=== PATIENT | male | born 1950 | race Hispanic/Latino ===

== ENCOUNTER 2018-08-23 13:10 | Emergency (ER) | payer OTHER ==
[2018-08-23 16:07] LABS: Urine Blood NEGATIVE (NEG); Urine Glucose NEGATIVE (NEG); Urine Protein NEGATIVE (NEG); Urine pH 5.5 (5.0-7.0)
--- NOTE | 2018-08-23 17:06 | RAD REPORT ---
EXAM DESCRIPTION: US - Scrotum Testicles - 08/23/2018 4:44 pm CLINICAL HISTORY: Scrotal pain COMPARISON: None. FINDINGS: Punctate calcifications are seen within the testicular tissue. No suspicious testicular ma ss. Small epididymal cysts are present. Largest cyst on the right is 6 mm. A small right-side varicoc brit is present. Large left epididymal cyst 2.4 cm in size. No hernia seen. No hydrocele. Doppler eval uation shows a normal testicular blood flow pattern. IMPRESSION: No testicular abnormality identified. Large left epididymal cyst 2.4 cm in size. Small right epididymal cysts are present largest at 6 mm. Right varicocele.
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
[2018-08-23 18:40] VITALS: BP 114/71; TEMP 98.5; O2SAT 98
== END 2018-08-23 17:50 | disposition home or self-care (01) ==
LOC: ER 13:10
DX: I86.1 Scrotal varices (principal); N50.3 Cyst of epididymis; E11.9 Type 2 diabetes mellitus without complications; I50.9 Heart failure, unspecified; F17.210 Nicotine dependence, cigarettes, uncomplicated
CPT/HCPCS: 76870; 81003; 99283

== ENCOUNTER 2019-01-21 06:50 | Day surgery (SDC) | payer OTHER ==
[2019-01-20 11:54] LABS: Absolute Lymphocytes (CBC) 2.4 K/uL (0.7-4.9); Absolute Monocytes 0.6 K/uL (0.1-1.3); Absolute Neutrophil 4.5 K/uL (1.8-8.0); Eosinophils % 2.3 % (0-4.4); Hematocrit 39.3 % (39.6-49.0); Lymphocytes % 30.7 % (15.3-44.8); MPV 9.7 fL (7.6-11.3); Monocytes % 7.7 % (3.3-12.3)
[2019-01-20 12:01] LABS: Protime INR 1.38
--- NOTE | 2019-01-20 12:05 | RAD REPORT ---
EXAM DESCRIPTION: RAD - Chest Pa And Lat (2 Views) - 01/20/2019 11:50 am CLINICAL HISTORY: Preop chest, pending cardiac catheterization COMPARISON: June 2015, May 2014 TECHNIQUE: PA and lateral views the chest obtained. FINDINGS: The lungs are normal volume. No failure, infiltrate or mass. Interstitial markings are mil dly prominent. Patient does not have a baseline examination. All prior study show some degree of cydney lure or volume overload. Prominence of interstitial pattern on today's study is believed to be baseli ne fibrotic change. Heart size is normal and central vasculature is within normal limits. No pleural effusion or pneumothorax seen. No acute bony finding noted. No aortic abnormality. IMPRESSION: No acute cardiopulmonary process. No suspicious change from comparison.
[2019-01-20 12:15] LABS: Potassium 4.5 mmol/L (3.5-5.1)
[2019-01-21] MEDS ORDERED: HEPA 1000U/500MLS 2,000 UNIT/1,000 ML BAG IV ONE (07:18)
[2019-01-21] MEDS ORDERED: LIDOCAINE 1% MPF 30 ML VIAL ONE (07:18)
[2019-01-21] MEDS ORDERED: NA CHLORIDE 0.9% 500 ML ONE (07:19)
[2019-01-21] MEDS ORDERED: FENTANYL CITR 100 MCG/2 ML ONE (08:17)
[2019-01-21] MEDS ORDERED: MIDAZOLAM HCL 2 MG/2 ML INJ ONE (08:17)
[2019-01-21] MEDS ORDERED: HEPARIN 5000 UNIT/ML 1 ML VIAL ONE (08:17)
[2019-01-21] MEDS ORDERED: NA CHLORIDE 0.9% 0 ML ONE (08:18)
[2019-01-21] MEDS ORDERED: NITROGLYCERIN/D5W 25 MG/250 ML BTL IV ONE (08:18)
[2019-01-21] MEDS ORDERED: NITROGLYCERIN 100 MCG/ML SYR (for cath lab use only) IV ONE (08:18)
[2019-01-21] MEDS ORDERED: ATROPINE SULF 1 MG/10 ML SYR IV ONE (08:18)
[2019-01-21] MEDS ORDERED: NICARDIPINE HCL 25 MG/10 ML IV ONE (08:18)
[2019-01-21] MEDS ORDERED: D50W 25 GM/50 ML SYRINGE IV PRN (09:45)
[2019-01-21] MEDS ORDERED: GLUCAGON 1 MG/VIAL IM PRN (09:45)
[2019-01-21] MEDS ORDERED: INSULIN -REGULAR HUMAN 50 UNIT/0.5 ML ML IV ONE (09:47)
[2019-01-21] MEDS ORDERED: INSULIN -REGULAR HUMAN 50 UNIT/0.5 ML ML ONE (10:06)
[2019-01-21 11:21] VITALS: BP 110/68; TEMP 97.2
[2019-01-21 11:23] VITALS: O2SAT 0
--- NOTE | 2019-01-22 11:41 | OP ---
Surgeon: Mariano Sanchez MD Procedures: Left heart catheterization, coronary, left ventricular angiography. Indication: Abnormal Cardiolite stress test. Depressed ejection fraction. Findings: The patient has normal coronary arteries. No plaque or calcification or mild stenosis. T hey are all completely normal. He has a normal right-dominant pattern. The left ventricular ejectio n fraction is mildly depressed, estimated 45%. Left ventricular end-diastolic pressure was low at 3 or normal. He was hypotensive during the procedure because we gave him nicardipine, but his blood pr essure before the procedure was 110/60, and he is in chronic atrial fibrillation. Procedure In Detail: The patient was brought to the cardiac laboratory supervisor in a fasting state, sedated wit h Versed and fentanyl. Prepared and draped in usual sterile fashion. Right radial approach used. W e anesthetized the skin over the right radial artery, entered it with a 21-gauge needle. Cannulated the artery with a 0.021 inch diameter guidewire and placed a 6-Sud[place] Terumo radial sheath. This was used to do the rest of the procedure. It was flushed. We gave the radial cocktail consisting of ni cardipine, heparin, nitroglycerin. A TIG catheter was guided to the ascending aorta using fluoroscop y and a [employer] Glidewire with a short radius J-tip. We used the TIG to angiogram right coronary, lef t coronary, and left ventricle. At the end of the procedure, the catheter was straightened out with a guidewire, withdrawn. The sheath was flushed, removed, and the arteriotomy was closed using a TR b and. Estimated Blood Loss: 5 cc. Complications: None. JOCELYN/RAI Voice ID: [id number] Report ID: [id number]
== END 2019-01-21 11:10 | disposition home health service (06) ==
LOC: CCL 06:50
PROVIDERS: ATTEND Internal Medicine
DX: R94.39 Abnormal result of other cardiovascular function study (principal); I42.8 Other cardiomyopathies; I48.2 Chronic atrial fibrillation; I20.8 Other forms of angina pectoris; I10 Essential (primary) hypertension; E11.9 Type 2 diabetes mellitus without complications; E78.2 Mixed hyperlipidemia; F17.210 Nicotine dependence, cigarettes, uncomplicated
CPT/HCPCS: 85025; 80048; 36415; 85610; 82962 ×2; 85730; 71046; 93458; C1893; J1644; J2250; J3010; J0583

== ENCOUNTER 2019-03-24 19:02 | Emergency (ER) | payer OTHER ==
[2019-03-24] MEDS ORDERED: ONDANSETRON 4 MG/2 ML VIAL ONE (19:41)
[2019-03-24 19:56] LABS: Absolute Lymphocytes (CBC) 1.5 K/uL (0.7-4.9); Basophils % 3.8 % (0-1.3); Hematocrit 41.2 % (39.6-49.0); Lymphocytes % 18.9 % (15.3-44.8); MPV 9.3 fL (7.6-11.3)
[2019-03-24] MEDS ORDERED: NA CHLORIDE 0.9% 1,000 ML ONE (20:00)
[2019-03-24] MEDS ORDERED: MORPHINE 4 MG/ML SYR ONE (20:06)
[2019-03-24 20:11] LABS: Albumin 3.8 g/dL (3.4-5.0); Bilirubin Direct 0.5 mg/dL (0-0.2); Bilirubin Total 1.2 mg/dL (0.2-1.0); Potassium 4.6 mmol/L (3.5-5.1); Protein, Total 7.8 g/dL (6.4-8.2)
[2019-03-24 20:35] LABS: Blood Morphology Comment NOT SEEN (NOT SEEN); Platelet Estimate ADEQ
[2019-03-24 21:24] LABS: Urine Blood NEGATIVE (NEG); Urine Glucose NEGATIVE (NEG); Urine Protein NEGATIVE (NEG); Urine Specific Gravity 1.015 (1.005-1.030)
[2019-03-24 21:30] LABS: Urine Bacteria <20 /HPF (NONE SEEN); Urine Culture Reflex Order NOT NEEDED; Urine RBC <5 /HPF (NONE SEEN)
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
[2019-03-25 01:29] VITALS: BP 133/70; TEMP 98.5; O2SAT 99
--- NOTE | 2019-03-25 10:22 | RAD REPORT ---
EXAM DESCRIPTION: CT - Abdomen Pelvis W Contrast - 03/25/2019 4:09 am CLINICAL HISTORY: 68 years Male ABD PAIN COMPARISON: None TECHNIQUE: Images were obtained in axial, sagittal, and coronal planes. Intravenous contrast was adm inistered. Arterial and venous phase imaging was performed in the axial projection. This exam was performed according to our departmental dose-optimization program which includes use of Automated Exposure Control, adjustment of the mA and/or kV according to patient size and/or use of i terative reconstruction technique. FINDINGS: Decreased attenuation involving the liver possibly fatty change. Unremarkable spleen, panc reas, and adrenal glands bilaterally. Gallstones versus sludge in region of the neck of gallbladder. Additional suspected gallstones in region of gallbladder fundus. No obstructing renal calcifications bilaterally. No hydronephrosis bilaterally. Unremarkable bladder. Left renal cyst. Postsurgical changes right inguinal region. Calcification abdominal aorta with no dilatation seen. Unremarkable portal vein. Appendix not well identified however no secondary signs for appendicitis. Moderate constipation. No b owel obstruction, perforation, or inflammation. Prior bowel anastomoses mid and left abdomen as well as rectosigmoid region. Midline ventral hernia which contains only mesenteric fat. Dependent atelectatic change lower lungs bilaterally. No acute osseous abnormality. Moderate degenerative change lumbar spine. IMPRESSION: Suspected gallstones and sludge within gallbladder. Multiple prior bowel anastomoses with no evidence for bowel obstruction or perforation. Fatty change involving the liver. Electronically signed by: Yahaira Cole MD 03/24/2019 11:10 PM CDT Due to temporary technical issues with the PACS/Fluency reporting system, reports are being signed by the in house radiologist as a courtesy to ensure prompt reporting. The interpreting radiologist is f ully responsible for the content of the report.
== END 2019-03-25 01:19 | disposition home or self-care (01) ==
LOC: ER 19:02
DX: K80.50 Calculus of bile duct without cholangitis or cholecystitis without obstruction (principal); I50.9 Heart failure, unspecified; I48.91 Unspecified atrial fibrillation; E11.9 Type 2 diabetes mellitus without complications; Z79.4 Long term (current) use of insulin; F17.210 Nicotine dependence, cigarettes, uncomplicated
CPT/HCPCS: 85025; 80048; 36415; 80076; 83690; 74177; Q9967; J7030; J2405; 81003; 81015

== ENCOUNTER 2021-03-14 12:00 | Emergency (ER) | payer OTHER ==
--- OUTSIDE RECORDS SUMMARY | 2021-03-14 12:04 | XMS REPORT | Continuity of Care Document ---
:1950 Author Organization [facility] t Address [address] [place] [address] Care Team Providers Name Role Phone Pcp MD, Arlen Primary Care Physician Unavailable CHRISTIANO COMBS Attending Clinician Unavail able JORGE DE LA CRUZ Admitting Clinician Unavailab le Problems Condition Condition Condition Status Onset Resolution Last Treating Co mments Source Name Details Category Date Date Treatment Clinician Date Abscess of Abscess of Disease Active [facility] Allergies, Adverse Reactions, Alerts This patient has no known allergies or adverse reactions. Family History Family Member Diagnosis Comments Start Date Stop Date Source Natural brother Unremarkable [facility] Natural daughter No Known Problem [facility] Natural father Unremarkable [facility] Natural mother Unremarkable [facility] Natural sister [facility] Natural sister Unremarkable [facility] Social History Social Habit Start Date Stop Date Quantity Comments Source History SDOH [facility] - Alcohol Std Drinks [facility] History SDOH [facility] - Alcohol Binge Medical [facility] Sex Assigned At [facility] History of tobacco Cigarette Smoker [facility] - use [facility] Cigarettes smoked 2019-11-09 2019-11-09 [facility] - current (pack per 00:00:00 00:00:00 Medical Center day) - Reported Cigarette 2019-11-09 2019-11-09 [facility] - pack-years 00:00:00 00:00:00 [facility] Tobacco use and 2019-11-09 2019-11-09 Never used [facility] - exposure 00:00:00 00:00:00 Medical Center Alcohol intake 2019-11-09 2019-11-09 [facility]00 of alcohol [facility] (finding) History SDOH 2019-11-09 2019-11-[address] [facility] - Alcohol Frequency 00:00:00 00:00:00 [facility] Alcohol Comment 2019-11-09 2019-11-09 5-10 beers and [address] [facility] - 00:00:00 00:00:00 shots of liquor a [facility] day Smoking Status Start Date Stop Date Source Current every day smoker 2019-11-09 00:00:00 [facility] Medications Ordered Filled Start Stop Current Ordering Indication Dosage Frequency Signature Comments Components Source Medication Medication Date Date Medication? Clinician (SIG) Name Name furosemide 2019-0 Yes 40mg QD Take 1 [facility] (LASIX) 40 3-20 tablet (40 Nick es - MG tablet 00:00: mg total) Med ical 00 by mouth Center daily. spironolact 2019-0 Yes 25mg QD Take [address] one 3-17 by mouth [facility] - (ALDACTONE) 14:42: daily. Medi eder 25 MG 10 Center tablet lisinopriL 2020-0 Yes 10mg QD Take [address] (PRINIVIL,Z 3-17 by mouth Luke s - ESTRIL) 10 14:42: daily. Medic al MG tablet 10 Center metoprolol 2019-0 Yes 25mg QD Take [address] succinate 3-17 by [facility] - (TOPROL-XL) 14:42: daily. Medi eder 25 MG 24 hr 10 Center tablet rivaroxaban 2020-0 Yes QD Take by [facility] (XARELTO) 3-17 [facility] - 20 mg Tab 14:42: daily . Medic al tablet 10 Center insulin 2020-0 Yes 55U Q.5D Inject 55 [facility] detemir 3-17 Units [facility] - U-100 14:42: subcutaneo Medica l (LEVEMIR 10 usly 2 Center FLEXTOUCH (two) U-100 times INSULN) 100 daily. unit/mL (3 mL) InPn injection HYDROcodone 2019-0 Yes 1{tbl} Q.2D Take [address] -acetaminop 3-17 tablet by Nick es - hen (NORCO 14:42: mouth 5 Medi eder 10-325) 10 (five) Center 10-325 mg times per tablet daily. Procedures This patient has no known procedures. Plan of Care Planned Activity Planned Date Details Comments Source Future Scheduled 2021-04-[address] [facility] - Test 00:00:00 (Season Ended) [code = Medic al Center INFLUENZA VACCINE (Season Ended)] Future Scheduled 2020-08-[address] [facility] - Test 00:00:00 (12+) [code = Medical Center DEPRESSION SCREENING (12+)] Future Scheduled 2020-05-[address] [facility] - Test 00:00:00 measurement [facility] (procedure) [code = 54300072] Future Scheduled 2016-05-[address] [facility] - Test 00:00:00 WELLNESS (YEAR 2 or Medical Center FIRST YEAR if no IPPE) [code = MEDICARE ANNUAL WELLNESS (YEAR 2 or FIRST YEAR if no IPPE)] Future Scheduled 2015 PNEUMOCOCCAL 65+ YRS [facility] - Test 00:00:00 (1 of 1 - Medical Center [id number] PCV13) [code = PNEUMOCOCCAL 65+ YRS (1 of 1 - [id number] PCV13)] Future Scheduled 2000 SHINGLES VACCINES ([address] [facility] - Test 00:00:00 of 2) [code = SHINGLES Medic al Center VACCINES (1 of 2)] Future Scheduled 1969 DTAP/TDAP/TD VACCINES [facility] - Test 00:00:00 (1 - Tdap) [code = Medical C enter DTAP/TDAP/TD VACCINES (1 - Tdap)] Future Scheduled 1968 HEPATITIS C SCREENING [facility] - Test 00:00:00 [code = HEPATITIS C Medical Center SCREENING] Future Scheduled 1962 COVID-19 VACCINE (1) [facility] - Test 00:00:00 [code = COVID-[address] VACCINE (1)] Future Scheduled 1960 DIABETIC EYE EXAM [facility] - Test 00:00:00 [code = DIABETIC EYE Medical Center EXAM] Future Scheduled 1960 Urine screening for [facility] - Test 00:00:00 protein (procedure) Medical Center [code = 272758863] Future Scheduled [address] [facility] - Test 00:00:00 malignant neoplasm of Medica l Center colon (procedure) [code = 293462514] Results Test Description Test Time Test Comments Results Result Comments Source BLOOD CULTURE 2019-11-14 11:00:00 Test Item Value Reference Range Interpretation Comme nts CULTURE (BEAKER) (test code = 1095) No growth in 5 days BLOOD [id number] 11:00:00 Test Item Value Reference Range Interpretation Comments CULTURE (BEAKER) (test No growth in 5 days code = 1095) POCT-GLUCOSE [id number] 12:19:00 Test Item Value Reference Range Interpretation Comments POC-GLUCOSE METER 250 mg/dL 70-110 H : TESTED A T [facility] [id number] (BEAKER) (test code [address] THE, = 1538) [place] [id number] 384: Dental Laboratory Manager/Techni anson ID = [id number] for Garth T y POCT-GLUCOSE [id number] 08:18:00 Test Item Value Reference Range Interpretation Comments POC-GLUCOSE METER 195 mg/dL 70-110 H : TESTED A T [facility] [id number] (BEAKER) (test code [address] THE, = 1538) [place] [id number] 384: Dental Laboratory Manager/Techni anson ID = [id number] for Garth, T y COMPREHENSIVE METABOLIC [id number] 05:40:00 Test Item Value Reference Range Interpretation Comments TOTAL PROTEIN 6.6 gm/dL 6.0-8.5 Specimen sligh tly (BEAKER) (test code = hemoly zed 770) ALBUMIN (BEAKER) 3.2 g/dL 3.5-5.0 L Specimen sl ightly (test code = 1145) hemolyzed ALKALINE PHOSPHATASE 132 U/L 30-115 H (BEAKER) (test code = 346) BILIRUBIN TOTAL 1.4 mg/dL 0.1-1.3 H Specimen sli ghtly (BEAKER) (test code = hemoly zed 377) SODIUM (BEAKER) (test 129 meq/L 135-148 L code = 381) POTASSIUM (BEAKER) 5.3 meq/L 3.5-5.5 Specimen slightly (test code = 379) hemolyzed CHLORIDE (BEAKER) 101 meq/L 98-106 (test code = 382) CO2 (BEAKER) (test 20 meq/L 20-31 code = 355) BLOOD UREA NITROGEN 18 mg/dL 10-26 (BEAKER) (test code = 354) CREATININE (BEAKER) 0.95 mg/dL 0.50-1.20 Specimen slightly (test code = 358) hemolyzed GLUCOSE RANDOM 240 mg/dL 70-110 H (BEAKER) (test code = 652) CALCIUM (BEAKER) 8.3 mg/dL 8.5-10.5 L (test code = 697) AST (SGOT) (BEAKER) 56 U/L 5-40 H Specimen slightly (test code = 353) hemolyzed ALT (SGPT) (BEAKER) 53 U/L 6-50 H Specimen slightly (test code = 347) hemolyzed EGFR (BEAKER) (test INSUFFIC IENT CLINICAL code = 1092) DATA TO CALCULA TE ESTIMATED GFR. Dental Laboratory Manager ID - [id number] 05:24:00 Test Item Value Reference Range Interpretation Comments HEMOGLOBIN A1C (BEAKER) (test code = 8.1 % 4.3-6.1 H 368) Dental Laboratory Manager ID - [id number] 21:31:00 Test Item Value Reference Range Interpretation Comments POC-GLUCOSE METER 300 mg/dL 70-110 H : TESTED A T [facility] [address]74 (BEAKER) (test code [address], = 1538) [place] [id number]: Dental Laboratory Manager/Techni anson ID = [id number] for D javyy, Yadi POCT-GLUCOSE [id number] 16:18:00 Test Item Value Reference Range Interpretation Comments POC-GLUCOSE METER 295 mg/dL 70-110 H : TESTED A T [facility] [id number] (BEAKER) (test code [address], = 1538) [place] [id number] 384: Dental Laboratory Manager/Techni anson ID = [id number] for D milton Marcela POCT-GLUCOSE [id number] 10:52:00 Test Item Value Reference Range Interpretation Comments POC-GLUCOSE METER 233 mg/dL 70-110 H : TESTED A T [facility] [id number] (BEAKER) (test code [facility] [address], = [address] [address]: Dental Laboratory Manager/Techni anson ID = [id number] for Marcela Gtz BASIC METABOLIC [id number] 10:34:00 Test Item Value Reference Range Interpretation Comments SODIUM (BEAKER) (test 127 meq/L 135-148 L code = 381) POTASSIUM (BEAKER) 4.5 meq/L 3.5-5.5 (test code = 379) CHLORIDE (BEAKER) 97 meq/L 98-106 L (test code = 382) CO2 (BEAKER) (test 20 meq/L 20-31 code = 355) BLOOD UREA NITROGEN 13 mg/dL 10-26 (BEAKER) (test code = 354) CREATININE (BEAKER) 0.79 mg/dL 0.50-1.20 (test code = 358) GLUCOSE RANDOM 238 mg/dL 70-110 H (BEAKER) (test code = 652) CALCIUM (BEAKER) 8.6 mg/dL 8.5-10.5 (test code = 697) EGFR (BEAKER) (test INSUFFIC IENT CLINICAL code = 1092) DATA TO CALCULA TE ESTIMATED GFR. Dental Laboratory Manager ID - [id number] METABOLIC [id number] 09:55:00 Test Item Value Reference Range Interpretation Comments TOTAL PROTEIN 8.6 gm/dL 6.0-8.5 H Specimen marke dly (BEAKER) (test code = hemoly zed 770) ALBUMIN (BEAKER) 3.7 g/dL 3.5-5.0 Specimen ma rkedly (test code = 1145) hemolyzed ALKALINE PHOSPHATASE 101 U/L 30-115 (BEAKER) (test code = 346) BILIRUBIN TOTAL 1.6 mg/dL 0.1-1.3 H Specimen mar kedly (BEAKER) (test code = hemoly zed 377) SODIUM (BEAKER) (test 125 meq/L 135-148 LL code = 381) POTASSIUM (BEAKER) 7.0 meq/L 3.5-5.5 HH Specimen markedly (test code = 379) hemolyzed CHLORIDE (BEAKER) 96 meq/L 98-106 L (test code = 382) CO2 (BEAKER) (test 15 meq/L 20-31 L code = 355) BLOOD UREA NITROGEN 14 mg/dL 10-26 (BEAKER) (test code = 354) CREATININE (BEAKER) 0.94 mg/dL 0.50-1.20 Specimen markedly (test code = 358) hemolyzed GLUCOSE RANDOM 233 mg/dL 70-110 H (BEAKER) (test code = 652) CALCIUM (BEAKER) 8.3 mg/dL 8.5-10.5 L (test code = 697) AST (SGOT) (BEAKER) 115 U/L 5-40 H Specimen markedly (test code = 353) hemolyzed ALT (SGPT) (BEAKER) 67 U/L 6-50 H Specimen markedly (test code = 347) hemolyzed EGFR (BEAKER) (test INSUFFIC IENT CLINICAL code = 1092) DATA TO CALCULA TE ESTIMATED GFR. Dental Laboratory Manager ID - [id number] slightly lipemicCBC W/PLT COUNT & AUTO [id number] 09:44:00 Test Item Value Reference Range Interpretation Comments WHITE BLOOD CELL COUNT (BEAKER) 11.9 K/ L 4.0-10.0 H (test code = 775) RED BLOOD CELL COUNT (BEAKER) 3.30 M/ L 4.20-5.80 L (test code = 761) HEMOGLOBIN (BEAKER) (test code = 11.6 GM/DL 13.0-16.8 L 410) HEMATOCRIT (BEAKER) (test code = 33.7 % 36.0-50.0 L 411) MEAN CORPUSCULAR VOLUME (BEAKER) 102.1 fL 82.0-99.0 H (test code = 753) MEAN CORPUSCULAR HEMOGLOBIN 35.2 pg 27.0-33.0 H (BEAKER) (test code = 751) MEAN CORPUSCULAR HEMOGLOBIN CONC 34.4 GM/DL 32.0-36.0 (BEAKER) (test code = 752) RED CELL DISTRIBUTION WIDTH 12.8 % 12.0-15.0 (BEAKER) (test code = 412) PLATELET COUNT (BEAKER) (test 160 K/CU MM 150-430 code = 756) MEAN PLATELET VOLUME (BEAKER) 12.1 fL 6.0-11.5 H (test code = 754) NUCLEATED RED BLOOD CELLS 0 /100 WBC 0-0 (BEAKER) (test code = 413) NEUTROPHILS RELATIVE PERCENT 66 % (BEAKER) (test code = 429) LYMPHOCYTES RELATIVE PERCENT 22 % (BEAKER) (test code = 430) MONOCYTES RELATIVE PERCENT 10 % (BEAKER) (test code = 431) EOSINOPHILS RELATIVE PERCENT 2 % (BEAKER) (test code = 432) BASOPHILS RELATIVE PERCENT 0 % (BEAKER) (test code = 437) NEUTROPHILS ABSOLUTE COUNT 7.87 K/ L 1.80-8.00 (BEAKER) (test code = 670) LYMPHOCYTES ABSOLUTE COUNT 2.57 K/ L 1.48-4.50 (BEAKER) (test code = 414) MONOCYTES ABSOLUTE COUNT (BEAKER) 1.14 K/ L 0.00-1.30 (test code = 415) EOSINOPHILS ABSOLUTE COUNT 0.20 K/ L 0.00-0.50 (BEAKER) (test code = 416) BASOPHILS ABSOLUTE COUNT (BEAKER) 0.05 K/ L 0.00-0.20 (test code = 417) IMMATURE GRANULOCYTES-RELATIVE 0 % 0-0 PERCENT (BEAKER) (test code = 5194)
[2021-03-14 13:08] LABS: Urine Blood Negative (Negative); Urine Glucose 3+ (Negative); Urine Protein 2+ (Negative); Urine Specific Gravity 1.025 (1.005-1.030); Urine pH 5.5 (5.0-7.0)
[2021-03-14 13:12] LABS: Absolute Lymphocytes (CBC) 1.8 K/uL (0.7-4.9); Basophils % 0.6 % (0-1.3); Hematocrit 36.8 % (39.6-49.0); Lymphocytes % 28.9 % (15.3-44.8); MPV 8.6 fL (7.6-11.3); RBC Red Blood Cell Count 3.65 M/uL (4.33-5.43)
[2021-03-14] MEDS ORDERED: MORPHINE 4 MG/ML SYR ONE (13:21)
[2021-03-14] MEDS ORDERED: ONDANSETRON 4 MG/2 ML VIAL ONE (13:21)
[2021-03-14 13:37] LABS: Albumin 3.2 g/dL (3.4-5.0); Bilirubin Direct 0.3 mg/dL (0-0.2); Potassium 4.7 mmol/L (3.5-5.1); Protein, Total 7.6 g/dL (6.4-8.2)
--- NOTE | 2021-03-14 14:13 | RAD REPORT ---
EXAM DESCRIPTION: CT - Abdomen Pelvis W Contrast - 03/14/2021 1:50 pm CLINICAL HISTORY: Abdominal pain/flank pain COMPARISON: 2019 TECHNIQUE: Computed axial tomography of the abdomen pelvis was obtained. 100 cc Isovue-300 was admin istered intravenously. Oral contrast was not requested which limits evaluation of bowel. All CT scans are performed using dose optimization technique as appropriate and may include automated exposure control or mA/KV adjustment according to patient size. FINDINGS: Mild fatty liver. Spleen, pancreas and adrenals are unremarkable. Small renal cysts. No hydronephrosis. Gallbladder distention. Gallstones. Focal thickening of wall of the gallbladder fundus without signif icant change. There is no evidence of diverticulitis. Postsurgical changes involve the bowel. Postsurgical changes right inguinal hernia repair. Prostate gland mildly enlarged. Atherosclerotic disease. Ventral hernia within the abdomen to the left of midline. The neck measures 17 millimeters. Herniated sac 58 millimeters. IMPRESSION: Gallbladder distention with cholelithiasis
[2021-03-14 14:44] LABS: Urine Bacteria <20 /HPF (NONE SEEN); Urine RBC <5 /HPF (NONE SEEN)
--- NOTE | 2021-03-14 16:09 | ER ---
Nurse's Notes [facility] Name: Deonte Armstrong Age: 70 yrs Sex: Male : 1950 Arrival Date: 03/14/2021 Time: 12:06 Bed 13 Private MD: Diagnosis: Low back pain;Muscle spasm of back;Dehydration Presentation: 03/14 12:15 Chief complaint: Patient states: R sided inguinal pain and nausea x approx 3 days, also ph reports vomiting, denies fever, diarrhea, or difficulty urinating. Coronavirus screen: Client denies travel out of the [place] in the last 14 days. At this time, the client does not indicate any symptoms associated with coronavirus-19. Ebola Screen: No symptoms or risks identified at this time. Initial Sepsis Screen: Does the patient meet any 2 criteria? No. Patient's initial sepsis screen is negative. Does the patient have a suspected source of infection? No. Patient's initial sepsis screen is negative. Risk Assessment: Do you want to hurt yourself or someone else? Patient reports no desire to harm self or others. Onset of symptoms was March 14, 2021. 12:15 Method Of Arrival: Ambulatory ph 12:15 Acuity: KAR[place] 3 ph Historical: - Allergies: 12:18 No Known Allergies; ph - Home Meds: 12:18 insulin [Active]; Lasix Oral [Active]; Xarelto Oral [Active]; ph - PMHx: 12:18 Atrial Fib; CHF; Diabetes - IDDM; ph - Immunization history:: Client reports having NOT received the Covid vaccine. - Social history:: Smoking status: Patient reports the use of cigarette tobacco products, smokes one-half pack cigarettes per day. Screenin:27 Abuse screen: Denies threats or abuse. Nutritional screening: No deficits noted. tw2 Tuberculosis screening: No symptoms or risk factors identified. Fall Risk Secondary diagnosis (15 points) impaired mobility. Assessment: 12:20 General: Appears in no apparent distress. well groomed, Behavior is calm, cooperative, tw2 appropriate for age. Pain: Complains of pain in right upper quadrant and right lower quadrant. Neuro: Level of Consciousness is awake, alert, obeys commands, Oriented to person, place, time, situation. Cardiovascular: Patient's skin is warm and dry. Respiratory: Airway is patent Respiratory effort is even, unlabored, Respiratory pattern is regular, symmetrical. GI: Reports lower abdominal pain, upper abdominal pain, nausea. : No signs and/or symptoms were reported regarding the genitourinary system. EENT: No signs and/or symptoms were reported regarding the EENT system. Derm: No signs and/or symptoms reported regarding the dermatologic system. Musculoskeletal: Range of motion: intact in all extremities. 13:30 Reassessment: Pt to CT . aa5 14:12 Reassessment: Patient appears in no apparent distress at this time. No changes from tw2 previously documented assessment. Patient and/or family updated on plan of care and expected duration. Pain level reassessed. Patient is alert, oriented x 3, equal unlabored respirations, skin warm/dry/pink. 15:25 Reassessment: Patient appears in no apparent distress at this time. No changes from tw2 previously documented assessment. Patient and/or family updated on plan of care and expected duration. Pain level reassessed. Patient is alert, oriented x 3, equal unlabored respirations, skin warm/dry/pink. 16:09 Reassessment: Patient appears in no apparent distress at this time. No changes from tw2 previously documented assessment. Patient and/or family updated on plan of care and expected duration. Pain level reassessed. Patient is alert, oriented x 3, equal unlabored respirations, skin warm/dry/pink. 16:27 Reassessment: provider at bedside at this time. tw2 16:42 Reassessment: No changes from previously documented assessment. Patient and/or family tw2 updated on plan of care and expected duration. Pain level reassessed. Patient is alert/active/playful, equal unlabored respirations, skin warm/dry/pink. Vital Signs: 12:15 BP 116 / 79; Pulse 98; Resp 18; Temp 97.0; Pulse Ox 99% on R/A; Weight 81.65 kg; Height ph 5 ft. 10 in. (177.80 cm); 14:12 BP 124 / 91; Pulse 99; Resp 17; Pulse Ox 100% ; tw2 15:25 BP 137 / 95; Pulse 97; Resp 17; Pulse Ox 99% on R/A; tw2 16:09 BP 125 / 87; Pulse 94; Resp 17; Pulse Ox 98% on R/A; tw2 12:15 Body Mass Index 25.83 (81.65 kg, 177.80 cm) ph ED Course: 12:06 Patient arrived in ED. am2 12:18 Triage completed. ph 12:19 Mychal Bazan NP is PHCP. pm1 12:19 Jermaine Ray MD is Attending Physician. pm1 12:19 Arm band placed on Patient placed in an exam room. ph 12:20 Bed in low position. Call light in reach. quality assurance monitor on. Pulse ox on. NIBP on. tw2 Warm blanket given. 12:49 Anna Aldridge RN is Primary Nurse. tw2 13:09 Urine Microscopic Only Sent. tw2 13:19 Missed attempt(s): 22 gauge in left forearm. Bleeding controlled, band aid applied, tw2 catheter tip intact. Missed attempt(s): 20 gauge in right antecubital area. blood collected per [employer] Medical TechnologiesJared, notified charge nurse LISA Harper of need for IV at this time.. Bleeding controlled, band aid applied, catheter tip intact. 13:25 Inserted saline lock: 24 gauge in right wrist, using aseptic technique. ,using aseptic aa5 technique. Diffusics IV used. 13:50 CT Abd/Pelvis - IV Contrast Only In Process Unspecified. EDMS 16:13 Awaiting: for provider to go over results with pt at this time PRIOR to discharge. tw2 16:42 No provider procedures requiring assistance completed. IV discontinued, intact, tw2 bleeding controlled, No redness/swelling at site. Pressure dressing applied. Administered Medications: 13:56 Drug: Zofran (Ondansetron) 4 mg Route: IVP; Site: left hand; tw2 14:26 Follow up: Response: No adverse reaction tw2 13:58 Drug: morphine 4 mg {Note: rass 0.} Route: IVP; Site: right hand; tw2 14:26 Follow up: Response: No adverse reaction; Pain is decreased; RASS: Alert and Calm (0) tw2 Outcome: 16:08 Discharge ordered by . pm1 16:42 Discharged to home ambulatory. tw2 16:42 Condition: stable 16:42 Discharge instructions given to patient, Instructed on discharge instructions, follow up and referral plans. medication usage, Demonstrated understanding of instructions, follow-up care, medications, Prescriptions given X 1. 16:43 Patient left the ED. tw2 Signatures: Dispatcher [employer] Meredith Bradshaw RN RN aa5 Mila Avila, RN RN ph Mychal Bazan, ROD MILL TENDER ROD MILL TENDER pm1 Anna Aldridge RN RN tw2 Krista Pratt am2
--- NOTE | 2021-03-14 16:09 | EDPHYS ---
Physician Documentation [facility] Name: Deonte Armstrong Age: 70 yrs Sex: Male : 1950 Arrival Date: 03/14/2021 Time: 12:06 Bed 13 Private MD: ED Physician Jermaine Ray HPI: 03/14 12:47 This 70 yrs old Male presents to ER via Ambulatory with complaints of Back pm1 Pain, Nausea. 12:47 The patient presents with pain that is acute. The symptoms are located in the left low pm1 back and left groin. Onset: The symptoms/episode began/occurred 3 day(s) ago. The pain does not radiate. Associated signs and symptoms: Pertinent positives: nausea and vomiting when pain is present. The problem was sustained possibly overexerted himself with exercise and reports recent injection to lower back for chronic pain and neuropathy by pain management. Modifying factors: The patient symptoms are alleviated by nothing, the patient symptoms are aggravated by movement. Severity of symptoms: in the emergency department the symptoms are unchanged. The patient has not experienced similar symptoms in the past. Historical: - Allergies: 12:18 No Known Allergies; ph - Home Meds: 12:18 insulin [Active]; Lasix Oral [Active]; Xarelto Oral [Active]; ph - PMHx: 12:18 Atrial Fib; CHF; Diabetes - IDDM; ph - Immunization history:: Client reports having NOT received the Covid vaccine. - Social history:: Smoking status: Patient reports the use of cigarette tobacco products, smokes one-half pack cigarettes per day. ROS: 12:47 Constitutional: Negative for fever, chills, and weight loss, Cardiovascular: Negative pm1 for chest pain, palpitations, and edema, Respiratory: Negative for shortness of breath, cough, wheezing, and pleuritic chest pain. 12:47 : Negative for injury, bleeding, discharge, and swelling, MS/Extremity: Negative for injury and deformity, Skin: Negative for injury, rash, and discoloration. 12:47 Neuro: Negative for headache, weakness, numbness, tingling, and seizure. 12:47 Abdomen/GI: Positive for nausea, vomiting, Negative for abdominal pain, diarrhea, constipation. 12:47 Back: Positive for pain with movement, of the left low back, pain. 12:47 All other systems are negative. Exam: 12:47 Constitutional: This is a well developed, well nourished patient who is awake, alert, pm1 and in no acute distress. Head/Face: Normocephalic, atraumatic. 12:47 Neck: Trachea midline, no thyromegaly or masses palpated, and no cervical lymphadenopathy. Supple, full range of motion without nuchal rigidity, or vertebral point tenderness. No Meningismus. Chest/axilla: Normal chest wall appearance and motion. Nontender with no deformity. No lesions are appreciated. 12:47 Skin: Warm, dry with normal turgor. Normal color with no rashes, no lesions, and no evidence of cellulitis. MS/ Extremity: Pulses equal, no cyanosis. Neurovascular intact. Full, normal range of motion. 12:47 Eyes: Exam is negative for acute changes, Extraocular movements: intact throughout, Conjunctiva: no acute changes, no injection. 12:47 ENT: Exam is negative for acute changes, Mouth: Lips: normal, moist, Oral mucosa: normal, pink and intact, moist. 12:47 Cardiovascular: Rate: normal, Rhythm: regular, Pulses: no pulse deficits are appreciated. 12:47 Respiratory: Exam negative for acute changes, respiratory distress, shortness of breath. 12:47 Abdomen/GI: Inspection: abdomen appears normal, Palpation: abdomen is soft and non-tender, in all quadrants. 12:47 Back: normal spinal alignment noted, vertebral tenderness, is not appreciated, muscle spasm, is appreciated in the left low back. 12:47 Neuro: Exam negative for acute changes, Orientation: is normal, Motor: is normal, moves all fours, Sensation: is normal, no obvious gross deficits. Vital Signs: 12:15 BP 116 / 79; Pulse 98; Resp 18; Temp 97.0; Pulse Ox 99% on R/A; Weight 81.65 kg; Height ph 5 ft. 10 in. (177.80 cm); 14:12 BP 124 / 91; Pulse 99; Resp 17; Pulse Ox 100% ; tw2 15:25 BP 137 / 95; Pulse 97; Resp 17; Pulse Ox 99% on R/A; tw2 16:09 BP 125 / 87; Pulse 94; Resp 17; Pulse Ox 98% on R/A; tw2 12:15 Body Mass Index 25.83 (81.65 kg, 177.80 cm) ph MDM: 12:45 Patient medically screened. pm1 16:04 Data reviewed: vital signs. Data interpreted: Pulse oximetry: on room air is 99 %. pm1 Interpretation: normal. 16:05 Counseling: I had a detailed discussion with the patient and/or guardian regarding: the pm1 historical points, exam findings, and any diagnostic results supporting the discharge/admit diagnosis, lab results, radiology results, the need for outpatient follow up, to return to the emergency department if symptoms worsen or persist or if there are any questions or concerns that arise at home. 16:36 ED course: Patient refused muscle relaxants. he actually is prescribed that from pain pm1 management but does not fill them. He does take hydrocodone for chronic pain, low back and neuropathy. 16:36 Special discussion: I discussed with the patient the need to follow-up with the pm1 PCP/specialist for the noted incidental finding on X-ray/CT scanning. cholelithiasis. 03/14 12:41 Order name: Basic Metabolic Panel; Complete Time: 15:15 pm1 03/14 12:41 Order name: CBC with Diff; Complete Time: 15:15 pm1 03/14 12:41 Order name: Hepatic Function; Complete Time: 15:15 pm1 03/14 12:41 Order name: Lipase; Complete Time: 15:15 pm1 03/14 12:41 Order name: Urine Microscopic Only; Complete Time: 15:15 pm1 03/14 12:48 Order name: Flu; Complete Time: 15:15 pm1 03/14 12:41 Order name: IV Saline Lock; Complete Time: 14:26 pm1 03/14 12:47 Order name: CT Abd/Pelvis - IV Contrast Only; Complete Time: 15:15 pm1 03/14 13:08 Order name: Urine Dipstick-Ancillary; Complete Time: 15:15 EDMS 03/14 14:16 Order name: SARS-COV-2 RT PCR; Complete Time: 15:15 EDMS 03/14 14:25 Order name: CREATININE WHOLE BLOOD; Complete Time: 15:15 EDMS 03/14 12:41 Order name: Labs collected and sent; Complete Time: 13:09 pm1 03/14 12:41 Order name: Urine Dipstick-Ancillary (obtain specimen); Complete Time: 13:09 pm1 Administered Medications: 13:56 Drug: Zofran (Ondansetron) 4 mg Route: IVP; Site: left hand; tw2 14:26 Follow up: Response: No adverse reaction tw2 13:58 Drug: morphine 4 mg {Note: rass 0.} Route: IVP; Site: right hand; tw2 14:26 Follow up: Response: No adverse reaction; Pain is decreased; RASS: Alert and Calm (0) tw2 Disposition: 03/15 07:07 Co-signature as Attending Physician, Jermaine Ray MD I agree with the assessment and kdr plan of care. Disposition Summary: 03/14/21 16:08 Discharge Ordered Location: Home pm1 Problem: new pm1 Symptoms: have improved pm1 Condition: Stable pm1 Diagnosis - Low back pain pm1 - Muscle spasm of back pm1 - Dehydration pm1 Followup: pm1 - With: Emergency Department - When: As needed - Reason: Worsening of condition Followup: pm1 - With: Private Physician - When: 2 - 3 days - Reason: Recheck today's complaints, Continuance of care, Re-evaluation by your physician Discharge Instructions: - Discharge Summary Sheet pm1 - Chronic Back Pain pm1 - Muscle Cramps and Spasms pm1 Forms: - Medication Reconciliation Form pm1 - Thank You Letter pm1 - Antibiotic Education pm1 - Prescription Opioid Use pm1 Prescriptions: - ondansetron 4 mg Oral tablet,disintegrating - take 1 tablet by ORAL route every 8 hours As needed; 20 tablet; Refills: 0, pm1 Product Selection Permitted Signatures: Dispatcher [employer] EDMS Jermaine Ray MD MD [facility] Mila Avila RN RN Mychal Bazan NP MIXER OPERATOR pm1 Anna Aldridge RN RN tw2 Corrections: (The following items were deleted from the chart) 03/14 13:21 12:48 CORONAVIRUS+MR.LAB.BRZ ordered. EDMS EDMS
[2021-03-14 17:44] VITALS: TEMP 97
[2021-03-14 17:50] VITALS: BP 125/87; O2SAT 98
== END 2021-03-14 16:43 | disposition home or self-care (01) ==
LOC: ER 12:00
DX: M62.830 Muscle spasm of back (principal); E86.0 Dehydration; E11.9 Type 2 diabetes mellitus without complications; I48.91 Unspecified atrial fibrillation; F17.210 Nicotine dependence, cigarettes, uncomplicated; Z79.4 Long term (current) use of insulin; Z79.01 Long term (current) use of anticoagulants; Z20.822 Contact with and (suspected) exposure to COVID-19
CPT/HCPCS: 85025; 80048; 36415; 82565; 80076; 83690; 87804 ×2; 74177; U0003; Q9967; J2405; 81003; 81015; 99284

== ENCOUNTER 2021-03-31 11:03 | Emergency (ER) | payer OTHER ==
--- OUTSIDE RECORDS SUMMARY | 2021-03-31 11:06 | XMS REPORT | Continuity of Care Document ---
:1950 Author Organization [facility] t Address [address] [place] [address] Care Team Providers Name Role Phone Pcp [...] Date Stop Date Source Natural brother Unremarkable [facility] Natural daughter No Known Problem [facility] Natural father Unremarkable [facility] Natural mother Unremarkable [facility] Natural sister Cancer [facility] Natural sister Unremarkable [facility] Social History Social Habit Start Date Stop Date Quantity Comments Source History SDOH [facility] - Alcohol Std Drinks [facility] History SDOH [facility] kes - Alcohol Binge [facility] Sex Assigned At [facility] History of tobacco Cigarette Smoker [facility] - use [facility] Cigarettes smoked 2019-11-09 2019-11-09 [facility] - current (pack per 00:00:00 00:00:00 Medical Center day) - Reported Cigarette 2019-11-09 2019-11-09 [facility] - pack-years 00:00:00 00:00:00 [facility] Tobacco use and 2019-11-09 2019-11-09 Never used [facility] - exposure 00:00:00 00:00:00 Medical Center Alcohol intake 2019-11-09 2019-11-09 Current drinker [facility] - 00:00:00 00:00:00 of alcohol [facility] Center (finding) History SDOH 2019-11-09 2019-11-[address] [facility] - Alcohol Frequency 00:00:00 00:00:00 [facility] Alcohol Comment 2019-11-09 2019-11-09 5-10 beers and [address] [facility] - 00:00:00 00:00:00 shots of liquor a Medical Center day Smoking Status Start Date Stop Date Source Current every day smoker 2019-11-09 00:00:00 [facility] Medications Ordered Filled Start Stop Current Ordering [...] [facility] - Test 00:00:00 measurement [facility] Center (procedure) [code = 43254971] Future Scheduled 2016-05-[address] [facility] - Test 00:00:00 WELLNESS (YEAR 2 or Medical Center FIRST YEAR if no IPPE) [code = MEDICARE ANNUAL WELLNESS (YEAR 2 or FIRST YEAR if no IPPE)] Future Scheduled 2015 PNEUMOCOCCAL 65+ YRS [facility] - Test 00:00:00 (1 of 1 - Medical Center [id number] PCV13) [code = PNEUMOCOCCAL 65+ YRS (1 of 1 - [id number] PCV13)] Future Scheduled 2000 SHINGLES VACCINES (1 [...] 00:00:00 protein (procedure) Medical Center [code = 542823997] Future Scheduled [address] [facility] - Test 00:00:00 malignant neoplasm of [facility] Center colon (procedure) [code = 786414178] Results Test Description Test Time Test Comments Results Result Comments Source BLOOD CULTURE 2019-11-14 11:00:00 Test Item Value Reference Range Interpretation Comme nts CULTURE (BEAKER) (test code = 1095) No growth in 5 days BLOOD [id number] 11:00:00 Test Item Value Reference Range Interpretation Comments CULTURE (BEAKER) (test No growth in 5 days code = 1095) POCT-GLUCOSE [id number] 12:19:00 Test Item Value Reference Range Interpretation Comments POC-GLUCOSE METER 250 mg/dL 70-110 H : TESTED A T [facility] [address] (BEAKER) (test code [address], = 1538) [place] [address] 384: Imager/Techni anson ID = [id number] for Garth T y POCT-GLUCOSE [id number] 08:18:00 Test Item Value Reference Range Interpretation Comments POC-GLUCOSE METER 195 mg/dL 70-110 H : TESTED A T [facility] [address] (BEAKER) (test code [address], = 1538) [place] [address] 384: Imager/Techni anson ID = [id number] for Garth, T y COMPREHENSIVE METABOLIC [id number] 05:40:00 Test Item Value Reference Range Interpretation [...] 1092) DATA TO CALCULA TE ESTIMATED GFR. Imager ID - [id number] 05:24:00 Test Item Value Reference Range Interpretation Comments HEMOGLOBIN A1C (BEAKER) (test code = 8.1 % 4.3-6.1 H 368) Imager ID - [id number] 21:31:00 Test Item Value Reference Range Interpretation Comments POC-GLUCOSE METER 300 mg/dL 70-110 H : TESTED A T [facility] [address]807 (BEAKER) (test code [facility] [employer] [address] THE, = 1538) [place] [address] 384: Imager/Techni anson ID = [id number] for D javyy, Yadi POCT-GLUCOSE [id number] 16:18:00 Test Item Value Reference Range Interpretation Comments POC-GLUCOSE METER 295 mg/dL 70-110 H : TESTED A T [facility] [address] (BEAKER) (test code [facility] [employer] [address] THE, = 1538) [place] [address] 384: Imager/Techni anson ID = [id number] for D milton Marcela POCT-GLUCOSE [id number] 10:52:00 Test Item Value Reference Range Interpretation Comments POC-GLUCOSE METER 233 mg/dL 70-110 H : TESTED A T [facility] [address] (BEAKER) (test code [facility] [address] [facility], = [address] [address] 384: Imager/Techni anson ID = [id number] for Marcela Gtz BASIC METABOLIC [id number] 10:34:00 Test Item Value Reference Range Interpretation [...] 1092) DATA TO CALCULA TE ESTIMATED GFR. Imager ID - [id number] METABOLIC [id number] 09:55:00 Test Item Value Reference Range Interpretation [...] 1092) DATA TO CALCULA TE ESTIMATED GFR. Imager ID - [id number] slightly lipemicCBC W/PLT COUNT & AUTO [id number] 09:44:00 Test Item Value Reference Range Interpretation [...] % 0-0 PERCENT (BEAKER) (test code = 7861)
[2021-03-31 12:05] LABS: Urine Blood Negative (Negative); Urine Glucose 1+ (Negative); Urine Protein 1+ (Negative); Urine Specific Gravity 1.015 (1.005-1.030)
--- NOTE | 2021-03-31 14:34 | RAD REPORT ---
EXAM DESCRIPTION: RAD - Hip Left 2 View - 03/31/2021 2:23 pm CLINICAL HISTORY: PAIN COMPARISON: No comparisons FINDINGS: Mild arthritic changes involve the left hip. No fracture, dislocation or AVN pattern.
--- NOTE | 2021-03-31 15:59 | EDPHYS ---
Physician Documentation [facility] Name: Deonte Armstrong Age: 70 yrs Sex: Male : 1950 Arrival Date: 03/31/2021 Time: 11:04 Bed Waiting Private MD: ED Physician Jermaine Ray HPI: 03/31 12:49 This 70 yrs old Male presents to ER via Ambulatory with complaints of Left hip jr8 pain. 12:49 Patient presents to ER with complaint of left hip and left lower quadrant pain that has jr8 been present for 4 weeks with no improvement or relief from prescribed pain medications. Patient also reports palpitations for one day.. Historical: - Allergies: 11:31 No Known Allergies; kg - Home Meds: 11:31 lisinopril 10 mg Oral tab 1 tab once daily [Active]; metoprolol tartrate 100 mg Oral kg tab 1 tab once daily [Active]; tizanidine 4 mg oral cap 1 cap 3 times per day [Active]; Xarelto 20 mg oral tab 1 tab once daily [Active]; [place] 10-325 mg Oral tab every 4-6 hours [Active]; furosemide 40 mg Oral tab 1 tab once daily [Active]; spironolactone 25 mg Oral tab 1 tab once daily [Active]; meloxicam 15 mg oral tab 1 tab [Active]; 11:34 Levemir FlexTouch U-100 Insuln 100 unit/mL (3 mL) subcutaneous inpn [Active]; kg - PMHx: 11:31 Atrial Fib; CHF; Diabetes - IDDM; kg - PSHx: 11:31 hernia repair; kg - Immunization history:: Adult Immunizations not up to date, Client reports having NOT received the Covid vaccine. - Social history:: Smoking status: Patient reports the use of cigarette tobacco products, smokes one pack cigarettes per day. Patient uses alcohol, on a daily basis. ROS: 12:49 Eyes: Negative for injury, pain, redness, and discharge, ENT: Negative for injury, jr8 pain, and discharge, Neck: Negative for injury, pain, and swelling, Respiratory: Negative for shortness of breath, cough, wheezing, and pleuritic chest pain, Abdomen/GI: Negative for abdominal pain, nausea, vomiting, diarrhea, and constipation, Back: Negative for injury and pain, Skin: Negative for injury, rash, and discoloration, Neuro: Negative for headache, weakness, numbness, tingling, and seizure. 12:49 Cardiovascular: Positive for palpitations, Negative for chest pain, edema, orthopnea. 12:49 MS/extremity: Positive for pain, of the left hip. Exam: 12:49 Constitutional: This is a well developed, well nourished patient who is awake, alert, jr8 and in no acute distress. Neck: Trachea midline, no thyromegaly or masses palpated, and no cervical lymphadenopathy. Supple, full range of motion without nuchal rigidity, or vertebral point tenderness. No Meningismus. Cardiovascular: Regular rate and rhythm with a normal S1 and S2. No gallops, murmurs, or rubs. Normal PMI, no JVD. No pulse deficits. Respiratory: Lungs have equal breath sounds bilaterally, clear to auscultation and percussion. No rales, rhonchi or wheezes noted. No increased work of breathing, no retractions or nasal flaring. Abdomen/GI: Soft, non-tender, with normal bowel sounds. No distension or tympany. No guarding or rebound. No evidence of tenderness throughout. Back: No spinal tenderness. No costovertebral tenderness. Full range of motion. Skin: Warm, dry with normal turgor. Normal color with no rashes, no lesions, and no evidence of cellulitis. Neuro: Awake and alert, GCS 15, oriented to person, place, time, and situation. Cranial nerves II-XII grossly intact. Motor strength 5/5 in all extremities. Sensory grossly intact. Cerebellar exam normal. Normal gait. 12:49 Musculoskeletal/extremity: Extremities: grossly normal except: noted in the left hip: pain, tenderness, left inguinal region, ROM: intact in all extremities, full active range of motion, full passive range of motion, limited active range of motion due to pain, limited passive range of motion due to pain, Circulation is intact in all extremities. Sensation intact. Vital Signs: 11:27 BP 143 / 99; Pulse 99; Resp 20; Temp 98.6(TE); Pulse Ox 100% on R/A; Weight 81.65 kg kg (R); Height 5 ft. 10 in. (177.80 cm) (R); Pain 10/10; 11:27 Body Mass Index 25.83 (81.65 kg, 177.80 cm) kg MDM: 12:21 Patient medically screened. jr8 15:57 Data reviewed: vital signs, nurses notes, old medical records, radiologic studies, jr8 plain films. Data interpreted: Pulse oximetry: on room air is 100 %. Interpretation: normal. Counseling: I had a detailed discussion with the patient and/or guardian regarding: the historical points, exam findings, and any diagnostic results supporting the discharge/admit diagnosis, radiology results, the need for outpatient follow up, a orthopedic surgeon, to return to the emergency department if symptoms worsen or persist or if there are any questions or concerns that arise at home. ED course: Discussed with patient that I reviewed his old medical records including blood work and CT along with the plain films today. Patient seems to have continued left hip pain but can ambulate. Patient has chronic low back issues. Discussed with him that it could be either radicular pain from lumbar region or continued issue with his hip. At this time recommended that he have MRI of low back and hip. We need to follow-up with orthospine or neurosurgery. Patient understood plan and will follow up.. 03/31 12:05 Order name: Urine Dipstick-Ancillary; Complete Time: 12:22 EDMS 03/31 13:38 Order name: XRAY Hip LEFT 2 view; Complete Time: 15:30 jr8 03/31 15:32 Order name: EKG - Nurse/Tech jr8 Administered Medications: 16:07 Drug: [place] (HYDROcodone-acetaminophen) (7.5 mg-325 mg) 1 tabs Route: PO; kg Disposition Summary: 03/31/21 15:59 Discharge Ordered Location: Home jr8 Problem: new jr8 Symptoms: have improved jr8 Condition: Stable jr8 Diagnosis - Radiculopathy, lumbar region jr8 Followup: jr8 - With: Private Physician - When: 1 week - Reason: Recheck today's complaints, Continuance of care, Re-evaluation by your physician Discharge Instructions: - Discharge Summary Sheet jr8 - Lumbosacral Radiculopathy jr8 - Neuropathic Pain jr8 Forms: - Medication Reconciliation Form jr8 - Thank You Letter jr8 - Antibiotic Education jr8 - Prescription Opioid Use jr8 Addendum: 04/01/2021 18:11 Co-signature as Attending Physician, Jermaine Ray MD I agree with the assessment and k dr plan of care. Signatures: Dispatcher [employer] EDWY Jremaine Ray MD MD [facility] Franck Coffman PA PA jr8 Luisa Savage, RN RN kg Corrections: (The following items were deleted from the chart) 03/31 16:02 16:01 This 70 yrs old Male presents to ER via Ambulatory with complaints of jr8 Left hip pain. jr8
--- NOTE | 2021-03-31 15:59 | ER ---
Nurse's Notes [facility] Name: Deonte Armstrong Age: 70 yrs Sex: Male : 1950 Arrival Date: 03/31/2021 Time: 11:04 Bed Waiting Private MD: Diagnosis: Radiculopathy, lumbar region Presentation: 03/31 11:27 Chief complaint: Patient states: Pt stated, " My pulse feels real erratic, SOB, Left kg hip pain, and pain in lower left abdomen x 4 wks.". Coronavirus screen: Client denies travel out of the [place] in the last 14 days. At this time, unable to obtain information related to travel outside the [place] Ebola Screen: Patient negative for fever greater than or equal to 101.5 degrees Fahrenheit, and additional compatible Ebola Virus Disease symptoms Patient denies exposure to infectious person. Patient denies travel to an Ebola-affected area in the 21 days before illness onset. Initial Sepsis Screen: Does the patient meet any 2 criteria? No. Patient's initial sepsis screen is negative. Does the patient have a suspected source of infection? No. Patient's initial sepsis screen is negative. Risk Assessment: Do you want to hurt yourself or someone else? Patient reports no desire to harm self or others. Onset of symptoms was March 10, 2021. 11:27 Method Of Arrival: Ambulatory kg 11:27 Acuity: KAROLINA 3 kg Triage Assessment: 11:34 General: Appears in no apparent distress. Behavior is calm, cooperative, appropriate kg for age, quiet. Pain: Complains of pain in left lower quadrant. Respiratory: Reports shortness of breath When the pain hits Onset: The symptoms/episode began/occurred gradually, the patient has moderate shortness of breath. Historical: - Allergies: 11:31 No Known Allergies; kg - Home Meds: 11:31 lisinopril 10 mg Oral tab 1 tab once daily [Active]; metoprolol tartrate 100 mg Oral kg tab 1 tab once daily [Active]; tizanidine 4 mg oral cap 1 cap 3 times per day [Active]; Xarelto 20 mg oral tab 1 tab once daily [Active]; [place] 10-325 mg Oral tab every 4-6 hours [Active]; furosemide 40 mg Oral tab 1 tab once daily [Active]; spironolactone 25 mg Oral tab 1 tab once daily [Active]; meloxicam 15 mg oral tab 1 tab [Active]; 11:34 Levemir FlexTouch U-100 Insuln 100 unit/mL (3 mL) subcutaneous inpn [Active]; kg - PMHx: 11:31 Atrial Fib; CHF; Diabetes - IDDM; kg - PSHx: 11:31 hernia repair; kg - Immunization history:: Adult Immunizations not up to date, Client reports having NOT received the Covid vaccine. - Social history:: Smoking status: Patient reports the use of cigarette tobacco products, smokes one pack cigarettes per day. Patient uses alcohol, on a daily basis. Screenin:38 Abuse screen: Denies threats or abuse. Denies injuries from another. Nutritional kg screening: No deficits noted. Tuberculosis screening: No symptoms or risk factors identified. Fall Risk Fall in past 12 months (25 points). Secondary diagnosis (15 points) impaired mobility, No IV (0 pts). Ambulatory Aid- Crutches/Cane/Walker (15 pts). Gait- Weak (10 pts.). Mental Status- Oriented to own ability (0 pts). Total Rutherford Fall Scale indicates Low Risk Score (25-44 pts). Assessment: 16:07 Cardiovascular: Rhythm is regular. Respiratory: Airway is patent Respiratory effort is kg even, unlabored, relaxed, Breath sounds are clear bilaterally. Vital Signs: 11:27 BP 143 / 99; Pulse 99; Resp 20; Temp 98.6(TE); Pulse Ox 100% on R/A; Weight 81.65 kg kg (R); Height 5 ft. 10 in. (177.80 cm) (R); Pain 10/10; 11:27 Body Mass Index 25.83 (81.65 kg, 177.80 cm) kg ED Course: 11:04 Patient arrived in ED. as 11:30 Triage completed. kg 11:34 Arm band placed on. kg 12:21 Franck Coffman PA is PHCP. jr8 12:21 Jermaine Ray MD is Attending Physician. jr8 14:23 XRAY Hip LEFT 2 view In Process Unspecified. EDMS 16:08 No provider procedures requiring assistance completed. kg Administered Medications: 16:07 Drug: [place] (HYDROcodone-acetaminophen) (7.5 mg-325 mg) 1 tabs Route: PO; kg Outcome: 15:59 Discharge ordered by MD. nevarez 16:08 Patient left the ED. geri Signatures: Dispatcher [employer] Dee Dee Mccann Josh, PA PA jrLuisa Costa, RN RN kg Corrections: (The following items were deleted from the chart) 11:39 11:27 Chief complaint: Patient states: Pt stated, " My pulse feels real erratic, SOB, kg and pain in lower left abdomen x 4 wks." kg
[2021-03-31 16:19] VITALS: BP 143/99; TEMP 98.6; O2SAT 100
[2021-03-31] MEDS ORDERED: HYDROCODONE/APAP 7.5/325 MG TAB ONE (16:28)
== END 2021-03-31 16:08 | disposition home or self-care (01) ==
LOC: ER 11:03
DX: M54.16 Radiculopathy, lumbar region (principal); E11.9 Type 2 diabetes mellitus without complications; I48.91 Unspecified atrial fibrillation; F17.210 Nicotine dependence, cigarettes, uncomplicated; Z79.01 Long term (current) use of anticoagulants
CPT/HCPCS: 81003; 99283

== ENCOUNTER 2021-08-14 12:44 | Inpatient (IN) | payer OTHER ==
--- OUTSIDE RECORDS SUMMARY | 2021-08-14 12:47 | XMS REPORT | Continuity of Care Document ---
:1950 Author Organization Formerly [facility] t Address [address] [place] [address] Care Team Providers Name Role Phone CHRISTIANO COMBS Attending Clinician Unavail able JORGE DE LA CRUZ Admitting Clinician Unavailab le Problems This patient has no known problems. Allergies, Adverse Reactions, Alerts Allergy Allergy Status Severity Reaction(s) Onset Inactive Treating Comm ents Source Name Type Date Date Clinician NO KNOWN Allergy Active [facility] Medications This patient has no known medications. Procedures This patient has no known procedures. Encounters Start End Encounter Admission Attending Care Care Encounter Source Date/Time Date/Time Type Type Clinicians Facility Department ID 2019-12-01 2019-12-01 Outpatient [facility] [id number] [id number] [facility] [address] 00:00:00 00:00:00 [id number] [facility] 2019-11-09 2019-11-09 Emergency [facility] [id number] -2 [facility] 08:08:00 08:08:00 [id number] Results Test Description Test Time Test Comments Results Result Comments Source BLOOD CULTURE 2019-11-14 11:00:00 Test Item Value Reference Range Interpretation Comme nts CULTURE (BEAKER) (test code = 1095) No growth in 5 days BLOOD [id number] 11:00:00 Test Item Value Reference Range Interpretation Comments CULTURE (BEAKER) (test No growth in 5 days code = 1095) POCT-GLUCOSE [id number] 12:19:00 Test Item Value Reference Range Interpretation Comments POC-GLUCOSE METER 250 mg/dL 70-110 H : [place] [id number] (BEAKER) (test code [facility] [address] [facility], = 1538) [place] [address] 384: [employer] [facility]Techni anson ID = [id number] for Garth, T y POCT-GLUCOSE [id number] 08:18:00 Test Item Value Reference Range Interpretation Comments POC-GLUCOSE METER 195 mg/dL 70-110 H : TESTED A T [facility] [id number] (BEAKER) (test code [address], = 1538) [place] [address] 384: [employer] [facility]/Techni anson ID = [id number] for Bacilio Liang COMPREHENSIVE METABOLIC [id number] 05:40:00 Test Item Value Reference Range Interpretation [...] 1092) DATA TO CALCULA TE ESTIMATED GFR. [facility] ID - [id number] 05:24:00 Test Item Value Reference Range Interpretation Comments HEMOGLOBIN A1C (BEAKER) (test code = 8.1 % 4.3-6.1 H 368) [facility] ID - [id number] 21:31:00 Test Item Value Reference Range Interpretation Comments POC-GLUCOSE METER 300 mg/dL 70-110 H : TESTED A T [facility] [address] (BEAKER) (test code [facility] [address], = 1538) [place] [address] 384: [employer]/Techni anson ID = [id number] for D Yadi herrera POCT-GLUCOSE [id number] 16:18:00 Test Item Value Reference Range Interpretation Comments POC-GLUCOSE METER 295 mg/dL 70-110 H : TESTED A T [facility] [address] (BEAKER) (test code [address], = 1538) [place] [address] 384: [employer]anny/Techni anson ID = [id number] for Marcela Gtz POCT-GLUCOSE [id number] 10:52:00 Test Item Value Reference Range Interpretation Comments POC-GLUCOSE METER 233 mg/dL 70-110 H : TESTED A T [facility] [address] (BEAKER) (test code [address], = 1538) [place] [address] 384: [employer]anny/Techni anson ID = [id number] for Marcela Gtz BASIC METABOLIC [id number] 10:34:00 Test Item Value Reference Range Interpretation [...] 1092) DATA TO CALCULA TE ESTIMATED GFR. [facility]anny ID - [id number] METABOLIC [id number] 09:55:00 Test Item Value Reference Range Interpretation [...] 1092) DATA TO CALCULA TE ESTIMATED GFR. [employer] [facility]anny ID - [id number] slightly lipemicCBC W/PLT COUNT & AUTO [id number] 09:44:00 Test Item Value Reference Range Interpretation [...] % 0-0 PERCENT (BEAKER) (test code = 2801)
[2021-08-14] MEDS ORDERED: BENZONATATE 100 MG CAP PO ONE (14:31)
[2021-08-14] MEDS ORDERED: ACETAMINOPHEN 500 MG TAB ONE (14:31)
[2021-08-14 14:37] LABS: Absolute Lymphocytes (CBC) 1.6 K/uL (0.7-4.9); Basophils % 0.6 % (0-1.3); Hematocrit 33.5 % (39.6-49.0); Lymphocytes % 13.9 % (15.3-44.8); MPV 8.9 fL (7.6-11.3); RBC Red Blood Cell Count 3.46 M/uL (4.33-5.43)
[2021-08-14 14:44] LABS: Protime INR 1.29
[2021-08-14 14:58] LABS: ALT/SGPT 27 U/L (12-78); AST/SGOT 29 U/L (15-37); Albumin 2.6 g/dL (3.4-5.0); Alkaline Phosphatase 176 U/L (45-117); BUN Blood Urea Nitrogen 14 mg/dL (7-18); Bicarbonate 23 mmol/L (21-32); Bilirubin Direct 0.4 mg/dL (0-0.2); Bilirubin Total 1.1 mg/dL (0.2-1.0); Glucose Level 310 mg/dL (74-106); Magnesium 1.7 mg/dL (1.8-2.4); NT PRO-BNP 795 pg/mL (<125); Potassium 4.9 mmol/L (3.5-5.1); Protein, Total 7.3 g/dL (6.4-8.2); Sodium Level 128 mmol/L (136-145); Troponin (Emerg Dept Use Only) < 0.02 ng/mL (0.0-0.045)
--- NOTE | 2021-08-14 14:59 | RAD REPORT ---
EXAM DESCRIPTION: RAD - Chest Single View - 08/14/2021 2:32 pm CLINICAL HISTORY: COUGH COMPARISON: December 2018 TECHNIQUE: AP portable chest image was obtained 08/14/2021 2:32 pm . FINDINGS: No dense mass or consolidation. Interstitial markings are increased over the baseline appe arance in 2019. Superimposed interstitial edema or infiltrate suspected. Heart and vasculature are no rmal. No measurable pleural effusion and no pneumothorax. No acute bony abnormality seen. No acute ao rtic findings suspected. IMPRESSION: Diffusely prominent interstitial pattern increased over baseline. Interstitial edema or infiltrate suspected.
[2021-08-14] MEDS ORDERED: VANCOMYCIN 1 GM/VIAL ONE (15:18)
[2021-08-14] MEDS ORDERED: METOPROLOL XL 50 MG TAB PO ONE (15:18)
[2021-08-14] MEDS ORDERED: METOPROLOL TARTRATE 5 MG/5 ML INJ IV ONE (15:18)
[2021-08-14] MEDS ORDERED: CEFEPIME 1 GM/VIAL ONE (15:18)
[2021-08-14] MEDS ORDERED: NA CHLORIDE 0.9% 100 ML ONE ×2 (15:19→20:45)
[2021-08-14] MEDS ORDERED: NA CHLORIDE 0.9% 250 ML ONE (15:19)
[2021-08-14] MEDS ORDERED: MORPHINE 4 MG/ML SYR ONE (16:13)
[2021-08-14] MEDS ORDERED: ONDANSETRON 4 MG/2 ML VIAL ONE (16:13)
[2021-08-14 16:19] LABS: SARS-COV-2 RT PCR NEGATIVE (NEGATIVE)
[2021-08-14] MEDS ORDERED: IBUPROFEN 400 MG TAB ONE (16:19)
--- NOTE | 2021-08-14 16:35 | ER ---
Nurse's Notes [facility] Name: Deonte Armstrong Age: 71 yrs Sex: Male : 1950 Arrival Date: 08/14/2021 Time: 12:48 Bed 14 Private MD: Diagnosis: Cutaneous abscess of head [any part, except face];Chronic atrial fibrillation;Unspecified combined systolic (congestive) and diastolic (congestive) heart failure Presentation: 08/14 13:23 Chief complaint: Patient states: 1. Cough for 8-10 days, slowly getting better with OTC ll1 meds. 2. Abscess to back of head for 5 days, no drainage at this time. No fevers. Coronavirus screen: Client denies travel out of the [place] in the last 14 days. cough unrelated to allergies, Client presents with at least one sign or symptom that may indicate coronavirus-19. Standard/surgical mask placed on the client. Ebola Screen: Patient denies travel to an Ebola-affected area in the 21 days before illness onset. Initial Sepsis Screen: Does the patient meet any 2 criteria? No. Patient's initial sepsis screen is negative. Does the patient have a suspected source of infection? Yes: Skin breakdown/wound. Risk Assessment: Do you want to hurt yourself or someone else? Patient reports no desire to harm self or others. Onset of symptoms was August 04, 2021. 13:23 Method Of Arrival: Ambulatory 1 13:23 Acuity: KAROLINA 3 ll1 Triage Assessment: 13:26 General: Appears uncomfortable, Behavior is calm, cooperative, appropriate for age. ll1 Pain: Complains of pain in back of head Quality of pain is described as aching, Aggravated by increased activity, weight bearing. Neuro: No deficits noted. Cardiovascular: No deficits noted. Respiratory: Reports cough that is non-productive, Airway is patent Trachea midline Respiratory effort is even, unlabored, Respiratory pattern is regular, symmetrical, the patient has mild shortness of breath. Derm: Reports abscess to back of head, no drainage at this time. Historical: - Allergies: 13:25 No Known Allergies; ll1 - PMHx: 13:25 Atrial Fib; CHF; Diabetes - IDDM; ll1 - PSHx: 13:25 hernia repair; ll1 - Immunization history:: Adult Immunizations up to date. - Social history:: Smoking status: Patient denies any tobacco usage or history of. Screenin:56 Abuse screen: Denies threats or abuse. Nutritional screening: No deficits noted. ll1 Tuberculosis screening: No symptoms or risk factors identified. 18:12 Fall Risk IV access (20 points). Total Rutherford Fall Scale indicates No Risk (0-24 pts). ll1 Assessment: 14:20 Reassessment: No changes from previously documented assessment. Patient and/or family ll1 updated on plan of care and expected duration. Pain level reassessed. Patient is alert, oriented x 3, equal unlabored respirations, skin warm/dry/pink. 15:20 Reassessment: No changes from previously documented assessment. Patient and/or family ll1 updated on plan of care and expected duration. Pain level reassessed. Patient is alert, oriented x 3, equal unlabored respirations, skin warm/dry/pink. 16:20 Reassessment: No changes from previously documented assessment. Patient and/or family ll1 updated on plan of care and expected duration. Pain level reassessed. Patient is alert, oriented x 3, equal unlabored respirations, skin warm/dry/pink. 17:20 Reassessment: No changes from previously documented assessment. Patient and/or family ll1 updated on plan of care and expected duration. Pain level reassessed. Patient is alert, oriented x 3, equal unlabored respirations, skin warm/dry/pink. 18:20 Reassessment: No changes from previously documented assessment. Patient and/or family ll1 updated on plan of care and expected duration. Pain level reassessed. Patient is alert, oriented x 3, equal unlabored respirations, skin warm/dry/pink. Vital Signs: 13:30 BP 145 / 102; Pulse 130; Resp 20; Temp 100.9; Pulse Ox 99% on R/A; Pain 8/10; ll1 13:54 BP 118 / 79; Pulse 109; Resp 20; Pulse Ox 95% on R/A; ll1 15:25 BP 130 / 85; Pulse 107; Resp 18; Temp 100.3(O); ll1 15:43 BP 136 / 81; Pulse 110; Resp 18; Pulse Ox 97% on R/A; ll1 16:40 BP 130 / 87; Pulse 101; Resp 18; Temp 99.3; Pulse Ox 98% on R/A; ll1 18:01 BP 110 / 76; Pulse 88; Resp 18; Temp 99.0; Pulse Ox 98% on R/A; ll1 18:06 Temp 99.0; ll1 ED Course: 12:48 Patient arrived in ED. rg4 13:23 Anshul Turner, LISA is Primary Nurse. ll1 13:25 Triage completed. ll1 13:26 Arm band placed on Patient placed in an exam room, on a stretcher. ll1 13:44 Isaak Guzman PA is PHCP. cp 13:44 Isaak Goncalves MD is Attending Physician. cp 13:56 Patient has correct armband on for positive identification. Bed in low position. Call ll1 light in reach. Side rails up X 1. Pulse ox on. NIBP on. 14:20 Missed attempt(s): 22 gauge in right forearm. Bleeding controlled, band aid applied, ll1 catheter tip intact. 14:32 XRAY Chest (1 view) In Process Unspecified. EDMS 14:35 Inserted saline lock: 22 gauge in right hand, using aseptic technique. Blood collected. ll1 14:53 EKG done, by ED staff, reviewed by Isaak WANG. mb7 16:34 Tai Cho DO is Hospitalizing Provider. cp 18:12 No provider procedures requiring assistance completed. Patient admitted, IV remains in ll1 place. Administered Medications: 14:37 Drug: Tylenol 1000 mg Route: PO; ll1 16:41 Follow up: Response: No adverse reaction; Temperature is decreased; RASS: Alert and ll1 Calm (0) 14:37 Drug: Tessalon Perle (benzonatate) 200 mg Route: PO; ll1 16:41 Follow up: Response: No adverse reaction ll1 15:43 Drug: Metoprolol 50 mg Route: PO; ll1 16:41 Follow up: Response: No adverse reaction ll1 15:43 Drug: Metoprolol 5 mg Route: IVP; Site: right hand; ll1 16:41 Follow up: Response: No adverse reaction ll1 15:43 Drug: Cefepime 1 grams Route: IVPB; Rate: 200 ml/hr; Infused Over: 30 mins; Site: right ll1 hand; 16:15 Follow up: Response: No adverse reaction; IV Status: Completed infusion; IV Intake: ll1 100ml 16:17 Drug: morphine 4 mg Route: IVP; Site: right hand; ll1 18:06 Follow up: Response: No adverse reaction ll1 16:18 Drug: Zofran (Ondansetron) 4 mg Route: IVP; Site: right hand; ll1 16:43 Follow up: Response: No adverse reaction ll1 16:30 Drug: vancoMYCIN 1 grams Route: IVPB; Infused Over: 2 hrs; Site: right antecubital; ll1 18:24 Follow up: Response: No adverse reaction; IV Status: Completed infusion; IV Intake: ll1 260ml 16:40 Drug: Ibuprofen 800 mg Route: PO; ll1 18:07 Follow up: Response: No adverse reaction ll1 Intake: 16:15 IV: 100ml; Total: 100ml. ll1 18:24 IV: 260ml; Total: 360ml. 1 Outcome: 16:35 Decision to Hospitalize by Provider. cp 18:12 Admitted to Tele [facility] 18:12 Admitted to Tele accompanied by tech, via wheelchair, room 215, with chart, Report called to LISA Mckay on 18:12 Condition: stable 18:12 Instructed on the need for admit. 18:33 Patient left the ED. 1 Signatures: Dispatcher [employer] EDMS Isaak Guzman PA PA cp Garcia, Rubi rg4 Anshul Turner RN RN 1 Modesta Bennett mb7 Corrections: (The following items were deleted from the chart) 15:26 15:25 BP 130 / 85; Pulse 107bpm; Resp 18bpm; ll1 ll1 18:23 18:12 Admitted to Tele accompanied by tech, via wheelchair, room 215, with chart, 1 1
--- NOTE | 2021-08-14 16:35 | EDPHYS ---
Physician Documentation [facility] Name: Deonte Armstrong Age: 71 yrs Sex: Male : 1950 Arrival Date: 08/14/2021 Time: 12:48 Bed 14 Private MD: ED Physician Isaak Goncalves HPI: 08/14 14:15 This 71 yrs old Male presents to ER via Ambulatory with complaints of Cough, cp Abscess. 14:15 The patient or guardian reports cough, that is intermittent. cp 14:15 Onset: The symptoms/episode began/occurred 8-10 days. cp 14:15 Severity of symptoms: in the emergency department the symptoms have improved, mildly. cp Associated signs and symptoms: Pertinent positives: fever. 14:15 The patient presents with an abscess of the scalp. cp 14:15 Description: swollen, tense, warm. Onset: The symptoms/episode began/occurred 5 day(s) cp ago. Historical: - Allergies: 13:25 No Known Allergies; ll1 - PMHx: 13:25 Atrial Fib; CHF; Diabetes - IDDM; ll1 - PSHx: 13:25 hernia repair; ll1 - Immunization history:: Adult Immunizations up to date. - Social history:: Smoking status: Patient denies any tobacco usage or history of. ROS: 14:20 Constitutional: Positive for fever, Negative for poor PO intake. cp 14:20 Eyes: Negative for injury, pain, redness, and discharge. cp 14:20 ENT: Negative for drainage from ear(s), ear pain, sore throat, difficulty swallowing, difficulty handling secretions. 14:20 Cardiovascular: Negative for chest pain. 14:20 Respiratory: Positive for cough. 14:20 Abdomen/GI: Negative for abdominal pain, nausea, vomiting, and diarrhea. 14:20 Skin: Positive for abscess, of the scalp. 14:20 Neuro: Positive for headache, Negative for altered mental status, weakness. 14:20 All other systems are negative. Exam: 14:25 Constitutional: The patient appears in no acute distress, alert, awake, cp non-diaphoretic, non-toxic, well developed, well nourished. 14:25 Head/face: Exam is negative for obvious evidence of injury or deformity. cp 14:25 Eyes: Periorbital structures: appear normal, Pupils: equal, round, and reactive to light and accomodation, Extraocular movements: intact throughout, Conjunctiva: normal, no exudate, no injection, Sclera: no appreciated abnormality, Lids and lashes: appear normal, bilaterally. 14:25 ENT: External ear(s): are unremarkable, Ear canal(s): are normal, clear, TM's: dullness, bilaterally, Mouth: Lips: moist, Oral mucosa: moist, Posterior pharynx: Airway: no evidence of obstruction, patent. 14:25 Neck: ROM/movement: is normal, is supple, no meningismus, no nuchal rigidity. 14:25 Chest/axilla: Inspection: normal, Palpation: is normal, no crepitus, no tenderness. 14:25 Cardiovascular: Rate: tachycardic, Rhythm: irregular, Edema: ankle edema, that is mild, JVD: is not appreciated. 14:25 Respiratory: the patient does not display signs of respiratory distress, Respirations: normal, no use of accessory muscles, no retractions, labored breathing, is not present, Breath sounds: are clear throughout, no decreased breath sounds, no stridor, no wheezing. 14:25 Abdomen/GI: Inspection: abdomen appears normal, Palpation: abdomen is soft and non-tender, in all quadrants. 14:25 Skin: abscess, that is moderate sized, with fluctuance, that is mild, with surrounding cellulitis, that is mild. 14:25 Neuro: Orientation: to person, place \T\ time. Mentation: is normal, Motor: moves all fours, strength is normal, Sensation: is normal. 14:55 ECG was reviewed by the Attending Physician. cp Vital Signs: 13:30 BP 145 / 102; Pulse 130; Resp 20; Temp 100.9; Pulse Ox 99% on R/A; Pain 8/10; ll1 13:54 BP 118 / 79; Pulse 109; Resp 20; Pulse Ox 95% on R/A; ll1 15:25 BP 130 / 85; Pulse 107; Resp 18; Temp 100.3(O); ll1 15:43 BP 136 / 81; Pulse 110; Resp 18; Pulse Ox 97% on R/A; ll1 16:40 BP 130 / 87; Pulse 101; Resp 18; Temp 99.3; Pulse Ox 98% on R/A; ll1 18:01 BP 110 / 76; Pulse 88; Resp 18; Temp 99.0; Pulse Ox 98% on R/A; ll1 18:06 Temp 99.0; ll1 MDM: 13:49 Patient medically screened. haley 15:00 Differential diagnosis: abscess, cellulitis, sepsis, pneumonia. cp 16:15 Data reviewed: vital signs, nurses notes, lab test result(s), EKG, radiologic studies, cp plain films. 16:15 Test interpretation: by ED physician or midlevel provider: ECG, plain radiologic cp studies. Counseling: I had a detailed discussion with the patient and/or guardian regarding: the historical points, exam findings, and any diagnostic results supporting the discharge/admit diagnosis, lab results, radiology results, the need for further work-up and treatment in the hospital. 16:30 Physician consultation: Tai Cho DO was contacted at 16:30, regarding admission, cp to the telemetry unit. patient's condition, and will see patient in ED, shortly. 16:35 Physician consultation: Miko Steel MD regarding consult, patient's condition, and will cp see patient in inpatient room. 08/14 14:10 Order name: Basic Metabolic Panel; Complete Time: 15:02 cp 08/14 15:02 Interpretation: Normal except: NA 128; CL 95; GLUC 310; GFR 83; CA 8.2. cp 08/14 14:10 Order name: CBC with Diff; Complete Time: 15:02 cp 08/14 15:02 Interpretation: Normal except: WBC 11.90; RBC 3.46; HGB 11.0; HCT 33.5; MCV 96.8; PLT cp 136; MERRITT% 75.7; LYM% 13.9; NEUT A 9.0. 08/14 14:10 Order name: LFT's; Complete Time: 15:02 cp 08/14 15:03 Interpretation: Normal except: ALK 176; BILIT 1.1; BILID 0.4; ALB 2.6; GLOB 4.7; A/G cp 0.6. 08/14 14:10 Order name: Magnesium; Complete Time: 15:02 cp 08/14 15:03 Interpretation: Abnormal: MG 1.7. cp 08/14 14:10 Order name: NT PRO-BNP; Complete Time: 15:02 cp 08/14 14:10 Order name: PT-INR; Complete Time: 15:02 cp 08/14 14:10 Order name: Troponin (emerg Dept Use Only); Complete Time: 15:02 cp 08/14 14:10 Order name: XRAY Chest (1 view); Complete Time: 15:02 cp 08/14 14:10 Order name: Lactate; Complete Time: 15:59 cp 20 15:59 Interpretation: Reviewed. 08/14 14:10 Order name: Procalcitonin; Complete Time: 15:59 cp 08/14 15:59 Interpretation: Abnormal: Procalcitonin 0.13. 08/14 14:10 Order name: Blood Culture Adult (2) 08/14 15:22 Order name: COVID-19/FLU A+B; Complete Time: 16:21 EDMS 08/14 16:22 Interpretation: Reviewed. 08/14 14:10 Order name: EKG; Complete Time: 14:11 cp 08/14 14:10 Order name: Cardiac monitoring; Complete Time: 14:53 08/14 14:10 Order name: EKG - Nurse/Tech; Complete Time: 14:53 08/14 14:10 Order name: IV Saline Lock; Complete Time: 14:13 cp 08/14 14:10 Order name: Labs collected and sent; Complete Time: 14:13 08/14 14:10 Order name: O2 Per Protocol; Complete Time: 14:13 08/14 14:10 Order name: O2 Sat Monitoring; Complete Time: 14:12 cp EC:55 Rate is 137 beats/min. Rhythm is irregular. QRS interval is normal. QT interval is cp normal. T waves are Inverted in lead aVR. Interpreted by me. Reviewed by me. Administered Medications: 14:37 Drug: Tylenol 1000 mg Route: PO; ll1 16:41 Follow up: Response: No adverse reaction; Temperature is decreased; RASS: Alert and ll1 Calm (0) 14:37 Drug: Tessalon Perle (benzonatate) 200 mg Route: PO; ll1 16:41 Follow up: Response: No adverse reaction ll1 15:43 Drug: Metoprolol 50 mg Route: PO; ll1 16:41 Follow up: Response: No adverse reaction ll1 15:43 Drug: Metoprolol 5 mg Route: IVP; Site: right hand; ll1 16:41 Follow up: Response: No adverse reaction ll1 15:43 Drug: Cefepime 1 grams Route: IVPB; Rate: 200 ml/hr; Infused Over: 30 mins; Site: right ll1 hand; 16:15 Follow up: Response: No adverse reaction; IV Status: Completed infusion; IV Intake: ll1 100ml 16:17 Drug: morphine 4 mg Route: IVP; Site: right hand; ll1 18:06 Follow up: Response: No adverse reaction ll1 16:18 Drug: Zofran (Ondansetron) 4 mg Route: IVP; Site: right hand; ll1 16:43 Follow up: Response: No adverse reaction ll1 16:30 Drug: vancoMYCIN 1 grams Route: IVPB; Infused Over: 2 hrs; Site: right antecubital; ll1 18:24 Follow up: Response: No adverse reaction; IV Status: Completed infusion; IV Intake: ll1 260ml 16:40 Drug: Ibuprofen 800 mg Route: PO; ll1 18:07 Follow up: Response: No adverse reaction ll1 Disposition: 16:45 Chart complete. cp Disposition Summary: 08/14/21 16:35 Hospitalization Ordered Hospitalization Status: Inpatient Admission cp Provider: Tai Cho cp Location: Telemetry/MedSurg (Inpatient) cp Condition: Stable cp Problem: new cp Symptoms: have improved cp Bed/Room Type: Standard cp Room Assignment: 215(08/14/21 17:53) bd Diagnosis - Cutaneous abscess of head [any part, except face] cp - Chronic atrial fibrillation cp - Unspecified combined systolic (congestive) and diastolic (congestive) heart failure cp Forms: - Medication Reconciliation Form cp - SBAR form cp Addendum: 08/15/2021 18:50 Co-signature as Attending Physician, Isaak Goncalves MD I agree with the assessment and c rashid plan of care. Signatures: Dispatcher [employer] Cary Ayala Corey, MD MD cha Page, Corey, PA PA cp Anshul Turner RN RN ll1 Corrections: (The following items were deleted from the chart) 08/14 15:20 14:11 Influenza Screen (A \T\ B)+BA.LAB.BRZ ordered. EDMS EDMS 15:22 14:11 CORONAVIRUS+MR.LAB.BRZ ordered. EDMS EDMS 17:53 16:35 cp bd
--- NOTE | 2021-08-14 16:47 | P.HP ---
Certification for Inpatient Patient admitted to: Inpatient With expected LOS: >2 Midnights Patient will require the following post-hospital care: None Practitioner: I am a practitioner with admitting privileges, knowledge of patient current condition, hospital course, and medical plan of care. Services: Services provided to patient in accordance with Admission requirements found in Title 42 Section 412.3 of the Code of Federal Regulations Patient History Date of Service: 08/14/21 Primary Care Provider: [facility] patient is visiting in the area Reason for admission: Scalp abscess, fever History of Present Illness: 71-year-old male with history of atrial fibrillation on chronic anticoagulation therapy, chronic diastolic CHF, diabetes, hypertension, chronic pain. Patient is visiting in the area. Patient reported fever. He has an area of erythema and induration to the scalp. He has had I&D's in the past. Patient denied any cough, congestion, chest pain or shortness of breath. Patient evaluated in the emergency room. White count slightly elevated 11.9. Sodium 128. Blood sugar elevated. Procalcitonin 0.13. Patient was admitted for treatment of abscess. Allergies No Known Allergies Allergy (Verified 01/20/19 11:21) Home medications list reviewed: Yes Home Medications: Warfarin Sodium [Coumadin*] 1 tab PO DAILY 07/03/15 Codeine/APAP [Tylenol #3*] 1 tab PO Q6HP PRN #20 tab 07/06/15 Digoxin [Lanoxin*] 0.25 mg PO DAILY #30 tab 07/06/15 Furosemide [Lasix*] 20 mg PO DAILY #30 tab 07/06/15 Losartan Potassium [Cozaar] 25 mg PO DAILY #30 tablet 07/06/15 carvediloL [Coreg*] 3.125 mg PO BID #60 tab 07/06/15 - Past Medical/Surgical History Diabetic: Yes -: Chronic diastolic CHF -: Diabetes mellitus type 2 insulin-dependent -: Chronic pain with diabetic neuropathy -: Atrial fibrillation on chronic anticoagulation therapy -: Hypertension -: Tobacco abuse -: Alcohol use -: Hernia surgery Psychosocial/ Personal History: Patient is visiting in the area - Family History Family History: Reviewed- Non-Contributory - Family History Sister -: Diabetes, Cancer Mother -: Diabetes - Social History Smoking Status: Heavy Tobacco smoker (>10 cigarettes/day) Counseled patient to stop smoking for: less than 10 minutes Smoking therapy provided: Yes Patient receptive to therapy: Yes Alcohol use: No CD- Drugs: No Caffeine use: Yes Place of Residence: Home Review of Systems General: Fever, As per HPI Eyes: Unremarkable ENT: Unremarkable Respiratory: Unremarkable Cardiovascular: Unremarkable Gastrointestinal: Unremarkable Genitourinary: Unremarkable Musculoskeletal: As per HPI Integumentary: As per HPI Neurological: Unremarkable Lymphatics: Unremarkable Physical Examination - Studies Laboratory Data (last 24 hrs) 08/14/21 14:20: PT 14.9 H, INR 1.29 08/14/21 14:20: WBC 11.90 H, Hgb 11.0 L, Hct 33.5 L, Plt Count 136 L 08/14/21 14:20: Sodium 128 L, Potassium 4.9, BUN 14, Creatinine 0.90, Glucose 310 H, Magnesium 1.7 L, Total Bilirubin 1.1 H, AST 29, ALT 27, Alkaline Phosphatase 176 H Assessment and Plan - Plan COVID: Negative Chest x-ray: Unremarkable Physical Exam: GENERAL: Abscess to the back of the scalp on the left side. Erythema noted. Dense induration noted. VITAL SIGNS: Reviewed HEENT: As above. NECK: Supple. No carotid bruits. No lymphadenopathy or thyromegaly. LUNGS: Clear to auscultation. No crackles or wheezes are heard. HEART: Regular rate and rhythm, no appreciable gallops, rubs, murmurs or extra heart sounds ABDOMEN: Soft, nontender, and nondistended. Positive bowel sounds. No hepatosplenomegaly was noted. EXTREMITIES: Without any cyanosis, clubbing, rash, lesions or peripheral edema. NEUROLOGIC: The patient is oriented to person, place and time. Strength and sensation are grossly intact. Face is symmetric. SKIN: As above Impression: Abscess to the scalp Diabetes mellitus type 2 with hyperglycemia Hypertension Atrial fibrillation on chronic anticoagulation therapy Chronic diastolic CHF Chronic pain with neuropathy Tobacco abuse Plan: Abscess to the scalp: Patient admitted for treatment. Case discussed with surgery. Surgery will plan for intervention tomorrow for debridement. Continue IV antibiotic therapyvancomycin and cefepime. Will bridge Lovenox since the patient is using Xarelto at home. Will provide IV fluids up to 1 L. Anticipate home in the next 2 days. Diabetes mellitus type 2 with hyperglycemia: Continue Accu-Cheks and sliding scale. Will check hemoglobin A1c. Hypertension: Continue blood pressure medication including lisinopril and metoprolol. Atrial fibrillation on chronic anticoagulation therapy: We will bridge Lovenox in preparation for surgery. Hold Xarelto and restart after surgery. Chronic diastolic CHF: Continue Aldactone and Lasix. Chronic pain with neuropathy: Provide medication for pain Tobacco abuse: Tobacco cessation addressed in detail. Code Status: Full Code DVT prophylaxis: Lovenox Advanced Care Planning-30 minutes: Home at discharge Discharge Plan: Home Plan to discharge in: 48 Hours - Advance Directives Does patient have a Living Will: No Does patient have a Durable POA for Healthcare: No - Code Status/Comfort Care Code Status Assessed: Yes (Patient is full code) Time Spent Managing Pts Care (In Minutes): 55
[2021-08-14] MEDS ORDERED: ONDANSETRON 4 MG/2 ML VIAL IV PRN (19:24)
[2021-08-14] MEDS ORDERED: ACETAMINOPHEN 500 MG TAB PO PRN (19:24)
[2021-08-14] MEDS ORDERED: VANCOMYCIN 1 GM in NA CHLORIDE 0.9% 250 ML IVPB SCH (19:24)
[2021-08-14] MEDS ORDERED: TRAMADOL HCL 50 MG TAB PO PRN (19:24)
[2021-08-14 19:42] VITALS: BMI 26.6
[2021-08-14] MEDS ORDERED: VANCOMYCIN 500 MG in NA CHLORIDE 0.9% 100 ML IVPB ONE (20:30)
[2021-08-14] MEDS ORDERED: NA CHLORIDE 0.9% 0 ML ONE (20:42)
[2021-08-14] MEDS ORDERED: ENOXAPARIN 100 MG/ML SYR SQ SCH (21:00)
[2021-08-14] MEDS ORDERED: CEFEPIME 1 GM in NA CHLORIDE 0.9% 100 ML IV SCH (21:00)
[2021-08-14] MEDS: NA CHLORIDE 0.9% 1,000 ML IV SCH (21:01)
[2021-08-14] MEDS: HYDROCODONE/APAP 10/325 TAB PO PRN (21:11)
[2021-08-14] MEDS: INSULIN -REGULAR HUMAN 50 UNIT/0.5 ML ML SQ SCH (21:41)
[2021-08-15] MEDS: BENZONATATE 100 MG CAP PO PRN ×3 (00:35→20:31)
[2021-08-15] MEDS: HYDROCODONE/APAP 10/325 TAB PO PRN ×4 (03:33→19:31)
[2021-08-15] MEDS: METOPROLOL XL 100 MG TAB PO SCH (04:08)
[2021-08-15 05:05] LABS: Basophils % 0.5 % (0-1.3); Hematocrit 30.3 % (39.6-49.0); Lymphocytes % 11.3 % (15.3-44.8); MPV 8.9 fL (7.6-11.3); RBC Red Blood Cell Count 3.12 M/uL (4.33-5.43)
[2021-08-15 05:26] LABS: Magnesium 1.6 mg/dL (1.8-2.4); Thyroid Stimulating Hormone 1.45 uIU/mL (0.360-3.740)
[2021-08-15] MEDS ORDERED: MAGNESIUM SULFATE 1 gm IVPB 1 GM/100 ML BAG IV ONE (05:34)
--- NOTE | 2021-08-15 06:09 | P.PN ---
Subjective Date of Service: 08/15/21 Primary Care Provider: [facility] patient is visiting in the area Chief Complaint: Scalp abscess, fever Subjective: Doing well Physical Examination - Vital Signs Temperature: 100.3 F Blood Pressure: 152/75 Pulse: 134 Respirations: 19 Pulse Ox (%): 98 - Studies Laboratory Data (last 24 hrs) 08/14/21 14:20: PT 14.9 H, INR 1.29 08/14/21 14:20: WBC 11.90 H, Hgb 11.0 L, Hct 33.5 L, Plt Count 136 L 08/14/21 14:20: Sodium 128 L, Potassium 4.9, BUN 14, Creatinine 0.90, Glucose 310 H, Magnesium 1.7 L, Total Bilirubin 1.1 H, AST 29, ALT 27, Alkaline Phosphatase 176 H Assessment & Plan Discharge Plan: Home Plan to discharge in: 24 Hours Physician Review Additional Text: COVID: Negative Chest x-ray: Unremarkable Physical Exam: GENERAL: Abscess to the back of the scalp on the left side. Erythema resolved. Overall improved. VITAL SIGNS: Reviewed HEENT: As above. NECK: Supple. No carotid bruits. No lymphadenopathy or thyromegaly. LUNGS: Clear to auscultation. No crackles or wheezes are heard. HEART: Regular rate and rhythm, no appreciable gallops, rubs, murmurs or extra heart sounds ABDOMEN: Soft, nontender, and nondistended. Positive bowel sounds. No hepatosplenomegaly was noted. EXTREMITIES: Without any cyanosis, clubbing, rash, lesions or peripheral edema. NEUROLOGIC: The patient is oriented to person, place and time. Strength and sensation are grossly intact. Face is symmetric. SKIN: As above Impression: Abscess to the scalp Diabetes mellitus type 2 with hyperglycemia Hypertension Atrial fibrillation on chronic anticoagulation therapy Chronic diastolic CHF Chronic pain with neuropathy Tobacco abuse Plan: Abscess to the scalp: No significant erythema noted this morning. Continue IV antibiotic therapycefepime and vancomycin. Patient to have surgery todayirrigation and debridement. Will discuss with surgery concerning plan of care after surgery. Likely home discharge tomorrow. Diabetes mellitus type 2 with hyperglycemia: Continue Accu-Cheks and sliding scale. Will check hemoglobin A1c. Hypertension: Continue blood pressure medication including lisinopril and metoprolol. Atrial fibrillation on chronic anticoagulation therapy: Consider restarting Xarelto later today. Chronic diastolic CHF: Continue Aldactone and Lasix. Will discontinue IV fluids. Chronic pain with neuropathy: Provide medication for pain Tobacco abuse: Tobacco cessation addressed in detail. Code Status: Full Code DVT prophylaxis: Lovenox Advanced Care Planning-30 minutes: Home at discharge anticipate discharge likely in the next 48 hours. Time Spent Managing Pts Care (In Minutes): 55
[2021-08-15] MEDS ORDERED: METOPROLOL TARTRATE 5 MG/5 ML INJ IV PRN (06:10)
[2021-08-15] MEDS: INSULIN -REGULAR HUMAN 50 UNIT/0.5 ML ML SQ SCH ×4 (07:30→20:29)
--- NOTE | 2021-08-15 07:36 | EKG ---
Test Date: 2021-08-14 Test Time: 14:47:07 Logging Equipment Operator: CAMPOS MEASUREMENT RESULTS: Intervals: Rate: 139 VT: QRSD: 86 QT: 296 QTc: 450 [place]: P: VT: QRS: -73 T: 7 INTERPRETIVE STATEMENTS: Atrial fibrillation with rapid ventricular response Left axis deviation Nonspecific ST abnormality Abnormal ECG Compared to ECG 07/03/2015 13:56:53 Left-axis deviation now present ST (T wave) deviation now present Electronically Signed On 08-15-21 07:34:54 STATION ENGINEER CHIEF by Armen Pelayo
--- NOTE | 2021-08-15 07:36 | EKG ---
Test Date: 2021-08-14 Test Time: 14:47:33 Oil Distributor: MBCameron MEASUREMENT RESULTS: Intervals: Rate: 137 [place]: QRSD: 88 QT: 292 QTc: 440 [place]: P: [place]: QRS: 42 T: 20 INTERPRETIVE STATEMENTS: Atrial fibrillation with rapid ventricular response Indeterminate axis Nonspecific ST abnormality Abnormal ECG Compared to ECG 08/14/2021 14:47:07 Indeterminate axis now present Left-axis deviation no longer present ST (T wave) deviation still present Electronically Signed On 08-15-21 07:34:48 LEGAL RECORDS MANAGER by Armen Pelayo
[2021-08-15] MEDS: CEFEPIME 1 GM in NA CHLORIDE 0.9% 100 ML IV SCH ×2 (08:49→20:19)
[2021-08-15] MEDS: NA CHLORIDE 0.9% 1,000 ML IV SCH ×2 (08:56→09:51)
[2021-08-15] MEDS ORDERED: MIDAZOLAM HCL 2 MG/2 ML INJ ONE (09:11)
[2021-08-15] MEDS ORDERED: propofoL 200 MG/20 ML VIAL IV ONE (09:11)
[2021-08-15] MEDS ORDERED: FENTANYL CITR 100 MCG/2 ML ONE (09:11)
[2021-08-15] MEDS ORDERED: LIDOCAINE 2% MPF 5 ML VIAL ONE (09:14)
[2021-08-15] MEDS ORDERED: dexAMETHasone 10 MG/ML VIAL ONE (09:14)
--- NOTE | 2021-08-15 09:48 | PREOPCON ---
Date of Consultation: 08/14/2021 Reason For Consultation: Infection of posterior scalp. History Of Present Illness: The patient is a 71-year-old gentleman with multiple medical problems, w ronald presents to the emergency room with a 2-week history of increasing pain, redness, and fever in the left posterior scalp region. He came to the emergency room, had a workup done and was admitted with abscess and cellulitis. He is on chronic anticoagulation for atrial fibrillation and hospitalist rossana more is consulted. He is awake, alert, still complaining of pain. Fever has subsided. No drainage. Review of Systems: No sore throat, runny nose, cough, headaches, or dizziness. No chest pain. Review of systems is oth erwise unremarkable. Past Medical History: Significant for diabetes type 2, CHF, chronic pain, atrial fibrillation, hyper tension, history of alcohol and tobacco abuse. Past Surgical History: Hernia surgery. Allergies: NONE. Social History: The patient does smoke, has been counseled. Currently does not drink alcohol. Family History: Significant for diabetes and unknown type of cancer. Physical Examination: Vital Signs: Currently show a T-max of 100.3, currently is 98.9. Heart rate is elevated at 134. Bl ood pressure is 152/75, respiratory rate is 19. General: He is awake, alert, and oriented x3. Head And Neck: Cranial nerves 2 through 12 are grossly within normal limits. No neck masses. No JV D. Throat clear. Neck supple. In the left posterior scalp, there is approximately an 8 x 4 cm area of induration, erythema, with warmth and fluctuance centrally and extreme tenderness. Chest: Clear. Heart: S1 and S2. Tachycardic and irregular. Abdomen: Benign. Extremities: Neurovascularly intact. Neuro: Nonfocal. Laboratory Data: White count this morning 17.3 with a left shift. INR yesterday was 1.29. Chemistr y reviewed. Glucose is 166. Procalcitonin is 0.13. Lactic acid was 2.0. Assessment: Posterior scalp abscess and cellulitis. Plan: Admit n.p.o., IV fluid, IV antibiotics, and then to the OR for incision, drainage, and debride ment of the abscess. The patient understands the risks, benefits, and alternatives and agrees to the procedure. Please note, the patient was placed on Lovenox as a bridge while we hold Xarelto and we will restart anticoagulation after surgery when he does not have any evidence of bleeding. Plan of c are discussed in detail with Dr. Cho. MICHAEL/RAI Voice ID: [id number] Report ID: [id number]
[2021-08-15] MEDS: BUPIVACAINE 0.5% PF 10 ML VIAL ONE ×2 (10:01→10:24)
[2021-08-15] MEDS ORDERED: Phenylephrine HCl 10 MG/ML 1 ML VIAL ONE (10:13)
--- NOTE | 2021-08-15 10:43 | P.OP ---
Metalworker: Wanda MATIAS Preoperative diagnosis: Scalp Abscess Posterior Scalp Postoperative diagnosis: Same, Necrotizing infection Primary procedure: I and D and Debridement Posterior Scalp Abscess Secondary procedure: Excisional Debridement of Necrotizing Infection 4x2 cm to the SQ and Muscle Anesthesia: General Estimated blood loss: minimum Specimen: Pus and necrotic tissue Findings: as above Complications: None Transferred to: Recovery Room Condition: Good
[2021-08-15] MEDS ORDERED: NA CHLORIDE 0.9% 1,000 ML ONE (10:57)
--- NOTE | 2021-08-15 11:09 | OP ---
Date of Procedure: 08/15/2021 Surgeon: Miko Steel MD Legal Specialist: POLLY San. Preoperative Diagnosis: Posterior scalp abscess and cellulitis. Postoperative Diagnosis: Posterior scalp abscess and cellulitis with necrotizing infection. Procedure Performed: Incision, drainage and debridement of posterior scalp abscess and excisional de bridement of necrotizing infection 4 x 2 cm to the subcutaneous tissue and muscle. Estimated Blood Loss: Minimal. Specimen: Pus and necrotic tissue. Finding: As above. Anesthesia: General. Complications: None. Disposition: The patient tolerated the procedure in stable condition and taken to Recovery in good g eneral condition. Procedure In Detail: The patient was brought to the OR and placed in supine position. General anest hesia begun. The head turned to the right and then the patient was prepped and draped in the usual s terile fashion. Marcaine 0.5% was infiltrated locally. Then, a 15-blade was used to make an incisio n ellipse approximately 4 x 2 cm to excise the necrotic tissue that was present. The necrotic tissue went all the way down to the subcutaneous tissue and muscle layer. This was all the necrotic tissue was debrided with sharp dissection and sent to Pathology. Cultures were done. Then, wound was irri gated. Bleeding controlled with cautery. Wet-to-dry, normal saline, and dressing change applied. The patient tolerated the procedure in stable condition and taken to Recovery in goo d general condition. /MODL Voice ID: [id number] Report ID: [id number]
[2021-08-15] MEDS ORDERED: MEPERIDINE HCL 25 MG/ML SYR ONE (11:19)
[2021-08-15] MEDS: FUROSEMIDE 40 MG TABLET PO SCH (11:54)
[2021-08-15] MEDS: lisinopriL 10 MG TAB PO SCH (11:54)
[2021-08-15] MEDS: SPIRONOLACTONE 25 MG TABLET PO SCH (11:54)
[2021-08-15] MEDS: VANCOMYCIN 1.5 GM in NA CHLORIDE 0.9% 500 ML IVPB SCH (11:55)
[2021-08-15] MEDS ORDERED: VANCOMYCIN 1.5 GM in NA CHLORIDE 0.9% 500 ML IVPB SCH (15:00)
[2021-08-15] MEDS: MUPIROCIN 2% OINT 22GM TUBE TOP SCH (20:18)
[2021-08-15] MEDS: LACTOBACILLUS/ACIDOPHILUS TAB PO SCH (20:18)
[2021-08-16] MEDS: HYDROCODONE/APAP 10/325 TAB PO PRN ×4 (00:31→20:14)
[2021-08-16 02:20] LABS: Potassium 4.5 mmol/L (3.5-5.1)
[2021-08-16 02:34] LABS: Absolute Lymphocytes (CBC) 2.8 K/uL (0.7-4.9); Hematocrit 31.6 % (39.6-49.0); Lymphocytes % 17.9 % (15.3-44.8); MPV 9.4 fL (7.6-11.3); RBC Red Blood Cell Count 3.25 M/uL (4.33-5.43)
[2021-08-16] MEDS: VANCOMYCIN 1.5 GM in NA CHLORIDE 0.9% 500 ML IVPB SCH ×2 (03:00→21:20)
--- NOTE | 2021-08-16 06:11 | P.PN ---
Subjective Date of Service: 08/16/21 Primary Care Provider: [place] patient is visiting in the area Chief Complaint: Scalp abscess, fever Subjective: Improving, Doing well Physical Examination - Vital Signs Temperature: 99 F Blood Pressure: 145/65 Pulse: 110 Respirations: 18 Pulse Ox (%): 98 Assessment & Plan Discharge Plan: Home Plan to discharge in: 24 Hours Physician Review Additional Text: COVID: Negative Chest x-ray: Unremarkable Surgery: Date of Procedure: 08/15/2021 Surgeon: Miko Steel MD Glove Parts Inspector: POLLY San. Preoperative Diagnosis: Posterior scalp abscess and cellulitis. Postoperative Diagnosis: Posterior scalp abscess and cellulitis with necrotizing infection. Procedure Performed: Incision, drainage and debridement of posterior scalp abscess and excisional debridement of necrotizing infection 4 x 2 cm to the subcutaneous tissue and muscle. Estimated Blood Loss: Minimal. Specimen: Pus and necrotic tissue. Finding: As above. Anesthesia: General. Complications: None. Physical Exam: GENERAL: Abscess to the back of the scalp on the left side. Erythema resolved. Overall improved. VITAL SIGNS: Reviewed HEENT: As above. NECK: Supple. No carotid bruits. No lymphadenopathy or thyromegaly. LUNGS: Clear to auscultation. No crackles or wheezes are heard. HEART: Regular rate and rhythm, no appreciable gallops, rubs, murmurs or extra heart sounds ABDOMEN: Soft, nontender, and nondistended. Positive bowel sounds. No hepatosplenomegaly was noted. EXTREMITIES: Without any cyanosis, clubbing, rash, lesions or peripheral edema. NEUROLOGIC: The patient is oriented to person, place and time. Strength and sensation are grossly intact. Face is symmetric. SKIN: As above Impression: Scalp abscess/cellulitis with necrotizing infection status post incision, drainage and debridement of posterior scalp abscess and excisional debridement of necrotizing infection 4 x 2 cm to the subcutaneous tissue and muscle Diabetes mellitus type 2 with hyperglycemia Hypertension Atrial fibrillation on chronic anticoagulation therapy Chronic diastolic CHF Chronic pain with neuropathy Tobacco abuse Plan: Scalp abscess/cellulitis with necrotizing infection status post incision, drainage and debridement of posterior scalp abscess and excisional debridement of necrotizing infection 4 x 2 cm to the subcutaneous tissue and muscle: Will teach family on wound care. Set up Home health to continue wound care at [facility]. Bactroban ointment provided. Await wound culture results before discharge. This will likely result tomorrow. Continue IV antibiotic therapy cefepime and vancomycin for now. Case discussed with surgery yesterday. Plan of care addressed. Will provide medication for pain. Diabetes mellitus type 2 with hyperglycemia: Continue Accu-Cheks and sliding scale. Hemoglobin A1c 8.4. Continue to adjust basal insulin for better control. Hypertension: Patient reported cough. Suspect EMILY allergy cough. Discontinue lisinopril changed to losartan 25 mg daily. Will adjust metoprolol for better control. Increase today metoprolol XR to 150 mg daily for better control blood pressure and heart rate control. Atrial fibrillation on chronic anticoagulation therapy: Continue with Xarelto 20 mg daily. Chronic diastolic CHF: Continue Aldactone 25 mg daily and Lasix 40 mg daily. Chronic pain with neuropathy: Provide medication for pain Tobacco abuse: Tobacco cessation addressed in detail. Code Status: Full Code DVT prophylaxis: Lovenox Advanced Care Planning-30 minutes: Home at discharge with Home health to continue with wound care. Anticipate discharge likely in the next 24 hours once culture results are finalized. Time Spent Managing Pts Care (In Minutes): 55
[2021-08-16] MEDS: BENZONATATE 100 MG CAP PO PRN ×2 (06:16→20:15)
[2021-08-16] MEDS: METOPROLOL XL 100 MG TAB PO SCH (06:16)
[2021-08-16] MEDS: INSULIN -REGULAR HUMAN 50 UNIT/0.5 ML ML SQ SCH ×4 (07:30→20:12)
[2021-08-16] MEDS: SPIRONOLACTONE 25 MG TABLET PO SCH (09:11)
[2021-08-16] MEDS: LACTOBACILLUS/ACIDOPHILUS TAB PO SCH ×2 (09:11→20:14)
[2021-08-16] MEDS: lisinopriL 10 MG TAB PO SCH (09:11)
[2021-08-16] MEDS: CEFEPIME 1 GM in NA CHLORIDE 0.9% 100 ML IV SCH ×2 (09:11→20:13)
[2021-08-16] MEDS: FUROSEMIDE 40 MG TABLET PO SCH (09:11)
[2021-08-16] MEDS: MUPIROCIN 2% OINT 22GM TUBE TOP SCH ×2 (09:12→20:15)
[2021-08-16] MEDS: RIVAROXABAN 20 MG TABLET PO SCH (09:12)
[2021-08-16] MEDS: INSULIN GLARGINE 100 UNIT/ML SQ SCH ×2 (09:13→20:13)
--- NOTE | 2021-08-16 10:59 | PN ---
Date of Progress Note: 08/16/2021 Subjective: The patient is awake, alert. No complaints. Objective: Vital Signs: Stable. He is afebrile. Extremities: Dressing is clean, dry, and intact. Laboratory Data: Cultures are pending; however, the Gram stain shows gram-positive cocci in clusters and chains. White count is 15,000 with a left shift. Assessment: Status post incision and debridement of an abscess and necrotizing infection of the left posterior scalp. Recommendations: IV antibiotics, wound care as ordered and teach family. Check the cultures and adj ust the antibiotics. The patient can probably go home when his white count is normalized, and cultur e and sensitivity revealed which oral antibiotics the patient is sensitive to. Plan of care discusse d yesterday with Dr. Cho as well as the patient. /MODL Voice ID: [id number] Report ID: [id number]
[2021-08-16] MEDS ORDERED: INSULIN GLARGINE 100 UNIT/ML SQ SCH (19:00)
[2021-08-17] MEDS: HYDROCODONE/APAP 10/325 TAB PO PRN ×2 (02:55→09:11)
[2021-08-17 04:01] LABS: Absolute Lymphocytes (CBC) 2.4 K/uL (0.7-4.9); Basophils % 0.6 % (0-1.3); Hematocrit 29.8 % (39.6-49.0); Lymphocytes % 28.1 % (15.3-44.8); MPV 9.2 fL (7.6-11.3); RBC Red Blood Cell Count 3.04 M/uL (4.33-5.43)
[2021-08-17 04:08] LABS: BUN Blood Urea Nitrogen 17 mg/dL (7-18); Bicarbonate 26 mmol/L (21-32); Glucose Level 238 mg/dL (74-106); Magnesium 1.9 mg/dL (1.8-2.4); Potassium 4.1 mmol/L (3.5-5.1); Sodium Level 132 mmol/L (136-145)
[2021-08-17] MEDS ORDERED: METOPROLOL XL 100 MG TAB PO SCH (06:00)
--- NOTE | 2021-08-17 06:02 | P.PN ---
Subjective Date of Service: 08/17/21 Primary Care Provider: [facility] patient is visiting in the area Chief Complaint: Scalp abscess, fever Subjective: Improving, Doing well Physical Examination - Vital Signs Temperature: 98 F Blood Pressure: 124/82 Pulse: 104 Respirations: 19 Pulse Ox (%): 100 Assessment & Plan Discharge Plan: Home Plan to discharge in: 24 Hours Physician Review Additional Text: COVID: Negative Chest x-ray: Unremarkable Surgery: Date of Procedure: 08/15/2021 Surgeon: Miko Steel MD Creative Services Designer: POLLY San. Preoperative Diagnosis: Posterior scalp abscess and cellulitis. Postoperative Diagnosis: Posterior scalp abscess and cellulitis with necrotizing infection. Procedure Performed: Incision, drainage and debridement of posterior scalp abscess and excisional debridement of necrotizing infection 4 x 2 cm to the subcutaneous tissue and muscle. Estimated Blood Loss: Minimal. Specimen: Pus and necrotic tissue. Finding: As above. Anesthesia: General. Complications: None. Physical Exam: GENERAL: Bandages to the scalp noted VITAL SIGNS: Reviewed HEENT: As above. NECK: Supple. No carotid bruits. No lymphadenopathy or thyromegaly. LUNGS: Clear to auscultation. No crackles or wheezes are heard. HEART: Regular rate and rhythm, no appreciable gallops, rubs, murmurs or extra heart sounds ABDOMEN: Soft, nontender, and nondistended. Positive bowel sounds. No hepatosplenomegaly was noted. EXTREMITIES: Without any cyanosis, clubbing, rash, lesions or peripheral edema. NEUROLOGIC: The patient is oriented to person, place and time. Strength and sensation are grossly intact. Face is symmetric. SKIN: As above Impression: Scalp abscess/cellulitis with necrotizing infection status post incision, drainage and debridement of posterior scalp abscess and excisional debridement of necrotizing infection 4 x 2 cm to the subcutaneous tissue and muscle, wound culture positive for MRSA Diabetes mellitus type 2 with hyperglycemia Hypertension Atrial fibrillation on chronic anticoagulation therapy Chronic diastolic CHF Chronic pain with neuropathy Tobacco abuse Plan: Scalp abscess/cellulitis with necrotizing infection status post incision, drainage and debridement of posterior scalp abscess and excisional debridement of necrotizing infection 4 x 2 cm to the subcutaneous tissue and muscle, wound culture positive for MRSA: Patient doing well at this time. Wound culture reviewed with surgery. Patient with MRSA. Family has been taught on wound care. Patient will be discharged home today. Patient will continue with doxycycline 100 mg 1 pill twice daily and rifampin 300 mg daily for 10 more days. Patient will continue with wound care as directed by surgery. Patient will continue with Bactroban ointment to the wound, umbilicus, nares daily for the duration of treatment. Patient will continue with Hibiclens baths daily. Patient will follow up with surgery at the wound care center in 2 weeks. Diabetes mellitus type 2 with hyperglycemia: Continue Accu-Cheks and sliding scale. Hemoglobin A1c 8.4. Patient will continue with his medicationinsulin at discharge. Recommend to maintain blood sugar less than 140 fasting and less than 200 after meals. Patient may need to increase his basal insulin if blood sugars remain above 200. Hypertension: Patient with EMILY allergy cough. Lisinopril discontinued and changed to losartan 25 mg daily. Patient will continue with metoprolol XR 150 mg daily. Atrial fibrillation on chronic anticoagulation therapy: Continue with Xarelto 20 mg daily. Chronic diastolic CHF: Continue Aldactone 25 mg daily and Lasix 40 mg daily. Chronic pain with neuropathy: Provide medication for pain Tobacco abuse: Tobacco cessation addressed in detail. Code Status: Full Code DVT prophylaxis: Lovenox Advanced Care Planning-30 minutes: Home at discharge Time Spent Managing Pts Care (In Minutes): 55
[2021-08-17] MEDS: INSULIN -REGULAR HUMAN 50 UNIT/0.5 ML ML SQ SCH (07:30)
[2021-08-17] MEDS: RIVAROXABAN 20 MG TABLET PO SCH (08:00)
[2021-08-17] MEDS: MUPIROCIN 2% OINT 22GM TUBE TOP SCH (09:00)
[2021-08-17] MEDS ORDERED: LOSARTAN POTASSIUM 50 MG TABLET PO SCH (09:00)
[2021-08-17] MEDS ORDERED: INSULIN GLARGINE 100 UNIT/ML SQ SCH (09:00)
[2021-08-17] MEDS: CEFEPIME 1 GM in NA CHLORIDE 0.9% 100 ML IV SCH (09:12)
[2021-08-17] MEDS: LACTOBACILLUS/ACIDOPHILUS TAB PO SCH (09:12)
[2021-08-17] MEDS: FUROSEMIDE 40 MG TABLET PO SCH (09:13)
[2021-08-17] MEDS: SPIRONOLACTONE 25 MG TABLET PO SCH (09:13)
[2021-08-17 09:18] VITALS: BP 124/82; TEMP 98
--- NOTE | 2021-08-17 09:29 | P.DS ---
Admission Date: 08/14/21 Discharge Date: 08/17/21 Primary Care Provider: [facility] patient is visiting in the area Disposition: ROUTINE DISCHARGE Discharge Condition: GOOD Reason for Admission: Scalp abscess, fever Consultations: Surgery-Dr. Steel Procedures: COVID: Negative Chest x-ray: Unremarkable Surgery: Date of Procedure: 08/15/2021 Surgeon: Miko Steel MD Credit Charge Authorizer: POLLY San. Preoperative Diagnosis: Posterior scalp abscess and cellulitis. Postoperative Diagnosis: Posterior scalp abscess and cellulitis with necrotizing infection. Procedure Performed: Incision, drainage and debridement of posterior scalp abscess and excisional debridement of necrotizing infection 4 x 2 cm to the subcutaneous tissue and muscle. Estimated Blood Loss: Minimal. Specimen: Pus and necrotic tissue. Finding: As above. Anesthesia: General. Complications: None. Physical Exam: GENERAL: Bandages to the scalp noted VITAL SIGNS: Reviewed HEENT: As above. NECK: Supple. No carotid bruits. No lymphadenopathy or thyromegaly. LUNGS: Clear to auscultation. No crackles or wheezes are heard. HEART: Regular rate and rhythm, no appreciable gallops, rubs, murmurs or extra heart sounds ABDOMEN: Soft, nontender, and nondistended. Positive bowel sounds. No hepatos plenomegaly was noted. EXTREMITIES: Without any cyanosis, clubbing, rash, lesions or peripheral edema. NEUROLOGIC: The patient is oriented to person, place and time. Strength and sensation are grossly intact. Face is symmetric. SKIN: As above Impression: Scalp abscess/cellulitis with necrotizing infection status post incision, drainage and debridement of posterior scalp abscess and excisional debridement of necrotizing infection 4 x 2 cm to the subcutaneous tissue and muscle, wound culture positive for MRSA Diabetes mellitus type 2 with hyperglycemia Hypertension Atrial fibrillation on chronic anticoagulation therapy Chronic diastolic CHF Chronic pain with neuropathy Tobacco abuse Code Status: Full Code DVT prophylaxis: Lovenox Advanced Care Planning-30 minutes: Home at discharge Brief History of Present Illness: 71-year-old male with history of atrial fibrillation on chronic anticoagulation therapy, chronic diastolic CHF, diabetes, hypertension, chronic pain. Patient is visiting in the area. Patient reported fever. He has an area of erythema and induration to the scalp. He has had I&D's in the past. Patient denied any cough, congestion, chest pain or shortness of breath. Patient evaluated in the emergency room. White count slightly elevated 11.9. Sodium 128. Blood sugar elevated. Procalcitonin 0.13. Patient was admitted for treatment of abscess. Hospital Course: Patient found to have scalp abscess/cellulitis. Patient was admitted for treatment. Patient seen and evaluated by surgery. Surgical invention was required. Patient had incision, drainage and debridement of posterior scalp. Excisional debridement of necrotizing infection 4 x 2 cm to the subcutaneous tissue and muscle was performed. Patient tolerated procedure well. Cultures were positive for MRSA. At discharge patient will continue with current wound care as recommended by surgery. Family will be taught wound care to help patient. Patient will continue with Bactroban ointment to the wound, umbilicus and nares daily. Patient will continue with Hibiclens baths daily. At discharge the patient will continue with doxycycline 100 mg 1 pill twice daily and rifampin 300 mg 1 pill twice daily for 10 days. Patient will follow up with surgery at the wound care center in 2 weeks. Recommend follow-up with PCP in 1 week to follow-up his hospitalization. Patient with diabetes mellitus type 2. Patient had hyperglycemia. Hemoglobin A1c 8.4. Patient will continue with his current insulin regimenLevemir 55 units subcu twice daily. Recommend to maintain blood sugar less than 140 fasting and less than 200 after meals. If blood sugars remain above 200 he will need to increase his insulin by 1 to 2 units for better control. Recommend to recheck hemoglobin A1c every 3 months to monitor his progress. Recommend follow-up with PCP in 1 week to further address. Patient with hypertension. Patient reported EMILY allergy cough. Patient was taking lisinopril. This was discontinued and changed to losartan 25 mg daily. Metoprolol was adjusted for better blood pressure control. At discharge the patient will continue with losartan 25 mg daily and metoprolol XR 150 mg daily. Recommend to maintain blood pressure less than 130/80. If blood pressures remain above 140/90 further adjustment may be required. This can be done with the help of his PCP. Patient with atrial fibrillation on chronic anticoagulation therapy. At discharge patient will continue with Xarelto 20 mg daily and metoprolol XR 150 mg daily Patient with chronic diastolic CHF. At discharge patient will continue with Aldactone 25 mg daily and Lasix 40 mg daily. Patient with chronic pain with neuropathy. At discharge patient will continue with his current medicationhydrocodone as directed. Patient with tobacco abuse. Tobacco cessation addressed in detail. Vital Signs/Physical Exam: Temp Pulse Resp BP Pulse Ox 98 F 104 H 19 124/82 100 08/17/21 09:20 08/17/21 09:20 08/17/21 09:20 08/17/21 09:20 08/17/21 09:20 General: Alert, In no apparent distress, Oriented x3, Cooperative HEENT: Other (Bandage to the scalp noted) Neck: Supple Respiratory: Clear to auscultation bilaterally, Normal air movement Cardiovascular: Irregular heart rate/rhythm (A. fib rate controlled) Gastrointestinal: Normal bowel sounds, No tenderness, No masses, No rebound, No guarding Musculoskeletal: No erythema, No tenderness, No warmth Integumentary: Other (Bandage to the scalp noted) Neurological: Normal speech, Normal strength at 5/5 x4 extr, Normal tone Laboratory Data at Discharge: WBC 8.60 K/uL (4.3-10.9) D 08/17/21 03:20 Hgb 10.0 g/dL (13.6-17.9) L 08/17/21 03:20 Hct 29.8 % (39.6-49.0) L 08/17/21 03:20 Plt Count 133 K/uL (152-406) L 08/17/21 03:20 PT 14.9 SECONDS (9.5-12.5) H 08/14/21 14:20 INR 1.29 08/14/21 14:20 Sodium 132 mmol/L (136-145) L 08/17/21 03:20 Potassium 4.1 mmol/L (3.5-5.1) 08/17/21 03:20 BUN 17 mg/dL (7-18) 08/17/21 03:20 Creatinine 0.77 mg/dL (0.55-1.3) 08/17/21 03:20 Glucose 238 mg/dL (74-106) H 08/17/21 03:20 Magnesium 1.9 mg/dL (1.8-2.4) 08/17/21 03:20 Total Bilirubin 1.1 mg/dL (0.2-1.0) H 08/14/21 14:20 AST 29 U/L (15-37) 08/14/21 14:20 ALT 27 U/L (12-78) 08/14/21 14:20 Alkaline Phosphatase 176 U/L (45-117) H 08/14/21 14:20 Home Medications: Furosemide [Lasix*] 40 mg PO DAILY 08/14/21 Hydrocodone Bit/Acetaminophen [Hydrocodon-Acetaminophn 10-325] 1 tab PO QID 08/14/21 Insulin Detemir [Levemir Flextouch] 55 units SQ BID 08/14/21 Rivaroxaban [Xarelto*] 20 mg PO DAILY 08/14/21 Spironolactone 25 mg PO DAILY 08/14/21 Doxycycline Hyclate 100 mg PO BID #20 tablet 08/17/21 Losartan Potassium 25 mg PO DAILY #30 tablet 08/17/21 Metoprolol Succinate 150 mg PO DAILY #90 tab.er.24h 08/17/21 Mupirocin Oint [Bactroban 2% Ointment*] 1 appl TOP DAILY #1 tube 08/17/21 rifAMPin [Rifampin] 300 mg PO BID #20 capsule 08/17/21 New Medications: Mupirocin Oint [Bactroban 2% Ointment*] 1 appl TOP DAILY #1 tube Doxycycline Hyclate 100 mg PO BID #20 tablet Losartan Potassium 25 mg PO DAILY #30 tablet Metoprolol Succinate 150 mg PO DAILY #90 tab.er.24h rifAMPin [Rifampin] 300 mg PO BID #20 capsule Physician Discharge Instructions: Patient found to have scalp abscess/cellulitis. Patient was admitted for treatment. Patient seen and evaluated by surgery. Surgical invention was required. Patient had incision, drainage and debridement of posterior scalp. Excisional debridement of necrotizing infection 4 x 2 cm to the subcutaneous tissue and muscle was performed. Patient tolerated procedure well. Cultures were positive for MRSA. At discharge patient will continue with current wound care as recommended by surgery. Family will be taught wound care to help patient. Patient will continue with Bactroban ointment to the wound, umbilicus and nares daily. Patient will continue with Hibiclens baths daily. At discharge the patient will continue with doxycycline 100 mg 1 pill twice daily and rifampin 300 mg 1 pill twice daily for 10 days. Patient will follow up with surgery at the wound care center in 2 weeks. Recommend follow-up with PCP in 1 week to follow-up his hospitalization. Patient with diabetes mellitus type 2. Patient had hyperglycemia. Hemoglobin A1c 8.4. Patient will continue with his current insulin regimenLevemir 55 units subcu twice daily. Recommend to maintain blood sugar less than 140 fasting and less than 200 after meals. If blood sugars remain above 200 he will need to increase his insulin by 1 to 2 units for better control. Recommend to recheck hemoglobin A1c every 3 months to monitor his progress. Recommend follow-up with PCP in 1 week to further address. Patient with hypertension. Patient reported EMILY allergy cough. Patient was taking lisinopril. This was discontinued and changed to losartan 25 mg daily. Metoprolol was adjusted for better blood pressure control. At discharge the patient will continue with losartan 25 mg daily and metoprolol XR 150 mg daily. Recommend to maintain blood pressure less than 130/80. If blood pressures remain above 140/90 further adjustment may be required. This can be done with the help of his PCP. Patient with atrial fibrillation on chronic anticoagulation therapy. At discharge patient will continue with Xarelto 20 mg daily and metoprolol XR 150 mg daily Patient with chronic diastolic CHF. At discharge patient will continue with Aldactone 25 mg daily and Lasix 40 mg daily. Patient with chronic pain with neuropathy. At discharge patient will continue with his current medicationhydrocodone as directed. Patient with tobacco abuse. Tobacco cessation addressed in detail. Diet: AHA Activity: Ad pool Followup: NONE,NONE [Primary Care Provider] - Time spent managing pt's care (in minutes): 55
--- NOTE | 2021-08-17 10:15 | PN ---
Date of Progress Note: 08/17/2021 Subjective: Patient is awake, alert. No complaint. Vital stable, afebrile. Cultures reviewed. Patient has MRSA sensitive to doxycycline. The rifampin panel was not run as the hospital did not have the disc for it. It is sensitive to vancomycin, which he has been on already. Dressing is clean, dry, and intact. Assessment: Status is excisional and debridement of necrotizing infection of the left posterior scalp with MRSA. Recommendations: I discussed with the microbiology department as well as Dr. Cho and my recommendation would be to discharge the patient home on oral antibiotics consisting of doxycycline and rifampin follow up in the wound healing center in 2 weeks, Hibiclens soap, and Bactroban cream as ordered. Discharge plan discussed in detail with the patient. MICHAEL/RAI Voice ID: [id number] Report ID: [id number] NELLIE
[2021-08-17 11:55] VITALS: O2SAT 94
[2021-08-17] MEDS ORDERED: DOXYCYCLINE 100 MG CAP PO SCH (21:00)
== END 2021-08-17 13:04 | disposition home or self-care (01) | DRG 571 ==
LOC: ER 12:44 → ERHOLD 16:38 → 2ND 18:26
PROVIDERS: ADMIT Family Medicine; ATTEND Family Medicine
PROC: 0JB00ZZ Excision of Scalp Subcutaneous Tissue and Fascia, Open Approach (ICD-10-PCS; principal; 2021-08-15 09:30)
DX: L02.811 Cutaneous abscess of head [any part, except face] (principal); I50.32 Chronic diastolic (congestive) heart failure; L03.811 Cellulitis of head [any part, except face]; B95.62 Methicillin resistant Staphylococcus aureus infection as the cause of diseases classified elsewhere; E11.65 Type 2 diabetes mellitus with hyperglycemia; I11.0 Hypertensive heart disease with heart failure; G89.29 Other chronic pain; I48.91 Unspecified atrial fibrillation; Z79.01 Long term (current) use of anticoagulants; F17.210 Nicotine dependence, cigarettes, uncomplicated; G62.9 Polyneuropathy, unspecified; Z20.822 Contact with and (suspected) exposure to COVID-19
CPT/HCPCS: 0240U; 36415; 71045; 80048; 80076; 80202; 82947; 83036; 83605; 83735; 83880; 84145; 84439; 84443; 84484; 85025; 85610; 87040; 87070; 87075; 87077; 87186; 87205; 88304; 93005; 99285; J0692; J1100; J1650; J2175; J2250; J2370; J2405; J2704; J3010; J3370; J3475; J7030; J7040; J7050

== ENCOUNTER 2021-08-25 15:00 | Emergency (ER) | payer OTHER ==
--- OUTSIDE RECORDS SUMMARY | 2021-08-25 15:03 | XMS REPORT | Continuity of Care Document ---
:1950 Author Organization [facility] t Address [address] [place] [address] Care Team Providers Name Role Phone CHRISTIANO COMBS Attending Clinician Unavail able JORGE DE LA CRUZ Admitting Clinician Unavailab le Problems This patient has no known problems. Allergies, Adverse Reactions, Alerts Allergy Allergy Status Severity Reaction(s) Onset Inactive Treating Comm ents Source Name Type Date Date Clinician NO KNOWN Allergy Active [facility] Medications This patient has no known medications. Procedures This patient has no known procedures. Encounters Start End Encounter Admission Attending Care Care Encounter Source Date/Time Date/Time Type Type Clinicians Facility Department ID 2019-12-01 2019-12-01 Outpatient [facility] [id number] [id number] 00:00:00 00:00:00 [id number] [facility] 2019-11-09 2019-11-09 Emergency [facility] [id number] -2 [facility] 08:08:00 08:08:00 [id number] Results Test Description Test Time Test Comments Results Result Comments Source BLOOD CULTURE 2019-11-14 11:00:00 Test Item Value Reference Range Interpretation Comme nts CULTURE (BEAKER) (test code = 1095) No growth in 5 days BLOOD [id number] 11:00:00 Test Item Value Reference Range Interpretation Comments CULTURE (BEAKER) (test No growth in 5 days code = 1095) POCT-GLUCOSE [id number] 12:19:00 Test Item Value Reference Range Interpretation Comments POC-GLUCOSE METER 250 mg/dL 70-110 H : [place] [address] (BEAKER) (test code [facility] [address] THE, = 1538) [place] [address] 384: Product Technology Scientist/Techni anson ID = [id number] for Garth, T y POCT-GLUCOSE [id number] 08:18:00 Test Item Value Reference Range Interpretation Comments POC-GLUCOSE METER 195 mg/dL 70-110 H : TESTED A T [facility] [address]144 (BEAKER) (test code [address] THE, = 1538) [place] [address] 384: Product Technology Scientist/Techni anson ID = [id number] for Bacilio Liang COMPREHENSIVE METABOLIC [id number] 05:40:00 Test Item Value Reference Range Interpretation [...] 1092) DATA TO CALCULA TE ESTIMATED GFR. Product Technology Scientist ID - [id number] 05:24:00 Test Item Value Reference Range Interpretation Comments HEMOGLOBIN A1C (BEAKER) (test code = 8.1 % 4.3-6.1 H 368) Product Technology Scientist ID - [id number] 21:31:00 Test Item Value Reference Range Interpretation Comments POC-GLUCOSE METER 300 mg/dL 70-110 H : TESTED A T [facility] [address] (BEAKER) (test code [address], = 1538) [place] [address] 384: Product Technology Scientist/Techni anson ID = [id number] for D Yadi herrera POCT-GLUCOSE [id number] 16:18:00 Test Item Value Reference Range Interpretation Comments POC-GLUCOSE METER 295 mg/dL 70-110 H : TESTED A T [facility] [address]609 (BEAKER) (test code [address], = 1538) [place] [address] 384: Product Technology Scientist/Techni anson ID = [id number] for Marcela Gtz POCT-GLUCOSE [id number] 10:52:00 Test Item Value Reference Range Interpretation Comments POC-GLUCOSE METER 233 mg/dL 70-110 H : TESTED A T [facility] [address]81 (BEAKER) (test code [address], = 1538) [place] [address] 384: Product Technology Scientist/Techni anson ID = [id number] for Marcela Gtz BASIC METABOLIC [id number] 10:34:00 Test Item Value Reference Range Interpretation [...] 1092) DATA TO CALCULA TE ESTIMATED GFR. Product Technology Scientist ID - [id number] METABOLIC [id number] 09:55:00 Test Item Value Reference Range Interpretation [...] 1092) DATA TO CALCULA TE ESTIMATED GFR. Product Technology Scientist ID - [id number] lipemicCBC W/PLT COUNT & AUTO [id number] 09:44:00 Test Item Value Reference Range Interpretation [...]
--- NOTE | 2021-08-25 17:26 | ER ---
Nurse's Notes [facility] Name: Deonte Armstrong Age: 71 yrs Sex: Male : 1950 Arrival Date: 08/25/2021 Time: 15:06 Bed Treatment Private MD: Diagnosis: Edema, unspecified Presentation: 08/25 16:09 Chief complaint: Patient states: swollen testicles, swollen penis that began yesterday. jl7 No pain, no issues urinating, no discharge noted. Right foot burn from 4 weeks ago not healing. Head abscess drained here 5 days ago not healing. Coronavirus screen: Vaccine status: Patient reports being unvaccinated. At this time, the client does not indicate any symptoms associated with coronavirus-19. Ebola Screen: No symptoms or risks identified at this time. Initial Sepsis Screen: Does the patient meet any 2 criteria? No. Patient's initial sepsis screen is negative. Initial Sepsis Screen: Does the patient have a suspected source of infection? No. Patient's initial sepsis screen is negative. Risk Assessment: Do you want to hurt yourself or someone else? Patient reports no desire to harm self or others. Onset of symptoms was August 24, 2021. Care prior to arrival: None. 16:09 Method Of Arrival: Ambulatory jl7 16:09 Acuity: KAROLINA 3 jl7 Triage Assessment: 16:22 General: Appears in no apparent distress. slender, well groomed, Behavior is calm, jl7 cooperative, appropriate for age. Pain: Denies pain. Historical: - Allergies: 16:18 No Known Allergies; jl7 - Home Meds: 16:18 furosemide 40 mg Oral tab 1 tab once daily [Active]; insulin [Active]; Lasix Oral jl7 [Active]; Levemir FlexTouch U-100 Insuln 100 unit/mL (3 mL) subcutaneous inpn [Active]; lisinopril 10 mg Oral tab 1 tab once daily [Active]; meloxicam 15 mg Oral tab 1 tab [Active]; metoprolol tartrate 100 mg Oral tab 1 tab once daily [Active]; [place] 10-325 mg Oral tab every 4-6 hours [Active]; spironolactone 25 mg Oral tab 1 tab once daily [Active]; tizanidine 4 mg Oral cap 1 cap 3 times per day [Active]; Xarelto 20 mg Oral tab 1 tab once daily [Active]; Xarelto Oral [Active]; - PMHx: 16:18 Atrial Fib; CHF; Diabetes - IDDM; jl7 - PSHx: 16:18 hernia repair; jl7 - Immunization history:: Adult Immunizations up to date. - Social history:: Smoking status: Patient reports the use of cigarette tobacco products, smokes one-half pack cigarettes per day, Patient uses Patient/guardian denies using alcohol, street drugs. - Family history:: not pertinent. - Hospitalizations: : No recent hospitalization is reported. Screenin:44 Abuse screen: Denies threats or abuse. Denies injuries from another. Nutritional jl7 screening: No deficits noted. Tuberculosis screening: No symptoms or risk factors identified. Fall Risk None identified. Assessment: 16:44 Reassessment: Dr. Mcdermott with pt assessing pt in treatment room. jl7 Vital Signs: 16:09 BP 114 / 84; Pulse 109; Resp 16; Temp 98.1(O); Pulse Ox 99% on R/A; jl7 ED Course: 15:06 Patient arrived in ED. mr 16:18 Triage completed. jl7 16:20 Arm band placed on right wrist. jl7 16:44 Marquis Mcdermott MD is Attending Physician. rn 16:44 Patient has correct armband on for positive identification. jl7 17:39 Augusto Bangura, LISA is Primary Nurse. jl7 17:54 No provider procedures requiring assistance completed. Patient did not have IV access jl7 during this emergency room visit. Administered Medications: No medications were administered Outcome: 17:26 Discharge ordered by . rn 17:54 Discharged to home ambulatory. jl7 17:54 Condition: stable 17:54 Discharge instructions given to patient, Instructed on discharge instructions, follow up and referral plans. Demonstrated understanding of instructions, follow-up care. 17:54 Patient left the ED. jl7 Signatures: Oscar Modesta ihll Marquis Mcdermott MD MD rn Leal, Jahala, RN RN jl7
--- NOTE | 2021-08-25 17:26 | EDPHYS ---
Physician Documentation [facility] Name: Deonte Armstrong Age: 71 yrs Sex: Male : 1950 Arrival Date: 08/25/2021 Time: 15:06 Bed Treatment Private MD: ED Physician Marquis Mcdermott HPI: 08/25 16:44 This 71 yrs old Male presents to ER via Ambulatory with complaints of Penile rn Problem. 16:44 The patient presents with swelling, that is moderate. Onset: The symptoms/episode rn began/occurred 2 day(s) ago. Modifying factors: The symptoms are alleviated by nothing, the symptoms are aggravated by nothing. Associated signs and symptoms: Pertinent negatives: abdominal pain, constipation, diarrhea, dysuria, fever, hematuria, nausea, vomiting. Severity of symptoms: At their worst the symptoms were moderate, in the emergency department the symptoms have improved. The patient has experienced similar episodes in the past. The patient has been recently seen by a physician:. Patient reports swelling to scrotum and penis for the last couple days. States this is happened multiple times before and told to increase his Lasix so he took double his dose yesterday with only mild improvement so wanted to get checked. Denies any pain. Is able to urinate and empty fully. Denies rash or skin changes.. Historical: - Allergies: 16:18 No Known Allergies; jl7 - Home Meds: 16:18 furosemide 40 mg Oral tab 1 tab once daily [Active]; insulin [Active]; Lasix Oral jl7 [Active]; Levemir FlexTouch U-100 Insuln 100 unit/mL (3 mL) subcutaneous inpn [Active]; lisinopril 10 mg Oral tab 1 tab once daily [Active]; meloxicam 15 mg Oral tab 1 tab [Active]; metoprolol tartrate 100 mg Oral tab 1 tab once daily [Active]; [place] 10-325 mg Oral tab every 4-6 hours [Active]; spironolactone 25 mg Oral tab 1 tab once daily [Active]; tizanidine 4 mg Oral cap 1 cap 3 times per day [Active]; Xarelto 20 mg Oral tab 1 tab once daily [Active]; Xarelto Oral [Active]; - PMHx: 16:18 Atrial Fib; CHF; Diabetes - IDDM; jl7 - PSHx: 16:18 hernia repair; jl7 - Immunization history:: Adult Immunizations up to date. - Social history:: Smoking status: Patient reports the use of cigarette tobacco products, smokes one-half pack cigarettes per day, Patient uses Patient/guardian denies using alcohol, street drugs. - Family history:: not pertinent. - Hospitalizations: : No recent hospitalization is reported. ROS: 16:44 Constitutional: Negative for fever, chills, and weight loss, Cardiovascular: Negative rn for chest pain, palpitations Respiratory: Negative for shortness of breath, cough, wheezing, and pleuritic chest pain, Abdomen/GI: Negative for abdominal pain, nausea, vomiting, diarrhea, and constipation, Back: Negative for injury and pain, : Positive for swelling of scrotum and penis MS/Extremity: Negative for injury and deformity, Skin: Negative for injury or rash Neuro: Negative for headache, weakness, numbness, tingling, and seizure. Exam: 16:44 Constitutional: This is a well developed, well nourished patient who is awake, alert, rn and in no acute distress. Head/Face: Normocephalic, atraumatic. Male : Mild general edema of the scrotum and the penis without drainage or open wounds. No abscess or fluctuance. Nontender. Patent meatus Vital Signs: 16:09 BP 114 / 84; Pulse 109; Resp 16; Temp 98.1(O); Pulse Ox 99% on R/A; jl7 MDM: 16:44 Patient medically screened. rn 17:24 Differential diagnosis: edema, volume overload, dependent edema. Data reviewed: vital rn signs, nurses notes, and as a result, I will discharge patient. Counseling: I had a detailed discussion with the patient and/or guardian regarding: the historical points, exam findings, and any diagnostic results supporting the discharge/admit diagnosis, the need for outpatient follow up, to return to the emergency department if symptoms worsen or persist or if there are any questions or concerns that arise at home. Special discussion: I discussed with the patient/guardian in detail that at this point there is no indication for admission to the hospital. It is understood, however, that if the symptoms persist or worsen the patient needs to return immediately for re-evaluation. ED course: Pt with non-tender edema of scrotum and penis, will dc home with instructions to double up his lasix for next 3 days. States this has happened multiple times in past and improved with lasix.. Administered Medications: No medications were administered Disposition Summary: 08/25/21 17:26 Discharge Ordered Location: Home rn Problem: new rn Symptoms: have improved rn Condition: Stable rn Diagnosis - Edema, unspecified rn Followup: rn - With: Private Physician - When: As needed - Reason: Recheck today's complaints, Re-evaluation by your physician Discharge Instructions: - Discharge Summary Sheet rn - Edema rn - Scrotal Swelling rn Forms: - Medication Reconciliation Form rn - Thank You Letter rn - Antibiotic learning support assistant - Prescription Opioid Use rn Signatures: Marquis Mcdermott MD MD rn Leal, Jahala, RN RN jl7 Corrections: (The following items were deleted from the chart) 17:12 16:44 Constitutional: This is a well developed, well nourished patient who is awake, rn alert, and in no acute distress. Head/Face: Normocephalic, atraumatic. rn
[2021-08-25 18:04] VITALS: BP 114/84; TEMP 98.1; O2SAT 99
== END 2021-08-25 17:54 | disposition home or self-care (01) ==
LOC: ER 15:00
DX: R60.9 Edema, unspecified (principal); E11.9 Type 2 diabetes mellitus without complications; F17.210 Nicotine dependence, cigarettes, uncomplicated
CPT/HCPCS: 99281

== ENCOUNTER 2022-01-07 08:11 | Emergency (ER) | payer OTHER ==
--- OUTSIDE RECORDS SUMMARY | 2022-01-07 08:14 | XMS REPORT | Continuity of Care Document ---
:1950 Author Organization [facility] t Address [address] [place] [address] Care Team Providers Name Role Phone CHRISTIANO COMBS Attending Clinician Unavail able JORGE DE LA CRUZ Admitting Clinician Unavailab le Problems This patient has no known problems. Allergies, Adverse Reactions, Alerts Allergy Allergy Status Severity Reaction(s) Onset Inactive Treating Comm ents Source Name Type Date Date Clinician NO KNOWN Allergy Active [facility] Medications This patient has no known medications. Procedures This patient has no known procedures. Encounters Start End Encounter Admission Attending Care Care Encounter Source Date/Time Date/Time Type Type Clinicians Facility Department ID 2019-12-01 2019-12-01 Outpatient [facility] [id number] [id number] 00:00:00 00:00:00 [id number] [facility] 2019-11-09 2019-11-09 Emergency [facility] [id number] -2 [facility] 08:08:00 08:08:00 [id number] Results Test Description Test Time Test Comments Results Result Comments Source LIPID PANEL 2021-11-09 03:53:43 Test Item Value Reference Range Interpretation Comme nts CHOLESTEROL (test code = 2210) 125 MG/DL <200 TRIGLYCERIDES (test code = 2232) 65 MG/DL <150 HDL CHOLESTEROL (test code = 46 MG/DL >39 2220) CALC LDL CHOL (test code = 2237) 65 MG/DL <100 NOTE: CALCULATED LDL IS BASED ON SPENCER-HEART METHOD WHICHINCLUDES A DJUSTABLE TRIGLYCERIDE:VL DL CHOLESTEROL RATIO.THIS FACT OR VARIES BY MEASURED TRIGLY CERIDE AND NON-HDLCHOLESTE ROL CONCENTRATIONS WITH INCREASED CALCULATED LDL SEENIN HIGHER T RIGLYCERIDE OR LOWER NON-HDL S PECIMENS. FOR MOREINFORMATION , SEE CLIENT ANNOUNCEMENT AT [email or web address] [email or web address] RATIO LDL/HDL (test code = 1.41 RATIO <3.55 2237) COMPREHENSIVE METABOLIC [id number] 03:53:43 Test Item Value Reference Range Interpretation Comments GLUCOSE (test code = 274 MG/DL 70-99 H 2216) BUN (test code = 10 MG/DL 8-23 2207) CREATININE (test 0.61 MG/DL 0.80-1.40 L code = 221) eGFR (2020 CKD-EPI) 103 >60 (test code = 37303) ML/MIN/1.73 CALC BUN/CREAT (test 16 RATIO 6-28 code = 2235) SODIUM (test code = 131 MEQ/L 133-146 L 2230) POTASSIUM (test code 5.0 MEQ/L 3.5-5.4 = 2227) CHLORIDE (test code 97 MEQ/L 95-107 = 2214) CARBON DIOXIDE (test 20 MEQ/L 19-31 code = 220) CALCIUM (test code = 8.5 MG/DL 8.5-10.5 2208) PROTEIN, TOTAL (test 7.7 G/DL 6.1-8.3 code = 222) ALBUMIN (test code = 3.6 G/DL 3.5-5.2 2200) CALC GLOBULIN (test 4.1 G/DL 1.9-3.7 H code = 2240) CALC A/G RATIO (test 0.9 RATIO 1.0-2.6 L code = 2234) BILIRUBIN, TOTAL 0.6 MG/DL See_Comment [Automated message] (test code = 2206) The syste [employer] which generated this result transmitted ref erence range: <=1.2. T he reference range was not used to int erpret this result as normal/abnormal . ALKALINE PHOSPHATASE 150 U/L 40-125 H (test code = 2203) AST (test code = 39 U/L 9-50 2217) ALT (test code = 24 U/L 5-50 UNLE SS 2218) OTHERWISE INDIC ATED, ALL TESTING PER FORMED [facility], [place]. [address] [place] [place] [address] LABORATORY DIRE CTOR: OSWALD CAM M.D. CLIA NUMBER [id number] CAP ACCREDITATION N O. [id number] HEMOGLOBIN [id number] 03:42:02 Test Item Value Reference Range Interpretation Comments HEMOGLOBIN A1c (test 8.4 % 4.2-5.6 H COLOMBIAN DIABETES code = 49912) ASSOCIATION IDELINES FOR HGB A1C: PREDIABETES/INC REASED RISK . . . . . . . 5.7 -6.4% DIAGNOSIS OF D IABETES . . . . . . . . . > =6.5% WITH CONFIRM ATION OR APPROPRIATE SYM PTOMS NOTE: ASSAY MAY BE AFFECTED BY HEMOGLOBINOP ATHIES (SICKLE LENY L ANEMIA, S-C DISEASE, OTHERS ) OR ARTIFICIALLY LO WERED BY DECREASED RED C ELL SURVIVAL (HEMOLYTIC ANEM IAS, BLOOD LOSS, ETC.) . CONSIDER ALTERNATE TESTI NG OR LABORATORY CONS ULTATION. CBC W/AUTO DIFF WITH [id number] 02:45:26 Test Item Value Reference Range Interpretation Comments WBC (test code = 7.0 K/UL 3.5-11.0 1001) RBC (test code = 3.63 M/UL 4.50-6.10 L 1002) HEMOGLOBIN (test code 11.2 G/DL 13.5-17.0 L = 1003) HEMATOCRIT (test code 32.2 % 40.0-51.0 L = 1004) MCV (test code = 88.7 fL 80.0-99.0 1005) MCH (test code = 30.9 PG 25.0-33.0 1006) MCHC (test code = 34.8 G/DL 31.0-36.0 1007) RDW (test code = 13.4 % 11.5-15.0 1038) NEUTROPHILS (test 56.6 % code = 1008) LYMPHOCYTES (test 34.7 % code = 1010) MONOCYTES (test code 5.9 % = 1011) EOSINOPHILS (test 1.6 % code = 1012) BASOPHILS (test code 0.6 % = 1013) IMMATURE GRANULOCYTES 0.6 % (test code = 1036) NUCLEATED RBCS (test 0.0 /100 See_Comment [Autom ated code = 1065) WBC'S message] The sy stem which generated this result transmitted reference range : 0.0. The refere nce range was not u sed to interpret th is result as normal/abnormal . PLATELET COUNT (test 195 K/UL 130-400 code = 1015) ABSOLUTE NEUTROPHILS 3.97 K/UL 1.50-7.50 (test code = 1066) ABSOLUTE LYMPHOCYTES 2.43 K/UL 1.00-4.00 (test code = 1067) ABSOLUTE MONOCYTES 0.41 K/UL 0.20-1.00 (test code = 1068) ABSOLUTE EOSINOPHILS 0.11 K/UL 0.00-0.50 (test code = 1040) ABSOLUTE BASOPHILS 0.04 K/UL 0.00-0.20 (test code = 1069) ABS IMMATURE 0.04 K/UL 0.00-0.10 GRANULOCYTES (test code = 1020) ABS NUCLEATED RBCS 0.00 K/UL 0.00-0.11 (test code = 30448) PROTHROMBIN TIME (PT)2021-11-08 07:30:15 Test Item Value Reference Range Interpretation Comments PROTHROMBIN TIME TEST NOT 12.5-14.7 Unable to p erform (PT) (test code = PERFORMED testing, s pecimen not 1402) SECONDS received.Charge s adjusted as applicable. INR (test code = TEST NOT SEE BELOW CURRENT 23087) PERFORMED RECOMMENDATIONS ARE FOR AN INR OF 2 .0-3.0 FOR ALL PATIENTS ON VIT AREVALO K ANTAGONISTS, EX CEPT THOSE WITH PROSTHETIC HEAR T VALVES, FOR WHO M INR OF 2.5-3.5 IS RECOMMENDED. UNLESS OTHERWI SE INDICATED, ALL TESTING PERFORM ED [facility], [facility]. [address] [place] [address] LABORATORY DIRE CTOR: OSWALD CAM M.D. CLIA NUMBER [id number] CAP ACCREDITATION N O. [id number] HEMOGLOBIN [id number] 06:54:40 Test Item Value Reference Range Interpretation Comments HEMOGLOBIN A1c (test 8.1 % 4.2-5.6 H COLOM[facility]AN DIABETES code = 74713) ASSOCIATION IDELINES FOR HGB A1C: PREDIABETES/INC REASED RISK . . . . . . . 5.7 -6.4% DIAGNOSIS OF D IABETES . . . . . . . . . > =6.5% WITH CONFIRM ATION OR APPROPRIATE SYM PTOMS NOTE: ASSAY MAY BE AFFECTED BY HEMOGLOBINOP ATHIES (SICKLE LENY L ANEMIA, S-C DISEASE, OTHERS ) OR ARTIFICIALLY LO WERED BY DECREASED RED C ELL SURVIVAL (HEMOLYTIC ANEM IAS, BLOOD LOSS, ETC.) . CONSIDER ALTERNATE TESTI NG OR LABORATORY CONS ULTATION. CBC W/AUTO DIFF WITH [id number] 05:56:26 Test Item Value Reference Range Interpretation Comments WBC (test code = 7.2 K/UL 3.5-11.0 1001) RBC (test code = 3.56 M/UL 4.50-6.10 L 1002) HEMOGLOBIN (test code 11.1 G/DL 13.5-17.0 L = 1003) HEMATOCRIT (test code 32.3 % 40.0-51.0 L = 1004) MCV (test code = 90.7 fL 80.0-99.0 1005) MCH (test code = 31.2 PG 25.0-33.0 1006) MCHC (test code = 34.4 G/DL 31.0-36.0 1007) RDW (test code = 13.4 % 11.5-15.0 1038) NEUTROPHILS (test 51.2 % code = 1008) LYMPHOCYTES (test 37.8 % code = 1010) MONOCYTES (test code 7.4 % = 1011) EOSINOPHILS (test 2.4 % code = 1012) BASOPHILS (test code 0.6 % = 1013) IMMATURE GRANULOCYTES 0.6 % (test code = 1036) NUCLEATED RBCS (test 0.0 /100 See_Comment [Autom ated code = 1065) WBC'S message] The sy stem which generated this result transmitted reference range : 0.0. The refere nce range was not u sed to interpret th is result as normal/abnormal . PLATELET COUNT (test 163 K/UL 130-400 code = 1015) ABSOLUTE NEUTROPHILS 3.68 K/UL 1.50-7.50 (test code = 1066) ABSOLUTE LYMPHOCYTES 2.71 K/UL 1.00-4.00 (test code = 1067) ABSOLUTE MONOCYTES 0.53 K/UL 0.20-1.00 (test code = 1068) ABSOLUTE EOSINOPHILS 0.17 K/UL 0.00-0.50 (test code = 1040) ABSOLUTE BASOPHILS 0.04 K/UL 0.00-0.20 (test code = 1069) ABS IMMATURE 0.04 K/UL 0.00-0.10 GRANULOCYTES (test code = 1020) ABS NUCLEATED RBCS 0.00 K/UL 0.00-0.11 (test code = 72791) LIPID [id number] 05:32:10 Test Item Value Reference Range Interpretation Comments CHOLESTEROL (test 122 MG/DL <200 code = 2210) TRIGLYCERIDES (test 74 MG/DL <150 code = 2232) HDL CHOLESTEROL (test 40 MG/DL >39 code = 2220) CALC LDL CHOL (test 67 MG/DL <100 NOTE: C ALCULATED LDL code = 2237) IS BASED ON SPENCER-HEART METHOD WHICHINCLUDES ADJUSTABLE TRIGLYCERIDE:VL DL CHOLESTEROL RAT IO.THIS FACTOR VARIES B Y MEASURED TRIGLY CERIDE AND NON-HDLCHOL ESTEROL CONCENTRATIONS WITH INCREASED CALCU LATED LDL SEENIN HIGH ER TRIGLYCERIDE OR LOWER NON-HDL SPECIME NS. FOR MOREINFORMATION , SEE CLIENT ANNOUNCE MENT AT [email or web address] RISK RATIO LDL/HDL 1.68 RATIO <3.55 (test code = 2238) COMPREHENSIVE METABOLIC [id number] 05:32:10 Test Item Value Reference Range Interpretation Comments GLUCOSE (test code = 249 MG/DL 70-99 H 2216) BUN (test code = 10 MG/DL 8-23 2207) CREATININE (test 0.58 MG/DL 0.80-1.40 L code = 2214) eGFR (2020 CKD-EPI) 104 >60 (test code = 19934) ML/MIN/1.73 CALC BUN/CREAT (test 17 RATIO 6-28 code = 2235) SODIUM (test code = 127 MEQ/L 133-146 L 2230) POTASSIUM (test code 5.1 MEQ/L 3.5-5.4 = 2227) CHLORIDE (test code 94 MEQ/L 95-107 L = 221) CARBON DIOXIDE (test 21 MEQ/L 19-31 code = 2206) CALCIUM (test code = 8.8 MG/DL 8.5-10.5 2208) PROTEIN, TOTAL (test 7.4 G/DL 6.1-8.3 code = 222) ALBUMIN (test code = 3.5 G/DL 3.5-5.2 2200) CALC GLOBULIN (test 3.9 G/DL 1.9-3.7 H code = 2240) CALC A/G RATIO (test 0.9 RATIO 1.0-2.6 L code = 2234) BILIRUBIN, TOTAL 0.5 MG/DL See_Comment [Automated message] (test code = 2207) The syste m which generated this result transmit lennox reference range : <=1.2. The refe rence range was not u sed to interpret th is result as normal/abnormal . ALKALINE PHOSPHATASE 151 U/L 40-125 H (test code = 2204) AST (test code = 44 U/L 9-50 2217) ALT (test code = 27 U/L 5-50 2218) BLOOD [id number] 11:00:00 Test Item Value Reference Range Interpretation Comments CULTURE (BEAKER) (test No growth in 5 days code = 1095) BLOOD [id number] 11:00:00 Test Item Value Reference Range Interpretation Comments CULTURE (BEAKER) (test No growth in 5 days code = 1095) POCT-GLUCOSE [id number] 12:19:00 Test Item Value Reference Range Interpretation Comments POC-GLUCOSE METER 250 mg/dL 70-110 H : TESTED A T [facility] [address] (BEAKER) (test code [address], = 1538) [place] [address] 384: Director Of Collections/Techni anson ID = [id number] for Garth, T y POCT-GLUCOSE [id number] 08:18:00 Test Item Value Reference Range Interpretation Comments POC-GLUCOSE METER 195 mg/dL 70-110 H : TESTED A T [facility] [address] (BEAKER) (test code [facility], = 1538) [place] [address] 384: Director Of Collections/Techni anson ID = [id number] for Garth, T y COMPREHENSIVE METABOLIC [id number] 05:40:00 Test Item Value Reference Range Interpretation [...] 1092) DATA TO CALCULA TE ESTIMATED GFR. Director Of Collections ID - [id number] 05:24:00 Test Item Value Reference Range Interpretation Comments HEMOGLOBIN A1C (BEAKER) (test code = 8.1 % 4.3-6.1 H 368) Director Of Collections ID - [id number] 21:31:00 Test Item Value Reference Range Interpretation Comments POC-GLUCOSE METER 300 mg/dL 70-110 H : TESTED A T [facility] [address] (BEAKER) (test code [facility], = 1538) [place] [address] 384: Director Of Collections/Techni anson ID = [id number] for D Yadi herrera POCT-GLUCOSE [id number] 16:18:00 Test Item Value Reference Range Interpretation Comments POC-GLUCOSE METER 295 mg/dL 70-110 H : TESTED A T [facility] [address] (BEAKER) (test code [facility], = 1538) [place] [address] 384: Director Of Collections/Techni anson ID = [id number] for D ubose, Marcela POCT-GLUCOSE [id number] 10:52:00 Test Item Value Reference Range Interpretation Comments POC-GLUCOSE METER 233 mg/dL 70-110 H : TESTED A T [facility] [id number] (BEAKER) (test code [address], = 1538) [place] [address] 384: Director Of Collections/Techni anson ID = [id number] for Marcela Gtz BASIC METABOLIC [id number] 10:34:00 Test Item Value Reference Range Interpretation [...] 1092) DATA TO CALCULA TE ESTIMATED GFR. Director Of Collections ID - [id number] METABOLIC [id number] 09:55:00 Test Item Value Reference Range Interpretation [...] 1092) DATA TO CALCULA TE ESTIMATED GFR. Director Of Collections ID - [id number] slightly lipemicCBC W/PLT COUNT & AUTO [id number] 09:44:00 Test Item Value Reference Range Interpretation [...] % 0-0 PERCENT (BEAKER) (test code = 6857)
[2022-01-07 09:10] LABS: Absolute Lymphocytes (CBC) 2.3 K/uL (0.7-4.9); Hematocrit 35.8 % (39.6-49.0); Lymphocytes % 28.2 % (15.3-44.8); MPV 8.6 fL (7.6-11.3); RBC Red Blood Cell Count 3.94 M/uL (4.33-5.43)
[2022-01-07 09:33] LABS: Bilirubin Total 0.7 mg/dL (0.2-1.0); Potassium 4.1 mmol/L (3.5-5.1); Protein, Total 7.3 g/dL (6.4-8.2)
--- NOTE | 2022-01-07 10:15 | RAD REPORT ---
EXAM DESCRIPTION: CT - Abdomen Pelvis W Contrast - 01/07/2022 10:02 am CLINICAL HISTORY: Abdominal pain/vomiting COMPARISON: 2020 TECHNIQUE: Computed axial tomography of the abdomen pelvis was obtained. 100 cc Isovue-300 was admin istered intravenously. Oral contrast was not requested which limits evaluation of bowel and appendix. All CT scans are performed using dose optimization technique as appropriate and may include automated exposure control or mA/KV adjustment according to patient size. FINDINGS: Mild fatty liver. Contracted gallbladder containing stones. Spleen, pancreas, adrenal and kidneys appear unremarkable. Postsurgical changes involving the left colon. Mild to moderate stranding adjacent to the proximal re ctum/sigmoid colon. A a diverticulum is present. No free air. No abscess. Postsurgical changes involv ing right inguinal Ventral hernia within the abdomen to the left of midline. The neck measures 17 millimeters. Herniated sac 58 millimeters. IMPRESSION: Mild colonic diverticulitis Cholelithiasis
--- NOTE | 2022-01-07 10:32 | ER ---
Nurse's Notes [facility] Name: Deonte Armstrong Age: 71 yrs Sex: Male : 1950 Arrival Date: 01/07/2022 Time: 08:19 Bed 6 Private MD: Diagnosis: Diverticulitis of large intestine without perforation or abscess without bleeding Presentation: 01/07 08:41 Chief complaint: Patient states: Bites on top of head, PCP gave bacitracin, pt noted to jl7 have bedbug on shirt. Also reports nausea and diarrhea. Coronavirus screen: At this time, the client does not indicate any symptoms associated with coronavirus-19. Ebola Screen: No symptoms or risks identified at this time. Initial Sepsis Screen: Does the patient meet any 2 criteria? No. Patient's initial sepsis screen is negative. Does the patient have a suspected source of infection? No. Patient's initial sepsis screen is negative. Risk Assessment: Do you want to hurt yourself or someone else? Patient reports no desire to harm self or others. Onset of symptoms is unknown. 08:41 Method Of Arrival: Wheelchair [facility] 08:41 Acuity: KAROLINA 3 jl7 Triage Assessment: 08:44 Bite description: bite sustained to scalp by bedbugs, animal information: jl7 vaccination(s) is not applicable. General: Appears in no apparent distress. uncomfortable, Behavior is calm, cooperative, appropriate for age. Pain: Denies pain. Neuro: Level of Consciousness is awake, alert, obeys commands, Oriented to person, place, time, situation. Cardiovascular: Patient's skin is warm and dry. Respiratory: Airway is patent Respiratory effort is even, unlabored, Respiratory pattern is regular, symmetrical. GI: Reports diarrhea, nausea. Derm: Skin scabs to top of head Skin is pink, warm \T\ dry. Historical: - Allergies: 08:44 No Known Allergies; jl7 - PMHx: 08:44 Atrial Fib; CHF; Diabetes - IDDM; jl7 - Immunization history:: Adult Immunizations unknown. - Social history:: Smoking status: unknown. Screenin:08 Abuse screen: Denies threats or abuse. Denies injuries from another. Nutritional jl7 screening: No deficits noted. Tuberculosis screening: No symptoms or risk factors identified. Fall Risk No fall in past 12 months (0 pts). No secondary diagnosis (0 pts). No IV (0 pts). Ambulatory Aid- Crutches/Cane/Walker (15 pts). Gait- Impaired (20 pts.). Mental Status- Oriented to own ability (0 pts). Total Rutherford Fall Scale indicates Low Risk Score (25-44 pts). Fall prevention measures have been instituted. Side Rails Up X 2 Placed close to Nursing Station Frequent Obs/Assesments occuring As available Patient and Family Educated on Fall Prevention Program and strategies. Assessment: 09:08 General: See triage. jl7 10:00 Reassessment: Patient appears in no apparent distress at this time. No changes from jl7 previously documented assessment. Patient and/or family updated on plan of care and expected duration. Pain level reassessed. Patient is alert, oriented x 3, equal unlabored respirations, skin warm/dry/pink. 10:45 Reassessment: Pt will be discharged after medications and fluids are done infusing. jl7 Vital Signs: 08:41 BP 101 / 89; Pulse 71; Resp 16; Temp 97.6; Pulse Ox 100% on R/A; jl7 10:45 BP 116 / 92; Pulse 72; Resp 15; Pulse Ox 100% ; jl7 ED Course: 08:19 Patient arrived in ED. am2 08:28 Mychal Bazan NP is PHCP. pm1 08:28 Júnior Bentley MD is Attending Physician. pm1 08:41 Augusto Bangura RN is Primary Nurse. jl7 08:44 Triage completed. jl7 08:44 Arm band placed on right wrist. jl7 09:08 Patient has correct armband on for positive identification. Bed in low position. Call [facility] light in reach. Side rails up X 1. Pulse ox on. NIBP on. 09:08 Initial lab(s) drawn, by ms, sent to lab. Inserted saline lock: 20 gauge in left jl7 forearm, using aseptic technique. Blood collected. 10:04 CT Abd/Pelvis - IV Contrast Only In Process Unspecified. EDMS 11:45 No provider procedures requiring assistance completed. IV discontinued, intact, jl7 bleeding controlled, No redness/swelling at site. Pressure dressing applied. Administered Medications: 10:37 Drug: Flagyl (metroNIDAZOLE) 500 mg Volume: 100 ml; Route: IVPB; Rate: 200 ml/hr; jl7 Infused Over: 30 mins; Site: left forearm; 10:37 Drug: Cipro (ciprofloxacin) 500 mg Route: PO; jl7 10:52 Drug: NS 0.9% 500 ml Volume: 500 ml; Route: IV; Rate: 1 bolus; Site: left forearm; jl7 Medication: 09:08 VIS not applicable for this client. jl7 Outcome: 10:31 Discharge ordered by MD. pm1 11:45 Discharged to home ambulatory. jl7 11:45 Condition: stable 11:45 Discharge instructions given to patient, Instructed on discharge instructions, follow up and referral plans. medication usage, Demonstrated understanding of instructions, follow-up care, medications. 11:52 Patient left the ED. iw Signatures: Dispatcher [employer] EDShelly Sanders RN RN iw Mychal Bazan NP IMAGING ACCOUNT MANAGER pm1 Augusto Bangura RN RN jl7 Krista Pratt am2
--- NOTE | 2022-01-07 10:32 | EDPHYS ---
Physician Documentation [facility] Name: Deonte Armstrong Age: 71 yrs Sex: Male : 1950 Arrival Date: 01/07/2022 Time: 08:19 Bed 6 Private MD: ED Physician Júnior Bentley HPI: 01/07 08:46 This 71 yrs old Male presents to ER via Wheelchair with complaints of Insect pm1 bites and N/V/D. 08:46 The patient presents to the emergency department with nausea, vomiting, diarrhea. pm1 Onset: The symptoms/episode began/occurred 3 day(s) ago. Possible causes: unknown, patient is concerned that his bug bites were causing his n/v/d. The symptoms are aggravated by nothing. The symptoms are alleviated by nothing. Associated signs and symptoms: Pertinent negatives: abdominal pain, dysuria, fever. Severity of symptoms: in the emergency department the symptoms are unchanged Pain is currently a 0 / 10. The patient has not experienced similar symptoms in the past. The patient has been recently seen by a physician: the patient's primary care provider, Patient was seen for the bug bites and he was prescribed topical abx, bacitracin. 08:46 71-year-old male presents to the ER with complaints of nausea vomiting and diarrhea for pm1 the past 3 days. Patient reports 3-4 episodes of vomiting over the duration. Diarrhea with each time that he urinates, multiple episodes of diarrhea. Patient is concerned that he might be dehydrated. Patient is also complaining of insect bites to his scalp that he was evaluated for by his PCP and was prescribed bacitracin. Historical: - Allergies: 08:44 No Known Allergies; jl7 - PMHx: 08:44 Atrial Fib; CHF; Diabetes - IDDM; jl7 - Immunization history:: Adult Immunizations unknown. - Social history:: Smoking status: unknown. ROS: 08:46 Constitutional: Negative for fever, chills, and weight loss, Cardiovascular: Negative pm1 for chest pain, palpitations, and edema, Respiratory: Negative for shortness of breath, cough, wheezing, and pleuritic chest pain. 08:46 Back: Negative for injury and pain, MS/Extremity: Negative for injury and deformity, Neuro: Negative for headache, weakness, numbness, tingling, and seizure. 08:46 Abdomen/GI: Positive for nausea, vomiting, and diarrhea, Negative for abdominal pain. 08:46 Skin: Positive for insect bites on scalp. 08:46 All other systems are negative. Exam: 08:46 Constitutional: This is a well developed, well nourished patient who is awake, alert, pm1 and in no acute distress. Head/Face: Normocephalic, atraumatic. 08:46 Skin: Warm, dry with normal turgor. Normal color with no rashes, no lesions, and no evidence of cellulitis. MS/ Extremity: Pulses equal, no cyanosis. Neurovascular intact. Full, normal range of motion. 08:46 Cardiovascular: Exam negative for acute changes, Rate: normal, Rhythm: regular, Pulses: no pulse deficits are appreciated. 08:46 Respiratory: Exam negative for acute changes, respiratory distress, shortness of breath. 08:46 Abdomen/GI: Palpation: abdomen is soft and non-tender, in all quadrants. 08:46 Back: Exam negative for acute changes, pain, is absent, CVA tenderness, is absent, vertebral tenderness, is not appreciated. 08:46 Neuro: Exam negative for acute changes, Orientation: is normal, Mentation: is normal, Motor: is normal, moves all fours. Vital Signs: 08:41 BP 101 / 89; Pulse 71; Resp 16; Temp 97.6; Pulse Ox 100% on R/A; jl7 10:45 BP 116 / 92; Pulse 72; Resp 15; Pulse Ox 100% ; jl7 MDM: 08:28 Patient medically screened. pm1 08:51 Data reviewed: vital signs. Data interpreted: Pulse oximetry: on room air is 100 %. pm1 Interpretation: normal. 10:24 Counseling: I had a detailed discussion with the patient and/or guardian regarding: the pm1 historical points, exam findings, and any diagnostic results supporting the discharge/admit diagnosis, lab results, radiology results, the need for outpatient follow up, to return to the emergency department if symptoms worsen or persist or if there are any questions or concerns that arise at home. 10:24 ED course: Patient reports that he started eating trail mix recently. Discussed dietary pm1 changes with new diagnosis of diverticulitis. 01/07 08:46 Order name: CBC with Diff; Complete Time: 09:40 pm1 01/07 08:46 Order name: CMP; Complete Time: 09:36 pm1 01/07 08:46 Order name: Lipase; Complete Time: 09:36 pm1 01/07 08:51 Order name: CT Abd/Pelvis - IV Contrast Only; Complete Time: 10:21 pm1 01/07 08:46 Order name: IV Saline Lock; Complete Time: 09:07 pm1 01/07 08:46 Order name: Labs collected and sent; Complete Time: 09:07 pm1 Administered Medications: 10:37 Drug: Flagyl (metroNIDAZOLE) 500 mg Volume: 100 ml; Route: IVPB; Rate: 200 ml/hr; jl7 Infused Over: 30 mins; Site: left forearm; 10:37 Drug: Cipro (ciprofloxacin) 500 mg Route: PO; jl7 10:52 Drug: NS 0.9% 500 ml Volume: 500 ml; Route: IV; Rate: 1 bolus; Site: left forearm; jl7 Disposition Summary: 01/07/22 10:31 Discharge Ordered Location: Home pm1 Problem: new pm1 Symptoms: have improved pm1 Condition: Stable pm1 Diagnosis - Diverticulitis of large intestine without perforation or abscess without bleeding pm1 Followup: pm1 - With: Emergency Department - When: As needed - Reason: Worsening of condition Followup: pm1 - With: Private Physician - When: 2 - 3 days - Reason: Recheck today's complaints, Continuance of care, Re-evaluation by your physician Discharge Instructions: - Discharge Summary Sheet pm1 - Clear Liquid Diet, Adult pm1 - Diverticulitis pm1 Forms: - Medication Reconciliation Form pm1 - Thank You Letter pm1 - Antibiotic Education pm1 - Prescription Opioid Use pm1 Prescriptions: - Flagyl 500 mg Oral Tablet - take 1 tablet by ORAL route every 6 hours for 10 days; 40 tablet; Refills: 0, pm1 Product Selection Permitted - Cipro 500 mg Oral Tablet - take 1 tablet by ORAL route every 12 hours for 10 days; 20 tablet; Refills: 0, pm1 Product Selection Permitted - ondansetron 4 mg Oral tablet,disintegrating - place 1 tablet by TRANSLINGUAL route every 8 hours As needed; 12 tablet; pm1 Refills: 0, Product Selection Permitted Signatures: Dispatcher [employer] Mychal Rojo NP R AND D LAB TECHNICIAN pm1 Augusto Bangura RN RN jl7
[2022-01-07] MEDS ORDERED: CIPROFLOXACIN HCL 500 MG TAB ONE (10:33)
[2022-01-07] MEDS ORDERED: METRONIDAZOLE 500mg IVPB 500 MG/100 ML BAG IV ONE (10:33)
[2022-01-07] MEDS ORDERED: NA CHLORIDE 0.9% 500 ML ONE (10:46)
[2022-01-07 11:59] VITALS: TEMP 97.6; O2SAT 100
[2022-01-07 12:01] VITALS: BP 116/92
== END 2022-01-07 11:52 | disposition home or self-care (01) ==
LOC: ER 08:11
DX: K57.32 Diverticulitis of large intestine without perforation or abscess without bleeding (principal); S00.06XA Insect bite (nonvenomous) of scalp, initial encounter; E11.9 Type 2 diabetes mellitus without complications; I50.9 Heart failure, unspecified; I48.91 Unspecified atrial fibrillation
CPT/HCPCS: 85025; 36415; 83690; 80053; 74177; 96374; 99284; Q9967; J7040; J3490

== ENCOUNTER 2022-02-04 21:15 | Emergency (ER) | payer OTHER ==
--- OUTSIDE RECORDS SUMMARY | 2022-02-04 21:21 | XMS REPORT | Continuity of Care Document ---
:1950 Author Organization [facility] t Address [address] [place] [address] Care Team Providers Name Role Phone CHRISTIANO COMBS Attending Clinician Unavail able JORGE DE LA CRUZ Admitting Clinician Unavailab le Problems This patient has no known problems. Allergies, Adverse Reactions, Alerts Allergy Allergy Status Severity Reaction(s) Onset Inactive Treating Comm ents Source Name Type Date Date Clinician NO KNOWN Allergy Active [facility] Medications This patient has no known medications. Procedures This patient has no known procedures. Encounters Start End Encounter Admission Attending Care Care Encounter Source Date/Time Date/Time Type Type Clinicians Facility Department ID 2019-12-01 2019-12-01 Outpatient [facility] [id number] [id number] 00:00:00 00:00:00 [id number] [facility] 2019-11-09 2019-11-09 Emergency [facility] [id number] [facility] 08:08:00 08:08:00 [id number] Results Test Description Test Time Test Comments [...] FOR MOREINFORMATION , SEE CLIENT ANNOUNCEMENT AT [email or web address] [email or web address] RATIO LDL/HDL (test code = 1.41 RATIO <3.55 2237) COMPREHENSIVE METABOLIC [id number] 03:53:43 Test Item Value Reference Range Interpretation Comments GLUCOSE (test code = 274 MG/DL 70-99 H 2216) BUN (test code = 10 MG/DL 8-23 2207) CREATININE (test 0.61 MG/DL 0.80-1.40 L code = 221) eGFR (2020 CKD-EPI) 103 >60 (test code = 94684) ML/MIN/1.73 CALC BUN/CREAT (test 16 RATIO 6-28 [...] message] (test code = 2206) The syste [employer] which generated this result transmitted ref erence [...] [facility] [place] [address] [place] [address] LABORATORY DIRE CTOR: OSWALD CAM M.D. CLIA NUMBER [id number] CAP ACCREDITATION N O. [id number] HEMOGLOBIN [id number] 03:42:02 Test Item Value Reference Range Interpretation Comments HEMOGLOBIN A1c (test 8.4 % 4.2-5.6 H ICELANDIC DIABETES code = 99483) ASSOCIATION [employer] FOR HGB A1C: PREDIABETES/INC REASED [...] LABORATORY CONS ULTATION. CBC W/AUTO DIFF WITH [id number] 02:45:26 Test Item Value Reference Range Interpretation [...] RBCS 0.00 K/UL 0.00-0.11 (test code = 85752) PROTHROMBIN TIME (PT)2021-11-08 07:30:15 Test Item Value Reference Range Interpretation Comments PROTHROMBIN TIME TEST NOT 12.5-14.7 Unable to p erform (PT) (test code = PERFORMED testing, s pecimen not 1402) SECONDS received.Charge s adjusted as applicable. INR (test code = TEST NOT SEE BELOW CURRENT 74394) PERFORMED RECOMMENDATIONS ARE FOR AN INR OF 2 .0-3.0 FOR ALL PATIENTS ON VIT AREVALO K ANTAGONISTS, EX CEPT THOSE WITH PROSTHETIC HEAR T VALVES, FOR WHO M INR OF 2.5-3.5 IS RECOMMENDED. UNLESS OTHERWI SE INDICATED, ALL TESTING PERFORM ED ATCLINICAL PATH [facility], [facility]. [address] [place] [address] LABORATORY DIRE CTOR: OSWALD CAM M.D. CLIA NUMBER [id number] CAP ACCREDITATION N O. [id number] HEMOGLOBIN [id number] 06:54:40 Test Item Value Reference Range Interpretation Comments HEMOGLOBIN A1c (test 8.1 % 4.2-5.6 H ICELANDIC DIABETES code = 49607) ASSOCIATION IDELIN[employer] FOR HGB A1C: PREDIABETES/INC REASED [...] LABORATORY CONS ULTATION. CBC W/AUTO DIFF WITH [id number] 05:56:26 Test Item Value Reference Range Interpretation [...] RBCS 0.00 K/UL 0.00-0.11 (test code = 49575) LIPID [id number] 05:32:10 Test Item Value Reference Range Interpretation [...] MOREINFORMATION , SEE CLIENT ANNOUNCE MENT AT [email or web address] [email or web address] RATIO LDL/HDL 1.68 RATIO <3.55 (test code = 2238) COMPREHENSIVE METABOLIC [id number] 05:32:10 Test Item Value Reference Range Interpretation Comments GLUCOSE (test code = 249 MG/DL 70-99 H 2216) BUN (test code = 10 MG/DL 8-23 2207) CREATININE (test 0.58 MG/DL 0.80-1.40 L code = 2214) eGFR (2020 CKD-EPI) 104 >60 (test code = 31285) ML/MIN/1.73 CALC BUN/CREAT (test 17 RATIO 6-28 [...] code = 27 U/L 5-50 2218) BLOOD [id number] 11:00:00 Test Item Value Reference Range Interpretation Comments CULTURE (BEAKER) (test No growth in 5 days code = 1095) BLOOD [id number] 11:00:00 Test Item Value Reference Range Interpretation Comments CULTURE (BEAKER) (test No growth in 5 days code = 1095) POCT-GLUCOSE [id number] 12:19:00 Test Item Value Reference Range Interpretation Comments POC-GLUCOSE METER 250 mg/dL 70-110 H : TESTED A T [facility] [address] (BEAKER) (test code [address], = 1538) [place] [address] 384: Manager Car/Techni anson ID = [id number] for Garth, T y POCT-GLUCOSE [id number] 08:18:00 Test Item Value Reference Range Interpretation Comments POC-GLUCOSE METER 195 mg/dL 70-110 H : TESTED A T [facility] [address] (BEAKER) (test code [facility], = 1538) [place] [address] 384: Manager Car/Techni anson ID = [id number] for Garth, T y COMPREHENSIVE METABOLIC [id number] 05:40:00 Test Item Value Reference Range Interpretation [...] 1092) DATA TO CALCULA TE ESTIMATED GFR. Manager Car ID - [id number] 05:24:00 Test Item Value Reference Range Interpretation Comments HEMOGLOBIN A1C (BEAKER) (test code = 8.1 % 4.3-6.1 H 368) Manager Car ID - [id number] 21:31:00 Test Item Value Reference Range Interpretation Comments POC-GLUCOSE METER 300 mg/dL 70-110 H : TESTED A T [facility] [address] (BEAKER) (test code [facility], = 1538) [place] [address] 384: Manager Car/Techni anson ID = [id number] for D Yadi herrera POCT-GLUCOSE [id number] 16:18:00 Test Item Value Reference Range Interpretation Comments POC-GLUCOSE METER 295 mg/dL 70-110 H : TESTED A T [facility] [address] (BEAKER) (test code [facility], = 1538) [place] [address] 384: Manager Car/Techni anson ID = [id number] for D ubose, Marcela POCT-GLUCOSE [id number] 10:52:00 Test Item Value Reference Range Interpretation Comments POC-GLUCOSE METER 233 mg/dL 70-110 H : TESTED A T [facility] [address] (BEAKER) (test code [address], = 1538) [place] [address] 384: Manager Car/Techni anson ID = [id number] for Marcela Gtz BASIC METABOLIC [id number] 10:34:00 Test Item Value Reference Range Interpretation [...] 1092) DATA TO CALCULA TE ESTIMATED GFR. Manager Car ID - [id number] METABOLIC [id number] 09:55:00 Test Item Value Reference Range Interpretation [...] 1092) DATA TO CALCULA TE ESTIMATED GFR. Manager Car ID - [id number] lipemicCBC W/PLT COUNT & AUTO [id number] 09:44:00 Test Item Value Reference Range Interpretation [...] % 0-0 PERCENT (BEAKER) (test code = 6894)
[2022-02-05] MEDS ORDERED: MORPHINE 4 MG/ML SYR ONE (00:48)
[2022-02-05] MEDS ORDERED: PROMETHAZINE INJ 25 MG/ML AMP ONE (00:48)
[2022-02-05] MEDS ORDERED: NA CHLORIDE 0.9% 1,000 ML ONE (00:49)
[2022-02-05 01:35] LABS: Absolute Lymphocytes (CBC) 1.3 K/uL (0.7-4.9); Lymphocytes % 18.1 % (15.3-44.8); MPV 9.4 fL (7.6-11.3); RBC Red Blood Cell Count 3.97 M/uL (4.33-5.43)
[2022-02-05 01:39] LABS: Albumin 3.1 g/dL (3.4-5.0); Bilirubin Total 0.8 mg/dL (0.2-1.0); Potassium 4.2 mmol/L (3.5-5.1); Protein, Total 7.8 g/dL (6.4-8.2); Troponin High Sensitivity 14.7 pg/mL (<58.9)
[2022-02-05 02:43] LABS: Urine Blood 1+ (Negative); Urine Glucose Trace (Negative); Urine Protein 3+ (Negative); Urine Specific Gravity >=1.030 (1.005-1.030); Urine pH 6.5 (5.0-7.0)
[2022-02-05] MEDS ORDERED: METOPROLOL TARTRATE 5 MG/5 ML INJ IV ONE (03:06)
--- NOTE | 2022-02-05 06:06 | ER ---
Nurse's Notes [facility] Name: Deonte Armstrong Age: 71 yrs Sex: Male : 1950 Arrival Date: 02/04/2022 Time: 21:18 Bed 24 Private MD: Diagnosis: Lower abdominal pain, unspecified Presentation: 02/04 21:29 Chief complaint: Patient states: they think my hip is infected, they have been treating jb4 it for a while. It makes me nauseous, I have been vomiting. Coronavirus screen: Client presents with at least one sign or symptom that may indicate coronavirus-19. Standard/surgical mask placed on the client. Ebola Screen: No symptoms or risks identified at this time. Initial Sepsis Screen: Does the patient meet any 2 criteria? HR > 90 bpm. Yes Does the patient have a suspected source of infection? No. Patient's initial sepsis screen is negative. Risk Assessment: Do you want to hurt yourself or someone else? Patient reports no desire to harm self or others. Onset of symptoms was February 04, 2022. Transition of care: patient was not received from another setting of care. 21:29 Method Of Arrival: Wheelchair jb4 21:29 Acuity: KAROLINA 3 jb4 Historical: - Allergies: 21:33 No Known Allergies; jb4 - Home Meds: 21:33 Xarelto 20 mg Oral tab 1 tab once daily [Active]; furosemide 40 mg Oral tab 1 tab once jb4 daily [Active]; insulin [Active]; lisinopril 10 mg Oral tab 1 tab once daily [Active]; meloxicam 15 mg Oral tab 1 tab [Active]; metoprolol tartrate 100 mg Oral tab 1 tab once daily [Active]; [place] 10-325 mg Oral tab every 4-6 hours [Active]; spironolactone 25 mg Oral tab 1 tab once daily [Active]; tizanidine 4 mg Oral cap 1 cap 3 times per day [Active]; Levemir FlexTouch U-100 Insuln 100 unit/mL (3 mL) subcutaneous inpn [Active]; - PMHx: 21:33 Atrial Fib; CHF; Diabetes - IDDM; jb4 - PSHx: 21:33 hernia repair; jb4 - Immunization history:: Adult Immunizations up to date. - Social history:: Smoking status: Patient reports the use of cigarette tobacco products, smokes one pack cigarettes per day. Screenin/13 00:50 Abuse screen: Denies threats or abuse. Nutritional screening: No deficits noted. bb Tuberculosis screening: No symptoms or risk factors identified. Fall Risk None identified. Assessment: 02/04 23:15 General: Appears in no apparent distress. uncomfortable, Behavior is calm, cooperative, jb4 appropriate for age. Pain: Complains of pain in Right hip Pain does not radiate. Pain currently is 10 out of 10 on a pain scale. Neuro: Level of Consciousness is awake, alert, obeys commands, Oriented to person, place, time, situation. Cardiovascular: Patient's skin is warm and dry. Respiratory: Airway is patent Respiratory effort is even, unlabored, Respiratory pattern is regular, symmetrical. GI: Abdomen is flat, non-distended, Reports nausea. : No signs and/or symptoms were reported regarding the genitourinary system. EENT: No signs and/or symptoms were reported regarding the EENT system. Derm: Skin is intact, Skin is pink, warm \T\ dry. Musculoskeletal: Circulation, motion, and sensation intact. Range of motion: intact in all extremities. 02/05 00:50 General: Appears in no apparent distress. uncomfortable, Behavior is agitated, anxious. bb Pain: Complains of pain in abdomen and pelvis. Neuro: Level of Consciousness is awake, alert, obeys commands, Oriented to person, place, time, situation. Cardiovascular: Capillary refill < 3 seconds Patient's skin is warm and dry. Respiratory: Respiratory effort is even, unlabored, Respiratory pattern is regular. GI: Abdomen is round Reports lower abdominal pain. Derm: Skin is pink, warm \T\ dry. Musculoskeletal: Circulation, motion, and sensation intact. 02:14 Reassessment: pt to CT scan via wheelchair accompanied by mri ct tech. bb 05:16 Reassessment: Patient is alert, oriented x 3, equal unlabored respirations, skin bb warm/dry/pink. pt states he is still nauseous Dr Gonzalez notified. 06:16 Reassessment: Patient is alert, oriented x 3, equal unlabored respirations, skin bb warm/dry/pink. pt verbalized understanding of and agrees to plan of care discharge instructions given. Vital Signs: 02/04 21:29 BP 153 / 107; Pulse 114; Resp 18; Temp 98.2(TE); Pulse Ox 100% on R/A; Weight 83.91 kg jb4 (R); Height 5 ft. 10 in. (177.80 cm) (R); Pain 10/10; 23:22 BP 167 / 97; Pulse 117; Resp 18; Temp 97.7(O); Pulse Ox 97% on R/A; mh5 02/05 02:19 BP 162 / 116; Pulse 121; Resp 22; Temp 98.0(O); Pulse Ox 99% on R/A; mh5 02:49 BP 163 / 107; Pulse 121; Resp 19 S; Pulse Ox 97% on R/A; bb 03:05 BP 157 / 107; Pulse 114; Resp 18; Pulse Ox 98% on R/A; jb4 03:25 BP 154 / 111; Pulse 102; Resp 22; Pulse Ox 94% on R/A; mh5 05:17 BP 154 / 109; Pulse 105; Resp 20 S; Pulse Ox 96% on R/A; bb 06:07 BP 158 / 105; Pulse 97; Resp 16 S; Temp 97.6(TE); Pulse Ox 94% on R/A; bb 02/04 21:29 Body Mass Index 26.54 (83.91 kg, 177.80 cm) jb4 ED Course: 02/04 21:18 Patient arrived in ED. bp1 21:33 Triage completed. jb4 21:35 Arm band placed on right wrist. jb4 23:38 Robert Gonzalez MD is Attending Physician. 7 02/05 00:50 Initial lab(s) drawn, by ri, sent to lab. Inserted saline lock: 20 gauge in right as6 antecubital area, using aseptic technique. Blood collected. 01:01 Marlon Angel, LISA is Primary Nurse. as6 01:05 Patient has correct armband on for positive identification. Bed in low position. Call bb light in reach. Side rails up X 1. Pulse ox on. NIBP on. 02:49 Abdomen In Process Unspecified. EDMS 02:55 Inserted saline lock: 18 gauge in left antecubital area, using aseptic technique. jb4 06:19 No provider procedures requiring assistance completed. IV discontinued, intact, bb bleeding controlled, No redness/swelling at site. Pressure dressing applied. Administered Medications: 00:00 Drug: NS 0.9% 1000 ml Route: IV; Rate: 1 bolus; Site: right antecubital; bb 01:00 Follow up: IV Status: Completed infusion; IV Intake: 1000ml bb 01:02 Drug: Phenergan (promethazine) 12.5 mg Route: IVP; Site: right antecubital; bb 02:00 Follow up: Response: No adverse reaction bb 01:03 Drug: morphine 4 mg Route: IVP; Infused Over: 4 mins; Site: right antecubital; bb 02:00 Follow up: Response: Pain is decreased bb 03:02 Drug: Metoprolol 5 mg Route: IVP; Site: left antecubital; jb4 03:07 Drug: Metoprolol 5 mg Route: IVP; Site: left antecubital; jb4 03:14 Drug: Metoprolol 5 mg Route: IVP; Site: left antecubital; jb4 04:00 Follow up: Response: Blood pressure is lowered bb Intake: 01:00 IV: 1000ml; Total: 1000ml. bb Outcome: 06:06 Discharge ordered by MD. morton 06:19 Discharged to home via wheelchair. bb 06:19 Condition: stable 06:19 Discharge instructions given to patient, Instructed on discharge instructions, follow up and referral plans. medication usage, Demonstrated understanding of instructions, follow-up care, medications, Prescriptions given X 2. 06:20 Patient left the ED. bb Signatures: Dispatcher [employer] EDLavonne Mas RN RN bb Bryson, James, RN RN jb4 Martinez, Maria Fatemeh Godinez Maurice, MD MD mh7 Marlon Angel RN RN as6
--- NOTE | 2022-02-05 06:06 | EDPHYS ---
Physician Documentation [facility] Name: Deonte Armstrong Age: 71 yrs Sex: Male : 1950 Arrival Date: 02/04/2022 Time: 21:18 Bed 24 Private MD: ED Physician Robert Gonzalez HPI: 02/04 23:50 This 71 yrs old Male presents to ER via Wheelchair with complaints of Pain All mh7 Over, Nausea. 23:50 The patient presents to the emergency department with nausea, that is moderate, mh7 vomiting, that is intermittent, described as clear fluid, abdominal pain, of the right lower quadrant, described as intermittent, vague,\E\ waxing and waning, and does not radiate. Onset: The symptoms/episode began/occurred today. Possible causes: unknown. The symptoms are aggravated by nothing. The symptoms are alleviated by nothing. Associated signs and symptoms: Pertinent negatives: anorexia, belching, constipation, diarrhea, dysuria, fever, flatulence, GI bleeding, hematuria. Severity of symptoms: At their worst the symptoms were moderate today, in the emergency department the symptoms are unchanged. Historical: - Allergies: 21:33 No Known Allergies; jb4 - Home Meds: 21:33 Xarelto 20 mg Oral tab 1 tab once daily [Active]; furosemide 40 mg Oral tab 1 tab once jb4 daily [Active]; insulin [Active]; lisinopril 10 mg Oral tab 1 tab once daily [Active]; meloxicam 15 mg Oral tab 1 tab [Active]; metoprolol tartrate 100 mg Oral tab 1 tab once daily [Active]; [place] 10-325 mg Oral tab every 4-6 hours [Active]; spironolactone 25 mg Oral tab 1 tab once daily [Active]; tizanidine 4 mg Oral cap 1 cap 3 times per day [Active]; Levemir FlexTouch U-100 Insuln 100 unit/mL (3 mL) subcutaneous inpn [Active]; - PMHx: 21:33 Atrial Fib; CHF; Diabetes - IDDM; jb4 - PSHx: 21:33 hernia repair; jb4 - Immunization history:: Adult Immunizations up to date. - Social history:: Smoking status: Patient reports the use of cigarette tobacco products, smokes one pack cigarettes per day. ROS: 23:50 Constitutional: Negative for fever, chills, and weight loss, Eyes: Negative for injury, mh7 pain, redness, and discharge, ENT: Negative for injury, pain, and discharge, Neck: Negative for injury, pain, and swelling, Cardiovascular: Negative for chest pain, palpitations, and edema, Respiratory: Negative for shortness of breath, cough, wheezing, and pleuritic chest pain, Back: Negative for injury and pain, : Negative for injury, bleeding, discharge, and swelling, MS/Extremity: Negative for injury and deformity, Skin: Negative for injury, rash, and discoloration, Neuro: Negative for headache, weakness, numbness, tingling, and seizure, Psych: Negative for depression, anxiety, suicide ideation, homicidal ideation, and hallucinations, Allergy/Immunology: Negative for hives, rash, and allergies, Endocrine: Negative for neck swelling, polydipsia, polyuria, polyphagia, and marked weight changes, Hematologic/Lymphatic: Negative for swollen nodes, abnormal bleeding, and unusual bruising. Exam: 23:50 Head/Face: Normocephalic, atraumatic. Eyes: Pupils equal round and reactive to light, mh7 extra-ocular motions intact. Lids and lashes normal. Conjunctiva and sclera are non-icteric and not injected. Cornea within normal limits. Periorbital areas with no swelling, redness, or edema. Neck: Trachea midline, no thyromegaly or masses palpated, and no cervical lymphadenopathy. Supple, full range of motion without nuchal rigidity, or vertebral point tenderness. No Meningismus. Chest/axilla: Normal chest wall appearance and motion. Nontender with no deformity. No lesions are appreciated. 23:50 Respiratory: Lungs have equal breath sounds bilaterally, clear to auscultation and percussion. No rales, rhonchi or wheezes noted. No increased work of breathing, no retractions or nasal flaring. 23:50 Back: No spinal tenderness. No costovertebral tenderness. Full range of motion. Skin: Warm, dry with normal turgor. Normal color with no rashes, no lesions, and no evidence of cellulitis. MS/ Extremity: Pulses equal, no cyanosis. Neurovascular intact. Full, normal range of motion. Neuro: Awake and alert, GCS 15, oriented to person, place, time, and situation. Cranial nerves II-XII grossly intact. Motor strength 5/5 in all extremities. Sensory grossly intact. Cerebellar exam normal. Normal gait. Psych: Awake, alert, with orientation to person, place and time. Behavior, mood, and affect are within normal limits. 23:50 Constitutional: The patient appears in no acute distress, alert, awake, uncomfortable. 23:50 Cardiovascular: Rate: tachycardic, Rhythm: irregularly irregular, Pulses: no pulse deficits are appreciated, Heart sounds: normal, normal S1and S2, Edema: is not appreciated, JVD: is not appreciated. 23:50 Abdomen/GI: Inspection: abdomen appears normal, Bowel sounds: normal, in all quadrants, Palpation: moderate abdominal tenderness, in the right lower quadrant, mass, is not appreciated, rebound tenderness, is not appreciated, voluntary guarding, is not appreciated, involuntary guarding, is not appreciated, no appreciated organomegaly, Indicators: McBurney's point is not tender, Denson's sign is negative, Rovsing's sign is negative, Obturator sign is negative, Psoas sign is negative, Liver: no appreciated palpable abnormalities, Hernia: not appreciated. Vital Signs: 21:29 BP 153 / 107; Pulse 114; Resp 18; Temp 98.2(TE); Pulse Ox 100% on R/A; Weight 83.91 kg jb4 (R); Height 5 ft. 10 in. (177.80 cm) (R); Pain 10/10; 23:22 BP 167 / 97; Pulse 117; Resp 18; Temp 97.7(O); Pulse Ox 97% on R/A; mh5 02/05 02:19 BP 162 / 116; Pulse 121; Resp 22; Temp 98.0(O); Pulse Ox 99% on R/A; mh5 02:49 BP 163 / 107; Pulse 121; Resp 19 S; Pulse Ox 97% on R/A; bb 03:05 BP 157 / 107; Pulse 114; Resp 18; Pulse Ox 98% on R/A; jb4 03:25 BP 154 / 111; Pulse 102; Resp 22; Pulse Ox 94% on R/A; mh5 05:17 BP 154 / 109; Pulse 105; Resp 20 S; Pulse Ox 96% on R/A; bb 06:07 BP 158 / 105; Pulse 97; Resp 16 S; Temp 97.6(TE); Pulse Ox 94% on R/A; bb 02/04 21:29 Body Mass Index 26.54 (83.91 kg, 177.80 cm) jb4 MDM: 06:03 Differential diagnosis: Nonspecific abd pain, appendicitis, diverticulitis, viral mh7 gastroenteritis, gastroenteritis. Data reviewed: vital signs, nurses notes, lab test result(s), CBC, electrolytes, urinalysis, EKG, radiologic studies, CT scan. Data interpreted: Pulse oximetry: on room air is 96 %. Interpretation: normal. Counseling: I had a detailed discussion with the patient and/or guardian regarding: the historical points, exam findings, and any diagnostic results supporting the discharge/admit diagnosis, the presence of at least one elevated blood pressure reading (>120/80) during this emergency department visit, lab results, radiology results, the need for outpatient follow up, to return to the emergency department if symptoms worsen or persist or if there are any questions or concerns that arise at home. Response to treatment: the patient's symptoms have resolved after treatment, the patient's blood pressure is in an acceptable range, mental status has returned to baseline, the patient no longer shows bradycardia, the patient is not short of breath, the patient is not tachycardic, the patient's pain is gone, the patient's temperature has normalized, the patient is now symptom free. 06:06 Patient medically screened. [facility] 02/05 00:01 Order name: CBC with Diff; Complete Time: 01:39 [facility] 02/05 00:01 Order name: CMP; Complete Time: :39 [facility] 02/05 00:01 Order name: Lipase; Complete Time: :39 [facility] 02/05 00:01 Order name: Troponin High Sensitivity; Complete Time: 01:39 [facility] 02/05 02:43 Order name: Urine Dipstick-Ancillary; Complete Time: 04:05 [facility] 02/05 00:01 Order name: EKG; Complete Time: 00:02 [facility] 02/05 02:35 Order name: Abdomen [facility] 02/05 00:01 Order name: IV Saline Lock; Complete Time: 01:02 [facility] 02/05 00:01 Order name: Labs collected and sent; Complete Time: 01:02 [facility] 02/05 00:01 Order name: Urine Dipstick-Ancillary (obtain specimen); Complete Time: 02:35 [facility] 02/05 00:01 Order name: EKG - Nurse/Tech; Complete Time: 02:35 7 Administered Medications: 00:00 Drug: NS 0.9% 1000 ml Route: IV; Rate: 1 bolus; Site: right antecubital; bb 01:00 Follow up: IV Status: Completed infusion; IV Intake: 1000ml bb 01:02 Drug: Phenergan (promethazine) 12.5 mg Route: IVP; Site: right antecubital; bb 02:00 Follow up: Response: No adverse reaction bb 01:03 Drug: morphine 4 mg Route: IVP; Infused Over: 4 mins; Site: right antecubital; bb 02:00 Follow up: Response: Pain is decreased bb 03:02 Drug: Metoprolol 5 mg Route: IVP; Site: left antecubital; jb4 03:07 Drug: Metoprolol 5 mg Route: IVP; Site: left antecubital; jb4 03:14 Drug: Metoprolol 5 mg Route: IVP; Site: left antecubital; jb4 04:00 Follow up: Response: Blood pressure is lowered bb Disposition Summary: 02/05/22 06:06 Discharge Ordered Location: Home [facility] Problem: new [facility] Symptoms: have improved [facility] Condition: Stable [facility] Diagnosis - Lower abdominal pain, unspecified [facility] Followup: [facility] - With: Private Physician - When: 1 - 2 days - Reason: Worsening of condition, Recheck today's complaints, Continuance of care, Re-evaluation by your physician Discharge Instructions: - Discharge Summary Sheet [facility] - Abdominal Pain, Adult, [id number] [facility] Forms: - Medication Reconciliation Form [facility] - Thank You Letter [facility] - Antibiotic Education [facility] - Prescription Opioid Use [facility] Prescriptions: - ondansetron 4 mg Oral tablet,disintegrating - place 1 tablet by TRANSLINGUAL route every 8 hours As needed; 10 tablet; [facility] Refills: 0, Product Selection Permitted - dicyclomine 20 mg Oral Tablet - take 1 tablet by ORAL route 4 times per day As needed; 20 tablet; Refills: 0, 7 Product Selection Permitted Signatures: Dispatcher [facility] Lavonne Cochran RN RN Jonny Patel RN RN jb4 Robert Gonzalez MD MD [facility] Corrections: (The following items were deleted from the chart) 02:35 00:07 Abdomen Pelvis W [id number] ordered. EDMS EDMS
[2022-02-05 06:46] VITALS: BP 158/105; TEMP 97.6; O2SAT 94
--- NOTE | 2022-02-05 13:33 | EKG ---
Test Date: 2022-02-05 Test Time: 01:33:09 Supervisor Ride Assembly: ERICA MEASUREMENT RESULTS: Intervals: Rate: 135 [place]: QRSD: 92 QT: 282 QTc: 423 [place]: P: DE: QRS: -48 T: 53 INTERPRETIVE STATEMENTS: Atrial fibrillation with rapid ventricular response Left axis deviation Incomplete right bundle branch block Possible Anterior infarct, age undetermined Abnormal ECG Compared to ECG 08/14/2021 14:47:33 Left-axis deviation now present Incomplete right bundle-branch block now present Myocardial infarct finding now present Indeterminate axis no longer present ST (T wave) deviation no longer present Electronically Signed On 02-05-22 13:32:04 CDT by Vincent Espinosa
--- NOTE | 2022-02-05 16:04 | RAD REPORT ---
EXAM DESCRIPTION: CT - Abdomen Pelvis Wo Contrast - 02/05/2022 6:36 am CLINICAL HISTORY: 71 years, Male, RLQ abdominal pain COMPARISON: 01/07/2022 TECHNIQUE: Multiple transaxial tomograms of the abdomen and pelvis were performed from the lung base s to the symphysis pubis 5 mm slice thickness at 5 mm interval reconstruction, without administration of IV and oral contrast. Multiplanar reformats in the sagittal and coronal plane were generated and reviewed. This exam was performed according to our departmental dose-optimization protocol, which includes auto mated exposure control, adjustment of the mA and/or kV according to patient size and/or use of iterat kelly reconstruction technique. FINDINGS: The lack of IV and oral contrast limits evaluation of solid organs, subtle lesions cannot be excluded. The lung bases minimal atelectatic changes right lung base with mild elevation of the right hemidiaph ragm. Grossly the unopacified liver, pancreas, spleen and adrenal glands demonstrate to be within normal li mits, no significant focal lesions were identified. High density material within the gallbladder ne ck area corresponding to cholelithiasis. There is no biliary duct dilatation. The kidneys demonstrate grossly unremarkable. There is no evidence for nephrolithiasis and/or hydro nephrosis. Mild dense material within the calyceal system could suggest the possibility of previous i odine study. Grossly the unopacified stomach, small bowel and large bowel demonstrate to be within normal limits. There is no evidence for bowel dilatation/or free air. Surgical sutures within the small bowel corres pond to previous small bowel surgery with no evidence for significant obstruction. The large bowel de monstrated presence of surgical suture along the sigmoid colon. The appendix was not visualized. There is a superior midline anterior abdominal wall hernia containing omentum on axial image 35. The urinary bladder demonstrate to be within normal limits. The prostate gland is unremarkable. The a joanna demonstrate minimal atherosclerotic disease extending into the aortic bifurcation. There is no retroperitoneal lymphadenopathy. There is no evidence for ascites. The bone windows demonstrate degenerative changes throughout lumbar spine. Superior plate compression deformity at L2 vertebral body. Clips within the right inguinal area correspond to previous hernia r epair. IMPRESSION: No evidence for nephrolithiasis and/or hydronephrosis. Cholelithiasis. Superior midline anterior abdominal wall hernia containing omentum. Stable superior plate compression deformity at L2 vertebral body. Electronically signed by: Karthik Lance MD 02/05/2022 3:35 AM CDT Due to temporary technical issues with the PACS/Fluency reporting system, reports are being signed by the in house radiologist without review as a courtesy to ensure prompt reporting. The interpreting r adiologist is fully responsible for the content of the report.
== END 2022-02-05 06:20 | disposition home or self-care (01) ==
LOC: ER 21:15
DX: R10.30 Lower abdominal pain, unspecified (principal); I48.91 Unspecified atrial fibrillation; I50.9 Heart failure, unspecified; E11.9 Type 2 diabetes mellitus without complications; F17.210 Nicotine dependence, cigarettes, uncomplicated
CPT/HCPCS: 93005; 85025; 36415; 81003; 84484; 83690; 80053; 74176; 99284; J2550; J7030

== ENCOUNTER 2022-05-04 09:40 | Emergency (ER) | payer OTHER ==
--- OUTSIDE RECORDS SUMMARY | 2022-05-04 09:43 | XMS REPORT | Continuity of Care Document ---
:1950 Author Organization [facility] t Address [address] [place] [address] Care Team Providers Name Role Phone No, Pcp [facility] Primary Care Physician Unavailable CHRISTIANO COMBS Attending Clinician Unavail able SIMONE DE LA CRUZ Admitting Clinician Mnoica vailable Problems Condition Condition Condition Status Onset Resolution Last Treating Co mments Source Name Details Category Date Date Treatment Clinician Date Abscess of Abscess of Disease Active [facility] Allergies, Adverse Reactions, Alerts Allergy Allergy Status Severity Reaction(s) Onset Inactive Treating Comm ents Source Name Type Date Date Clinician NO KNOWN Allergy Active [facility] Family History Family Member Diagnosis Comments Start Date Stop Date Source Natural brother Unremarkable [facility] Natural daughter No Known Problem [facility] Natural father Unremarkable [facility] Natural mother Unremarkable [facility] Natural sister Cancer [facility] Natural sister Unremarkable [facility] Social History Social Habit Start Date Stop Date Quantity Comments Source History SDOH [facility] Alcohol Std Drinks [facility] History SDOH [facility] Alcohol Binge [facility] History of tobacco Cigarette Smoker [facility] Center use [facility] History SDOH 2019-11-09 2019-11-09 5-10 beers and [address] [facility] Alcohol Comment 00:00:00 00:00:00 shots of liquor a Me dical Center day Cigarettes smoked 2019-11-09 2019-11-[address] [facility] current (pack per 00:00:00 00:00:00 Medical Center day) - Reported Cigarette 2019-11-09 2019-11-[address] [facility] pack-years 00:00:00 00:00:00 Medical Center Tobacco use and 2019-11-09 2019-11-[address] [facility] exposure 00:00:00 00:00:00 [facility] Alcohol intake 2019-11-09 2019-11-09 [facility] Center (finding) History SDOH 2019-11-09 2019-11-[address] [facility] Alcohol Frequency 00:00:00 00:00:00 [facility] Sex Assigned At [address] [facility] 00:00[facility]00 [facility]:00 [facility] Center Smoking Status Start Date Stop Date Source Current every day smoker 2019-[facility]09 [facility] Medications Ordered Filled Start Stop Current Ordering Indication Dosage Frequency Signature Comments Components Source Medication Medication Date Date Medication? Clinician (SIG) Name Name furosemide 2019-0 Yes 40mg QD Take 1 [facility] (LASIX) 40 3-20 tablet (40 Nick es MG tablet 00:00: mg total) Med ical 00 by mouth Center daily. spironolact 2020-0 Yes 25mg QD Take [address] one 3-17 by mouth [facility] (ALDACTONE) 14:42: daily. Medi eder 25 MG 10 Center tablet lisinopriL 2020-0 Yes 10mg QD Take [address] (PRINIVIL,Z 3-17 by mouth Luke s ESTRIL) 10 14:42: daily. Medic al MG tablet 10 Center metoprolol 2020-0 Yes 25mg QD Take [address] succinate 3-17 by mouth [facility] (TOPROL-XL) 14:42: daily. Medi eder 25 MG 24 hr 10 Center tablet rivaroxaban 2020-0 Yes QD Take by [facility] (XARELTO) 3-17 mouth [facility] 20 mg Tab 14:42: daily . Medic al tablet 10 Center insulin 2020-0 Yes 55U Q.5D Inject 55 [facility] detemir 3-17 Units [facility] U-100 14:42: subcutaneo Medica l (LEVEMIR 10 usly 2 Center FLEXTOUCH (two) U-100 times INSULN) 100 daily. unit/mL (3 mL) InPn injection HYDROcodone Yes 1{tbl} Q.2D Take [address] -acetaminop 3-17 tablet by Nick bullock (NORCO 14:42: mouth 5 Medi eder 10-325) 10 (five) Center 10-325 mg times per tablet daily. Procedures This patient has no known procedures. Plan of Care Planned Activity Planned Date Details Comments Source Future Scheduled 2022-04-26 INFLUENZA VACCINE (#1) [facility] Test 00:00:00 [code = INFLUENZA Medical Ce nter VACCINE (#1)] Future Scheduled 2021-08-[address] [facility] Test 00:00:00 (12+) [code = Medical Center DEPRESSION SCREENING (12+)] Future Scheduled 2021-08-26 FALLS RISK SCREENING [facility] Test 00:00:00 [code = FALLS RISK Medical C enter SCREENING] Future Scheduled 2020-05-[address] Test 00:00:00 measurement (procedure) [facility] [code = 88586875] Future Scheduled 2016-05-[address] [facility] Test 00:00:00 WELLNESS (YEAR 2 or Medical Center FIRST YEAR if no IPPE) [code = MEDICARE ANNUAL WELLNESS (YEAR 2 or FIRST YEAR if no IPPE)] Future Scheduled 2000 SHINGLES VACCINES ([address] [facility] Test 00:00:00 2) [code = SHINGLES Medical Center VACCINES (1 of 2)] Future Scheduled 1969 DTAP/TDAP/TD VACCINES [facility] 00:00:00 (1 - Tdap) [code = Medical C enter DTAP/TDAP/TD VACCINES (1 - Tdap)] Future Scheduled 1968 HEPATITIS C SCREENING [facility] Test 00:00:00 [code = HEPATITIS C Medical Center SCREENING] Future Scheduled 1960 DIABETIC EYE EXAM [code [facility] Test 00:00:00 = DIABETIC EYE EXAM] Medical Center Future Scheduled 1960 Urine screening for [facility] Test 00:00:00 protein (procedure) [facility] [code = 598035934] Future Scheduled 1956 PNEUMOCOCCAL 65+ YRS ([address] [facility] Test 00:00:00 - PCV) [code = Medical Cente r PNEUMOCOCCAL 65+ YRS (1 - PCV)] Future Scheduled 1950 COVID-19 VACCINE (#1) [facility] Test 00:00:00 [code = COVID-[address] VACCINE (#1)] Future Scheduled 1950 CT Colonography (combo) [facility] Test 00:00:00 [code = CT Colonography [facility] (combo)] Future Scheduled 1950 Screening for malignant [facility] Test 00:00:00 neoplasm of colon Medical Ce nter (procedure) [code = 518811609] Future Scheduled 1950 Screening for malignant [facility] Test 00:00:00 neoplasm of colon Medical Ce nter (procedure) [code = 274632679] Future Scheduled 1950 Screening for malignant [facility] Test 00:00:00 neoplasm of colon Medical Ce nter (procedure) [code = 247072052] Future Scheduled 1950 Screening for malignant [facility] Test 00:00:00 neoplasm of colon Medical Ce nter (procedure) [code = 071030238] Future Scheduled 1950 Sigmoidoscopy [code = [facility] Test 00:00:00 Sigmoidoscopy] Medical Cente r Encounters Start End Encounter Admission Attending Care Care Encounter Source Date/Time Date/Time Type Type Clinicians Facility Department ID 2019-12-01 2019-12-01 Outpatient [facility] [id number] 2-[address] 00:00[facility]00 00:00:00 [id number] [facility] 2019-11-09 2019-11-09 Emergency [facility] [id number] [facility] 08:08:00 08:08:00 [id number] Results Test Description Test Time Test Comments Results Result Comments Source LIPID PANEL 2021-11-09 03:53:43 Test Item Value Reference Range Interpretation Comme nts CHOLESTEROL (test code = 2210) 125 MG/DL <200 TRIGLYCERIDES (test code = 2232) 65 MG/DL <150 HDL CHOLESTEROL (test code = 46 MG/DL >39 0) CALC LDL CHOL (test code = 2237) 65 MG/DL <100 NOTE: CALCULATED LDL IS BASED ON SPENCER-HEART METHOD WHICHINCLUDES A DJUSTABLE TRIGLYCERIDE:VL DL CHOLESTEROL RATIO.THIS FACT OR VARIES BY MEASURED TRIGLY CERIDE AND NON-HDLCHOLESTE ROL CONCENTRATIONS WITH INCREASED CALCULATED LDL SEENIN HIGHER T RIGLYCERIDE OR LOWER NON-HDL S PECIMENS. FOR MOREINFORMATION , SEE CLIENT ANNOUNCEMENT AT [email or web address] RATIO LDL/HDL (test code = 1.41 RATIO <3.55 2237) COMPREHENSIVE METABOLIC [id number] 03:53:43 Test Item Value Reference Range Interpretation Comments GLUCOSE (test code = 274 MG/DL 70-99 H 2216) BUN (test code = 10 MG/DL 8-23 2207) CREATININE (test 0.61 MG/DL 0.80-1.40 L code = 221) eGFR (2020 CKD-EPI) 103 >60 (test code = 68557) ML/MIN/1.73 CALC BUN/CREAT (test 16 RATIO 6-28 code = 2235) SODIUM (test code = 131 MEQ/L 133-146 L 2230) POTASSIUM (test code 5.0 MEQ/L 3.5-5.4 = 2227) CHLORIDE (test code 97 MEQ/L 95-107 = 2214) CARBON DIOXIDE (test 20 MEQ/L 19-31 code = 2206) CALCIUM (test code = 8.5 MG/DL 8.5-10.5 2208) PROTEIN, TOTAL (test 7.7 G/DL 6.1-8.3 code = 2229) ALBUMIN (test code = 3.6 G/DL 3.5-5.2 2200) CALC GLOBULIN (test 4.1 G/DL 1.9-3.7 H code = 2240) CALC A/G RATIO (test 0.9 RATIO 1.0-2.6 L code = 2234) BILIRUBIN, TOTAL 0.6 MG/DL See_Comment [Automated message] (test code = 2207) The [employer] [email or web address] which generated this result transmitted ref erence range: <=1.2. T he reference range was not used to int erpret this result as normal/abnormal . ALKALINE PHOSPHATASE 150 U/L 40-125 H (test code = 2204) AST (test code = 39 U/L 9-50 2217) ALT (test code = 24 U/L 5-50 UNLESS OTH ERWISE 2218) INDICATED, ALL TESTING PERFORM [facility], [place] [address] [place] [address] SID JOSEY DIRECTOR: OSWALD KARIMI M.D. CLIA NUMBER [id number] [facility] ACCREDITATION N O. [id number] HEMOGLOBIN [id number] 03:42:02 Test Item Value Reference Range Interpretation Comments HEMOGLOBIN A1c (test 8.4 % 4.2-5.6 H AMERIC AN DIABETES code = 60321) ASSOCIATION IDELINES FOR HGB A1C: PREDIABETES/INC REASED RISK . . . . . . . 5.7 -6.4% DIAGNOSIS OF DI ABETES . . . . . . . . . >=6 .5% WITH CONFIRMATION OR APPROPRIATE SYMPTOMS NOTE: ASSAY MAY BE AFFECTED BY HEMOGLOBINOPATH IES (SICKLE CELL ANEMIA, S- C DISEASE, OTHERS) OR JUDI FICIALLY LOWERED BY DECR EASED RED CELL SURVIVAL ( HEMOLYTIC ANEMIAS, BLOOD LOSS, ETC.). CONSIDER ALTERN ATE TESTING OR LABORATORY C ONSULTATION. CBC W/AUTO DIFF WITH [id number] 02:45:26 Test Item Value Reference Range Interpretation [...] = 1036) NUCLEATED RBCS (test 0.0 /100 WBC'S See_Comment [Aut omated code = 1065) message] The sy stem which generated this [...] RBCS 0.00 K/UL 0.00-0.11 (test code = 36921) PROTHROMBIN TIME (PT)2021-11-08 07:30:15 Test Item Value Reference Range Interpretation Comments PROTHROMBIN TIME TEST NOT 12.5-14.7 Unable to p erform (PT) (test code = PERFORMED testing, s pecimen not 1402) SECONDS received.Charge s adjusted as applicable. INR (test code = TEST NOT SEE BELOW CURRENT 94461) PERFORMED RECOMMENDATIONS ARE FOR AN INR OF 2 .0-3.0 FOR ALL PATIEN TS ON VITAMIN K ANTAGONISTS, EX CEPT THOSE WITH PROS THETIC HEART VALVES, F OR WHOM INR OF 2.5 -3.5 IS RECOMMENDED. UNLESS OTHERWIS E INDICATED, ALL TESTING PERFORM ED [facility], [facility]. [address] [place] [id number] [place] [address] DIRECTOR: OSWALD KARIMI M.D. CLIA NUMBER [id number] [facility] [place]CREDITATION [place] O. [id number] HEMOGLOBIN [id number] 06:54:40 Test Item Value Reference Range Interpretation Comments HEMOGLOBIN A1c (test 8.1 % 4.2-5.6 H AMERIC AN DIABETES code = 51367) ASSOCIATION IDELINES FOR HGB A1C: PREDIABETES/INC REASED RISK . . . . . . . 5.7 -6.4% DIAGNOSIS OF DI ABETES . . . . . . . . . >=6 .5% WITH CONFIRMATION OR APPROPRIATE SYMPTOMS NOTE: ASSAY MAY BE AFFECTED BY HEMOGLOBINOPATH IES (SICKLE CELL ANEMIA, S- C DISEASE, OTHERS) OR JUDI FICIALLY LOWERED BY DECR EASED RED CELL SURVIVAL ( HEMOLYTIC ANEMIAS, BLOOD LOSS, ETC.). CONSIDER ALTERN ATE TESTING OR LABORATORY C ONSULTATION. CBC W/AUTO DIFF WITH [id number] 05:56:26 Test Item Value Reference Range Interpretation [...] = 1036) NUCLEATED RBCS (test 0.0 /100 WBC'S See_Comment [Aut omated code = 1065) message] The sy stem which generated this [...] RBCS 0.00 K/UL 0.00-0.11 (test code = 52378) LIPID [id number] 05:32:10 Test Item Value Reference Range Interpretation [...] MOREINFORMATION , SEE CLIENT ANNOUNCE MENT AT [email or web address] [email or web address] RATIO LDL/HDL 1.68 RATIO <3.55 (test code = 2238) COMPREHENSIVE METABOLIC [id number] 05:32:10 Test Item Value Reference Range Interpretation Comments GLUCOSE (test code = 249 MG/DL 70-99 H 2216) BUN (test code = 10 MG/DL 8-23 2207) CREATININE (test 0.58 MG/DL 0.80-1.40 L code = 221) eGFR (2020 CKD-EPI) 104 >60 (test code = 81932) ML/MIN/1.73 CALC BUN/CREAT (test 17 RATIO 6-28 code = 223) SODIUM (test code = 127 MEQ/L 133-146 L 2230) POTASSIUM (test code 5.1 MEQ/L 3.5-5.4 = 2227) CHLORIDE (test code 94 MEQ/L 95-107 L = 2214) CARBON DIOXIDE (test 21 MEQ/L 19-31 code = 2205) CALCIUM (test code = 8.8 MG/DL 8.5-10.5 2208) PROTEIN, TOTAL (test 7.4 G/DL 6.1-8.3 code = 2228) ALBUMIN (test code = 3.5 G/DL 3.5-5.2 2201) CALC GLOBULIN (test 3.9 G/DL 1.9-3.7 H [...] 151 U/L 40-125 H (test code = 4) AST (test code = 44 U/L 950 2217) ALT (test code = 27 U/L 550 2218) BLOOD [id number] 11:00:00 Test Item Value Reference Range Interpretation Comments CULTURE (BEAKER) (test No growth in 5 days code = 1095) BLOOD [id number] 11:00:00 Test Item Value Reference Range Interpretation Comments CULTURE (BEAKER) (test No growth in 5 days code = 1095) POCT-GLUCOSE [id number] 12:19:00 Test Item Value Reference Range Interpretation Comments POC-GLUCOSE METER 250 mg/dL 70-110 H : TESTED A T [facility] [address] (BEAKER) (test code [facility] [email or web address], = 1538) [place] [address] 384: Turn Down Attendant/Techni anson ID = [id number] for Bacilio Liang y POCT-GLUCOSE [id number] 08:18:00 Test Item Value Reference Range Interpretation Comments POC-GLUCOSE METER 195 mg/dL 70-110 H : TESTED A T [facility] [address] (BEAKER) ([facility], = 1538) [place] [address] 384: Turn Down Attendant/Techni anson ID = [id number] for Garth, T y COMPREHENSIVE METABOLIC [id number] 05:40:00 Test Item Value Reference Range Interpretation [...] 1092) DATA TO CALCULA TE ESTIMATED GFR. Turn Down Attendant ID - [id number] 05:24:00 Test Item Value Reference Range Interpretation Comments HEMOGLOBIN A1C (BEAKER) (test code = 8.1 % 4.3-6.1 H 368) Turn Down Attendant ID - [id number] 21:31:00 Test Item Value Reference Range Interpretation Comments POC-GLUCOSE METER 300 mg/dL 70-110 H : TESTED A T [facility] [address] (BEAKER) (test code [employer] [address], = 1538) [facility] 77 384: Turn Down Attendant/Techni anson ID = [id number] for Yadi Yang POCT-GLUCOSE [id number] 16:18:00 Test Item Value Reference Range Interpretation Comments POC-GLUCOSE METER 295 mg/dL 70-110 H : TESTED A T [facility] [address] (BEAKER) (test code [facility] [employer] [address], = 1538) [place] [address] 384: Turn Down Attendant/Techni anson ID = [id number] for Marcela Gtz POCT-GLUCOSE [id number] 10:52:00 Test Item Value Reference Range Interpretation Comments POC-GLUCOSE METER 233 mg/dL 70-110 H : TESTED A T [facility] [address] (BEAKER) (test code [facility], = 1538) [place] [address] 384: Turn Down Attendant/Techni anson ID = [id number] for Marcela Gtz BASIC METABOLIC [id number] 10:34:00 Test Item Value Reference Range Interpretation [...] 1092) DATA TO CALCULA TE ESTIMATED GFR. Turn Down Attendant ID - [id number] METABOLIC [id number] 09:55:00 Test Item Value Reference Range Interpretation [...] 1092) DATA TO CALCULA TE ESTIMATED GFR. Turn Down Attendant ID - [id number] slightly lipemicCBC W/PLT COUNT & AUTO [id number] 09:44:00 Test Item Value Reference Range Interpretation [...] % 0-0 PERCENT (BEAKER) (test code = 5662)
[2022-05-04] MEDS ORDERED: CEFTRIAXONE 1000 MG/VIAL ONE (10:28)
[2022-05-04] MEDS ORDERED: NA CHLORIDE 0.9% 1,000 ML ONE (10:28)
[2022-05-04] MEDS ORDERED: ACETAMINOPHEN 500 MG TAB ONE (10:28)
[2022-05-04] MEDS ORDERED: NA CHLORIDE 0.9% 0 ML ONE (10:28)
[2022-05-04 10:50] LABS: Absolute Lymphocytes (CBC) 0.5 K/uL (0.7-4.9); Hematocrit 24.9 % (39.6-49.0); Lymphocytes % 11.6 % (15.3-44.8); MCV 77.4 fL (80-100); MPV 8.2 fL (7.6-11.3); RBC Red Blood Cell Count 3.22 M/uL (4.33-5.43)
[2022-05-04 10:51] LABS: Protime INR 2.2
[2022-05-04 11:11] LABS: SARS-CoV-2 Antigen Rapid Res Negative (Negative)
--- NOTE | 2022-05-04 11:18 | RAD REPORT ---
EXAM DESCRIPTION: RAD - Chest Single View - 05/04/2022 10:42 am CLINICAL HISTORY: COUGH Chest pain. COMPARISON: Chest Single View dated 08/14/2021; Chest Pa And Lat (2 Views) dated 01/20/2019; CHEST SI NGLE VIEW dated 07/03/2015; CHEST SINGLE VIEW dated 06/01/2015 FINDINGS: Portable technique limits examination quality. Moderate bilateral pulmonary opacities are present likely representing pneumonia, less likely pulmona ry edema. The heart is mildly prominent. No displaced fractures.Pulmonary opacities appear mildly pro gressive relative to comparative chest radiograph. IMPRESSION: Moderate bilateral pulmonary opacity could represent infection/ pneumonia. Pulmonary debby ma/ CHF is another possibility.
[2022-05-04] MEDS ORDERED: HYDROCODONE/APAP 10/325 TAB ONE (12:53)
[2022-05-04] MEDS ORDERED: RIVAROXABAN 20 MG TABLET PO ONE (12:53)
[2022-05-04 13:22] LABS: Albumin 2.6 g/dL (3.4-5.0); Bilirubin Direct 0.3 mg/dL (0-0.2); Bilirubin Total 0.5 mg/dL (0.2-1.0); Magnesium 1.6 mg/dL (1.8-2.4); Potassium 3.8 mmol/L (3.5-5.1); Protein, Total 6.7 g/dL (6.4-8.2)
[2022-05-04 14:26] LABS: Troponin High Sensitivity 13.6 pg/mL (<58.9)
--- NOTE | 2022-05-04 14:40 | EDPHYS ---
Physician Documentation [facility] Name: Deonte Armstrong Age: 71 yrs Sex: Male : 1950 Arrival Date: 05/04/2022 Time: 09:53 Bed 4 Private MD: ED Physician Isaak Goncalves HPI: 05/04 14:23 This 71 yrs old Male presents to ER via EMS with complaints of Fever. haley 14:23 The patient reports fever, that was measured at 101 degrees Fahrenheit. Onset: The haley symptoms/episode began/occurred this morning, today. Modifying factors: there are no obvious modifying factors. Associated signs and symptoms: Pertinent positives: cough. Severity of symptoms: At their worst the symptoms were mild moderate in the emergency department the symptoms are unchanged. The patient has not experienced similar symptoms in the past. Historical: - Allergies: 10:01 No Known Allergies; tp1 - Home Meds: 10:01 hydrocodone [Active]; tp1 12:39 furosemide 40 mg Oral tab 1 tab once daily [Active]; insulin [Active]; Lasix Oral vg1 [Active]; metoprolol tartrate 100 mg Oral tab 1 tab once daily [Active]; [place] 10-325 mg Oral tab every 4-6 hours [Active]; spironolactone 25 mg Oral tab 1 tab once daily [Active]; Xarelto 20 mg Oral tab 1 tab once daily [Active]; - PMHx: 10:01 Atrial Fib; CHF; Diabetes - IDDM; neuropathy; diabetic ulcers; tp1 - Immunization history:: Client reports having NOT received the Covid vaccine. - Social history:: Smoking status: Patient reports the use of cigarette tobacco products, smokes one-half pack cigarettes per day. ROS: 14:28 Eyes: Negative for injury, pain, redness, and discharge, ENT: Negative for injury, haley pain, and discharge, Neck: Negative for injury, pain, and swelling, Abdomen/GI: Negative for abdominal pain, nausea, vomiting, diarrhea, and constipation, Back: Negative for injury and pain, : Negative for injury, bleeding, discharge, and swelling, Neuro: Negative for headache, weakness, numbness, tingling, and seizure, Psych: Negative for depression, anxiety, suicide ideation, homicidal ideation, and hallucinations, Allergy/Immunology: Negative for hives, rash, and allergies. 14:28 Constitutional: Positive for chills, fatigue, fever, malaise. 14:28 Cardiovascular: Positive for palpitations. 14:28 Respiratory: Positive for cough, shortness of breath. 14:28 Skin: Positive for pallor. 14:28 Neuro: Positive for weakness. Exam: 14:28 Head/Face: Normocephalic, atraumatic. Eyes: Pupils equal round and reactive to light, haley extra-ocular motions intact. Lids and lashes normal. Conjunctiva and sclera are non-icteric and not injected. Cornea within normal limits. Periorbital areas with no swelling, redness, or edema. ENT: Nares patent. No nasal discharge, no septal abnormalities noted. Tympanic membranes are normal and external auditory canals are clear. Oropharynx with no redness, swelling, or masses, exudates, or evidence of obstruction, uvula midline. Mucous membranes moist. Neck: Trachea midline, no thyromegaly or masses palpated, and no cervical lymphadenopathy. Supple, full range of motion without nuchal rigidity, or vertebral point tenderness. No Meningismus. Chest/axilla: Normal chest wall appearance and motion. Nontender with no deformity. No lesions are appreciated. Abdomen/GI: Soft, non-tender, with normal bowel sounds. No distension or tympany. No guarding or rebound. No evidence of tenderness throughout. Back: No spinal tenderness. No costovertebral tenderness. Full range of motion. Male : Normal genitalia with no discharge or lesions. Neuro: Awake and alert, GCS 15, oriented to person, place, time, and situation. Cranial nerves II-XII grossly intact. Motor strength 5/5 in all extremities. Sensory grossly intact. Cerebellar exam normal. Normal gait. Psych: Awake, alert, with orientation to person, place and time. Behavior, mood, and affect are within normal limits. 14:28 Constitutional: The patient appears febrile. 14:28 Cardiovascular: Rate: tachycardic, Rhythm: irregularly irregular, Pulses: Pulses are 4+ in bilateral radial, brachial, femoral, popliteal, posterior tibial and and dorsalis pedis arteries.. 14:28 ECG was reviewed by the Attending Physician. 14:28 Respiratory: the patient does not display signs of respiratory distress, Respirations: normal, no acute changes, Breath sounds: bronchial sounds, that are mild, are scattered, decreased breath sounds, that are mild, are scattered, rhonchi, that are moderate, are scattered, stridor, is not appreciated, wheezing: expiratory 14:28 Abdomen/GI: Inspection: abdomen appears normal, Bowel sounds: normal, active, Palpation: abdomen is soft and non-tender, Liver: no appreciated palpable abnormalities, Hernia: not appreciated. 14:28 Skin: Appearance: Color: pale. 14:31 Abdomen/GI: Rectal exam: Prostate: normal, rectal tone normal, Stool: guaiac negative, haley hemorrhoid(s), are not appreciated, mass, is not appreciated, swelling, is not appreciated, tenderness, is not appreciated, fecal impaction, is not appreciated. 14:31 Musculoskeletal/extremity: DVT Exam: no pain, no swelling, no tenderness, negative Homans' sign noted on exam, no appreciated bluish discoloration, no erythema, no increased warmth, LEFT GREAT TOE WOUND , CHRONIC. Vital Signs: 09:45 BP 138 / 76; Pulse 120; Resp 20; Temp 101(O); Pulse Ox 93% on R/A; Weight 83.91 kg; tp1 Height 5 ft. 10 in. (177.80 cm); Pain 10/10; 10:45 BP 124 / 75; Pulse 109; Resp 18; Pulse Ox 95% on R/A; tp1 11:37 BP 118 / 70; Pulse 109; Resp 17; Temp 98.9(O); Pulse Ox 99% on R/A; tp1 12:00 BP 121 / 72; Pulse 107; Resp 17; Pulse Ox 95% on R/A; vg1 13:00 BP 103 / 65; Pulse 99; Resp 17; Pulse Ox 95% on R/A; vg1 14:00 BP 114 / 68; Pulse 97; Resp 17; Pulse Ox 99% on R/A; vg1 15:00 BP 114 / 72; Pulse 85; Resp 15; Pulse Ox 97% on R/A; vg1 16:33 BP 115 / 88; Pulse 92; Resp 15; Temp 99.1; Pulse Ox 98% on R/A; tp1 18:27 BP 127 / 83; Pulse 82; Resp 13; Temp 99.0(O); Pulse Ox 99% on R/A; tp1 09:45 Body Mass Index 26.54 (83.91 kg, 177.80 cm) tp1 MDM: 09:53 Patient medically screened. [facility] 14:34 Antibiotic administration: Rocephin and Zithromax given. Differential diagnosis: Anemia haley Bronchitis CHF exacerbation, Chronic Obstructive Pulmonary Disease viral Infection, bacterial infection, URI, bronchitis, pneumonia UTI, gastroenteritis, Myocardial Infarction pneumonia, pulmonary edema, Pulmonary Embolism Sepsis. The patient's Wells Deep Vein Thrombosis Score was calculated as follows: Heart Rate >100 BPM (1.5 Pts) Total Score: 0-2 Pts- Low Risk. Differential Diagnosis: Bronchitis Influenza Upper Respiratory Infection Otitis Media Allergic Rhinitis Asthma Exacerbation Viral Syndrome Pneumonia Tracheal Injury. The patient's pulmonary embolism risk score was calculated as follows: the patients heart rate is greater than 100 beats per minute (1.5 Pts) Total Score: 0-2 points. This patient was found to be at low risk for a pulmonary embolism by using the Well's assessment criteria. Immunization status: Pneumococcal vaccine: Influenza vaccine: Not up to date. Data reviewed: vital signs, nurses notes, EMS record, lab test result(s), EKG, radiologic studies, CT scan, plain films. Data interpreted: bike technician: rate is 109 beats/min, rhythm is regular, Pulse oximetry: on room air is 99 %. Test interpretation: by ED physician or midlevel provider: ECG, plain radiologic studies. Counseling: I had a detailed discussion with the patient and/or guardian regarding: the historical points, exam findings, and any diagnostic results supporting the discharge/admit diagnosis, lab results, radiology results, the need for outpatient follow up, the need to transfer to another facility, for higher level of care, [facility] does not immediately have the required specialist. 05/04 09:57 Order name: Basic Metabolic Panel [facility] 05/04 09:57 Order name: CBC with Diff; Complete Time: 14:10 [facility] 05/04 09:57 Order name: LFT's [facility] 05/04 09:57 Order name: Magnesium [facility] 05/04 09:57 Order name: NT PRO-BNP [facility] 05/04 09:57 Order name: PT-INR; Complete Time: 14:10 [facility] 05/04 09:57 Order name: Troponin HS [facility] 05/04 09:57 Order name: Urine Culture [facility] 05/04 09:57 Order name: Blood Culture Adult (2) [facility] 05/04 09:57 Order name: Lactate; Complete Time: 14:10 [facility] 05/04 09:57 Order name: SARS RAPID; Complete Time: 14:10 [facility] 05/04 14:11 Order name: Type And Screen [facility] 05/04 09:57 Order name: XRAY Chest (1 view); Complete Time: 14:10 [facility] 05/04 14:22 Order name: CT Chest Abdomen Pelvis W/O Contrast [facility] 05/04 14:44 Order name: Bb Add On bd 05/04 14:46 Order name: Lactate Sepsis 2 HR Follow-up [facility] 05/04 14:55 Order name: ABO/RH no charge [facility] 05/04 14:58 Order name: Packed RBC Leukored [facility] 05/04 09:57 Order name: EKG; Complete Time: 09:59 [facility] 05/04 09:57 Order name: Cardiac monitoring; Complete Time: 10:13 [facility] 05/04 09:57 Order name: EKG - Nurse/Tech; Complete Time: 11:42 [facility] 05/04 09:57 Order name: IV Saline Lock; Complete Time: 10:13 [facility] 05/04 09:57 Order name: Labs collected and sent; Complete Time: 10:47 [facility] 05/04 09:57 Order name: O2 Per Protocol; Complete Time: 10:14 [facility] 05/04 09:57 Order name: O2 Sat Monitoring; Complete Time: 10:14 [facility] 05/04 14:33 Order name: Transfuse; Complete Time: 17:16 [facility] 05/04 18:08 Order name: Bladder Scanner; Complete Time: 18:08 tp1 Administered Medications: 10:22 Drug: Tylenol 1000 mg Route: PO; tp1 11:39 Follow up: Response: Temperature is decreased tp1 10:25 Drug: NS 0.9% 1000 ml Route: IV; Rate: 1 bolus; Site: left wrist; tp1 11:43 Follow up: IV Status: Completed infusion; IV Intake: 1000ml tp1 10:25 Drug: NS 0.9% 1000 ml Route: IV; Rate: 1 bolus; Site: left wrist; tp1 12:47 Follow up: IV Status: Completed infusion; IV Intake: 1000ml vg1 10:47 Drug: Rocephin (cefTRIAXone) 1 grams Route: IV; Rate: per protocol; Site: right wrist; vg1 11:39 Follow up: Response: No adverse reaction; IV Status: Completed infusion; IV Intake: tp1 100ml 12:47 Drug: Xarelto (rivaroxaban) 20 mg Route: PO; vg1 17:08 Follow up: Response: No change in condition tp1 12:47 Drug: [place] (HYDROcodone-acetaminophen) 10 mg-325 mg 1 tabs Route: PO; vg1 13:47 Follow up: Response: Pain is decreased tp1 15:37 Drug: Zithromax (azithromycin) 500 mg Route: IVPB; Infused Over: 1 hrs; Site: right tp1 wrist; 16:15 Follow up: Response: No adverse reaction; IV Status: Completed infusion; IV Intake: tp1 250ml 15:58 Drug: Lasix (furosemide) 40 mg Route: IVP; Site: left hand; [id number] 17:00 Follow up: Response: No adverse reaction tp1 16:00 Drug: ProTONIX (pantoprazole) 40 mg Route: IVP; Site: left hand; vg1 18:48 Follow up: Response: No adverse reaction tp1 16:34 Drug: Tylenol 650 mg Route: PO; tp1 18:46 Follow up: Response: No adverse reaction tp1 16:37 Drug: Benadryl (diphenhydrAMINE) 12.5 mg Route: IVP; Site: left wrist; tp1 18:46 Follow up: Response: No adverse reaction tp1 17:05 Drug: Magnesium Sulfate 1 grams Route: IVPB; Infused Over: 1 hrs; Site: left wrist; tp1 18:17 Follow up: IV Status: Completed infusion; IV Intake: 250ml tp1 18:25 Not Given (Physician Discretion): [place] (HYDROcodone-acetaminophen) 10 mg-325 mg 1 tabs tp1 PO once 18:32 Drug: morphine 2 mg Route: IVP; Infused Over: 4 mins; Site: left wrist; tp1 18:46 Follow up: Response: Medication administered at discharge. 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
--- NOTE | 2022-05-04 14:40 | ER ---
Nurse's Notes [facility] Name: Deonte Armstrong Age: 71 yrs Sex: Male : 1950 Arrival Date: 05/04/2022 Time: 09:53 Bed 4 Private MD: Diagnosis: Anemia, unspecified;GI Bleed/ Gastrointestinal hemorrhage, unspecified-STABLE;Pneumonia due to other specified bacteria;Hypomagnesemia;Chronic atrial fibrillation;termite exterminator helper (current) use of anticoagulants;Unspecified combined systolic (congestive) and diastolic (congestive) heart failure;Personal history of diabetic foot ulcer Presentation: 05/04 09:45 Chief complaint: EMS states: toned out to PT home for fever and chills that began last tp1 night. reports wounds to bilateral feet that having been healing for the last year. Reports PT just started antibiotics. T 100.4, BP 125/70, HR 120, O2 100%. 22G left wrist. Received NS 50 ML IV on route. 09:45 Coronavirus screen: Vaccine status: Patient reports being unvaccinated. Ebola Screen: tp1 Patient negative for fever greater than or equal to 101.5 degrees Fahrenheit, and additional compatible Ebola Virus Disease symptoms Patient denies exposure to infectious person. Patient denies travel to an Ebola-affected area in the 21 days before illness onset. Initial Sepsis Screen: Does the patient meet any 2 criteria? Temp <36.0*C (96.8*F)) or > 38.3*C (100.9*F). HR > 90 bpm. Yes Does the patient have a suspected source of infection? Yes:. Risk Assessment: Do you want to hurt yourself or someone else? Patient reports no desire to harm self or others. Onset of symptoms was May 03, 2022. 09:45 Method Of Arrival: EMS: [facility] tp1 09:45 Acuity: KAROLINA 2 tp1 Triage Assessment: 09:45 General: Appears in no apparent distress. uncomfortable, Behavior is calm, cooperative. tp1 Pain: Complains of pain in generalized body Pain currently is 10 out of 10 on a pain scale. Quality of pain is described as aching, Pain began 1 day ago. EENT: No signs and/or symptoms were reported regarding the EENT system. Neuro: [place]ra Agitation-Sedation Scale (RASS): 0 - Alert and Calm Level of Consciousness is awake, alert, obeys commands, Oriented to person, place, time, situation. Cardiovascular: Capillary refill < 3 seconds in bilateral toes Patient's skin is warm and dry. Pulses are 2+ in right dorsalis pedis artery and left dorsalis pedis artery. Respiratory: Airway is patent Respiratory effort is even, unlabored, Breath sounds are clear bilaterally. GI: Abdomen is flat, non-distended, Patient currently denies nausea, vomiting. : No signs and/or symptoms were reported regarding the genitourinary system. Derm: ulcers to right heel that appear healing. left toe wrapped with gauze, red drainage noted. 09:45 Musculoskeletal: Circulation, motion, and sensation intact. tp1 Historical: - Allergies: 10:01 No Known Allergies; tp1 - Home Meds: 10:01 hydrocodone [Active]; tp1 12:39 furosemide 40 mg Oral tab 1 tab once daily [Active]; insulin [Active]; Lasix Oral vg1 [Active]; metoprolol tartrate 100 mg Oral tab 1 tab once daily [Active]; [employer] 10-325 mg Oral tab every 4-6 hours [Active]; spironolactone 25 mg Oral tab 1 tab once daily [Active]; Xarelto 20 mg Oral tab 1 tab once daily [Active]; - PMHx: 10:01 Atrial Fib; CHF; Diabetes - IDDM; neuropathy; diabetic ulcers; tp1 - Immunization history:: Client reports having NOT received the Covid vaccine. - Social history:: Smoking status: Patient reports the use of cigarette tobacco products, smokes one-half pack cigarettes per day. Screenin:11 Abuse screen: Denies threats or abuse. Denies injuries from another. Nutritional tp1 screening: No deficits noted. Tuberculosis screening: No symptoms or risk factors identified. Fall Risk No fall in past 12 months (0 pts). No secondary diagnosis (0 pts). IV access (20 points). Ambulatory Aid- None/Bed Rest/Nurse Assist (0 pts). Gait- Normal/Bed Rest/Wheelchair (0 pts) Mental Status- Oriented to own ability (0 pts). Total Rutherford Fall Scale indicates No Risk (0-24 pts). Assessment: 09:45 General: see triage notes . tp1 10:45 Reassessment: Patient appears in no apparent distress at this time. Patient and/or tp1 family updated on plan of care and expected duration. Pain level reassessed. Patient is alert, oriented x 3, equal unlabored respirations, skin warm/dry/pink. 11:54 Reassessment: Patient appears in no apparent distress at this time. Patient and/or tp1 family updated on plan of care and expected duration. Pain level reassessed. Patient is alert, oriented x 3, equal unlabored respirations, skin warm/dry/pink. pt stated he did not take his xarelto. requested pain medication. provider notified. 12:41 Reassessment: received VO from Dr. Goncalves for Xarelto 20 mg PO 1X, [employer] 10 mg PO 1X. tp1 13:49 Reassessment: Patient appears in no apparent distress at this time. Patient and/or tp1 family updated on plan of care and expected duration. Pain level reassessed. Patient is alert, oriented x 3, equal unlabored respirations, skin warm/dry/pink. resting in bed Patient denies pain at this time. 14:30 Reassessment: Patient appears in no apparent distress at this time. No changes from tp1 previously documented assessment. Patient and/or family updated on plan of care and expected duration. Pain level reassessed. Patient is alert, oriented x 3, equal unlabored respirations, skin warm/dry/pink. Patient denies pain at this time. 15:00 Reassessment: received written order from Dr. Goncalves to administer Tylenol 650 mg PO tp1 X1 and Benadryl 12.5 mg IVP X1. 15:37 Reassessment: Patient appears in no apparent distress at this time. Patient and/or tp1 family updated on plan of care and expected duration. Pain level reassessed. Patient is alert, oriented x 3, equal unlabored respirations, skin warm/dry/pink. brother at bedside Patient denies pain at this time. 16:30 Reassessment: Patient appears in no apparent distress at this time. No changes from tp1 previously documented assessment. Patient is alert, oriented x 3, equal unlabored respirations, skin warm/dry/pink. Patient denies pain at this time. 16:45 Reassessment: began first unit of packed red blood cells, refer to transfusion record tp1 for further information. 17:45 Reassessment: Patient appears in no apparent distress at this time. No changes from tp1 previously documented assessment. Patient is alert, oriented x 3, equal unlabored respirations, skin warm/dry/pink. CO leg pain, provider notified. 17:47 Reassessment: report given to receiving RN at [facility]. tp1 17:52 Reassessment: received VO from Dr. Goncalves for a post residual bladder scan. tp1 18:05 Reassessment: Bladder scan post void 173 mL. tp1 18:06 Reassessment: received VO from Dr. Goncalves to administer [employer] 10 mg PO X1. tp1 18:25 Reassessment: VO received from Dr. Goncalves to DC [employer] 10 mg due to amount of tylenol tp1 received. Received VO to administer Morphine 2 mg IVP X1. 18:40 Reassessment: transfusion completed of first unit of PRBC. tp1 Vital Signs: 09:45 BP 138 / 76; Pulse 120; Resp 20; Temp 101(O); Pulse Ox 93% on R/A; Weight 83.91 kg; tp1 Height 5 ft. 10 in. (177.80 cm); Pain 10/10; 10:45 BP 124 / 75; Pulse 109; Resp 18; Pulse Ox 95% on R/A; tp1 11:37 BP 118 / 70; Pulse 109; Resp 17; Temp 98.9(O); Pulse Ox 99% on R/A; tp1 12:00 BP 121 / 72; Pulse 107; Resp 17; Pulse Ox 95% on R/A; vg1 13:00 BP 103 / 65; Pulse 99; Resp 17; Pulse Ox 95% on R/A; vg1 14:00 BP 114 / 68; Pulse 97; Resp 17; Pulse Ox 99% on R/A; vg1 15:00 BP 114 / 72; Pulse 85; Resp 15; Pulse Ox 97% on R/A; vg1 16:33 BP 115 / 88; Pulse 92; Resp 15; Temp 99.1; Pulse Ox 98% on R/A; tp1 18:27 BP 127 / 83; Pulse 82; Resp 13; Temp 99.0(O); Pulse Ox 99% on R/A; tp1 09:45 Body Mass Index 26.54 (83.91 kg, 177.80 cm) tp1 ED Course: 09:45 Arm band placed on. tp1 09:45 Patient has correct armband on for positive identification. Placed in gown. Bed in low tp1 position. Call light in reach. Side rails up X 1. 09:45 Client placed on continuous cardiac and pulse oximetry monitoring. NIBP monitoring tp1 applied. 09:53 Patient arrived in ED. tp1 09:53 Isaak Goncalves MD is Attending Physician. haley 10:01 Triage completed. tp1 10:11 Bernice Brenner RN is Primary Nurse. tp1 10:20 Maintain EMS IV. Dressing intact. Good blood return noted. Site clean \T\ dry. Gauge \T\ tp 1 site: 22 G left wrist . 10:29 First set of blood cultures drawn by me. vg1 10:41 Inserted saline lock: 20 gauge in right wrist, using aseptic technique. Blood collected.vg1 10:44 XRAY Chest (1 view) In Process Unspecified. EDMS 11:38 EKG done, by ED staff. tp1 14:25 Initial lab(s) drawn, Repeat lab(s) drawn. by me, sent to lab. vg1 14:42 CT Chest Abdomen Pelvis W/O Contrast In Process Unspecified. EDMS 18:45 No provider procedures requiring assistance completed. Patient transferred, IV remains tp1 in place. Administered Medications: 10:22 Drug: Tylenol 1000 mg Route: PO; tp1 11:39 Follow up: Response: Temperature is decreased tp1 10:25 Drug: NS 0.9% 1000 ml Route: IV; Rate: 1 bolus; Site: left wrist; tp1 11:43 Follow up: IV Status: Completed infusion; IV Intake: 1000ml tp1 10:25 Drug: NS 0.9% 1000 ml Route: IV; Rate: 1 bolus; Site: left wrist; tp1 12:47 Follow up: IV Status: Completed infusion; IV Intake: 1000ml vg1 10:47 Drug: Rocephin (cefTRIAXone) 1 grams Route: IV; Rate: per protocol; Site: right wrist; vg1 11:39 Follow up: Response: No adverse reaction; IV Status: Completed infusion; IV Intake: tp1 100ml 12:47 Drug: Xarelto (rivaroxaban) 20 mg Route: PO; vg1 17:08 Follow up: Response: No change in condition tp1 12:47 Drug: [employer] (HYDROcodone-acetaminophen) 10 mg-325 mg 1 tabs Route: PO; vg1 13:47 Follow up: Response: Pain is decreased tp1 15:37 Drug: Zithromax (azithromycin) 500 mg Route: IVPB; Infused Over: 1 hrs; Site: right tp1 wrist; 16:15 Follow up: Response: No adverse reaction; IV Status: Completed infusion; IV Intake: tp1 250ml 15:58 Drug: Lasix (furosemide) 40 mg Route: IVP; Site: left hand; jl7 17:00 Follow up: Response: No adverse reaction tp1 16:00 Drug: ProTONIX (pantoprazole) 40 mg Route: IVP; Site: left hand; vg1 18:48 Follow up: Response: No adverse reaction tp1 16:34 Drug: Tylenol 650 mg Route: PO; tp1 18:46 Follow up: Response: No adverse reaction tp1 16:37 Drug: Benadryl (diphenhydrAMINE) 12.5 mg Route: IVP; Site: left wrist; tp1 18:46 Follow up: Response: No adverse reaction tp1 17:05 Drug: Magnesium Sulfate 1 grams Route: IVPB; Infused Over: 1 hrs; Site: left wrist; tp1 18:17 Follow up: IV Status: Completed infusion; IV Intake: 250ml tp1 18:25 Not Given (Physician Discretion): [employer] (HYDROcodone-acetaminophen) 10 mg-325 mg 1 tabs tp1 PO once 18:32 Drug: morphine 2 mg Route: IVP; Infused Over: 4 mins; Site: left wrist; tp1 18:46 Follow up: Response: Medication administered at discharge. tp1 Medication: 18:45 VIS not applicable for this client. tp1 Intake: 11:39 IV: 100ml; Total: 100ml. tp1 11:43 IV: 1000ml; Total: 1100ml. tp1 12:47 IV: 1000ml; Total: 2100ml. vg1 16:15 IV: 250ml; Total: 2350ml. tp1 18:08 IV: 2350ml (IV Fluid); Total: 4700ml. tp1 18:17 IV: 250ml; Total: 4950ml. tp1 Output: 18:08 Urine: 225ml (Voided); Total: 225ml. tp1 Outcome: 14:39 ER care complete, transfer ordered by MD. de leon 18:46 Transferred by ground EMS to [facility]. tp1 18:46 Condition: good 18:46 Instructed on the need for transfer. 18:47 Patient left the ED. tp1 Signatures: Dispatcher [employer] EDIsaak Corona MD MD cha Leal, Jahala RN RN jl7 Maria Dolores Rodrigez RN RN vg1 Bernice Brenner RN RN tp1 Corrections: (The following items were deleted from the chart) 10:11 09:45 Acuity: KAROLINA 3 tp1 tp1 11:27 09:45 Respiratory: Airway is patent Respiratory effort is even, unlabored, tp1 tp1 17:17 16:45 Reassessment: First unit of packed red blood cells administered tp1 tp1
--- NOTE | 2022-05-04 15:08 | RAD REPORT ---
EXAM DESCRIPTION: CT - Chest Abd Pelvis Wo Con - 05/04/2022 2:40 pm CLINICAL HISTORY: Chest and abdominal pain COMPARISON: CT abdomen January 2022 TECHNIQUE: Computed axial tomography of the chest, abdomen and pelvis was obtained. Oral contrast wa s given. IV contrast was not requested. All CT scans are performed using dose optimization technique as appropriate and may include automated exposure control or mA/KV adjustment according to patient size. FINDINGS: The evaluation of mediastinum, iain, vessels and solid organs is limited secondary to the lack of IV contrast administration Mild subpleural interstitial lung opacities are chronic. Minimal ground-glass opacities within the lungs. No mediastinal or hilar lymphadenopathy is seen. A pleural effusion is not present. A pericardial effusion is not seen. A lung consolidation is not present. The lungs are essentially clear. The liver, spleen, pancreas, and adrenals appear grossly normal Cholelithiasis without gallbladder wall thickening. Calcifications within the renal medulla bilaterally. There is no evidence of diverticulitis. Moderate ventral hernia to the left of midline within abdomen IMPRESSION: Minimal ground-glass opacities within the lungs indicative of a minimal alveolitis Cholelithiasis without evidence cholecystitis. Medullary sponge kidney suspected
[2022-05-04] MEDS ORDERED: DIPHENHYDRAMINE 50 MG/ML VIAL ONE (15:26)
[2022-05-04] MEDS ORDERED: ACETAMINOPHEN 325 MG TABLET ONE (15:30)
[2022-05-04] MEDS ORDERED: NA CHLORIDE 0.9% 100 ML ONE (15:37)
[2022-05-04] MEDS ORDERED: AZITHROMYCIN 500 MG INJ IVPB ONE (15:37)
[2022-05-04] MEDS ORDERED: NA CHLORIDE 0.9% 250 ML ONE ×2 (15:39→15:48)
[2022-05-04] MEDS ORDERED: PANTOPRAZOLE 40 MG INJ ONE (15:54)
[2022-05-04] MEDS ORDERED: FUROSEMIDE 40 MG/4 ML VIAL ONE (15:54)
[2022-05-04] MEDS ORDERED: MAGNESIUM SULFATE 1 gm IVPB 1 GM/100 ML BAG IV ONE (15:54)
[2022-05-04] MEDS ORDERED: MORPHINE 2 MG/ML SYR ONE (18:39)
[2022-05-04 20:34] VITALS: BP 138/76; TEMP 101; O2SAT 93
--- NOTE | 2022-05-07 05:42 | EKG ---
Test Date: 2022-05-04 Test Time: 11:41:21 Yarder Boss: SAYDA MEASUREMENT RESULTS: Intervals: Rate: 113 SD: QRSD: 92 QT: 334 QTc: 458 Inman: P: SD: QRS: 64 T: 64 INTERPRETIVE STATEMENTS: Atrial fibrillation with rapid ventricular response Nonspecific ST abnormality, probably digitalis effect Abnormal ECG Compared to ECG 02/05/2022 01:33:09 ST (T wave) deviation now present Left-axis deviation no longer present Incomplete right bundle-branch block no longer present Myocardial infarct finding no longer present Electronically Signed On 05-07-22 05:39:41 CDT by Armen Pelayo
== END 2022-05-04 18:47 | disposition short-term general hospital (02) ==
LOC: ER 09:40
PROC: 30233N1 Transfusion of Nonautologous Red Blood Cells into Peripheral Vein, Percutaneous Approach (ICD-10-PCS; principal; 2022-05-04)
DX: J15.8 Pneumonia due to other specified bacteria (principal); I50.40 Unspecified combined systolic (congestive) and diastolic (congestive) heart failure; D64.9 Anemia, unspecified; E11.621 Type 2 diabetes mellitus with foot ulcer; E83.42 Hypomagnesemia; K92.2 Gastrointestinal hemorrhage, unspecified; I48.20 Chronic atrial fibrillation, unspecified; Z79.01 Long term (current) use of anticoagulants; Z20.822 Contact with and (suspected) exposure to COVID-19
CPT/HCPCS: 93005; 87040 ×2; 87088; 85025; 87086; 80048; 36415; 86900; 83735; 86850; 87205 ×4; 85610; 86901; 80076; 83605 ×2; 84484; 83880; 71250; 74176; 71045; 99285; 87811; 36430; J1200; J1940; C9113; J0456; J3475; J2270; P9016; J7050 ×2; J7030

== ENCOUNTER 2022-09-22 21:03 | Emergency (ER) | payer OTHER ==
--- OUTSIDE RECORDS SUMMARY | 2022-09-22 21:22 | XMS REPORT | Continuity of Care Document ---
:1950 Author Organization [facility] t Address [address] [place] [address] Care Team Providers Name Role Phone No, Pcp [facility] Primary Care Physician Unavailable PHILL TELLEZ Attending Clinician Unavailable Nancy Livingston Attending Clinician Luis Arizmendi MD Attending Clinician Ren PETER, Sandra Attending Clinician Denzel Gooden MD Attending Clinician Luis Bal MD Attending Clinician Doctor Unassigned, [place] Attending Clinician Unavailable Sanchez Parikh MD Attending Clinician MARLEN YESSENIA A Attending Clinician Unavailable Richard Hercules DPMuwatosin A Attending Clinician [phone] RON NIXON Attending Clinician Unavailable Ron Nixon MD Attending Clinician Christiano Noriega LCSW Attending Clinician Kemar Angeles RN Attending Clinician Unavailable CATERINA SHARIF Attending Clinician Unavailable Caterina Sharif MD Attending Clinician CHRISTIANO COMBS Attending Clinician Unavail able PHILL TELLEZ Admitting Clinician Unavailable RICHARD HERCULESUWATOSIN A Admitting Clinician Unavailable CATERINA SHARIF Admitting Clinician Unavailable Caterina Sharif MD Admitting Clinician SIMONE DE LA CRUZ Admitting Clinician Monica vailable Payers Payer Name Policy Type Policy Number Effective Date Expiration Date Jon DELGADO DUAL [id number] 2021 COORDINATION HMO SNP 00:00:00 [employer] [id number] 2022 00:00:00 Problems Condition Condition Condition Status Onset Resolution Last Treating Co mments Source Name Details Category Date Date Treatment Clinician Date 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 Added automatic ally from request for surgery [id number] Open wound Open wound Disease Active U nivers of left of left 18 ity of foot, foot, 00:00: [place] initial initial 00 Medical encounter encounter Bran ch HFrEF HFrEF Disease Active 2021-08 Univers (heart (heart 09-23 ity of failure failure 00:00: [place] with with 00 Medical reduced reduced Branch ejection ejection fraction) fraction) Chronic Chronic Disease Active 2021-08 Univers atrial atrial 09-23 ity of fibrillati fibrillati 00:[place] Symptomati Symptomati Disease Active U nivers c anemia c anemia 05-04 ity of 00:00: [place] 00 Medical Branch Toe Toe Disease Active Overview: Univer s osteomyeli osteomyeli 05-04 Formattin ity of tis, left tis, left 00:00: g of this [place] 00 note Medical might be Branch different from the original. Added automatic ally from request for surgery [id number] Abscess of Abscess of Disease Active [facility] CHF CHF Disease Active 2014-08 Univers (congestiv (congestiv 0-13 it y of e heart e heart 00:00: [place] failure), failure), 00 Medi eder NYHA class NYHA class Br anch I, acute I, acute on on chronic, chronic, combined combined A-fib A-fib Disease Active Univers 03-03 ity of 00:00: [place] 00 Medical Branch Allergies, Adverse Reactions, Alerts Allergy Allergy Status Severity Reaction(s) Onset Inactive Treating Comm ents Source Name Type Date Date Clinician NO KNOWN Drug Active Univers ALLERGIE Class ity of [facility] [place] [facility] [place] NO KNOWN Allergy Active [facility] Family History Family Member Diagnosis Comments Start Date Stop Date Source Natural brother Unremarkable [facility] Natural daughter No Known Problem [facility] Natural father Unremarkable [facility] Natural mother Unremarkable [facility] Natural sister Cancer [facility] Natural sister Unremarkable [facility] Natural sister Cancer [facility] Natural sister Diabetes [facility] Natural sister [facility] Social History Social Habit Start Date Stop Date Quantity Comments Source History of tobacco Passive smoker Un iversity of use [place] [facility] History SDOH Social Unive rsity of Connections [facility] Med ical Together Branch History SDOH Social Unive rsity of Connections [facility] Medical Branch History SDOH Social Unive rsity of Connections [place] [facility] Members[facility] History SDOH Social Unive rsity of Connections [place] [facility] Meetings [facility] History SDOH [facility] Alcohol Std Drinks Medica l Center History SDOH [facility] Alcohol Binge Medical Jenni ter History SDOH Social 2022-09-13 2022-09-13 5 Unive rsity of Connections Phone 00:00:00 00:00:00 [facility] edical Branch History SDOH Social 2022-09-13 2022-09-13 7 Unive rsity of Connections Living 00:00:00 00:00:00 [place] [facility] History SDOH 2022-09-13 2022-09-13 0 University o f Physical Activity 00:00:00 00:00:00 [place] M edical DPW Branch History SDOH 2022-09-13 2022-09-13 0 University o f Physical Activity 00:00:00 00:00:00 [facility] edical MPS Branch History SDOH 2022-09-13 2022-09-13 5 University o f Financial 00:00:00 00:00:00 [place] [facility] History SDOH Food 2022-09-13 2022-09-13 1 Univers ity of Worry 00:00:00 00:00:00 [place] [facility] History SDOH Food 2022-09-13 2022-09-13 1 Univers ity of Scarcity 00:00:00 00:00:00 [place] [facility] History SDUT 2022-09-13 2022-09-13 1 University o f Transport Med 00:00:00 00:00:00 [place] Medic al Branch History SDOH 2022-09-13 2022-09-13 1 University o f Transport Non-Med 00:00:00 00:00:00 [place] M edical [facility] Exposure to 2022-09-02 2022-09-12 Not sure University of SARS-CoV-2 (event) 00:00:00 11:03:00 [facility] Tobacco Comment 2022-09-12 2022-09-12 LES THAN A PACK Univ ersity of 00:00:00 00:00:00 DAILY. [facility] History SDUT 2019-11-09 2019-11-09 5-[address] [facility] Alcohol Comment 00:00:00 00:00:00 3 shots of Medical C enter liquor a day Cigarettes smoked 2019-11-09 2019-11-[address] [facility] current (pack per 00:00:00 00:00:00 Medical Center day) - Reported Cigarette 2019-11-09 2019-11-[address] [facility] pack-years 00:00:00 00:00:00 Medical Center Tobacco use and 2019-11-09 2019-11-[address] [facility] exposure 00:00:00 00:00:00 Medical Center Alcohol intake 2019-11-09 2019-11-09 [facility] alcohol Medical Center (finding) History [facility] 2019-11-09 2019-11-[address] [facility] Alcohol Frequency 00:00:00 00:00:00 Medical Center Sex Assigned At [address] [facility] 00:00[facility]00 00:00:00 Medical Center Smoking Status Start Date Stop Date Source Smokes tobacco daily 2022-09-12 00:00:00 Univers ity of [facility] Medications Ordered Filled Start Stop Current Ordering Indication Dosage Frequency Signature Comments Components Source Medication Medication Date Date Medication? Clinician (SIG) Name Name Insulin Yes 55U inject 55 Unive rs Detemir 100 - Units ity of unit/mL (3 17:33: under the [place] mL) 16 skin. Medical injection Branch lisinopriL Yes 10mg Take 10 mg U nivers 10 mg 09-22 by mouth. ity of tablet 17:33: [address] rivaroxaban Yes Take by Uni vers 20 mg 09-22 mouth. ity of tablet 17:33: [address] spironolact Yes 25mg Take 25 mg Univers one 25 mg 09-22 by mouth. ity o f tablet 17:33: [address] HYDROcodone Yes [id number] 1{tbl} Take 1 Un masoud -acetaminop 09-22 tablet by ity of hen 10-325 00:00: mouth [place] mg tablet 00 every 6 Medical (six) Branch hours as needed for Pain (scale 4-6). Indication s: acute pain sulfamethox 2022- Yes [id number] 2{tbl} Take 2 Univers azole-trime 09-22 [id number] tablets by ity of thoprim 00:00: 05:59 mouth in [place] 800-160 mg 00 :00 the Medical per tablet morning Branch and 2 tablets in the evening. Do all this for 14 days. sulfamethox 2022- No [id number] 1{tbl} Take 1 Univers azole-trime 09-22 [id number] tablet by ity of thoprim 00:00: 00:00 mouth in [place] 800-160 mg 00 :00 the Medical per tablet morning Branch and 1 tablet in the evening. Do all this for 14 days. labetaloL 2022- No 20mg 20 mg, Unive rs (NORMODYNE) 09-21 Slow IV ity of injection 16:51: 17:06 Push, [place] 20 mg 37 :18 [id number], 5 Medical doses, Branch Starting on Sat09/21/22 at 1051, Until Sat09/21/22 at 1106, Routine, systolic > 160mmHg, diastolic > 100mmHg, PACU traMADoL 2022-0 Yes 50mg 50 mg, Univers (ULTRAM) 09-20 Oral, ity of tablet 50 20:52: Q6HPRN, [place] mg 32 Starting Medical on [facility] Branch 09/20/22 at 1452, Until Discontinu ed, Routine, Pain (scale 1-3) traMADoL 2022-0 Yes 50mg 50 mg, Univers (ULTRAM) 09-20 Oral, ity of tablet 50 20:52: Q6HPRN, [place] mg 32 Starting Medical on [facility] Branch 09/20/22 at 1452, Until Discontinu ed, Routine, Pain (scale 1-3) HYDROcodone 2022-0 Yes 1{tbl} 1 tablet, Univers -acetaminop 09-20 Oral, ity of hen (NORCO) 20:52: Q6HPRN, [place] 10-325 mg 05 Starting Medica l tablet 1 on [facility] tablet 09/20/22 at 1452, Until Discontinu ed, Routine, Pain (scale 4-6), Pain (scale 7-10) HYDROcodone 2022-0 Yes 1{tbl} 1 tablet, Univers -acetaminop 09-20 Oral, ity of hen (NORCO) 20:52: Q6HPRN, [place] 10-325 mg 05 Starting Medica l tablet 1 on [facility] tablet 09/20/22 at 1452, Until Discontinu ed, Routine, Pain (scale 4-6), Pain (scale 7-10) amLODIPine 2022-0 Yes 5mg 5 mg, Univer s (NORVASC) 09-20 Oral, ity of tablet 5 mg 20:45: DAILY, [place] 00 First dose Medical on [facility] Branch 09/20/22 at 1445, Until Discontinu ed, Routine amLODIPine 2022-0 Yes 5mg 5 mg, Univer s (NORVASC) 09-20 Oral, ity of tablet 5 mg 20:45: DAILY, [place] 00 First dose Medical on [facility] Branch 09/20/22 at 1445, Until Discontinu ed, Routine Vancomycin 3-0 202- Yes 750mg 750 mg, IV Univers 750 mg in 09-20 Piggyback, ity of NaCl 0.9% 18:00: 17:59 Q12H ABX, [place] (NS) 250 mL 00 :00 6 doses, Medi eder VIAL-medical aide dose Bran ch on [place] 09/20/22 at 1200, Last dose on Sat09/23/22 at 0000, Administer over 60 Minutes, 250 mL
Reas on for Anti-Infec tive: Empiric Therapy for Suspected Infection< br>Empiric Therapy Site: Skin / Soft tissue
Duration of therapy: 72 hours Vancomycin 2022- Yes 750mg 750 mg, IV Univers 750 mg in 09-20 Piggyback, ity of NaCl 0.9% 18:00: 17:59 Q12H ABX, [place] (NS) 250 mL 00 :00 6 doses, Medi eder VIAL-medical aide dose Bran ch on [place] 09/20/22 at 1200, Last dose on Sat09/23/22 at 0000, Administer over 60 Minutes, 250 mL
Reas on for Anti-Infec tive: Empiric Therapy for Suspected Infection< br>Empiric Therapy Site: Skin / Soft tissue
Duration of therapy: 72 hours metoprolol 0 Yes 200mg 200 mg, Uni vers succinate 26 Oral, BID, ity of XL (TOPROL 02:00: First dose [place] XL) tablet 00 (after Medical 200 mg last Branch modificati on) on Sat09/19/22 at 1999, Until Discontinu ed, Routine metoprolol 2022-0 Yes 200mg 200 mg, Uni vers succinate 26 Oral, BID, ity of XL (TOPROL 02:00: First dose [place] XL) tablet 00 (after Medical 200 mg last Branch modificati on) on Sat09/19/22 at 1999, Until Discontinu ed, Routine metoprolol 3-0 Yes 200mg 200 mg, Uni vers succinate 1-26 Oral, BID, ity of XL (TOPROL 02:00: First dose [place] XL) tablet 00 (after Medical 200 mg last Branch modificati on) on Sat09/19/22 at 1999, Until Discontinu ed, Routine iopamidol 0 2022- No PRN, Univers (ISOVUE 09-19 Starting ity of 370-500 mL) 20:00: 21:12 on Sat [place] injection 00 :19 09/19/22 at [facility] 1400, Branch Until Sat09/19/22 at 1512, Routine, Intra-op Nitroglycer 2022- No PRN, Unive rs in (TRIDIL) 09-19 Starting ity of 5 mg, 19:10: 21:12 on Wed [place] verapamiL 00 :19 09/19/22 at [facility] (ISOPTIN) 5 1310, Branch mg in NaCl Intra-op 0.9% (NS) 1,000 mL OR irrigation lidocaine No PRN, Univers 1% (PF) 09-19 Starting ity of (XYLOCAINE) 18:07: 21:12 on Sat [place] injection 00 :19 09/19/22 at [facility] 1207, Branch Until Sat09/19/22 at 1512, Routine, Intra-op nitroglycer 2022- No ONCE INTRA Univers in (TRIDIL) 09-18 PROCEDURE, i ty of 2 mg in 10 17:42: 19:02 [place] mL D5W for 53 :31 on [facility] Cardiac 09/18/22 at Branch Cath 1142, Until Sat09/18/22 at 1302, Routine, CV Intraproce dure verapamiL 2022- No ONCE INTRA U nivers (ISOPTIN) 09-18 PROCEDURE, ity of injection 17:41: 19:02 Starting [place] as 39 :31 on [facility] Medical 09/18/22 at Branch 1141, Until Sat09/18/22 at 1302, Routine, CV Intraproce dure heparin 2022- No ONCE INTRA Uni vers 1,000 09-18 PROCEDURE, ity of unit/mL 17:41: 19:02 Starting [place] injection 16 :31 on [facility] Medical 09/18/22 at Branch 1141, Until Sat09/18/22 at 1302, Routine, CV Intraproce dure lidocaine 2022- No ONCE INTRA U nivers 1% (PF) 09-18 PROCEDURE, ity o f (XYLOCAINE) 17:37: 19:02 Starting [place] injection 31 :31 on [facility] Medical 09/18/22 at Branch 1137, Until Sat09/18/22 at 1302, Routine, CV Intraproce dure midazolam 3-0 2022- No ONCE INTRA U nivers (VERSED) 09-18 PROCEDURE, ity of injection 17:37: 19:02 Starting [place] 04 :31 on Sat [facility] 09/18/22 at Branch 1137, Until Sat09/18/22 at 1302, Routine, CV Intraproce dure FENTanyl PF 2022-0 2022- No ONCE INTRA Univers (SUBLIMAZE 09-18 PROCEDURE, it y of (PF)) 17:36: 19:02 Starting [place] injection 56 :31 on Sat [facility] 09/18/22 at Branch 1136, Until Sat09/18/22 at 1302, Routine, CV Intraproce dure lisinopriL 2023-0 Yes 40mg 40 mg, Unive rs (PRINIVIL,Z 1-24 Oral, ity of ESTRIL) 15:00: DAILY, [place] tablet 40 00 First dose Medi eder mg (after Branch last modificati on) on Sat09/18/22 at 0900, Until Discontinu ed, Routine lisinopriL 2023-0 Yes 40mg 40 mg, Unive rs (PRINIVIL,Z 1-24 Oral, ity of ESTRIL) 15:00: DAILY, [place] tablet 40 00 First dose Medi eder mg (after Branch last modificati on) on Sat09/18/22 at 0900, Until Discontinu ed, Routine lisinopriL 2023-0 Yes 40mg 40 mg, Unive rs (PRINIVIL,Z 1-24 Oral, ity of ESTRIL) 15:00: DAILY, [place] tablet 40 00 First dose Medi eder mg (after Branch last modificati on) on Sat09/18/22 at 0900, Until Discontinu ed, Routine D10W 10 % 2023-0 Yes at 20-40 Univ ers IV infusion 1-24 mL/hr, IV ity of 00:43: Infusion, [place] 10 TITRATE, Medical Starting Branch on Sat09/17/22 at 1843, Until Discontinu ed, Routine D10W 10 % 2023-0 Yes at 20-40 Univ ers IV infusion 1-24 mL/hr, IV ity of 00:43: Infusion, [place] 10 TITRATE, Medical Starting Branch on Sat09/17/22 at 1843, Until Discontinu ed, Routine D10W 10 % Yes at 20-40 [facility] ers IV infusion 1-24 mL/hr, IV ity of 00:43: Infusion, [place] 10 TITRATE, Medical Starting Branch on Sat09/17/22 at 1843, Until Discontinu ed, Routine regadenoson 2022- No [id number] .4mg 0.4 mg, IV Univers (LEXISCAN) 09-17 Push, ity of injection 17:15: 16:21 ONCE, 1 [place] 0.4 mg 00 :00 dose, On Medical Mon Branch 09/17/22 at 1115, Routine
family member caretaker approving Restricted medication : SHAWN MENDOZA tc 2022- No [id number] 42.4mCi 42.4 [facility] 99m-tetrofo 09-17 millicurie i ty of smin 15:45: 15:38 , [place] (MYOVIEW) 00 :00 Intravenou Medi eder injection s, ONCE, 1 Bran ch 42.4 dose, [facility] at 0945, Routine tc 2022- No [id number] 15.7mCi 15.7 [facility] 99m-tetrofo 09-17 millicurie i ty of smin 15:15: 15:10 , [place] (MYOVIEW) 00 :00 Intravenou Medi eder injection s, ONCE, 1 Bran ch 15.7 dose, [facility] 09/17/22 at 0915, Routine insulin Yes 2U 2 Units, Univer s lispro -22 Subcutaneo ity of (human) 23:00: us, TID [place] (HumaLOG 00 MEALS, Medical U-100) First dose Branch injection 2 on Sun Units 09/16/22 at 1700, Until Discontinu ed, Routine insulin Yes 2U 2 Units, Univer s lispro -22 Subcutaneo ity of (human) 23:00: us, TID [place] (HumaLOG 00 MEALS, Medical U-100) First dose Branch injection 2 on Sun Units 09/16/22 at 1700, Until Discontinu ed, Routine insulin Yes 2U 2 Units, Univer s lispro 09-16 Subcutaneo ity of (human) 23:00: us, TID [place] (HumaLOG 00 MEALS, Medical U-100) First dose Branch injection 2 on [place] Units 09/16/22 at 1700, Until Discontinu ed, Routine vancomycin 2022- No 1000mg 1,000 mg, Univers (VANCOCIN) 09-16 IV ity of 1,000 mg in 22:15: 22:14 Piggyback, [place] NaCl 0.9% 00 :00 Q12H ABX, Medic al (NS) 250 mL 4 doses, Bran ch VIAL-medical aide dose IV (after piggyback last modificati on) on [place] 09/16/22 at 1615, Last dose on Sat09/18/22 at 0415, Administer over 60 Minutes, 250 mL
Reas on for Anti-Infec tive: Documented Infection< br>Documen lennox Infection Site: Bone
Du ration of Therapy: 14 days lisinopriL 2022- No 20mg 20 mg, Univ ers (PRINIVIL,Z 09-16 Oral, ity of ESTRIL) 15:00: 16:14 DAILY, [place] tablet 20 00 :46 First dose Medi eder mg (after Branch last modificati on) on [place] 09/16/22 at 0900, Until Discontinu ed, Routine atorvastati Yes 40mg 40 mg, Univ ers n (LIPITOR) 1-21 Oral, QHS, it y of tablet 40 03:00: First dose [place] mg 00 on Sat Medical 09/14/22 at Branch 2100, Until Discontinu ed, Routine atorvastati 0 Yes 40mg 40 mg, Univ ers n (LIPITOR) 1-21 Oral, QHS, it y of tablet 40 03:00: First dose [place] mg 00 on Sat [facility] 09/14/22 at Branch 2100, Until Discontinu ed, Routine atorvastati 0 Yes 40mg 40 mg, Univ ers n (LIPITOR) 1-21 Oral, QHS, it y of tablet 40 03:00: First dose [place] mg 00 on Sat [facility] 09/14/22 at Branch 2100, Until Discontinu ed, Routine NaCl 0.9% 2023-0 Yes 10mL 10 mL, Univer s (NS) 1-20 Slow IV ity of injection 18:19: [place], PRN, [place] 10 mL 01 Starting Medical on Fri Branch 09/14/22 at 1219, Until Discontinu ed, Routine, line maintenanc e lidocaine 2023-0 Yes 5mL 5 mL, Univers 1% (PF) 1-20 Subcutaneo ity of (XYLOCAINE) 18:19: us, PRN, [place] injection 5 01 Starting Medi eder mL on Fri Branch 09/14/22 at 1219, Until Discontinu ed, Routine, Local anesthesia NaCl 0.9% 2023-0 Yes 10mL 10 mL, Univer s (NS) 1-20 Slow IV ity of injection 18:19: Push, PRN, [place] 10 mL 01 Starting Medical on Sat Branch 09/14/22 at 1219, Until Discontinu ed, Routine, line maintenanc e lidocaine 2023-0 Yes 5mL 5 mL, Univers 1% (PF) 1-20 Subcutaneo ity of (XYLOCAINE) 18:19: us, PRN, [place] injection 5 01 Starting Medi eder mL on Fri Branch 09/14/22 at 1219, Until Discontinu ed, Routine, Local anesthesia NaCl 0.9% 2023-0 Yes 10mL 10 mL, Univer s (NS) 1-20 Slow IV ity of injection 18:19: Push, PRN, [place] 10 mL 01 Starting Medical on Sat Branch 09/14/22 at 1219, Until Discontinu ed, Routine, line maintenanc e lidocaine 2023-0 Yes 5mL 5 mL, Univers 1% (PF) 1-20 Subcutaneo ity of (XYLOCAINE) 18:19: us, PRN, [place] injection 5 01 Starting Medi eder mL on Fri Branch 09/14/22 at 1219, Until Discontinu ed, Routine, Local anesthesia ipratropium 2023-0 Yes 3mL 3 mL, Unive rs -albuteroL 1-20 Inhalation ity of (DUONEB) 18:00: , QID, [place] 0.5 mg-3 00 First dose Medic al mg(2.5 mg on Fri Branch base)/3 mL 09/14/22 at nebulizer 1200, solution 3 Until mL Discontinu ed, Routine ipratropium 2023-0 Yes 3mL 3 mL, Unive rs -albuteroL 1-20 Inhalation ity of (DUONEB) 18:00: , QID, [place] 0.5 mg-3 00 First dose Medic al mg(2.5 mg on Sat Branch base)/3 mL 09/14/22 at nebulizer 1200, solution 3 Until mL Discontinu ed, Routine ipratropium 2023-0 Yes 3mL 3 mL, Unive rs -albuteroL 1-20 Inhalation ity of (DUONEB) 18:00: , QID, [place] 0.5 mg-3 00 First dose Medic al mg(2.5 mg on Sat Branch base)/3 mL 09/14/22 at nebulizer 1200, solution 3 Until mL Discontinu ed, Routine glucagon 2023-0 Yes 1mg 1 mg, Univers (GLUCAGEN 1-20 Intramuscu ity of DIAGNOSTIC 15:57: lar, PRN, [place] KIT) 54 Starting Medical injection 1 on Sat Branch mg 09/14/22 at 0957, Until Discontinu ed, ITA, Blood Glucose < or = 70 mg/dL and patient is NPO, unable to swallow or has mental changes. dextrose 50 2023-0 Yes 25mL 25 mL, Univ ers % in water 1-20 Slow IV ity of (D50W) 15:57: Push, PRN, [place] injection 54 Starting Medica l 25 mL on Sat Branch 09/14/22 at 0957, Until Discontinu ed, ITA, Blood Glucose < or = 70 mg/dL and patient is NPO, unable to swallow or has mental status changes. glucagon 2023-0 Yes 1mg 1 mg, Univers (GLUCAGEN 1-20 Intramuscu ity of DIAGNOSTIC 15:57: lar, PRN, [place] KIT) 54 Starting Medical injection 1 on Sat Branch mg 09/14/22 at 0957, Until Discontinu ed, ITA, Blood Glucose < or = 70 mg/dL and patient is NPO, unable to swallow or has mental changes. dextrose 50 2023-0 Yes 25mL 25 mL, Univ ers % in water 1-20 Slow IV ity of (D50W) 15:57: Push, PRN, [place] injection 54 Starting Medica l 25 mL on Fri Branch 09/14/22 at 0957, Until Discontinu ed, ITA, Blood Glucose < or = 70 mg/dL and patient is NPO, unable to swallow or has mental status changes. glucagon 3-0 Yes 1mg 1 mg, Univers (GLUCAGEN 1-20 Intramuscu ity of DIAGNOSTIC 15:57: lar, PRN, [place] KIT) 54 Starting Medical injection 1 on Fri Branch mg 09/14/22 at 0957, Until Discontinu ed, ITA, Blood Glucose < or = 70 mg/dL and patient is NPO, unable to swallow or has mental changes. dextrose 50 2022-0 Yes 25mL 25 mL, Univ ers % in water 1-20 Slow IV ity of (D50W) 15:57: Push, PRN, [place] injection 54 Starting Medica l 25 mL on Sat Branch 09/14/22 at 0957, Until Discontinu ed, ITA, Blood Glucose < or = 70 mg/dL and patient is NPO, unable to swallow or has mental status changes. enoxaparin 3-0 Yes 1mg/kg 80 mg Univ ers (LOVENOX) 1-20 (rounded ity of injection 02:00: from 81.6 [place] 80 mg 00 mg = 1 Medical mg/kg Branch ?81.6 kg), Subcutaneo us, Q12H, First dose on [place] 09/13/22 at 2000, Until Discontinu ed, Routine enoxaparin 3-0 Yes 1mg/kg 80 mg Univ ers (LOVENOX) 1-20 (rounded ity of injection 02:00: from 81.6 [place] 80 mg 00 mg = 1 Medical mg/kg Branch ?81.6 kg), Subcutaneo us, Q12H, First dose on [place] 09/13/22 at 1999, Until Discontinu ed, Routine enoxaparin 3-0 Yes 1mg/kg 80 mg Univ ers (LOVENOX) 1-20 (rounded ity of injection 02:00: from 81.6 [place] 80 mg 00 mg = 1 Medical mg/kg Branch ?81.6 kg), Subcutaneo us, Q12H, First dose on Sat09/13/22 at 2000, Until Discontinu ed, Routine gabapentin 2023-0 Yes 100mg 100 mg, Uni vers (NEURONTIN) 1-20 Oral, TID, it y of capsule 100 01:45: First dose [place] mg 00 (after Medical last Branch modificati on) on Sat09/13/22 at 1945, Until Discontinu ed, Routine gabapentin 2023-0 Yes 100mg 100 mg, Uni vers (NEURONTIN) 1-20 Oral, TID, it y of capsule 100 01:45: First dose [place] mg 00 (after Medical last Branch modificati on) on Sat09/13/22 at 1945, Until Discontinu ed, Routine gabapentin 2023-0 Yes 100mg 100 mg, Uni vers (NEURONTIN) 1-20 Oral, TID, it y of capsule 100 01:45: First dose [place] mg 00 (after Medical last Branch modificati on) on Sat09/13/22 at 1945, Until Discontinu ed, Routine hydralAZINE 2023-0 Yes 10mg 10 mg, Univ ers (APRESOLINE 1-19 Slow IV ity o f ) injection 15:30: Push, [place] 10 mg 51 Q4HPRN, Medical Starting Branch on Sat09/13/22 at 0930, Until Discontinu ed, Routine, DBP=>10 0; SBP=>180 hydralAZINE 2023-0 Yes 10mg 10 mg, Univ ers (APRESOLINE 1-19 Slow IV ity o f ) injection 15:30: Push, [place] 10 mg 51 Q4HPRN, Medical Starting Branch on Sat09/13/22 at 0930, Until Discontinu ed, Routine, DBP=>10 0; SBP=>180 hydralAZINE 2023-0 Yes 10mg 10 mg, Univ ers (APRESOLINE 1-19 Slow IV ity o f ) injection 15:30: Push, [place] 10 mg 51 Q4HPRN, Medical Starting Branch on Sat09/13/22 at 0930, Until Discontinu ed, Routine, DBP=>10 0; SBP=>180 insulin 2023-0 Yes 35U 35 Units, Unive rs detemir 1-19 Subcutaneo ity of U-100 15:00: , [place], [place] (LEVEMIR 00 First dose Medic al U-100 on [place] Branch INSULIN) 09/13/22 at injection 0900, 35 Units Until Discontinu ed
Rest ricted - To be dispensed only to: Continuati on from home aspirin Yes 81mg 81 mg, Univers chewable 19 Oral, ity of tablet 81 15:00: DAILY, [place] mg 00 First dose Medical on [place] [facility] 09/13/22 at 0900, Until Discontinu ed, Routine insulin Yes 35U 35 Units, Unive rs detemir 09-13 Subcutaneo ity of U-100 15:00: , [place], [place] (LEVEMIR 00 First dose Medic al U-100 on [place] [facility] INSULIN) 09/13/22 at injection 0900, 35 Units Until Discontinu ed
Rest ricted - To be dispensed only to: Continuati on from home aspirin Yes 81mg 81 mg, Univers chewable 09-13 Oral, ity of tablet 81 15:00: DAILY, [place] mg 00 First dose Medical on [place] [facility] 09/13/22 at 0900, Until Discontinu ed, Routine insulin 0 Yes 35U 35 Units, Unive rs detemir 09-13 Subcutaneo ity of U-100 15:00: , [place], [place] (LEVEMIR 00 First dose Medic al U-100 on [place] [facility] INSULIN) 09/13/22 at injection 0900, 35 Units Until Discontinu ed
Rest ricted - To be dispensed only to: Continuati on from home aspirin 0 Yes 81mg 81 mg, Univers chewable 19 Oral, ity of tablet 81 15:00: DAILY, [place] mg 00 First dose Medical on [place] [facility] 09/13/22 at 0900, Until Discontinu ed, Routine lisinopriL 2022- No 10mg 10 mg, Univ ers (PRINIVIL,Z 09-13 Oral, ity of ESTRIL) 15:00: 19:59 DAILY, [place] tablet 10 00 :54 First dose Medi eder mg on [place] [facility] 09/13/22 at 0900, Until Discontinu ed, Routine sodium 2023-0 Yes Topical, Univers hypochlorit 1-19 PRN, ity of e 0.125 % 13:17: [place] (DAKIN'S 18 on [facility] SOLUTION) 09/13/[address] [facility] ch solution 0717, Until Discontinu ed, Routine, dressing changes sodium 2022-0 Yes Topical, Univers hypochlorit 1-19 PRN, ity of e 0.125 % 13:17: [place]DAKIN'S 18 on [place] SOLUTION) 09/13/[address] [facility] ch solution 0717, Until Discontinu ed, Routine, dressing changes sodium 2022-0 Yes Topical, Univers hypochlorit 1-19 PRN, ity of e 0.125 % 13:17: [place]DAKIN'S 18 on [place] [facility] SOLUTION) 09/13/22 at [facility] solution 0717, Until Discontinu ed, Routine, dressing changes ceFEPIme 2022- Yes 1000mg 1,000 mg, U nivers (MAXIPIME) 09-13 IV ity of 1,000 mg in 04:15: 04:14 [place], [place] NaCl 0.9% 00 :00 Q8H ABX, Medica l (NS) 50 mL 42 doses, Bran ch MINI-BAG First dose on Sat09/12/22 at 2215, Last dose on Sat09/26/22 at 1415, Administer over 4 Hours, 50 mL
Reas on for Anti-Infec tive: Documented Infection< br>Documen lennox Infection Site: Bone
Du ration of Therapy: 14 days ceFEPIme 2022- Yes 1000mg 1,000 mg, U nivers (MAXIPIME) 09-13 IV ity of 1,000 mg in 04:15: 04:14 [place], [place] NaCl 0.9% 00 :00 Q8H ABX, Medica l (NS) 50 mL 42 doses, Bran ch MINI-BAG First dose on Sat09/12/22 at 2215, Last dose on Sat09/26/22 at 1415, Administer over 4 Hours, 50 mL
Reas on for Anti-Infec tive: Documented Infection< br>Documen lennox Infection Site: Bone
Du ration of Therapy: 14 days ceFEPIme 2022- Yes 1000mg 1,000 mg, U nivers (MAXIPIME) 09-1302 IV ity of 1,000 mg in 04:15: 04:14 [place], [place] NaCl 0.9% 00 :00 Q8H ABX, Medica l (NS) 50 mL 42 doses, Bran ch MINI-BAG First dose on Sat09/12/22 at 2215, Last dose on Sat09/26/22 at 1415, Administer over 4 Hours, 50 mL
Reas on for Anti-Infec tive: Documented Infection< br>Documen lennox Infection Site: Bone
Du ration of Therapy: 14 days melatonin Yes 3mg 3 mg, Univers (MELATIN) 1-19 Oral, QHS, ity of tablet 3 mg 03:00: First dose Sat [facility] 09/12/22 at Branch 2100, Until Discontinu ed, Routine melatonin Yes 3mg 3 mg, Univers (MELATIN) 1-19 Oral, QHS, ity of tablet 3 mg 03:00: First dose on Sat [facility] 09/12/22 at Branch 2100, Until Discontinu ed, Routine melatonin Yes 3mg 3 mg, Univers (MELATIN) 1-19 Oral, QHS, ity of tablet 3 mg 03:00: First dose on Sat [facility] 09/12/22 at Branch 2100, Until Discontinu ed, Routine metoprolol 2022- No 150mg 150 mg, Un masoud succinate 09-1325 Oral, BID, ity of XL (TOPROL 02:00: 20:40 First dose [place] XL) tablet 00 :28 on Sat [facility] 150 mg 09/12/22 at Branch 2000, Until Discontinu ed, Routine Sliding [facility] Scale [facility]-18 us, TID ity of Insulin - 23:00: MEALS+HS, [place] as Lispro 00 First dose Medical (HumaLOG) + on Sat [place] [facility] 09/12/22 at Testing 1700, Until Discontinu ed, Routine Sliding Yes [facility] ers Scale 1-18 us, TID ity of Insulin - 23:00: MEALS+HS, [place] Lispro 00 First dose Medical (HumaLOG) + on Sat [facility] 09/12/22 at Testing 1700, Until Discontinu ed, Routine Sliding Yes Subcutaneo Univ ers Scale -18 us, TID ity of Insulin - 23:00: MEALS+HS, [place] Lispro 00 First dose Medical (HumaLOG) + on Sat [facility] 09/12/22 at Testing 1700, Until Discontinu ed, Routine vancomycin 0 202- No 15mg/kg 1,250 mg Univers 1,250 mg in 09-12 (rounded ity of NaCl 0.9% 22:15: 15:50 from 1,224 [place] (NS) 250 mL 00 :30 mg = 15 Medic al VIAL-MATE mg/kg Branch IV ?81.6 kg), piggyback IV Piggyback, Q12H ABX, 12 doses, First dose (after last reorder) on Sat09/12/22 at 1615, Last dose on Sat09/18/22 at 0415, Administer over 90 Minutes, 250 mL
Reas on for Anti-Infec tive: Documented Infection< br>Documen lennox Infection Site: Bone
Du ration of Therapy: 14 days Insulin Yes 55U inject 55 Unive rs Detemir 100 1-18 Units ity of unit/mL (3 20:48: under the [place] mL) 52 skin. Medical injection Branch lisinopriL Yes 10mg Take 10 mg U nivers 10 mg 1-18 by mouth. ity of tablet 20:48: [address] rivaroxaban Yes Take by Uni vers 20 mg 1-18 mouth. ity of tablet 20:48: [address] spironolact Yes 25mg Take 25 mg Univers one 25 mg 1-18 by mouth. ity o f tablet 20:48: [address] Insulin Yes 55U inject 55 Unive rs Detemir 100 1-18 Units ity of unit/mL (3 20:48: under the [place] mL) 52 skin. Medical injection [place] lisinopriL Yes 10mg Take 10 mg U nivers 10 mg 1-18 by mouth. ity of tablet 20:48: [address] rivaroxaban 2022-0 Yes Take by Uni vers 20 mg 1-18 mouth. ity of tablet 20:48: [address] spironolact 2022-0 Yes 25mg Take 25 mg Univers one 25 mg 1-18 by mouth. ity o f tablet 20:48: [address] Insulin 2022-0 Yes 55U inject 55 Unive rs Detemir 100 1-18 Units ity of unit/mL (3 20:48: under the [place] mL) 52 skin. Medical injection Branch lisinopriL 2022-0 Yes 10mg Take 10 mg U nivers 10 mg 1-18 by mouth. ity of tablet 20:48: [address] rivaroxaban 2022-0 Yes Take by Uni vers 20 mg 1-18 mouth. ity of tablet 20:48: [address] spironolact 2022-0 Yes 25mg Take 25 mg Univers one 25 mg 1-18 by mouth. ity o f tablet 20:48: [address] Insulin 2022-0 Yes 55U inject 55 Unive rs Detemir 100 1-18 Units ity of unit/mL (3 20:48: under the [place] mL) 52 skin. Medical injection Branch lisinopriL 2022-0 Yes 10mg Take 10 mg U nivers 10 mg 1-18 by mouth. ity of tablet 20:48: [address] rivaroxaban 2022-0 Yes Take by Uni vers 20 mg 1-18 mouth. ity of tablet 20:48: [address] spironolact 2022-0 Yes 25mg Take 25 mg Univers one 25 mg 1-18 by mouth. ity o f tablet 20:48: [address] Insulin 2022-0 Yes 55U inject 55 Unive rs Detemir 100 1-18 Units ity of unit/mL (3 20:48: under the [place] mL) 52 skin. Medical injection Branch lisinopriL 3-0 Yes 10mg Take 10 mg U nivers 10 mg 1-18 by mouth. ity of tablet 20:48: [address] rivaroxaban 2022-0 Yes Take by Uni vers 20 mg 1-18 mouth. ity of tablet 20:48: [address] spironolact 2022-0 Yes 25mg Take 25 mg Univers one 25 mg 1-18 by mouth. ity o f tablet 20:48: [address] ceFEPIme 2022-0 2022- No 2000mg 2,000 mg, U nivers (MAXIPIME) 09-12 IV ity of 2,000 mg in 20:30: 01:03 [place], [place] NaCl 0.9% 00 :00 ONCE, 1 Medical (NS) 50 mL dose, On Branc h MINI-BAG Sat09/12/22 at 1430, Administer over 30 Minutes, 50 mL
Reas on for Anti-Infec tive: Documented Infection< br>Documen lennox Infection Site: Bone<br&gt ;Duration of Therapy: 14 days dextrose 0 Yes 250mL 250 mL, IV Un masoud 10% (D10W) -18 Infusion, ity of bolus 19:31: PRN - SEE [place] infusion 02 INSTRUCTIO Medic al 250 mL NS, Branch Administer over 60 Minutes, Other, If blood glucose is < or = 70 mg/dL and patient is unable to swallow or has mental status changes, Starting on Sat09/12/22 at 1331
If blood glucose is < or = 70 mg/dL and patient is unable to swallow or has mental status changes (Give glucagon order if patient needs fluid restrictio n): IF IV access available: Dextrose 10%. 1. 125 mL (? bag) of D10W IV infusion - equivalent to 12.5 g dextrose 2. Blood glucose - draw blood glucose 15 minutes after D10W Administra tion. 3. If blood glucose is < 80 mg/dL, repeat.
dextrose 0 Yes 250mL 250 mL, IV Un masoud 10% (D10W) -18 Infusion, ity of bolus 19:31: PRN - SEE [place] infusion 02 INSTRUCTIO Medic al 250 mL NS, Branch Administer over 60 Minutes, Other, If blood glucose is < or = 70 mg/dL and patient is unable to swallow or has mental status changes, Starting on Sat09/12/22 at 1331
If blood glucose is < or = 70 mg/dL and patient is unable to swallow or has mental status changes (Give glucagon order if patient needs fluid restrictio n): IF IV access available: Dextrose 10%. 1. 125 mL (? bag) of D10W IV infusion - equivalent to 12.5 g dextrose 2. Blood glucose - draw blood glucose 15 minutes after D10W Administra tion. 3. If blood glucose is < 80 mg/dL, repeat.
dextrose 2022-0 Yes 250mL 250 mL, IV Un masoud 10% (D10W) 1-18 Infusion, ity of bolus 19:31: PRN - SEE [place] infusion 02 INSTRUCTIO Medic al 250 mL NS, Branch Administer over 60 Minutes, Other, If blood glucose is < or = 70 mg/dL and patient is unable to swallow or has mental status changes, Starting on Sat09/12/22 at 1331
If blood glucose is < or = 70 mg/dL and patient is unable to swallow or has mental status changes (Give glucagon order if patient needs fluid restrictio n): IF IV access available: Dextrose 10%. 1. 125 mL (? bag) of D10W IV infusion - equivalent to 12.5 g dextrose 2. Blood glucose - draw blood glucose 15 minutes after D10W Administra tion. 3. If blood glucose is < 80 mg/dL, repeat.
glucagon 2022-0 Yes 1mg 1 mg, Univers (GLUCAGEN 1-18 Intramuscu ity of DIAGNOSTIC 19:30: [place], [place]N, [place] KIT) 52 Starting Medical injection 1 on Sat [facility] 09/12/22 at 1330, Until Discontinu ed, ITA, Blood Glucose < or = 70 mg/dL and patient is unable to swallow or has mental changes. glucagon 2022-0 Yes 1mg 1 mg, Univers (GLUCAGEN 1-18 Intramuscu ity of DIAGNOSTIC 19:30: [place], PRN, [place] KIT) 52 Starting Medical injection 1 on Sat [facility] 09/12/22 at 1330, Until Discontinu ed, ITA, Blood Glucose < or = 70 mg/dL and patient is unable to swallow or has mental changes. glucagon 2022-0 Yes 1mg 1 mg, Univers (GLUCAGEN 1-18 Intramuscu ity of DIAGNOSTIC 19:30: [place], PRN, [place] KIT) 52 Starting Medical injection 1 on Sat Branch mg 09/12/22 at 1330, Until Discontinu ed, ITA, Blood Glucose < or = 70 mg/dL and patient is unable to swallow or has mental changes. heparin 2022- Yes 0U/h 0-2,750 Univers 25,000 1-18 Units/hr ity of Units/250 19:30: (0-27.5 [place] mL 28 mL/hr), IV Medical (Premixed Infusion, Branc h Bag) in TITRATE, 0.45 % NS Parameters in Admin. Instr., Starting on Sat09/12/22 at 1330
In itiate infusion at 12 units/kg/h r calculated as: 1,000 Units/hr (Maximum initial rate: 1,000 Units/hr, then adjust dose as needed per aPTT).&nbs p; CA UTION - If LMWH given in ER, AVOID bolus and start next dose/drip 12 hrs after ER dosage.&nb sp; M ust program rate using programmab le infusion pump.&nbsp ; Gladys ck with the ordering provider first prior to any administra tion should the patient be on existing/a dditional anticoagul ant therapy. Range, Dosing and Testing: &nbs p;FOR [facility], [facility], AND [facility] ONLY &nbs p; - aPTT < 35: & nbsp;Bolus 5000 units, increase rate 300 units/hr&n bsp; - aPTT 35-44:&nbs p; [place] mikayla 3000 units, increase rate 200 units/hr&n bsp; - aPTT 45-54:&nbs p; In crease rate 100 units/hr&n bsp; - aPTT 55-85:&nbs p; NO CHANGE&nbs p; - aPTT 86-95:&nbs p; De crease rate 100 units/hr&n bsp; - aPTT 96-120:&nb sp; H old 30 minutes, decrease rate 150 units/hr&n bsp; - aPTT > 120: Hold 60 minutes, decrease rate 200 units/hr&n bsp; Check aPTT 6 hours after initiation , then Q6H after every change, aPTT Q12H once therapeuti c levels are reached.&n bsp;
&nbs p;FOR [facility] ONLY - aPTT < 40: & nbsp;Bolus 5000 units, increase rate 300 units/hr&n bsp; - aPTT 40-49:&nbs p; Gregory mikayla 3000 units, increase rate 200 units/hr&n bsp; - aPTT 50-59:&nbs p; In crease rate 100 units/hr&n bsp; - aPTT 60-85:&nbs p;&nbs p;NO CHANGE&nbs p; - aPTT 86-95:&nbs p; De crease rate 100 units/hr&n bsp; - aPTT 96-120:&nb sp; H old 30 minutes, decrease rate 150 units/hr&n bsp; - aPTT > 120: Hold 60 minutes, decrease rate 200 units/hr&n bsp; Check aPTT 6 hours after initiation , then Q6H after every change, aPTT Q12H once therapeuti c levels are reached.&a mp;nbsp;&n bsp; DO NOT ADJUST INITIAL BOLUS OR INITIAL INFUSION RATE.
heparin 0 Yes 0U/h 0-2,750 Univers 25,000 1-18 Units/hr ity of Units/250 19:30: (0-27.5 [place] mL 28 mL/hr), IV Medical (Premixed Infusion, Branc h Bag) in TITRATE, 0.45 % NS Parameters in Admin. Instr., Starting on Sat09/12/22 at 1330
In itiate infusion at 12 units/kg/h r calculated as: 1,000 Units/hr (Maximum initial rate: 1,000 Units/hr, then adjust dose as needed per aPTT).&nbs p; CA UTION - If LMWH given in ER, AVOID bolus and start next dose/drip 12 hrs after ER dosage.&nb sp; M ust program rate using programmab le infusion pump.&nbsp ; Gladys ck with the ordering provider first prior to any administra tion should the patient be on existing/a dditional anticoagul ant therapy. Range, Dosing and Testing: &nbs p;FOR [facility], [facility], AND [facility] ONLY &nbs p; - aPTT < 35: & nbsp;Bolus 5000 units, increase rate 300 units/hr&n bsp; - aPTT 35-44:&nbs p; Gregory mikayla 3000 units, increase rate 200 units/hr&n bsp; - aPTT 45-54:&nbs p; In crease rate 100 units/hr&n bsp; - aPTT 55-85:&nbs p; NO CHANGE&nbs p; - aPTT 86-95:&nbs p; De crease rate 100 units/hr&n bsp; - aPTT 96-120:&nb sp; H old 30 minutes, decrease rate 150 units/hr&n bsp; - aPTT > 120: Hold 60 minutes, decrease rate 200 units/hr&n bsp; Check aPTT 6 hours after initiation , then Q6H after every change, aPTT Q12H once therapeuti c levels are reached.&n bsp;
&nbs p;FOR [facility] ONLY - aPTT < 40: & nbsp;Bolus 5000 units, increase rate 300 units/hr&n bsp; - aPTT 40-49:&nbs p; Gregory mikayla 3000 units, increase rate 200 units/hr&n bsp; - aPTT 50-59:&nbs p; In crease rate 100 units/hr&n bsp; - aPTT 60-85:&nbs p;&nbs p;NO CHANGE&nbs p; - aPTT 86-95:&nbs p; De crease rate 100 units/hr&n bsp; - aPTT 96-120:&nb sp; H old 30 minutes, decrease rate 150 units/hr&n bsp; - aPTT > 120: Hold 60 minutes, decrease rate 200 units/hr&n bsp; Check aPTT 6 hours after initiation , then Q6H after every change, aPTT Q12H once therapeuti c levels are reached.&a mp;nbsp;&n bsp; DO NOT ADJUST INITIAL BOLUS OR INITIAL INFUSION RATE.
heparin 2022-0 2022- No 0U/h 0-2,750 Univer s 25,000 1-18 01-27 Units/hr ity of Units/250 19:30: 20:27 [place]0-27.5 [place] mL 28 :35 mL/hr), IV Medical (Premixed Infusion, Branc h Bag) in TITRATE, 0.45 % NS Parameters in Admin. Instr., Starting on Sat09/12/22 at 1330
In itiate infusion at 12 units/kg/h r calculated as: 1,000 Units/hr (Maximum initial rate: 1,000 Units/hr, then adjust dose as needed per aPTT).&nbs p; CA UTION - If LMWH given in ER, AVOID bolus and start next dose/drip 12 hrs after ER dosage.&nb sp; M ust program rate using programmab le infusion pump.&nbsp ; Gladys ck with the ordering provider first prior to any administra tion should the patient be on existing/a dditional anticoagul ant therapy. Range, Dosing and Testing: &nbs p;[facility], AND [facility] ONLY &nbs p; - aPTT < 35: & nbsp;Bolus 5000 units, increase rate 300 units/hr&n bsp; - aPTT 35-44:&nbs p; [place] mikayla 3000 units, increase rate 200 units/hr&n bsp; - aPTT 45-54:&nbs p; In crease rate 100 units/hr&n bsp; - aPTT 55-85:&nbs p; NO CHANGE&nbs p; - aPTT 86-95:&nbs p; De crease rate 100 units/hr&n bsp; - aPTT 96-120:&nb sp; H old 30 minutes, decrease rate 150 units/hr&n bsp; - aPTT > 120: Hold 60 minutes, decrease rate 200 units/hr&n bsp; Check aPTT 6 hours after initiation , then Q6H after every change, aPTT Q12H once therapeuti c levels are reached.&n bsp;
&nbs p;FOR [facility] ONLY - aPTT < 40: & nbsp;Bolus 5000 units, increase rate 300 units/hr&n bsp; - aPTT 40-49:&nbs p; Gregory mikayla 3000 units, increase rate 200 units/hr&n bsp; - aPTT 50-59:&nbs p; In crease rate 100 units/hr&n bsp; - aPTT 60-85:&nbs p;&nbs p;NO CHANGE&nbs p; - aPTT 86-95:&nbs p; De crease rate 100 units/hr&n bsp; - aPTT 96-120:&nb sp; H old 30 minutes, decrease rate 150 units/hr&n bsp; - aPTT > 120: Hold 60 minutes, decrease rate 200 units/hr&n bsp; Check aPTT 6 hours after initiation , then Q6H after every change, aPTT Q12H once therapeuti c levels are reached.&a mp;nbsp;&n bsp; DO NOT ADJUST INITIAL BOLUS OR INITIAL INFUSION RATE.
heparin 2022-0 Yes 3000U FOR Univers (1,000 1-18 REBOLUSING ity of unit/mL, 10 19:30: , Starting [place] mL vial) 22 on Sat Medical for [facility] 1330, Until Discontinu ed, Routine
Dosing based on aPPT testing parameters (refer to continuous heparin drip order).
heparin 2022-0 Yes 3000U FOR Univers (1,000 1-18 REBOLUSING ity of unit/mL, 10 19:30: , Starting [place] mL vial) 22 on Wed Medical for 09/12/22 at Branch Rebolusing 1330, Until Discontinu ed, Routine
Dosing based on aPPT testing parameters (refer to continuous heparin drip order).
morpHINE (4 2022-0 Yes 4mg 4 mg, Slow Univers mg/mL) 1-18 IV Push, ity of injection 4 19:28: Q4HPRN, Kai as mg 43 Starting Medical on Sat Branch 09/12/22 at 1328, Until Discontinu ed, Routine, For pain unrelieved by oral medication s, or if patient is unable to tolerate oral pain medication . morpHINE (4 2022-0 Yes 4mg 4 mg, Slow Univers mg/mL) 1-18 IV Push, ity of injection 4 19:28: Q4HPRN, [place] mg 43 Starting Medical on Sat Branch 09/12/22 at 1328, Until Discontinu ed, Routine, For pain unrelieved by oral medication s, or if patient is unable to tolerate oral pain medication . morpHINE (4 2022-0 Yes 4mg 4 mg, Slow Univers mg/mL) 1-18 IV Push, ity of injection 4 19:28: Q4HPRN, [place] mg 43 Starting Medical on Sat Branch 09/12/22 at 1328, Until Discontinu ed, Routine, For pain unrelieved by oral medication s, or if patient is unable to tolerate oral pain medication . HYDROcodone 2022-0 Yes 1{tbl} 1 tablet, Univers -acetaminop 18 Oral, ity of hen (NORCO 19:28: Q4HPRN, [place] 5) 5-325 mg 38 Starting Medi eder tablet 1 on Sat Branch tablet 09/12/22 at 1328, Until Discontinu ed, Routine, Pain (scale 7-10) HYDROcodone 2022-0 2022- No 1{tbl} 1 tablet, Univers -acetaminop 118 09-20 Oral, ity of hen (NORCO 19:28: 20:52 Q4HPRN, [place] as 5) 5-325 mg 38 :29 Starting Medi eder tablet 1 on Sat Branch tablet 09/12/22 at 1328, Until [place] 09/20/22 at 1452, Routine, Pain (scale 7-10) traMADoL 2022-0 Yes 50mg 50 mg, Univers (ULTRAM) 18 Oral, ity of tablet 50 19:28: Q6HPRN, [place] mg 35 Starting Medical on Wed Branch 09/12/22 at 1328, Until Discontinu ed, Routine, Pain (scale 4-6) traMADoL 2022-0 2022- No 50mg 50 mg, Univer s (ULTRAM) 09-12 Oral, ity of tablet 50 19:28: 20:52 Q6HPRN, [place] mg 35 :45 Starting Medical on Wed Branch 09/12/22 at 1328, Until [place] 09/20/22 at 1452, Routine, Pain (scale 4-6) polyethylen 2022-0 Yes 17g 17 g, Unive rs e glycol 1-18 Oral, ity of 3350 powder 19:27: QDAILYPRN, [place] 17 g 04 Starting Medical on Sat Branch 09/12/22 at 1327, Until Discontinu ed, Routine, Constipati on ondansetron 2022-0 Yes 4mg 4 mg, Unive rs (ZOFRAN-ODT 1-18 Oral, ity of ) 19:27: Q6HPRN, [place] disintegrat 04 Starting Medi eder ing tablet on Wed Branch 4 mg 09/12/22 at 1327, Until Discontinu ed, Routine, Nausea and Vomiting (N/V) polyethylen 2022-0 Yes 17g 17 g, Unive rs e glycol 1-18 Oral, ity of 3350 powder 19:27: QDAILYPRN, [place] 17 g 04 Starting Medical on Sat Branch 09/12/22 at 1327, Until Discontinu ed, Routine, Constipati on ondansetron 2022-0 Yes 4mg 4 mg, Unive rs (ZOFRAN-ODT 1-18 Oral, ity of ) 19:27: Q6HPRN, [place] disintegrat 04 Starting Medi eder ing tablet on Wed Branch 4 mg 09/12/22 at 1327, Until Discontinu ed, Routine, Nausea and Vomiting (N/V) polyethylen 2022-0 Yes 17g 17 g, Unive rs e glycol 1-18 Oral, ity of 3350 powder 19:27: QDAILYPRN, [place] 17 g 04 Starting Medical on Wed Branch 09/12/22 at 1327, Until Discontinu ed, Routine, Constipati on ondansetron 2023-0 Yes 4mg 4 mg, Unive rs (ZOFRAN-ODT 1-18 Oral, ity of ) 19:27: Q6HPRN, [place] disintegrat 04 Starting Medi eder ing tablet on Wed Branch 4 mg 09/12/22 at 1327, Until Discontinu ed, Routine, Nausea and Vomiting (N/V) ipratropium 2023-0 Yes .5mg 0.5 mg, Uni vers (ATROVENT) 1-18 Inhalation ity of 0.02 % 19:25: , Q6HPRN, [place] nebulizer 53 Starting Medica l solution on Wed Branch 0.5 mg 09/12/22 at 1325, Until Discontinu ed, Routine, Wheezing, Shortness of Breath ipratropium 2023-0 Yes .5mg 0.5 mg, Uni vers (ATROVENT) 1-18 Inhalation ity of 0.02 % 19:25: , Q6HPRN, [place] nebulizer 53 Starting Medica l solution on Sat Branch 0.5 mg 09/12/22 at 1325, Until Discontinu ed, Routine, Wheezing, Shortness of Breath ipratropium 2023-0 Yes .5mg 0.5 mg, Uni vers (ATROVENT) 1-18 Inhalation ity of 0.02 % 19:25: , Q6HPRN, [place] nebulizer 53 Starting Medica l solution on Wed Branch 0.5 mg 09/12/22 at 1325, Until Discontinu ed, Routine, Wheezing, Shortness of Breath albuterol 2022-0 Yes 2{puff} 2 Puff, Un masoud (VENTOLIN) 18 Inhalation ity of inhaler 2 19:21: , Q6HPRN, [place] Puff 25 Starting Medical on Sat Branch 09/12/22 at 1321, Until Discontinu ed, Routine, Wheezing, Shortness of Breath albuterol 2022-0 Yes 2{puff} 2 Puff, Un masoud (VENTOLIN) -18 Inhalation ity of inhaler 2 19:21: , Q6HPRN, [place] Puff 25 Starting Medical on Sat Branch 09/12/22 at 1321, Until Discontinu ed, Routine, Wheezing, Shortness of Breath albuterol 2022-0 Yes 2{puff} 2 Puff, Un masoud (VENTOLIN) 1-18 Inhalation ity of inhaler 2 19:21: , Q6HPRN, [place] Puff 25 Starting Medical on [facility] Branch 09/12/22 at 1321, Until Discontinu ed, Routine, Wheezing, Shortness of Breath rivaroxaban 2021-08 Yes Take by Uni vers 20 mg 2-21 mouth. ity of tablet 13:19: [address] spironolact 2021-08 Yes 25mg Take 25 mg Univers one 25 mg 2-21 by mouth. ity o f tablet 13:19: [address] rivaroxaban 2021-08 Yes Take by Uni vers 20 mg 2-21 mouth. ity of tablet 13:19: [address] spironolact 2021-08 Yes 25mg Take 25 mg Univers one 25 mg 2-21 by mouth. ity o f tablet 13:19: [address] rivaroxaban 2021-08 Yes Take by Uni vers 20 mg 2-21 mouth. ity of tablet 13:19: [address] spironolact 2021-08 Yes 25mg Take 25 mg Univers one 25 mg 2-21 by mouth. ity o f tablet 13:19: [address] rivaroxaban 2021-08 Yes Take by Uni vers 20 mg 2-21 mouth. ity of tablet 13:19: [address] spironolact 2021-08 Yes 25mg Take 25 mg Univers one 25 mg 2-21 by mouth. ity o f tablet 13:19: [address] Insulin 2021-08 Yes 55U inject 55 Unive rs Detemir 100 2-21 Units ity of unit/mL (3 13:19: under the [place] mL) 29 skin. [facility] injection Branch lisinopriL 2021-08 Yes 10mg Take 10 mg U nivers 10 mg 2-21 by mouth. ity of tablet 13:19: [address] Insulin 2021-08 Yes 55U inject 55 Unive rs Detemir 100 2-21 Units ity of unit/mL (3 13:19: under the [place] mL) 29 skin. [facility] injection Branch lisinopriL 2021-08 Yes 10mg Take 10 mg U nivers 10 mg 2-21 by mouth. ity of tablet 13:19: [address] Insulin 2021-08 Yes 55U inject 55 Unive rs Detemir 100 2-21 Units ity of unit/mL (3 13:19: under the [place] mL) 29 skin. Medical injection Branch lisinopriL 2021-08 Yes 10mg Take 10 mg U nivers 10 mg 2-21 by mouth. ity of tablet 13:19: [address] Insulin 2021-08 Yes 55U inject 55 Unive rs Detemir 100 2-21 Units ity of unit/mL (3 13:19: under the [place] mL) 29 skin. Medical injection Branch lisinopriL 2021-08 Yes 10mg Take 10 mg U nivers 10 mg 2-21 by mouth. ity of tablet 13:19: [address] TRUE METRIX 2021-08 Yes 2 (two) Uni vers GLUCOSE 2-14 times ity of TEST STRIP 00:00: daily. [place] strip [facility] TRUE METRIX 2021-08 Yes 2 (two) Uni vers GLUCOSE 2-14 times ity of TEST STRIP 00:00: daily. [place] [facility] [place] TRUE METRIX 2021-08 Yes 2 (two) Uni vers GLUCOSE 2-14 times ity of TEST STRIP 00:00: daily. [place] [facility] TRUE METRIX 2021-08 Yes 2 (two) Uni vers GLUCOSE 2-14 times ity of TEST STRIP 00:00: daily. [place] strip 00 Medical Branch TRUE METRIX 2021-08 Yes 2 (two) Uni vers GLUCOSE 2-14 times ity of TEST STRIP 00:00: daily. [place] strip Medical [place] TRUE METRIX 2021-08 Yes 2 (two) Uni vers GLUCOSE 2-14 times ity of TEST STRIP 00:00: daily. [place] strip 00 Medical Branch TRUE METRIX 2021-08 Yes 2 (two) Uni vers GLUCOSE 2-14 times ity of TEST STRIP 00:00: daily. [place] strip 00 Medical Branch TRUE METRIX 2021-08 Yes 2 (two) Uni vers GLUCOSE 2-14 times ity of TEST STRIP 00:00: daily. [place] strip 00 Medical Branch TRUE METRIX 2021-08 Yes 2 (two) Uni vers GLUCOSE 2-14 times ity of TEST STRIP 00:00: daily. [place] strip 00 Medical Branch TRUE METRIX 2021-08 Yes 2 (two) Uni vers GLUCOSE 2-14 times ity of TEST STRIP 00:00: daily. [place] strip 00 Medical Branch gadobenate 2021-08- No [id number] .2mL/kg 16.2 mL Univers dimeglumine 09-27 (0.2 mL/kg i ty of (MULTIHANCE 17:30: 17:28 ?81 kg), [place] -15 mL) 00 :00 Intravenou Medica l injection s, ONCE, 1 Bran ch 16.2 mL dose, On Sat07/27/22 at 1130, Routine doxycycline 2021-08 Yes 100mg Take 100 U nivers hyclate 100 1-10 mg by ity of mg capsule 00:00: mouth in [place] 00 the Medical morning. Branch levoFLOXaci 2021-08 Yes TAKE THREE Univers n 250 mg 1-10 (3) ity of tablet 00:00: TABLET(S) [place] 00 BY MOUTH Medical ONCE A Branch DAY. doxycycline 2021-08 Yes 100mg Take 100 U nivers hyclate 100 1-10 mg by ity of mg capsule 00:00: mouth in [place] 00 the Medical morning. Branch levoFLOXaci 2021-08 Yes TAKE THREE Univers n 250 mg 1-10 (3) ity of tablet 00:00: TABLET(S) [place] 00 BY MOUTH Medical ONCE A Branch DAY. doxycycline 2021-08 Yes 100mg Take 100 U nivers hyclate 100 1-10 mg by ity of mg capsule 00:00: mouth in [place] 00 the Medical morning. Branch levoFLOXaci 2021-08 Yes TAKE THREE Univers n 250 mg 1-10 (3) ity of tablet 00:00: TABLET(S) [place] 00 BY MOUTH Medical ONCE A Branch DAY. doxycycline 2021-08 Yes 100mg Take 100 U nivers hyclate 100 1-10 mg by ity of mg capsule 00:00: mouth in [place] 00 the Medical morning. Branch levoFLOXaci 2021-08 Yes TAKE THREE Univers n 250 mg 1-10 (3) ity of tablet 00:00: TABLET(S) [place] 00 BY MOUTH Medical ONCE A Branch DAY. doxycycline 2021-08 Yes 100mg Take 100 U nivers hyclate 100 1-10 mg by ity of mg capsule 00:00: mouth in [place] 00 the Medical morning. Branch levoFLOXaci 2021-08 Yes TAKE THREE Univers n 250 mg 1-10 (3) ity of tablet 00:00: TABLET(S) [place] 00 BY MOUTH Medical ONCE A Branch DAY. doxycycline 2021-08 Yes 100mg Take 100 U nivers hyclate 100 1-10 mg by ity of mg capsule 00:00: mouth in [place] 00 the Medical morning. Branch levoFLOXaci 2021-08 Yes TAKE THREE Univers n 250 mg 1-10 (3) ity of tablet 00:00: TABLET(S) [place] 00 BY MOUTH Medical ONCE A Branch DAY. doxycycline 2021-08 Yes 100mg Take 100 U nivers hyclate 100 1-10 mg by ity of mg capsule 00:00: mouth in [place] 00 the Medical morning. Branch levoFLOXaci 2021-08 Yes TAKE THREE Univers n 250 mg 1-10 (3) ity of tablet 00:00: TABLET(S) [place] 00 BY MOUTH Medical ONCE A Branch DAY. doxycycline 2021-08 Yes 100mg Take 100 U nivers hyclate 100 1-10 mg by ity of mg capsule 00:00: mouth in [place] 00 the Medical morning. Branch levoFLOXaci 2021-08 Yes TAKE THREE Univers n 250 mg 1-10 (3) ity of tablet 00:00: TABLET(S) [place] 00 BY MOUTH Medical ONCE A Branch DAY. doxycycline 2021-08 Yes 100mg Take 100 U nivers hyclate 100 1-10 mg by ity of mg capsule 00:00: mouth in [place] 00 the Medical morning. Branch levoFLOXaci 2021-08 Yes TAKE THREE Univers n 250 mg 1-10 (3) ity of tablet 00:00: TABLET(S) [place] 00 BY MOUTH Medical ONCE A Branch DAY. doxycycline 2021-08- No 100mg Take 100 Univers hyclate 100 1-10 -28 mg by ity of mg capsule 00:00: 00:00 mouth in [place] 00 :00 the Medical morning. Branch levoFLOXaci 2021-08- No TAKE THREE Univers n 250 mg 1-10 01-28 (3) ity of tablet 00:00: 00:00 TABLET(S) [place] 00 :00 BY MOUTH Medical ONCE A Branch DAY. mupirocin 2 2021-08 Yes Apply to [facility] % ointment 0-22 affected ity o f 00:00: area(s). [place] [facility] mupirocin 2 2021-08 Yes Apply to [facility] % ointment 0-22 affected ity o f 00:00: area(s). [place] [facility] mupirocin 2 2021-08 Yes Apply to [facility] % ointment 0-22 affected ity o f 00:00: area(s). [place] [facility] mupirocin 2 2021-08 Yes Apply to [facility] % ointment 0-22 affected ity o f 00:00: area(s). [place] [facility] mupirocin 2 2021-08 Yes Apply to [facility] % ointment 0-22 affected ity o f 00:00: area(s). [place] [facility] mupirocin 2 2021-08 Yes Apply to [facility] % ointment 0-22 affected ity o f 00:00: area(s). [place] [facility] mupirocin 2 2021-08 Yes Apply to [facility] % ointment 0-22 affected ity o f 00:00: area(s). [place] [facility] mupirocin 2 2021-08 Yes Apply to [facility] % ointment 0-22 affected ity o f 00:00: area(s). [place] [facility] mupirocin 2 2021-08 Yes Apply to [facility] % ointment 0-22 affected ity o f 00:00: area(s). [place] [facility] mupirocin 2 2021-08 Yes Apply to [facility] % ointment 0-22 affected ity o f 00:00: area(s). [place] [facility] foLIC acid 2021- No [id number] 1mg Take 1 Univers 1 mg tablet 9 12-16 tablet by it y of 00:00: 05:59 mouth in [place] 00 :00 [facility] for 90 days. thiamine 2021- No [id number] 100mg Take 1 Univers 100 mg 9-16 12-16 tablet by ity of tablet 00:00: 05:59 mouth in [place] 00 :00 [facility] for 90 days. lisinopriL 2021- No [id number] 20mg Take 1 Univers 20 mg 9-16 12-16 tablet by ity of tablet 00:00: 05:59 mouth in [place] 00 :00 the Medical morning Branch for 90 days. foLIC acid 2021-0 2021- No [id number] 1mg Take 1 Univers 1 mg tablet 9-16 12-16 tablet by it y of 00:00: 05:59 mouth in [place] 00 :00 the Medical morning Branch for 90 days. thiamine 2021-0 2021- No [id number] 100mg Take 1 Univers 100 mg 9-16 12-16 tablet by ity of tablet 00:00: 05:59 mouth in [place] 00 :00 the Medical morning Branch for 90 days. foLIC acid 2021-2021- No [id number] 1mg Take 1 Univers 1 mg tablet 9-16 12-16 tablet by it y of 00:00: 05:59 mouth in [place] 00 :00 the Medical morning Branch for 90 days. thiamine 2021-2021- No [id number] 100mg Take 1 Univers 100 mg 9-16 12-16 tablet by ity of tablet 00:00: 05:59 mouth in [place] 00 :00 the [facility] morning Branch for 90 days. lisinopriL 2021-2021- No [id number] 20mg Take 1 Univers 20 mg 9-16 12-16 tablet by ity of tablet 00:00: 05:59 mouth in [place] 00 :00 the [facility] morning Branch for 90 days. foLIC acid 2021-2021- No [id number] 1mg Take 1 Univers 1 mg tablet 9-16 12-16 tablet by it y of 00:00: 05:59 mouth in [place] 00 :00 the Medical morning Branch for 90 days. thiamine 2021-0 2021- No [id number] 100mg Take 1 Univers 100 mg 9-16 12-16 tablet by ity of tablet 00:00: 05:59 mouth in [place] 00 :00 the Medical morning Branch for 90 days. lisinopriL 2021-0 2021- No [id number] 20mg Take 1 Univers 20 mg 9-16 12-16 tablet by ity of tablet 00:00: 05:59 mouth in [place] 00 :00 the Medical morning Branch for 90 days. lisinopriL 2021-0 2021- No [id number] 10mg Take 1 Univers 10 mg 9-16 12-16 tablet by ity of tablet 00:00: 05:59 mouth in [place] 00 :00 the Medical morning Branch for 90 days. foLIC acid 202-0 2021- No [id number] 1mg Take 1 Univers 1 mg tablet 9-16 12-16 tablet by it y of 00:00: 05:59 mouth in [place] 00 :00 the Medical morning Branch for 90 days. thiamine 2021-0 2- No [id number] 100mg Take 1 Univers 100 mg 9-16 12-16 tablet by ity of tablet 00:00: 05:59 mouth in [place] 00 :00 the Medical morning Branch for 90 days. lisinopriL 2021-0 2021- No [id number] 20mg Take 1 Univers 20 mg 9-16 12-16 tablet by ity of tablet 00:00: 05:59 mouth in [place] 00 :00 the [facility] morning [place] for 90 days. foLIC acid 2021-0 2021- No [id number] 1mg Take 1 Univers 1 mg tablet 9-16 12-16 tablet by it y of 00:00: 05:59 mouth in [place] 00 :00 the [facility] morning [place] for 90 days. thiamine 2021-0 2021- No [id number] 100mg Take 1 Univers 100 mg 9-16 12-16 tablet by ity of tablet 00:00: 05:59 mouth in [place] 00 :00 the [facility] morning [place] for 90 days. lisinopriL 2021-0 2021- No [id number] 20mg Take 1 Univers 20 mg 9-16 12-16 tablet by ity of tablet 00:00: 05:59 mouth in [place] 00 :00 the [facility] morning [place] for 90 days. foLIC acid 2021-0 2021- No [id number] 1mg Take 1 Univers 1 mg tablet 9-16 12-16 tablet by it y of 00:00: 05:59 mouth in [place] 00 :00 the Medical morning Branch for 90 days. thiamine 202-0 2- No [id number] 100mg Take 1 Univers 100 mg 9-16 12-16 tablet by ity of tablet 00:00: 05:59 mouth in [place] 00 :00 the [facility] morning [place] for 90 days. lisinopriL 2021-0 2- No [id number] 20mg Take 1 Univers 20 mg 9-16 12-16 tablet by ity of tablet 00:00: 05:59 mouth in [place] 00 :00 the Medical morning Branch for 90 days. foLIC acid 2021-0 2021- No [id number] 1mg Take 1 Univers 1 mg tablet 9-16 12-16 tablet by it y of 00:00: 05:59 mouth in [place] 00 :00 the Medical morning Branch for 90 days. thiamine 2022-0 2021- No [id number] 100mg Take 1 Univers 100 mg 9-16 12-16 tablet by ity of tablet 00:00: 05:59 mouth in [place] 00 :00 the Medical morning Branch for 90 days. lisinopriL 2021-0 2021- No [id number] 20mg Take 1 Univers 20 mg 9-16 12-16 tablet by ity of tablet 00:00: 05:59 mouth in [place] 00 :00 the [facility] morning Branch for 90 days. foLIC acid 2021-0 2021- No [id number] 1mg Take 1 Univers 1 mg tablet 9-16 12-16 tablet by it y of 00:00: 05:59 mouth in [place] 00 :00 the [facility] morning Branch for 90 days. thiamine 2021-0 2021- No [id number] 100mg Take 1 Univers 100 mg 9-16 12-16 tablet by ity of tablet 00:00: 05:59 mouth in [place] 00 :00 the [facility] morning Branch for 90 days. lisinopriL 2021-0 2021- No [id number] 20mg Take 1 Univers 20 mg 9-16 12-16 tablet by ity of tablet 00:00: 05:59 mouth in [place] 00 :00 the Medical morning Branch for 90 days. foLIC acid 2021-0 2021- No [id number] 1mg Take 1 Univers 1 mg tablet 9-16 12-16 tablet by it y of 00:00: 05:59 mouth in [place] 00 :00 the Medical morning Branch for 90 days. thiamine 202-0 2021- No [id number] 100mg Take 1 Univers 100 mg 9-16 12-16 tablet by ity of tablet 00:00: 05:59 mouth in [place] 00 :00 the [facility] morning Branch for 90 days. lisinopriL 2022-0 2- No [id number] 20mg Take 1 Univers 20 mg 9-16 12-16 tablet by ity of tablet 00:00: 05:59 mouth in [place] 00 :00 the [facility] morning Branch for 90 days. foLIC acid 2021-0 2021- No [id number] 1mg Take 1 Univers 1 mg tablet 9-16 12-16 tablet by it y of 00:00: 05:59 mouth in [place] 00 :00 the Medical morning Branch for 90 days. thiamine 2021-0 2021- No [id number] 100mg Take 1 Univers 100 mg 9-16 12-16 tablet by ity of tablet 00:00: 05:59 mouth in [place] 00 :00 the [facility] morning Branch for 90 days. lisinopriL 2021-0 2021- No [id number] 20mg Take 1 Univers 20 mg 9-16 12-16 tablet by ity of tablet 00:00: 05:59 mouth in [place] 00 :00 the [facility] morning Branch for 90 days. foLIC acid 2021-2021- No [id number] 1mg Take 1 Univers 1 mg tablet 9-16 12-16 tablet by it y of 00:00: 05:59 mouth in [place] 00 :00 the [facility] morning Branch for 90 days. thiamine 2021-0 2021- No [id number] 100mg Take 1 Univers 100 mg 9-16 12-16 tablet by ity of tablet 00:00: 05:59 mouth in [place] 00 :00 the [facility] morning Branch for 90 days. lisinopriL 2021-0 2021- No [id number] 20mg Take 1 Univers 20 mg 9-16 12-16 tablet by ity of tablet 00:00: 05:59 mouth in [place] 00 :00 the [facility] morning Branch for 90 days. foLIC acid 2021-0 2021- No [id number] 1mg Take 1 Univers 1 mg tablet 9-16 12-16 tablet by it y of 00:00: 05:59 mouth in [place] 00 :00 the [facility] morning Branch for 90 days. thiamine 2021-0 2021- No [id number] 100mg Take 1 Univers 100 mg 9-16 12-16 tablet by ity of tablet 00:00: 05:59 mouth in [place] 00 :00 the [facility] morning Branch for 90 days. lisinopriL 2021-0 2021- No [id number] 20mg Take 1 Univers 20 mg 9-16 12-16 tablet by ity of tablet 00:00: 05:59 mouth in [place] 00 :00 the [facility] morning Branch for 90 days. foLIC acid 2021-2021- No [id number] 1mg Take 1 Univers 1 mg tablet 9-16 12-16 tablet by it y of 00:00: 05:59 mouth in [place] 00 :00 the Medical morning Branch for 90 days. thiamine 2021-0 2021- No [id number] 100mg Take 1 Univers 100 mg 9-16 12-16 tablet by ity of tablet 00:00: 05:59 mouth in [place] 00 :00 the Medical morning Branch for 90 days. lisinopriL 2021-2021- No [id number] 20mg Take 1 Univers 20 mg 9-16 12-16 tablet by ity of tablet 00:00: 05:59 mouth in [place] 00 :00 the Medical morning Branch for 90 days. foLIC acid 2021-2021- No [id number] 1mg Take 1 Univers 1 mg tablet 9-16 12-16 tablet by it y of 00:00: 05:59 mouth in [place] 00 :00 the Medical morning Branch for 90 days. thiamine 2021-0 2021- No [id number] 100mg Take 1 Univers 100 mg 9-16 12-16 tablet by ity of tablet 00:00: 05:59 mouth in [place] 00 :00 the [facility] morning Branch for 90 days. lisinopriL 2021-0 2021- No [id number] 20mg Take 1 Univers 20 mg 9-16 12-16 tablet by ity of tablet 00:00: 05:59 mouth in [place] 00 :00 the [facility] morning Branch for 90 days. foLIC acid 2021-2021- No [id number] 1mg Take 1 Univers 1 mg tablet 9-16 12-16 tablet by it y of 00:00: 05:59 mouth in [place] 00 :00 the [facility] morning Branch for 90 days. thiamine 2021-0 2021- No [id number] 100mg Take 1 Univers 100 mg 9-16 12-16 tablet by ity of tablet 00:00: 05:59 mouth in [place] 00 :00 the [facility] morning Branch for 90 days. lisinopriL 2021-0 2021- No [id number] 20mg Take 1 Univers 20 mg 9-16 12-16 tablet by ity of tablet 00:00: 05:59 mouth in [place] 00 :00 the Medical morning Branch for 90 days. foLIC acid 2021-0 2021- No [id number] 1mg Take 1 Univers 1 mg tablet 9-16 12-16 tablet by it y of 00:00: 05:59 mouth in [place] 00 :00 the Medical morning [place] for 90 days. thiamine 2021-0 2021- No [id number] 100mg Take 1 Univers 100 mg 9-16 12-16 tablet by ity of tablet 00:00: 05:59 mouth in [place] 00 :00 the [facility] for 90 days. lisinopriL 2021-0 2021- No [id number] 20mg Take 1 Univers 20 mg 9-16 12-16 tablet by ity of tablet 00:00: 05:59 mouth in [place] 00 :00 the [facility] for 90 days. foLIC acid 2021-2021- No [id number] 1mg Take 1 Univers 1 mg tablet 9-16 12-16 tablet by it y of 00:00: 05:59 mouth in [place] 00 :00 the [facility] for 90 days. thiamine 2021-0 2021- No [id number] 100mg Take 1 Univers 100 mg 9-16 12-16 tablet by ity of tablet 00:00: 05:59 mouth in [place] 00 :00 the [facility] for 90 days. lisinopriL 2021-0 2021- No [id number] 20mg Take 1 Univers 20 mg 9-16 12-16 tablet by ity of tablet 00:00: 05:59 mouth in [place] 00 :00 the [facility] for 90 days. lisinopriL 2-0 2- No [id number] 10mg Take 1 Univers 10 mg 9-16 09-15 tablet by ity of tablet 00:00: 00:00 mouth in [place] 00 :00 the [facility] for 90 days. lisinopriL 2021-0 2021- No [id number] 20mg Take 2 Univers 10 mg 9-16 09-15 tablets by ity of tablet 00:00: 00:00 mouth in [place] 00 :00 the Medical morning. Branch lisinopriL 2022-0 Yes 10mg 10 mg, Unive rs (PRINIVIL,Z 9-15 Oral, ity of ESTRIL) 14:00: DAILY, [place] tablet 10 00 First dose Medi eder mg (after Branch last modificati on) on [place] 05/10/22 at 0900, Until Discontinu ed, Routine lisinopriL 2022-0 Yes 10mg 10 mg, Unive rs (PRINIVIL,Z 05-10 Oral, ity of ESTRIL) 14:00: DAILY, [place] tablet 10 00 First dose Medi eder mg (after Branch last modificati on) on [place] 05/10/22 at 0900, Until Discontinu ed, Routine gabapentin 2021-0 Yes 100mg 100 mg, Uni vers (NEURONTIN) 9-15 Oral, TID, it y of capsule 100 13:00: First dose [place] mg 00 on [place] Medical 05/10/22 at Branch 0800, Until Discontinu ed, Routine insulin 2021-0 Yes 3U 3 Units, Univer s lispro 05-10 Subcutaneo ity of (human) 13:00: us, TID [place] (HumaLOG 00 MEALS, Medical U-100) First dose Branch injection 3 on [place] Units 05/10/22 at 0800, Until Discontinu ed, Routine gabapentin 2021-0 Yes 100mg 100 mg, Uni vers (NEURONTIN) 05-10 Oral, TID, it y of capsule 100 13:00: First dose [place] mg 00 on [place] Medical 05/10/22 at Branch 0800, Until Discontinu ed, Routine insulin 2021-0 Yes 3U 3 Units, Univer s lispro 05-10 Subcutaneo ity of (human) 13:00: us, TID [place] (HumaLOG 00 MEALS, Medical U-100) First dose Branch injection 3 on [place] Units 05/10/22 at 0800, Until Discontinu ed, Routine magnesium 2021-2021- No 4g 4 g, IV Univ ers sulfate in 05-10 Piggyback, it y of water 4 12:45: 15:40 ONCE, 1 [place] gram/50 mL 00 :00 dose, On Medic al (8 %) IV [place] Branch Piggyback 4 05/10/22 at g 0745, Routine insulin 2021-2021- No 55U inject 55 Univ ers detemir 05-10 Units ity of (LEVEMIR 12:31: 00:00 under the [place] U-100 59 :00 skin 2 Medical INSULIN SC) (two) Branch times daily. rivaroxaban 2021-0 2021- No Take by [facility] (XARELTO) 05-10 mouth. ity of 20 mg 12:31: 00:00 [place] tablet 59 :00 Medical Branch meloxicam No 15mg Take 15 mg U nivers 7.5 mg 05-10 by mouth ity of tablet 12:31: 00:00 in the [place] 59 :00 morning. Medical Branch SPIRONOLACT No 25mg 25 mg Univ ers ONE, BULK, 05-10 daily. ity of MISC 12:31: 00:00 [place] 59 :00 Medical Branch furosemide 2021- No 40mg Take 40 mg Univers (LASIX) 40 05-10 by mouth ity of mg tablet 12:: 00:00 as needed [place] 59 :00 (swelling Medical in legs). Branch metoprolol 2021- No 100mg Take 100 U nivers succinate 05-1015 mg by ity of XL 100 mg 12:31: 00:00 mouth in [place] 24 hr 59 :00 the Medical tablet morning. Branch lisinopriL 2021- No 10mg 10 mg. Univ ers 20 mg 05-1015 ity of tablet 12:31: 00:00 [place] 59 :00 Medical Branch clindamycin 2021- No 300mg Take 300 Univers 300 mg 05-1015 mg by ity of capsule 12:31: 00:00 mouth in [place] 59 :00 the Medical morning Branch and 300 mg at noon and 300 mg in the evening. clindamycin 2021- No 150mg Take 150 Univers 75 mg 05-1015 mg by ity of capsule 12:31: 00:00 mouth in [place] 59 :00 the Medical morning Branch and 150 mg at noon and 150 mg in the evening. insulin 2021- No 55U inject 55 Univ ers detemir 05-1015 Units ity of (LEVEMIR 12:31: 00:00 under the [place] U-100 59 :00 skin 2 Medical INSULIN SC) (two) Branch times daily. rivaroxaban 2021- No Take by [facility] (XARELTO) 05-10 mouth. ity of 20 mg 12:31: 00:00 [place] tablet 59 :00 Medical Branch meloxicam 2021- No 15mg Take 15 mg U nivers 7.5 mg 05-10 by mouth ity of tablet 12:31: 00:00 in the [place] 59 :00 morning. Medical Branch SPIRONOLACT 2021- No 25mg 25 mg Univ ers ONE, BULK, 05-10 daily. ity of MISC 12:31: 00:00 [place] 59 :00 Medical Branch furosemide 2021- No 40mg Take 40 mg Univers (LASIX) 40 05-10 by mouth ity of mg tablet 12:31: 00:00 as needed [place] 59 :00 (swelling Medical in legs). Branch metoprolol 2021- No 100mg Take 100 U nivers succinate 05-10 mg by ity of XL 100 mg 12:31: 00:00 mouth in [facility] as 24 hr 59 :00 the Medical tablet morning. Branch lisinopriL 2021- No 10mg 10 mg. Univ ers 20 mg 05-10 ity of tablet 12:31: 00:00 [place] 59 :00 Medical Branch clindamycin 2021- No 300mg Take 300 Univers 300 mg 05-10 mg by ity of capsule 12:31: 00:00 mouth in [place] 59 :00 the Medical morning Branch and 300 mg at noon and 300 mg in the evening. clindamycin 2021- No 150mg Take 150 Univers 75 mg 05-1015 mg by ity of capsule 12:31: 00:00 mouth in [place] 59 :00 the Medical morning Branch and 150 mg at noon and 150 mg in the evening. Sliding Yes Subcutaneo Univ ers Scale 9-15 us, TID ity of Insulin - 02:00: MEALS+HS, [place] Lispro 00 First dose Medical (HumaLOG) + (after Branch Fsbg last Testing modificati on) on Sat05/09/22 at 2100, Until Discontinu ed, Routine insulin Yes 7U 7 Units, Univer s glargine 15 Subcutaneo ity o f (LANTUS 02:00: us, QHS, [place] U-100) 00 First dose Medical injection 7 (after Branch Units last modificati on) on Sat05/09/22 at 2100, Until Discontinu ed, Routine Sliding 2021-0 Yes Subcutaneo Univ ers Scale - us, TID ity of Insulin - 02:00: MEALS+HS, [place] Lispro 00 First dose Medical (HumaLOG) + (after Branch Fsbg last Testing modificati on) on Sat05/09/22 at 2100, Until Discontinu ed, Routine insulin 2021-0 Yes 7U 7 Units, Univer s glargine 05-10 Subcutaneo ity o f (LANTUS 02:00: , [facility], [place] U-100) 00 First dose Medical injection 7 (after Branch Units last modificati on) on Sat05/09/22 at 2100, Until Discontinu ed, Routine metoprolol 2021-0 Yes 150mg 150 mg, Uni vers succinate 9-15 Oral, BID, ity of XL (TOPROL 01:00: First dose [place] XL) tablet 00 (after Medical 150 mg last Branch modificati on) on Sat05/09/22 at 2000, Until Discontinu ed, Routine metoprolol 2021-0 Yes 150mg 150 mg, Uni vers succinate 9-15 Oral, BID, ity of XL (TOPROL 01:00: First dose [place] XL) tablet 00 (after Medical 150 mg last Branch modificati on) on Sat05/09/22 at 1999, Until Discontinu ed, Routine metoprolol 2021-0 Yes [id number] 150mg Take 3 Univers succinate 9-15 tablets by ity of XL 50 mg 24 00:00: mouth in [place] hr tablet 00 the Medical morning Branch and 3 tablets in the evening. metoprolol 2021-0 Yes [id number] 150mg Take 3 Univers succinate 9-15 tablets by ity of XL 50 mg 24 00:00: mouth in [place] hr tablet 00 the Medical morning Branch and 3 tablets in the evening. metoprolol 2021-0 Yes [id number] 150mg Take 3 Univers succinate 9-15 tablets by ity of XL 50 mg 24 00:00: mouth in [place] hr tablet 00 the Medical morning Branch and 3 tablets in the evening. metoprolol 2021-0 Yes [id number] 150mg Take 3 Univers succinate 9-15 tablets by ity of XL 50 mg 24 00:00: mouth in [place] hr tablet 00 the Medical morning Branch and 3 tablets in the evening. metoprolol 2021-0 Yes [id number] 150mg Take 3 Univers succinate 9-15 tablets by ity of XL 50 mg 24 00:00: mouth in [place] hr tablet 00 the Medical morning Branch and 3 tablets in the evening. metoprolol 2021-0 Yes [id number] 150mg Take 3 Univers succinate 9-15 tablets by ity of XL 50 mg 24 00:00: mouth in [place] hr tablet 00 the Medical morning Branch and 3 tablets in the evening. metoprolol 2021-0 Yes [id number] 150mg Take 3 Univers succinate 9-15 tablets by ity of XL 50 mg 24 00:00: mouth in [place] hr tablet 00 the Medical morning Branch and 3 tablets in the evening. metoprolol 2021-0 Yes [id number] 150mg Take 3 Univers succinate 9-15 tablets by ity of XL 50 mg 24 00:00: mouth in [place] hr tablet 00 the Medical morning Branch and 3 tablets in the evening. metoprolol 2021-0 Yes [id number] 150mg Take 3 Univers succinate 9-15 tablets by ity of XL 50 mg 24 00:00: mouth in [place] hr tablet 00 the Medical morning Branch and 3 tablets in the evening. metoprolol 2021-0 Yes [id number] 150mg Take 3 Univers succinate 9-15 tablets by ity of XL 50 mg 24 00:00: mouth in [place] hr tablet 00 the Medical morning Branch and 3 tablets in the evening. metoprolol 2021-0 Yes [id number] 150mg Take 3 Univers succinate 9-15 tablets by ity of XL 50 mg 24 00:00: mouth in [place] hr tablet 00 the Medical morning Branch and 3 tablets in the evening. metoprolol 2021-0 Yes [id number] 150mg Take 3 Univers succinate 9-15 tablets by ity of XL 50 mg 24 00:00: mouth in [place] hr tablet 00 the Medical morning Branch and 3 tablets in the evening. metoprolol 2021-0 Yes [id number] 150mg Take 3 Univers succinate 9-15 tablets by ity of XL 50 mg 24 00:00: mouth in [place] hr tablet 00 the Medical morning Branch and 3 tablets in the evening. metoprolol 2021-0 Yes [id number] 150mg Take 3 Univers succinate 9-15 tablets by ity of XL 50 mg 24 00:00: mouth in [place] hr tablet 00 the Medical morning Branch and 3 tablets in the evening. metoprolol 2021-0 Yes [id number] 150mg Take 3 [facility] succinate 9-15 tablets by ity of XL 50 mg 24 00:00: mouth in [place] hr tablet 00 the Medical morning Branch and 3 tablets in the evening. metoprolol 2021-0 Yes [id number] 150mg Take 3 [facility] succinate 9-15 tablets by ity of XL 50 mg 24 00:00: mouth in [place] hr tablet 00 the Medical morning Branch and 3 tablets in the evening. metoprolol 2021-0 Yes [id number] 150mg Take 3 [facility] succinate 9-15 tablets by ity of XL 50 mg 24 00:00: mouth in [place] hr tablet 00 the Medical morning Branch and 3 tablets in the evening. metoprolol 2021-0 Yes [id number] 150mg Take 3 [facility] succinate 9-15 tablets by ity of XL 50 mg 24 00:00: mouth in [place] hr tablet 00 the Medical morning Branch and 3 tablets in the evening. metoprolol 2021-0 Yes [id number] 150mg Take 3 [facility] succinate 9-15 tablets by ity of XL 50 mg 24 00:00: mouth in [place] hr tablet 00 the Medical morning Branch and 3 tablets in the evening. metoprolol 2021-0 Yes [id number] 150mg Take 3 [facility] succinate 9-15 tablets by ity of XL 50 mg 24 00:00: mouth in [place] hr tablet 00 the Medical morning Branch and 3 tablets in the evening. metoprolol 2021-0 Yes [id number] 150mg Take 3 [facility] succinate 9-15 tablets by ity of XL 50 mg 24 00:00: mouth in [place] hr tablet 00 the Medical morning Branch and 3 tablets in the evening. metoprolol 2021-0 Yes [id number] 150mg Take 3 [facility] succinate 9-15 tablets by ity of XL 50 mg 24 00:00: mouth in [place] hr tablet 00 the Medical morning Branch and 3 tablets in the evening. metoprolol 2021-0 Yes [id number] 150mg Take 3 [facility] succinate 9-15 tablets by ity of XL 50 mg 24 00:00: mouth in [place] hr tablet 00 the Medical morning Branch and 3 tablets in the evening. metoprolol 2021-0 Yes [id number] 150mg Take 3 [facility] succinate 9-15 tablets by ity of XL 50 mg 24 00:00: mouth in [place] hr tablet 00 the Medical morning Branch and 3 tablets in the evening. metoprolol 2021-0 Yes [id number] 150mg Take 3 [facility] succinate 9-15 tablets by ity of XL 50 mg 24 00:00: mouth in [place] hr tablet 00 the Medical morning Branch and 3 tablets in the evening. metoprolol 2021-0 Yes [id number] 150mg Take 3 [facility] succinate 9-15 tablets by ity of XL 50 mg 24 00:00: mouth in [place] hr tablet 00 the Medical morning Branch and 3 tablets in the evening. metoprolol 2021-0 Yes [id number] 150mg Take 3 [facility] succinate 9-15 tablets by ity of XL 50 mg 24 00:00: mouth in [place] hr tablet 00 the Medical morning Branch and 3 tablets in the evening. metoprolol 0 Yes [id number] 150mg Take 3 [facility] succinate 9-15 tablets by ity of XL 50 mg 24 00:00: mouth in [place] hr tablet 00 the [facility] morning Branch and 3 tablets in the evening. gabapentin 2021- No [id number] 100mg Take 1 [facility] 100 mg 9-15 12-15 capsule by ity of capsule 00:00: 05:59 mouth in [place] 00 :00 the [facility] and 1 capsule at noon and 1 capsule in the evening. Do all this for 90 days. insulin 2021- No [id number] 7U inject 7 [facility] glargine 9-15 12-15 Units ity of 100 unit/mL 00:00: 05:59 under the [place] injection 00 :00 skin at [facility] bedtime [place] for 90 days. insulin 2021- No [id number] 3U inject 3 [facility] lispro, 9-15 12-15 Units ity of human, 100 00:00: 05:59 under the [place] unit/mL 00 :00 skin in Medical injection the Branch morning and 3 Units at noon and 3 Units in the evening. inject with meals. Do all this for 90 days. furosemide 2021- No [id number] 40mg Take 1 [facility] (LASIX) 40 9-15 12-15 tablet by ity of mg tablet 00:00: 05:59 mouth [place] 00 :00 every Medical morning Branch and evening for 90 days. gabapentin 2021- No [id number] 100mg Take 1 [facility] 100 mg 9-15 12-15 capsule by ity of capsule 00:00: 05:59 mouth in [place] 00 :00 the Medical morning Branch and 1 capsule at noon and 1 capsule in the evening. Do all this for 90 days. insulin 2021- No [id number] 7U inject 7 [facility] glargine 9-15 12-15 Units ity of 100 unit/mL 00:00: 05:59 under the [place] injection 00 :00 skin at [facility] for 90 days. gabapentin 2021- No [id number] 100mg Take 1 [facility] 100 mg 9-15 12-15 capsule by ity of capsule 00:00: 05:59 mouth in [place] 00 :00 the Medical morning Branch and 1 capsule at noon and 1 capsule in the evening. Do all this for 90 days. insulin 2021- No [id number] 7U inject 7 [facility] glargine 9-15 12-15 Units ity of 100 unit/mL 00:00: 05:59 under the [place] injection 00 :00 skin at [facility] for 90 days. insulin 2021- No [id number] 3U inject 3 [facility] lispro, 9-15 12-15 Units ity of human, 100 00:00: 05:59 under the [place] unit/mL 00 :00 skin in Medical injection the Branch morning and 3 Units at noon and 3 Units in the evening. inject with meals. Do all this for 90 days. furosemide 2021- No [id number] 40mg Take 1 [facility] (LASIX) 40 9-15 12-15 tablet by ity of mg tablet 00:00: 05:59 mouth [place] 00 :00 every Medical morning Branch and evening for 90 days. insulin 2021- No [id number] 3U inject 3 [facility] lispro, 9-15 12-15 Units ity of human, 100 00:00: 05:59 under the [place] unit/mL 00 :00 skin in Medical injection the Branch morning and 3 Units at noon and 3 Units in the evening. inject with meals. Do all this for 90 days. gabapentin 2021- No [id number] 100mg Take 1 [facility] 100 mg 9-15 12-15 capsule by ity of capsule 00:00: 05:59 mouth in [place] 00 :00 the Medical morning Branch and 1 capsule at noon and 1 capsule in the evening. Do all this for 90 days. furosemide 2021- No [id number] 40mg Take 1 [facility] (LASIX) 40 9-15 12-15 tablet by ity of mg tablet 00:00: 05:59 mouth [place] 00 :00 every Medical morning Branch and evening for 90 days. insulin 2021- No [id number] 7U inject 7 [facility] glargine 9-15 12-15 Units ity of 100 unit/mL 00:00: 05:59 under the [place] injection 00 :00 skin at [facility] bedtime [place] for 90 days. insulin 2021- No [id number] 3U inject 3 [facility] lispro, 9-15 12-15 Units ity of human, 100 00:00: 05:59 under the [place] unit/mL 00 :00 skin in Medical injection the [place] morning and 3 Units at noon and 3 Units in the evening. inject with meals. Do all this for 90 days. furosemide 2021- No [id number] 40mg Take 1 [facility] (LASIX) 40 9-15 12-15 tablet by ity of mg tablet 00:00: 05:59 mouth [place] 00 :00 every Medical morning Branch and evening for 90 days. gabapentin 2021- No [id number] 100mg Take 1 [facility] 100 mg 9-15 12-15 capsule by ity of capsule 00:00: 05:59 mouth in [place] 00 :00 the Medical morning Branch and 1 capsule at noon and 1 capsule in the evening. Do all this for 90 days. insulin 2021- No [id number] 7U inject 7 [facility] glargine 9-15 12-15 Units ity of 100 unit/mL 00:00: 05:59 under the [place] injection 00 :00 skin at [facility] for 90 days. insulin 2021- No [id number] 3U inject 3 [facility] lispro, 9-15 12-15 Units ity of human, 100 00:00: 05:59 under the [place] unit/mL 00 :00 skin in Medical injection the Branch morning and 3 Units at noon and 3 Units in the evening. inject with meals. Do all this for 90 days. furosemide 2021- No [id number] 40mg Take 1 [facility] (LASIX) 40 9-15 12-15 tablet by ity of mg tablet 00:00: 05:59 mouth [place] 00 :00 every Medical morning Branch and evening for 90 days. gabapentin 2021- No [id number] 100mg Take 1 [facility] 100 mg 9-15 12-15 capsule by ity of capsule 00:00: 05:59 mouth in [place] 00 :00 the Medical morning Branch and 1 capsule at noon and 1 capsule in the evening. Do all this for 90 days. insulin 2021- No [id number] 7U inject 7 [facility] glargine 9-15 12-15 Units ity of 100 unit/mL 00:00: 05:59 under the [place] injection 00 :00 skin at [facility] for 90 days. insulin 2021- No [id number] 3U inject 3 [facility] lispro, 9-15 12-15 Units ity of human, 100 00:00: 05:59 under the [place] unit/mL 00 :00 skin in Medical injection the Branch morning and 3 Units at noon and 3 Units in the evening. inject with meals. Do all this for 90 days. furosemide 2021- No [id number] 40mg Take 1 [facility] (LASIX) 40 9-15 12-15 tablet by ity of mg tablet 00:00: 05:59 mouth [place] 00 :00 every Medical morning Branch and evening for 90 days. gabapentin 2021- No [id number] 100mg Take 1 [facility] 100 mg 9-15 12-15 capsule by ity of capsule 00:00: 05:59 mouth in [place] 00 :00 the Medical morning Branch and 1 capsule at noon and 1 capsule in the evening. Do all this for 90 days. insulin 2021- No [id number] 7U inject 7 [facility] glargine 9-15 12-15 Units ity of 100 unit/mL 00:00: 05:59 under the [place] injection 00 :00 skin at [facility] for 90 days. insulin 2021- No [id number] 3U inject 3 [facility] lispro, 9-15 12-15 Units ity of human, 100 00:00: 05:59 under the [place] unit/mL 00 :00 skin in Medical injection the Branch morning and 3 Units at noon and 3 Units in the evening. inject with meals. Do all this for 90 days. furosemide 2021- No [id number] 40mg Take 1 [facility] (LASIX) 40 9-15 12-15 tablet by ity of mg tablet 00:00: 05:59 mouth [place] 00 :00 every Medical morning Branch and evening for 90 days. gabapentin 2021- No [id number] 100mg Take 1 [facility] 100 mg 9-15 12-15 capsule by ity of capsule 00:00: 05:59 mouth in [place] 00 :00 the Medical morning Branch and 1 capsule at noon and 1 capsule in the evening. Do all this for 90 days. insulin 2021- No [id number] 7U inject 7 [facility] glargine 9-15 12-15 Units ity of 100 unit/mL 00:00: 05:59 under the [place] injection 00 :00 skin at [facility] for 90 days. insulin 2021- No [id number] 3U inject 3 [facility] lispro, 9-15 12-15 Units ity of human, 100 00:00: 05:59 under the [place] unit/mL 00 :00 skin in Medical injection the Branch morning and 3 Units at noon and 3 Units in the evening. inject with meals. Do all this for 90 days. furosemide 2021- No [id number] 40mg Take 1 [facility] (LASIX) 40 9-15 12-15 tablet by ity of mg tablet 00:00: 05:59 mouth [place] 00 :00 every Medical morning Branch and evening for 90 days. gabapentin 2021- No [id number] 100mg Take 1 [facility] 100 mg 9-15 12-15 capsule by ity of capsule 00:00: 05:59 mouth in [place] 00 :00 the Medical morning Branch and 1 capsule at noon and 1 capsule in the evening. Do all this for 90 days. insulin 2021- No [id number] 7U inject 7 [facility] glargine 9-15 12-15 Units ity of 100 unit/mL 00:00: 05:59 under the [place] injection 00 :00 skin at [facility] for 90 days. insulin 2021- No [id number] 3U inject 3 [facility] lispro, 9-15 12-15 Units ity of human, 100 00:00: 05:59 under the [place] unit/mL 00 :00 skin in Medical injection the [place] morning and 3 Units at noon and 3 Units in the evening. inject with meals. Do all this for 90 days. furosemide 2021- No [id number] 40mg Take 1 [facility] (LASIX) 40 9-15 12-15 tablet by ity of mg tablet 00:00: 05:59 mouth [place] 00 :00 every Medical morning Branch and evening for 90 days. gabapentin 2021- No [id number] 100mg Take 1 [facility] 100 mg 9-15 12-15 capsule by ity of capsule 00:00: 05:59 mouth in [place] 00 :00 the [facility] Branch and 1 capsule at noon and 1 capsule in the evening. Do all this for 90 days. insulin 2021- No [id number] 7U inject 7 [facility] glargine 9-15 12-15 Units ity of 100 unit/mL 00:00: 05:59 under the [place] injection 00 :00 skin at [facility] for 90 days. insulin 2021- No [id number] 3U inject 3 [facility] lispro, 9-15 12-15 Units ity of human, 100 00:00: 05:59 under the [place] unit/mL 00 :00 skin in Medical injection the [place] morning and 3 Units at noon and 3 Units in the evening. inject with meals. Do all this for 90 days. furosemide 2021- No [id number] 40mg Take 1 [facility] (LASIX) 40 9-15 12-15 tablet by ity of mg tablet 00:00: 05:59 mouth [place] 00 :00 every Medical morning Branch and evening for 90 days. gabapentin 2021- No [id number] 100mg Take 1 [facility] 100 mg 9-15 12-15 capsule by ity of capsule 00:00: 05:59 mouth in [place] 00 :00 the Medical morning Branch and 1 capsule at noon and 1 capsule in the evening. Do all this for 90 days. insulin 2021- No [id number] 7U inject 7 [facility] glargine 9-15 12-15 Units ity of 100 unit/mL 00:00: 05:59 under the [place] injection 00 :00 skin at [facility] for 90 days. insulin 2021- No [id number] 3U inject 3 [facility] lispro, 9-15 12-15 Units ity of human, 100 00:00: 05:59 under the [place] unit/mL 00 :00 skin in Medical injection the Branch morning and 3 Units at noon and 3 Units in the evening. inject with meals. Do all this for 90 days. furosemide 2021- No [id number] 40mg Take 1 [facility] (LASIX) 40 9-15 12-15 tablet by ity of mg tablet 00:00: 05:59 mouth [place] 00 :00 every Medical morning Branch and evening for 90 days. gabapentin 2021- No [id number] 100mg Take 1 [facility] 100 mg 9-15 12-15 capsule by ity of capsule 00:00: 05:59 mouth in [place] 00 :00 the [facility] morning Branch and 1 capsule at noon and 1 capsule in the evening. Do all this for 90 days. insulin 2021- No [id number] 7U inject 7 [facility] glargine 9-15 12-15 Units ity of 100 unit/mL 00:00: 05:59 under the [place] injection 00 :00 [facility] insulin 2021- No [id number] 3U inject 3 [facility] lispro, 9-15 12-15 Units ity of human, 100 00:00: 05:59 under the [place] unit/mL 00 :00 skin in Medical injection the Branch morning and 3 Units at noon and 3 Units in the evening. inject with meals. Do all this for 90 days. furosemide 2021- No [id number] 40mg Take 1 [facility] (LASIX) 40 9-15 12-15 tablet by ity of mg tablet 00:00: 05:59 mouth [place] 00 :00 every Medical morning Branch and evening for 90 days. gabapentin 2021- No [id number] 100mg Take 1 [facility] 100 mg 9-15 12-15 capsule by ity of capsule 00:00: 05:59 mouth in [place] 00 :00 the Medical morning Branch and 1 capsule at noon and 1 capsule in the evening. Do all this for 90 days. insulin 2021- No [id number] 7U inject 7 [facility] glargine 9-15 12-15 Units ity of 100 unit/mL 00:00: 05:59 under the [place] injection 00 :00 skin at [facility] for 90 days. insulin 2021- No [id number] 3U inject 3 [facility] lispro, 9-15 12-15 Units ity of human, 100 00:00: 05:59 under the [place] unit/mL 00 :00 skin in [facility] the [place] morning and 3 Units at noon and 3 Units in the evening. inject with meals. Do all this for 90 days. furosemide 2021- No [id number] 40mg Take 1 [facility] (LASIX) 40 9-15 12-15 tablet by ity of mg tablet 00:00: 05:59 mouth [place] 00 :00 every Medical morning Branch and evening for 90 days. gabapentin 2021- No [id number] 100mg Take 1 [facility] 100 mg 9-15 12-15 capsule by ity of capsule 00:00: 05:59 mouth in [place] 00 :00 the [facility] morning Branch and 1 capsule at noon and 1 capsule in the evening. Do all this for 90 days. insulin 2021- No [id number] 7U inject 7 [facility] glargine 9-15 12-15 Units ity of 100 unit/mL 00:00: 05:59 under the [place] injection 00 :00 skin at [facility] for 90 days. insulin 2021- No [id number] 3U inject 3 [facility] lispro, 9-15 12-15 Units ity of human, 100 00:00: 05:59 under the [place] unit/mL 00 :00 skin in Medical injection the Branch morning and 3 Units at noon and 3 Units in the evening. inject with meals. Do all this for 90 days. furosemide 2021- No [id number] 40mg Take 1 [facility] (LASIX) 40 9-15 12-15 tablet by ity of mg tablet 00:00: 05:59 mouth [place] 00 :00 every Medical morning Branch and evening for 90 days. gabapentin 2021- No [id number] 100mg Take 1 [facility] 100 mg 9-15 12-15 capsule by ity of capsule 00:00: 05:59 mouth in [place] 00 :00 the Medical morning Branch and 1 capsule at noon and 1 capsule in the evening. Do all this for 90 days. insulin No [id number] 7U inject 7 [facility] glargine 9-15 12-15 Units ity of 100 unit/mL 00:00: 05:59 under the [place] injection 00 :00 skin at [facility] for 90 days. insulin 2021- No [id number] 3U inject 3 [facility] lispro, 9-15 12-15 Units ity of human, 100 00:00: 05:59 under the [place] unit/mL 00 :00 skin in Medical injection the Branch morning and 3 Units at noon and 3 Units in the evening. inject with meals. Do all this for 90 days. furosemide No [id number] 40mg Take 1 [facility] (LASIX) 40 9-15 12-15 tablet by ity of mg tablet 00:00: 05:59 mouth [place] 00 :00 every Medical morning Branch and evening for 90 days. gabapentin No [id number] 100mg Take 1 [facility] 100 mg 9-15 12-15 capsule by ity of capsule 00:00: 05:59 mouth in [place] 00 :00 the Medical morning Branch and 1 capsule at noon and 1 capsule in the evening. Do all this for 90 days. insulin 2021- No [id number] 7U inject 7 [facility] glargine 9-15 12-15 Units ity of 100 unit/mL 00:00: 05:59 under the [place] injection 00 :00 skin at [facility] for 90 days. insulin 2021- No [id number] 3U inject 3 [facility] lispro, 9-15 12-15 Units ity of human, 100 00:00: 05:59 under the [place] unit/mL 00 :00 skin in Medical injection the Branch morning and 3 Units at noon and 3 Units in the evening. inject with meals. Do all this for 90 days. furosemide 2021- No [id number] 40mg Take 1 [facility] (LASIX) 40 9-15 12-15 tablet by ity of mg tablet 00:00: 05:59 mouth [place] 00 :00 every Medical morning Branch and evening for 90 days. gabapentin 2021- No [id number] 100mg Take 1 [facility] 100 mg 9-15 12-15 capsule by ity of capsule 00:00: 05:59 mouth in [place] 00 :00 the Medical morning Branch and 1 capsule at noon and 1 capsule in the evening. Do all this for 90 days. insulin 2021- No [id number] 7U inject 7 [facility] glargine 9-15 12-15 Units ity of 100 unit/mL 00:00: 05:59 under the [place] injection 00 :00 skin at [facility] bedtime Branch for 90 days. insulin 2021- No [id number] 3U inject 3 [facility] lispro, 9-15 12-15 Units ity of human, 100 00:00: 05:59 under the [place] unit/mL 00 :00 skin in Medical injection the Branch morning and 3 Units at noon and 3 Units in the evening. inject with meals. Do all this for 90 days. furosemide 2021- No [id number] 40mg Take 1 [facility] (LASIX) 40 9-15 12-15 tablet by ity of mg tablet 00:00: 05:59 mouth [place] 00 :00 every Medical morning Branch and evening for 90 days. gabapentin 2021- No [id number] 100mg Take 1 [facility] 100 mg 9-15 12-15 capsule by ity of capsule 00:00: 05:59 mouth in [place] 00 :00 the Medical morning Branch and 1 capsule at noon and 1 capsule in the evening. Do all this for 90 days. insulin 2021- No [id number] 7U inject 7 [facility] glargine 9-15 12-15 Units ity of 100 unit/mL 00:00: 05:59 under the [place] injection 00 :00 skin at [facility] bedtime Branch for 90 days. insulin 2021- No [id number] 3U inject 3 [facility] lispro, -15 12-15 Units ity of human, 100 00:00: 05:59 under the [place] unit/mL 00 :00 skin in Medical injection the Branch morning and 3 Units at noon and 3 Units in the evening. inject with meals. Do all this for 90 days. furosemide 2021- No [id number] 40mg Take 1 [facility] (LASIX) 40 9-15 12-15 tablet by ity of mg tablet 00:00: 05:59 mouth [place] 00 :00 every Medical morning Branch and evening for 90 days. doxycycline 2021- No [id number] 100mg Take 1 [facility] hyclate 100 9-15 10-14 capsule by i ty of mg capsule 00:00: 04:59 mouth [place] 00 :00 every 12 [facility] hours for 28 days. levoFLOXaci 2021- No [id number] 750mg Take 1 [facility] n 750 mg 9-15 10-14 tablet by ity o f tablet 00:00: 04:59 mouth [place] 00 :00 every 24 Medical ([facility]) hours for 28 days. doxycycline 2021- No [id number] 100mg Take 1 [facility] hyclate 100 9-15 10-14 capsule by i ty of mg capsule 00:00: 04:59 mouth [place] 00 :00 every 12 [facility]) Branch hours for 28 days. levoFLOXaci 2021- No [id number] 750mg Take 1 [facility] n 750 mg 9-15 10-14 tablet by ity o f tablet 00:00: 04:59 mouth [place] 00 :00 every 24 Medical ([facility]) hours for 28 days. doxycycline 2021- No [id number] 100mg Take 1 [facility] hyclate 100 9-15 10-14 capsule by i ty of mg capsule 00:00: 04:59 mouth [place] 00 :00 every 12 [facility] ([facility]) Branch hours for 28 days. levoFLOXaci 2021- No [id number] 750mg Take 1 [facility] n 750 mg 9-15 10-14 tablet by ity o f tablet 00:00: 04:59 mouth [place] 00 :00 every 24 Medical (twenty-fo Branch ur) hours for 28 days. doxycycline 2021- No [id number] 100mg Take 1 [facility] hyclate 100 9-15 10-14 capsule by i ty of mg capsule 00:00: 04:59 mouth [place] 00 :00 every 12 Medical (twelve) Branch hours for 28 days. levoFLOXaci 2021- No [id number] 750mg Take 1 [facility] n 750 mg 9-15 10-14 tablet by ity o f tablet 00:00: 04:59 mouth [place] 00 :00 every 24 Medical (twenty-fo Branch ur) hours for 28 days. doxycycline 2021- No [id number] 100mg Take 1 [facility] hyclate 100 9-15 10-14 capsule by i ty of mg capsule 00:00: 04:59 mouth [place] 00 :00 every 12 Medical (twelve) Branch hours for 28 days. levoFLOXaci 2021- No [id number] 750mg Take 1 [facility] n 750 mg 9-15 10-14 tablet by ity o f tablet 00:00: 04:59 mouth [place] 00 :00 every 24 Medical [facility] hours for 28 days. doxycycline 2021- No [id number] 100mg Take 1 [facility] hyclate 100 9-15 10-14 capsule by i ty of mg capsule 00:00: 04:59 mouth [place] 00 :00 every 12 Medical (twelve) Branch hours for 28 days. levoFLOXaci 2021- No [id number] 750mg Take 1 [facility] n 750 mg 9-15 10-14 tablet by ity o f tablet 00:00: 04:59 mouth [place] 00 :00 every 24 Medical (twenty-fo Branch ur) hours for 28 days. doxycycline 2021- No [id number] 100mg Take 1 [facility] hyclate 100 9-15 10-14 capsule by i ty of mg capsule 00:00: 04:59 mouth [place] 00 :00 every 12 Medical (twelve) Branch hours for 28 days. levoFLOXaci 2021- No [id number] 750mg Take 1 [facility] n 750 mg 9-15 10-14 tablet by ity o f tablet 00:00: 04:59 mouth [place] 00 :00 every 24 Medical (twenty-fo Branch ur) hours for 28 days. doxycycline 2021- No [id number] 100mg Take 1 [facility] hyclate 100 05-1014 capsule by i ty of mg capsule 00:00: 04:59 mouth [place] 00 :00 every 12 Medical (twelve) Branch hours for 28 days. levoFLOXaci 2021- No [id number] 750mg Take 1 [facility] n 750 mg 05-10 10-14 tablet by ity o f tablet 00:00: 04:59 mouth [place] 00 :00 every 24 Medical (twenty-fo Branch ur) hours for 28 days. nicotine 2021- No [id number] 1{patch Apply 1 [facility] mg/24 hr 05-1030 } Patch to ity of patch 00:00: 04:59 area(s) [place] 00 :00 every 24 Medical (twenty-fo Branch ur) hours for 14 days. nicotine 21 2021- No [id number] 1{patch Apply 1 [facility] mg/24 hr 05-1030 } Patch to ity of patch 00:00: 04:59 area(s) [place] 00 :00 every 24 Medical (twenty-fo Branch ur) hours for 14 days. nicotine 21 2021- No [id number] 1{patch Apply 1 [facility] mg/24 hr 05-1030 } Patch to ity of patch 00:00: 04:59 area(s) [place] 00 :00 every 24 Medical (twenty-fo Branch ur) hours for 14 days. nicotine 21 2021- No [id number] 1{patch Apply 1 [facility] mg/24 hr 05-1030 } Patch to ity of patch 00:00: 04:59 area(s) [place] 00 :00 every 24 Medical (twenty-fo Branch ur) hours for 14 days. nicotine 2021- No [id number] 1{patch Apply 1 [facility] mg/24 hr 05-1030 } Patch to ity of patch 00:00: 04:59 area(s) [place] 00 :00 every 24 Medical (twenty-fo Branch ur) hours for 14 days. nicotine 2021- No [id number] 1{patch Apply 1 [facility] mg/24 hr 05-1030 } Patch to ity of patch 00:00: 04:59 area(s) [place] 00 :00 every 24 Medical (twenty-fo Branch ur) hours for 14 days. nicotine 2021- No [id number] 1{patch Apply 1 [facility] mg/24 hr 05-1030 } Patch to ity of patch 00:00: 04:59 area(s) [place] 00 :00 every 24 Medical (twenty-fo Branch ur) hours for 14 days. nicotine 2021- No [id number] 1{patch Apply 1 [facility] mg/24 hr 05-1030 } Patch to ity of patch 00:00: 04:59 area(s) [place] 00 :00 every 24 Medical (twenty-fo Branch ur) hours for 14 days. HYDROcodone 2021- No [id number] 1{tbl} Take 1 U nivers -acetaminop 05-10 tablet by it y of hen 10-325 00:00: 04:59 mouth [place] mg tablet 00 :00 every 6 Medical (six) Branch hours for 5 days. Indication s: acute pain HYDROcodone 2021- No [id number] 1{tbl} Take 1 U nivers -acetaminop 05-10 tablet by it y of hen 10-325 00:00: 04:59 mouth [place] mg tablet 00 :00 every 6 Medical (six) Branch hours for 5 days. Indication s: acute pain levoFLOXaci 0 Yes 750mg 750 mg, Un masoud n 9-14 Oral, Q24H ity of (LEVAQUIN) 23:00: ABX, First [place] tablet 750 00 dose on Medica l mg Wed Branch 05/09/22 at 1800, Until Discontinu ed, ITA
Re ason for Anti-Infec tive: Documented Infection< br>Documen lennox Infection Site: Bone
Du ration of Therapy: 7 days levoFLOXaci 2021-0 Yes 750mg 750 mg, Un masoud n 9-14 Oral, Q24H ity of (LEVAQUIN) 23:00: ABX, First [place] tablet 750 00 dose on Medica l mg Wed Branch 05/09/22 at 1800, Until Discontinu ed, ITA
Re ason for Anti-Infec tive: Documented Infection< br>Documen lennox Infection Site: Bone
Du ration of Therapy: 7 days doxycycline 2021- No 100mg 100 mg, U nivers hyclate 05-09 Oral, ity of (Vibramycin 23:00: 22:59 Q122, 14 [place] ) capsule 00 :00 doses, Medical 100 mg First dose Branch on Sat05/09/22 at 1800, Last dose on Sat05/16/22 at 0600, ITA
Re ason for Anti-Infec tive: Documented Infection< br>Documen lennox Infection Site: Bone
Du ration of Therapy: 7 days doxycycline 2021- No 100mg 100 mg, U nivers hyclate 05-09 Oral, ity of (Vibramycin 23:00: 22:59 Q122, 14 [place] ) capsule 00 :00 doses, Medical 100 mg First dose Branch on Sat05/09/22 at 1800, Last dose on Sat05/16/22 at 0600, ITA
Re ason for Anti-Infec tive: Documented Infection< br>Documen lennox Infection Site: Bone
Du ration of Therapy: 7 days lidocaine 2021- No PRN, Univers 1% (PF) 05-09 Starting ity of (XYLOCAINE) 16:09: 17:01 on Sat [place] injection 00 :56 05/09/22 at [facility] eder 1109, Branch Until Sat05/09/22 at 1201, Routine, Intra-op bupivacaine 2021- No PRN, Unive rs (preserv 05-09 Starting ity of free) 0.5% 16:09: 17:01 on Sat [place] (SENSORCAIN 00 :56 05/09/22 at [facility]) 0.5 1109, Branch % (5 mg/mL) Until Sat injection 05/09/22 at 1201, Routine, Intra-op furosemide Yes 40mg 40 mg, Unive rs (LASIX) 05-09 Oral, ity of tablet 40 14:00: QAM+PM, [place] mg 00 First dose Medical (after Branch last modificati on) on Sat05/09/22 at 0900, Until Discontinu ed, Routine furosemide Yes 40mg 40 mg, Unive rs (LASIX) 05-09 Oral, ity of tablet 40 14:00: QAM+PM, [place] mg 00 First dose Medical (after Branch last modificati on) on Sat05/09/22 at 0900, Until Discontinu ed, Routine insulin 2021- No 5U 5 Units, Unive rs glargine 05-09 Subcutaneo ity of (LANTUS 02:00: 23:46 us, [facility], [place] U-100) 00 :04 First dose Medical injection 5 on Sat Branch Units 05/08/22 at 2100, Until Discontinu ed, Routine gadoteridol 2021- No [id number] .2mL/kg 16.78 mL Univers (PROHANCE-2 05-08 (0.2 mL/kg i ty of 0 mL) 20:00: 20:00 ?83.9 kg), [place] injection 00 :00 Intravenou Medi eder 16.78 mL s, ONCE, 1 Branc h dose, On Sat05/08/22 at 1500, Routine sulfur 2021- No [id number] 5mL 5 mL, Un masoud hexafluorid 05-07 9103 Intravenou i ty of e microsphr 20:30: 20:30 s, ONCE, 1 [place] (LUMASON) 00 :00 dose, On Medica l injection 5 Mon Branch mL 05/07/22 at 1530, Routine
family member caretaker approving Restricted medication : SHELDON BLACKBURN iron 2021- No 1000mg 1,000 mg, Unive rs dextran 05-07 IV ity of (INFED) 17:15: 19:00 Infusion, [place] 1,000 mg in 00 :00 ONCE, 1 Medic al NaCl 0.9% dose, On (NS) 500 mL Mon IV infusion 05/07/22 at 1215, Administer over 1.5 Hours, 500 mL iron 2021- No 25mg 25 mg, IV Univers dextran 05-07 Piggyback, ity o f (INFED) 25 17:15: 18:55 ONCE, 1 [place] mg in NaCl 00 :41 dose, On Medic al 0.9% (NS) [facility] 100 mL IV 05/07/22 at piggyback 1215, Administer over 15 Minutes, 100 mL foLIC acid 2021-0 Yes 1mg 1 mg, Univer s (FOLATE) 912 Oral, ity of tablet 1 mg 14:00: DAILY, [place] 00 First dose Medical (after Branch last modificati on) on Sat05/07/22 at 0900, Until Discontinu ed, Routine thiamine 2021-0 Yes 100mg 100 mg, Unive rs (VITAMIN 05-07 Oral, ity of B1) tablet 14:00: DAILY, [place] 100 mg 00 First dose Medical (after Branch last modificati on) on Sat05/07/22 at 0900, Until Discontinu ed, Routine foLIC acid 2021-0 Yes 1mg 1 mg, Univer s (FOLATE) 05-07 Oral, ity of tablet 1 mg 14:00: DAILY, [place] 00 First dose Medical (after Branch last modificati on) on Sat05/07/22 at 0900, Until Discontinu ed, Routine thiamine 2021-0 Yes 100mg 100 mg, Unive rs (VITAMIN 9- Oral, ity of B1) tablet 14:00: DAILY, [place] 100 mg 00 First dose Medical (after Branch last modificati on) on Sat05/07/22 at 0900, Until Discontinu ed, Routine lisinopriL 2021- No 5mg 5 mg, Unive rs (PRINIVIL,Z 05-07 Oral, ity of ESTRIL) 14:00: 23:47 DAILY, [place] tablet 5 mg 00 :27 First dose Me dical on [facility] 05/07/22 at 0900, Until Discontinu ed, Routine Sliding 2021-2021- No Subcutaneo Uni vers Scale 05-07 us, Q4H, ity of Insulin - 13:00: 23:46 First dose [place] Lispro 00 :04 on [facility] (HumaLOG) + 05/07/22 at Br [facility] Fsbg 0800, Testing Until Discontinu ed, Routine magnesium 2021- No 4g 4 g, IV Univ ers sulfate in 05-07 Piggyback, it y of water 4 12:30: 17:25 ONCE, 1 [place] gram/50 mL 00 :00 dose, On Medic al (8 %) IV [facility] Piggyback 4 05/07/22 at g 0730, Routine NaCl 0.9% 2021- No 250mL 250 mL, IV Univers (NS) IV 05-07 Infusion, ity of Line 10:15: 10:55 ONCE, 1 [place] Priming and 00 :00 dose, On Medi eder [place] [facility] Fluid Only 05/07/22 at 250 mL 0515, 250 mL dextrose 50 2021- No 50mL 50 mL, Uni vers % in water 05-07 Slow IV ity o f (D50W) 05:00: 05:02 Push, [place] injection 00 :00 ONCE, 1 Medical 50 mL dose, On [facility] 05/07/22 at 0000, Routine melatonin Yes 3mg 3 mg, Univers (MELATIN) 05-07 Oral, QHS, ity of tablet 3 mg 02:00: First dose 00 on [facility] 05/06/22 at Branch 2100, Until Discontinu ed, Routine melatonin Yes 3mg 3 mg, Univers (MELATIN) 05-07 Oral, QHS, ity of tablet 3 mg 02:00: First dose 00 on [facility] 05/06/22 at Branch 2100, Until Discontinu ed, Routine metoprolol 0 2021- No 100mg 100 mg, Un masoud succinate 05-07 Oral, BID, ity of XL (TOPROL 01:00: 16:25 First dose [place] XL) tablet 00 :47 on [facility] 100 mg 05/06/22 at Branch 2000, Until Discontinu ed, Routine nicotine 0 Yes 1{patch 1 Patch, Un masoud (NICODERM) 05-06 } Topical, ity o f 21 mg/24 hr 19:30: Administer [place] patch 1 00 over 24 Medical Patch Hours, Branch Q24H, First dose on 05/06/22 at 1430, Until Discontinu ed, Routine nicotine 0 Yes 1{patch 1 Patch, Un masoud (NICODERM) 05-06 } Topical, ity o f 21 mg/24 hr 19:30: Administer [place] patch 1 00 over 24 Medical Patch Hours, Branch Q24H, First dose on 05/06/22 at 1430, Until Discontinu ed, Routine HYDROcodone 0 Yes 1{tbl} 1 tablet, Univers -acetaminop 9-11 Oral, Q6H, it y of hen (NORCO) 17:00: First dose [place] 10-325 mg 00 (after Medical tablet 1 last Branch tablet modificati on) on 05/06/22 at 1200, Until Discontinu ed, Routine HYDROcodone Yes 1{tbl} 1 tablet, Univers -acetaminop 9-11 Oral, Q6H, it y of hen (NORCO) 17:00: First dose [place] 10-325 mg 00 (after Medical tablet 1 last Branch tablet modificati on) on 05/06/22 at 1200, Until Discontinu ed, Routine thiamine 2021- No IV Univers (VITAMIN 05-06 Infusion, ity o f B1) 100 mg, 16:15: 17:18 at 50 [place] foLIC acid 00 :00 mL/hr, Medical (FOLATE) 1 ONCE, 1 Branch mg, dose, On multivitami Sun n adult 05/06/22 at (INFUVITE 1115, ADULT) 1,000 mL 3,300 unit- 150 mcg/10 mL 10 mL in D5W 0.45% NaCl (1/2NS) IV Solution foLIC acid 2021- No 1mg 1 mg, Unive rs (FOLATE) 05-06 Oral, ity of tablet 1 mg 14:00: 15:28 DAILY, [place] 00 :17 First dose Medical (after Branch last modificati on) on 05/06/22 at 0900, Until Discontinu ed, Routine thiamine 2021- No 100mg 100 mg, Univ ers (VITAMIN 05-06 Oral, ity of B1) tablet 14:00: 15:28 DAILY, [place] 100 mg 00 :17 First dose Medical (after Branch last modificati on) on 05/06/22 at 0900, Until Discontinu ed, Routine metoprolol 2021- No 50mg 50 mg, Univ ers tartrate 05-06 Oral, TID, ity of (LOPRESSOR) 13:00: 20:35 First dose [place] tablet 50 00 :02 on Sun Medical mg 05/06/22 at Branch 0800, Until Discontinu ed, Routine metoprolol No 25mg 25 mg, Univ ers tartrate 05-06 Oral, ity of (LOPRESSOR) 01:00: 02:23 ONCE-SEE [place] tablet 25 00 :00 INSTRUCTIO Medi eder mg NS, 1 Branch dose, Starting on 05/05/22 at 2000, Until Discontinu ed, Routine HYDROcodone 2021- No 1{tbl} 1 tablet, Univers -acetaminop 05-05 Oral, 5X ity of hen (NORCO) 23:00: 15:30 DAY, First [place] 10-325 mg 00 :12 dose Medical tablet 1 (after Branch tablet last modificati on) on 05/05/22 at 1800, Until Discontinu ed, Routine metoprolol No 25mg 25 mg, [facility] ers tartrate 05-05 Oral, ONCE ity of (LOPRESSOR) 18:30: 18:41 NOW, 1 [place] tablet 25 00 :00 dose, On Medica l mg Sat Branch 05/05/22 at 1330, Routine metoprolol No 5mg 5 mg, Slow Univers (LOPRESSOR) 05-05 IV Push, ity of injection 5 17:15: 16:40 ONCE, 1 [place] mg 00 :00 dose, On Medical Sat Branch 05/05/22 at 1215, Routine thiamine No IV Univers (VITAMIN 05-05 Infusion, ity o f B1) 100 mg, 15:15: 15:45 at 50 [place] foLIC acid 00 :34 mL/hr, Medical (FOLATE) 1 ONCE, 1 Branch mg, dose, On multivitami Sat n adult 05/05/22 at (INFUVITE 1015, ADULT) 1,000 mL 3,300 unit- 150 mcg/10 mL 10 mL in D5W 0.45% NaCl (1/2NS) IV Solution HYDROcodone 2021- No 1{tbl} 1 tablet, Univers -acetaminop 05-05 Oral, 5X ity of hen (NORCO) 15:00: 21:56 DAY, First [place] 10-325 mg 00 :33 dose Medical tablet 1 (after Branch tablet last modificati on) on [facility] 05/05/22 at 1000, Until Discontinu ed, Routine sennosides- Yes 1{tbl} 1 tablet, [facility] [place] docusate 05-05 Oral, ity of sodium 14:00: DAILY, [place] (SENOKOT-S) 00 First dose Me dical 8.6-50 mg on [facility] Branch per tablet 05/05/22 at 1 tablet 0900, Until Discontinu ed, Routine sennosides- Yes 1{tbl} 1 tablet, [facility] [place] docusate 05-05 Oral, ity of sodium 14:00: DAILY, [place] (SENOKOT-S) First dose Me dical 8.6-50 mg on [facility] per tablet 05/05/22 at 1 tablet 0900, Until Discontinu ed, Routine furosemide No 40mg 40 mg, Univ ers (LASIX) 05-05 Oral, ity of tablet 40 14:00: 22:43 DAILY, [place] mg 00 :40 First dose Medical on [facility] 05/05/22 at 0900, Until Discontinu ed, Routine foLIC acid No 1mg 1 mg, Unive rs (FOLATE) 05-05 Oral, ity of tablet 1 mg 14:00: 14:54 DAILY, [place] 00 :39 First dose Medical on [facility] 05/05/22 at 0900, Until Discontinu ed, Routine thiamine 2021- No 100mg 100 mg, Univ ers (VITAMIN 05-05 Oral, ity of B1) tablet 14:00: 14:54 DAILY, [place] 100 mg 00 :39 First dose Medical on [facility] 05/05/22 at 0900, Until Discontinu ed, Routine metoprolol 2021- No 100mg 100 mg, Un masoud succinate 05-05 Oral, ity of XL (TOPROL 14:00: 17:37 DAILY, [place] XL) tablet 00 :23 First dose Med ical 100 mg on [facility] 05/05/22 at 0900, Until Discontinu ed, Routine heparin Yes 5000U 5,000 Univers (porcine) 9-10 Units, ity of injection 13:00: Subcutaneo [place] 5,000 Units 00 us, Q12H, Med ical First dose Branch on 05/05/22 at 0800, Until Discontinu ed, Routine heparin Yes 5000U 5,000 Univers (porcine) 9-10 Units, ity of injection 13:00: Subcutaneo [place] 5,000 Units 00 us, Q12H, Med ical First dose Branch on 05/05/22 at 0800, Until Discontinu ed, Routine Sliding 2021- No Subcutaneo Uni vers Scale 05-05 us, TID ity of Insulin - 13:00: 11:38 MEALS+HS, [place] Lispro 00 :55 First dose Medical (HumaLOG) + on [facility] Fsbg 05/05/22 at Testing 0800, Until Discontinu ed, Routine insulin 2021- No 25U 25 Units, Univ ers detemir 05-05 Subcutaneo ity o f U-100 13:00: 11:39 us, BID, [place] (LEVEMIR 00 :31 First dose Medic al U-100 on [facility] Branch INSULIN) 05/05/22 at injection 0800, 25 Units Until Discontinu ed
Rest ricted - To be dispensed only to: Continuati on from home oxazepam Yes 15mg 15 mg, Univers (SERAX) 9-10 Oral, ity of capsule 15 11:14: Q4HPRN, [place] mg 26 Starting Medical on [facility] Branch 05/05/22 at 0614, Until Discontinu ed, Routine, Only while awake for DBP equal to or greater than 100, HR equal to or greater than 100. oxazepam 0 Yes 15mg 15 mg, Univers (SERAX) 9-10 Oral, ity of capsule 15 11:14: Q4HPRN, [place] mg 26 Starting Medical on [facility] Branch 05/05/22 at 0614, Until Discontinu ed, Routine, Only while awake for DBP equal to or greater than 100, HR equal to or greater than 100. acetaminoph Yes 650mg 650 mg, Un masoud en 10 Oral, ity of (TYLENOL) 04:21: Q6HPRN, [place] tablet 650 17 Starting Medic al mg on Fri Branch 05/04/22 at 2321, Until Discontinu ed, Routine, Pain (scale 1-3) acetaminoph 0 Yes 650mg 650 mg, Un masoud en 10 Oral, ity of (TYLENOL) 04:21: Q6HPRN, [place] tablet 650 17 Starting Medic al mg on Fri Branch 05/04/22 at 2321, Until Discontinu ed, Routine, Pain (scale 1-3) HYDROcodone 2021- No 1{tbl} 1 tablet, Univers -acetaminop 05-05 Oral, ity of hen (NORCO) 04:15: 14:00 Q6HPRN, [place] 10-325 mg 18 :49 Starting Medica l tablet 1 on Sat Branch tablet 05/04/22 at 2315, Until 05/05/22 at 0900, Routine, Pain (scale 4-6) dextrometho 2021- No Take by Un masoud rphan-guaif 05-04 mouth. ity o f enesin 23:23: 00:00 [place] (VICKS 04 :00 Medical NATURE Branch FUSION COUGH & CH) 10-100 mg/15 mL Liqd nicotine 2021- No 1{patch Apply 1 [place] (NICODERM) 05-04 } Patch to ity of 14 mg/24 hr 23:23: 00:00 area(s) [place] patch 04 :00 every 24 Medical (twenty-fo Branch ur) hours. INSULIN NPH 2021- No 15U inject 15 Univers HUMAN 05-04 Units ity of ISOPHANE 23:23: 00:00 under the [place] (NOVOLIN N 04 :00 skin every Med ical SC) morning. Branch dextrometho 2021- No Take by Un masoud rphan-guaif 05-04 mouth. ity o f enesin 23:23: 00:00 [place] (VICKS 04 :00 Medical NATURE Branch FUSION COUGH & CH) 10-100 mg/15 mL Liqd nicotine 2021- No 1{patch Apply 1 [place] (NICODERM) 05-04 } Patch to ity of 14 mg/24 hr 23:23: 00:00 area(s) [place] patch 04 :00 every 24 Medical (twenty-fo Branch ur) hours. INSULIN NPH 2021- No 15U inject 15 Univers HUMAN 05-04 Units ity of ISOPHANE 23:23: 00:00 under the [place] (NOVOLIN N 04 :00 skin every Med ical SC) morning. Branch furosemide 2020-0 Yes 40mg QD Take 1 [facility] (LASIX[facility] 40 3-20 tablet (40 Nick es MG tablet 00:00: mg total) Med ical 00 by mouth Center daily. furosemide 2020-0 Yes 40mg QD Take 1 [facility] [...] daily. unit/mL (3 mL) InPn injection HYDROcodone 2020-0 Yes 1{tbl} Q.2D Take [address] -acetaminop 3-17 tablet by Nick es hen ([employer] 14:42: mouth 5 Medi eder 10-325) 10 (five) Center 10-325 mg times per tablet daily. spironolact 2020-0 Yes 25mg QD Take [...] daily. unit/mL (3 mL) InPn injection HYDROcodone 2020-0 Yes 1{tbl} Q.2D Take [address] -acetaminop 3-17 tablet by Nick 4meee ([employer] 14:42: mouth 5 Medi eder 10-325) 10 (five) Center 10-325 mg times per tablet daily. albuterol 2014-08 Yes 2{puff} Inhale 2 U nivers (VENTOLIN) 0-26 Puffs ity of 90 00:00: every 6 [place] mcg/actuati 00 (six) Medical on inhaler hours as Branc h needed for Wheezing or Shortness of Breath. albuterol 2014-08 Yes 2{puff} Inhale 2 U nivers (VENTOLIN) 0-26 Puffs ity of 90 00:00: every 6 [place] mcg/actuati 00 (six) Medical on inhaler hours as Branc h needed for Wheezing or Shortness of Breath. albuterol 2014-08 Yes 2{puff} Inhale 2 U nivers (VENTOLIN) 0-26 Puffs ity of 90 00:00: every 6 [place] mcg/actuati 00 (six) Medical on inhaler hours as Branc h needed for Wheezing or Shortness of Breath. albuterol 2014-08 Yes 2{puff} Inhale 2 U nivers (VENTOLIN) 0-26 Puffs ity of 90 00:00: every 6 [place] mcg/actuati 00 (six) Medical on inhaler hours as Branc h needed for Wheezing or Shortness of Breath. albuterol 2014-08 Yes 2{puff} Inhale 2 U nivers (VENTOLIN) 0-26 Puffs ity of 90 00:00: every 6 [place] mcg/actuati 00 (six) Medical on inhaler hours as Branc h needed for Wheezing or Shortness of Breath. albuterol 2014-08 Yes 2{puff} Inhale 2 U nivers (VENTOLIN) 0-26 Puffs ity of 90 00:00: every 6 [place] mcg/actuati 00 (six) Medical on inhaler hours as Branc h needed for Wheezing or Shortness of Breath. albuterol 2014-08 Yes 2{puff} Inhale 2 U nivers (VENTOLIN) 0-26 Puffs ity of 90 00:00: every 6 [place] mcg/actuati 00 (six) Medical on inhaler hours as Branc h needed for Wheezing or Shortness of Breath. albuterol 2014-08 Yes 2{puff} Inhale 2 U nivers (VENTOLIN) 0-26 Puffs ity of 90 00:00: every 6 [place] mcg/actuati 00 (six) Medical on inhaler hours as Branc h needed for Wheezing or Shortness of Breath. albuterol 2014-08 Yes 2{puff} Inhale 2 U nivers (VENTOLIN) 0-26 Puffs ity of 90 00:00: every 6 [place] mcg/actuati 00 (six) Medical on inhaler hours as Branc h needed for Wheezing or Shortness of Breath. albuterol 2014-08 Yes 2{puff} Inhale 2 U nivers (VENTOLIN) 0-26 Puffs ity of 90 00:00: every 6 [place] mcg/actuati 00 (six) Medical on inhaler hours as Branc h needed for Wheezing or Shortness of Breath. albuterol 2014-08 Yes 2{puff} Inhale 2 U nivers (VENTOLIN) 0-26 Puffs ity of 90 00:00: every 6 [place] mcg/actuati 00 (six) Medical on inhaler hours as Branc h needed for Wheezing or Shortness of Breath. albuterol 2014-08 Yes 2{puff} Inhale 2 U nivers (VENTOLIN) 0-26 Puffs ity of 90 00:00: every 6 [place] mcg/actuati 00 (six) Medical on inhaler hours as Branc h needed for Wheezing or Shortness of Breath. albuterol 2014-08 Yes 2{puff} Inhale 2 U nivers (VENTOLIN) 0-26 Puffs ity of 90 00:00: every 6 [place] mcg/actuati 00 (six) Medical on inhaler hours as Branc h needed for Wheezing or Shortness of Breath. albuterol 2014-08 Yes 2{puff} Inhale 2 U nivers (VENTOLIN) 0-26 Puffs ity of 90 00:00: every 6 [place] mcg/actuati 00 (six) Medical on inhaler hours as Branc h needed for Wheezing or Shortness of Breath. albuterol 2014-08 Yes 2{puff} Inhale 2 U nivers (VENTOLIN) 0-26 Puffs ity of 90 00:00: every 6 [place] mcg/actuati 00 (six) Medical on inhaler hours as Branc h needed for Wheezing or Shortness of Breath. albuterol 2014-08 Yes 2{puff} Inhale 2 U nivers (VENTOLIN) 0-26 Puffs ity of 90 00:00: every 6 [place] mcg/actuati 00 (six) Medical on inhaler hours as Branc h needed for Wheezing or Shortness of Breath. albuterol 2014-08 Yes 2{puff} Inhale 2 U nivers (VENTOLIN) 0-26 Puffs ity of 90 00:00: every 6 [place] mcg/actuati 00 (six) Medical on inhaler hours as Branc h needed for Wheezing or Shortness of Breath. albuterol 2014-08 Yes 2{puff} Inhale 2 U nivers (VENTOLIN) 0-26 Puffs ity of 90 00:00: every 6 [place] mcg/actuati 00 (six) Medical on inhaler hours as Branc h needed for Wheezing or Shortness of Breath. albuterol 2015-1 Yes 2{puff} Inhale 2 U nivers (VENTOLIN) 0-26 Puffs ity of 90 00:00: every 6 [place] mcg/actuati 00 (six) Medical on inhaler hours as Branc h needed for Wheezing or Shortness of Breath. albuterol 2014-08 Yes 2{puff} Inhale 2 U nivers (VENTOLIN) 0-26 Puffs ity of 90 00:00: every 6 [place] mcg/actuati 00 (six) Medical on inhaler hours as Branc h needed for Wheezing or Shortness of Breath. albuterol 2014-08 Yes 2{puff} Inhale 2 U nivers (VENTOLIN) 0-26 Puffs ity of 90 00:00: every 6 [place] mcg/actuati 00 (six) Medical on inhaler hours as Branc h needed for Wheezing or Shortness of Breath. albuterol 2014-08 Yes 2{puff} Inhale 2 U nivers (VENTOLIN) 0-26 Puffs ity of 90 00:00: every 6 [place] mcg/actuati 00 (six) Medical on inhaler hours as Branc h needed for Wheezing or Shortness of Breath. albuterol 2014-08 Yes 2{puff} Inhale 2 U nivers (VENTOLIN) 0-26 Puffs ity of 90 00:00: every 6 [place] mcg/actuati 00 (six) Medical on inhaler hours as Branc h needed for Wheezing or Shortness of Breath. albuterol 2014-08 Yes 2{puff} Inhale 2 U nivers (VENTOLIN) 0-26 Puffs ity of 90 00:00: every 6 [place] mcg/actuati 00 (six) Medical on inhaler hours as Branc h needed for Wheezing or Shortness of Breath. albuterol 2014-08 Yes 2{puff} Inhale 2 U nivers (VENTOLIN) 0-26 Puffs ity of 90 00:00: every 6 [place] mcg/actuati 00 (six) Medical on inhaler hours as Branc h needed for Wheezing or Shortness of Breath. albuterol 2014-08 Yes 2{puff} Inhale 2 U nivers (VENTOLIN) 0-26 Puffs ity of 90 00:00: every 6 [place] mcg/actuati 00 (six) Medical on inhaler hours as Branc h needed for Wheezing or Shortness of Breath. albuterol 2014-08 Yes 2{puff} Inhale 2 U nivers (VENTOLIN) 0-26 Puffs ity of 90 00:00: every 6 [place] mcg/actuati 00 (six) Medical on inhaler hours as Branc h needed for Wheezing or Shortness of Breath. albuterol 2014-08 Yes 2{puff} Inhale 2 U nivers (VENTOLIN) 0-26 Puffs ity of 90 00:00: every 6 [place] mcg/actuati 00 (six) Medical on inhaler hours as Branc h needed for Wheezing or Shortness of Breath. HYDROcodone 2014-08 Yes 1{tbl} Take 1 Tab Univers -acetaminop 0-18 by mouth ity of hen (NORCO) 00:00: every 6 [place] 10-325 mg 00 (six) Medical tablet hours as Branch needed for Pain (scale 4-6) or Pain unrelieved by non-narcot ic analgesics . ipratropium 2014-08 Yes .5mg Inhale 2.5 Univers (ATROVENT) 0-18 mL every 6 ity of 0.02 % 00:00: (six) [place] nebulizer 00 hours as Medica l solution needed for Branc h Wheezing or Shortness of Breath. HYDROcodone 2014-08 Yes 1{tbl} Take 1 Tab Univers -acetaminop 0-18 by mouth ity of hen (NORCO) 00:00: every 6 [place] 10-325 mg 00 (six) Medical tablet hours as Branch needed for Pain (scale 4-6) or Pain unrelieved by non-narcot ic analgesics . ipratropium 2014-08 Yes .5mg Inhale 2.5 Univers (ATROVENT) 0-18 mL every 6 ity of 0.02 % 00:00: (six) [place] nebulizer 00 hours as Medica l solution needed for Branc h Wheezing or Shortness of Breath. HYDROcodone 2014-08 Yes 1{tbl} Take 1 Tab Univers -acetaminop 0-18 by mouth ity of hen (NORCO) 00:00: every 6 [place] 10-325 mg 00 (six) Medical tablet hours as Branch needed for Pain (scale 4-6) or Pain unrelieved by non-narcot ic analgesics . ipratropium 2014-08 Yes .5mg Inhale 2.5 Univers (ATROVENT) 0-18 mL every 6 ity of 0.02 % 00:00: (six) [place] nebulizer 00 hours as Medica l solution needed for Branc h Wheezing or Shortness of Breath. ipratropium 2014-08 Yes .5mg Inhale 2.5 Univers (ATROVENT) 0-18 mL every 6 ity of 0.02 % 00:00: (six) [place] nebulizer 00 hours as Medica l solution needed for Branc h Wheezing or Shortness of Breath. HYDROcodone 2014-08 Yes 1{tbl} Take 1 Tab Univers -acetaminop 0-18 by mouth ity of hen (NORCO) 00:00: every 6 [place] 10-325 mg 00 (six) Medical tablet hours as Branch needed for Pain (scale 4-6) or Pain unrelieved by non-narcot ic analgesics . ipratropium 2014-08 Yes .5mg Inhale 2.5 Univers (ATROVENT) 0-18 mL every 6 ity of 0.02 % 00:00: (six) [place] nebulizer 00 hours as Medica l solution needed for Branc h Wheezing or Shortness of Breath. HYDROcodone 2014-08 Yes 1{tbl} Take 1 Tab Univers -acetaminop 0-18 by mouth ity of hen (NORCO) 00:00: every 6 [place] 10-325 mg 00 (six) Medical tablet hours as Branch needed for Pain (scale 4-6) or Pain unrelieved by non-narcot ic analgesics . ipratropium 2014-08 Yes .5mg Inhale 2.5 Univers (ATROVENT) 0-18 mL every 6 ity of 0.02 % 00:00: (six) [place] nebulizer 00 hours as Medica l solution needed for Branc h Wheezing or Shortness of Breath. HYDROcodone 2014-08 Yes 1{tbl} Take 1 Tab Univers -acetaminop 0-18 by mouth ity of hen (NORCO) 00:00: every 6 [place] 10-325 mg 00 (six) Medical tablet hours as Branch needed for Pain (scale 4-6) or Pain unrelieved by non-narcot ic analgesics . ipratropium 2014-08 Yes .5mg Inhale 2.5 Univers (ATROVENT) 0-18 mL every 6 ity of 0.02 % 00:00: (six) [place] nebulizer 00 hours as Medica l solution needed for Branc h Wheezing or Shortness of Breath. HYDROcodone 2014-08 Yes 1{tbl} Take 1 Tab Univers -acetaminop 0-18 by mouth ity of hen (NORCO) 00:00: every 6 [facility] as 10-325 mg 00 (six) Medical tablet hours as Branch needed for Pain (scale 4-6) or Pain unrelieved by non-narcot ic analgesics . ipratropium 2014-08 Yes .5mg Inhale 2.5 [facility] ([facility]) 0-18 mL every 6 ity of 0.02 % 00:00: (six) [place] nebulizer 00 hours as Medica l solution needed for Branc h Wheezing or Shortness of Breath. HYDROcodone 2014-08 Yes 1{tbl} Take 1 Tab [facility] -acetaminop 0-18 by mouth ity of hen (NORCO) 00:00: every 6 [facility] as 10-325 mg 00 (six) Medical tablet hours as Branch needed for Pain (scale 4-6) or Pain unrelieved by non-narcot ic analgesics . ipratropium 2014-08 Yes .5mg Inhale 2.5 [facility] ([facility]) 0-18 mL every 6 ity of 0.02 % 00:00: (six) [place] nebulizer 00 hours as Medica l solution needed for Branc h Wheezing or Shortness of Breath. HYDROcodone 2014-08 Yes 1{tbl} Take 1 Tab [facility] -acetaminop 0-18 by mouth ity of hen (NORCO) 00:00: every 6 [place] [facility] 10-325 mg 00 (six) Medical tablet hours as Branch needed for Pain (scale 4-6) or Pain unrelieved by non-narcot ic analgesics . ipratropium 2014-08 Yes .5mg Inhale 2.5 [facility] ([facility]) 0-18 mL every 6 ity of 0.02 % 00:00: (six) [place] nebulizer 00 hours as Medica l solution needed for Branc h Wheezing or Shortness of Breath. HYDROcodone 2014-08 Yes 1{tbl} Take 1 Tab Univers -acetaminop 0-18 by mouth ity of hen ([facility]CO) 00:00: every 6 [place] 10-325 mg 00 (six) Medical tablet hours as Branch needed for Pain (scale 4-6) or Pain unrelieved by non-narcot ic analgesics . ipratropium 2014-08 Yes .5mg Inhale 2.5 [facility] ([facility]) 0-18 mL every 6 ity of 0.02 % 00:00: (six) [place] nebulizer 00 hours as Medica l solution needed for Branc h Wheezing or Shortness of Breath. HYDROcodone 2014-08 Yes 1{tbl} Take 1 Tab Univers -acetaminop 0-18 by mouth ity of hen (NORCO) 00:00: every 6 [place] 10-325 mg 00 (six) Medical tablet hours as Branch needed for Pain (scale 4-6) or Pain unrelieved by non-narcot ic analgesics . ipratropium 2014-08 Yes .5mg Inhale 2.5 [facility] ([facility]) 0-18 mL every 6 ity of 0.02 % 00:00: (six) [place] nebulizer 00 hours as Medica l solution needed for Branc h Wheezing or Shortness of Breath. HYDROcodone 2014-08 Yes 1{tbl} Take 1 Tab Univers -acetaminop 0-18 by mouth ity of hen (NORCO) 00:00: every 6 [place] 10-325 mg 00 (six) Medical tablet hours as Branch needed for Pain (scale 4-6) or Pain unrelieved by non-narcot ic analgesics . ipratropium 2014-08 Yes .5mg Inhale 2.5 [facility] ([facility]) 0-18 mL every 6 ity of 0.02 % 00:00: (six) [place] nebulizer 00 hours as Medica l solution needed for Branc h Wheezing or Shortness of Breath. HYDROcodone 2014-08 Yes 1{tbl} Take 1 Tab Univers -acetaminop 0-18 by mouth ity of hen (NORCO) 00:00: every 6 [place] 10-325 mg 00 (six) Medical tablet hours as Branch needed for Pain (scale 4-6) or Pain unrelieved by non-narcot ic analgesics . ipratropium 2014-08 Yes .5mg Inhale 2.5 [facility] ([facility]) 0-18 mL every 6 ity of 0.02 % 00:00: (six) [place] nebulizer 00 hours as Medica l solution needed for Branc h Wheezing or Shortness of Breath. HYDROcodone 2014-08 Yes 1{tbl} Take 1 Tab [facility] -acetaminop 0-18 by mouth ity of hen ([facility]CO) 00:00: every 6 [place] 10-325 mg 00 (six) Medical tablet hours as Branch needed for Pain (scale 4-6) or Pain unrelieved by non-narcot ic analgesics . ipratropium 2014-08 Yes .5mg Inhale 2.5 [facility] ([facility]) 0-18 mL every 6 ity of 0.02 % 00:00: (six) [place] nebulizer 00 hours as Medica l solution needed for Branc h Wheezing or Shortness of Breath. HYDROcodone 2014-08 Yes 1{tbl} Take 1 Tab Univers -acetaminop 0-18 by mouth ity of hen ([facility]CO) 00:00: every 6 [place] 10-325 mg 00 (six) Medical tablet hours as Branch needed for Pain (scale 4-6) or Pain unrelieved by non-narcot ic analgesics . ipratropium 2014-08 Yes .5mg Inhale 2.5 [facility] ([facility]) 0-18 mL every 6 ity of 0.02 % 00:00: (six) [place] nebulizer 00 hours as Medica l solution needed for Branc h Wheezing or Shortness of Breath. HYDROcodone 2014-08 Yes 1{tbl} Take 1 Tab Univers -acetaminop 0-18 by mouth ity of hen ([facility]CO) 00:00: every 6 [place] 10-325 mg 00 (six) Medical tablet hours as Branch needed for Pain (scale 4-6) or Pain unrelieved by non-narcot ic analgesics . ipratropium 2014-08 Yes .5mg Inhale 2.5 [facility] ([facility]) 0-18 mL every 6 ity of 0.02 % 00:00: (six) [place] nebulizer 00 hours as Medica l solution needed for Branc h Wheezing or Shortness of Breath. HYDROcodone 2014-08 Yes 1{tbl} Take 1 Tab Univers -acetaminop 0-18 by mouth ity of hen ([facility]CO) 00:00: every 6 [place] 10-325 mg 00 (six) Medical tablet hours as Branch needed for Pain (scale 4-6) or Pain unrelieved by non-narcot ic analgesics . ipratropium 2014-08 Yes .5mg Inhale 2.5 [facility] ([facility]) 0-18 mL every 6 ity of 0.02 % 00:00: (six) [place] nebulizer 00 hours as Medica l solution needed for Branc h Wheezing or Shortness of Breath. HYDROcodone 2014-08 Yes 1{tbl} Take 1 Tab Univers -acetaminop 0-18 by mouth ity of hen ([facility]CO) 00:00: every 6 [place] 10-325 mg 00 (six) Medical tablet hours as Branch needed for Pain (scale 4-6) or Pain unrelieved by non-narcot ic analgesics . ipratropium 2014-08 Yes .5mg Inhale 2.5 [facility] ([facility]) 0-18 mL every 6 ity of 0.02 % 00:00: (six) [place] nebulizer 00 hours as Medica l solution needed for Branc h Wheezing or Shortness of Breath. HYDROcodone 2014-08 Yes 1{tbl} Take 1 Tab [facility] -acetaminop 0-18 by mouth ity of hen ([facility]) 00:00: every 6 [place] 10-325 mg 00 (six) Medical tablet hours as Branch needed for Pain (scale 4-6) or Pain unrelieved by non-narcot ic analgesics . ipratropium 2014-08 Yes .5mg Inhale 2.5 [facility] ([facility]) 0-18 mL every 6 ity of 0.02 % 00:00: (six) [place] nebulizer 00 hours as Medica l solution needed for Branc h Wheezing or Shortness of Breath. HYDROcodone 2014-08 Yes 1{tbl} Take 1 Tab [facility] -acetaminop 0-18 by mouth ity of hen ([facility]CO) 00:00: every 6 [place] 10-325 mg 00 (six) Medical tablet hours as Branch needed for Pain (scale 4-6) or Pain unrelieved by non-narcot ic analgesics . ipratropium 2014-08 Yes .5mg Inhale 2.5 [facility] ([facility]) 0-18 mL every 6 ity of 0.02 % 00:00: (six) [place] nebulizer 00 hours as Medica l solution needed for Branc h Wheezing or Shortness of Breath. HYDROcodone 2014-08 Yes 1{tbl} Take 1 Tab [facility] -acetaminop 0-18 by mouth ity of hen ([facility]) 00:00: every 6 [place] 10-325 mg 00 (six) Medical tablet hours as Branch needed for Pain (scale 4-6) or Pain unrelieved by non-narcot ic analgesics . ipratropium 2014-08 Yes .5mg Inhale 2.5 [facility] ([facility]) 0-18 mL every 6 ity of 0.02 % 00:00: (six) [place] nebulizer 00 hours as Medica l solution needed for Branc h Wheezing or Shortness of Breath. HYDROcodone 2014-08 Yes 1{tbl} Take 1 Tab [facility] -acetaminop 0-18 by mouth ity of hen ([facility]CO) 00:00: every 6 [place] 10-325 mg 00 (six) Medical tablet hours as Branch needed for Pain (scale 4-6) or Pain unrelieved by non-narcot ic analgesics . ipratropium 2014-08 Yes .5mg Inhale 2.5 [facility] ([facility]) 0-18 mL every 6 ity of 0.02 % 00:00: (six) [place] nebulizer 00 hours as Medica l solution needed for Branc h Wheezing or Shortness of Breath. HYDROcodone 2014-08 Yes 1{tbl} Take 1 Tab [facility] -acetaminop 0-18 by mouth ity of hen ([facility]CO) 00:00: every 6 [place] 10-325 mg 00 (six) Medical tablet hours as Branch needed for Pain (scale 4-6) or Pain unrelieved by non-narcot ic analgesics . ipratropium 2014-08 Yes .5mg Inhale 2.5 [facility] ([facility]) 0-18 mL every 6 ity of 0.02 % 00:00: (six) [place] nebulizer 00 hours as Medica l solution needed for Branc h Wheezing or Shortness of Breath. HYDROcodone 2014-08 Yes 1{tbl} Take 1 Tab Univers -acetaminop 0-18 by mouth ity of hen ([facility]CO) 00:00: every 6 [place] 10-325 mg 00 (six) Medical tablet hours as Branch needed for Pain (scale 4-6) or Pain unrelieved by non-narcot ic analgesics . ipratropium 2014-08 Yes .5mg Inhale 2.5 [facility] ([facility]) 0-18 mL every 6 ity of 0.02 % 00:00: (six) [place] nebulizer 00 hours as Medica l solution needed for Branc h Wheezing or Shortness of Breath. HYDROcodone 2014-08 Yes 1{tbl} Take 1 Tab [facility] -acetaminop 0-18 by mouth ity of hen ([facility]CO) 00:00: every 6 [place] 10-325 mg 00 (six) Medical tablet hours as Branch needed for Pain (scale 4-6) or Pain unrelieved by non-narcot ic analgesics . ipratropium 2014-08 Yes .5mg Inhale 2.5 [facility] ([facility]) 0-18 mL every 6 ity of 0.02 % 00:00: (six) [place] nebulizer 00 hours as Medica l solution needed for Branc h Wheezing or Shortness of Breath. HYDROcodone 2014-08 Yes 1{tbl} Take 1 Tab Univers -acetaminop 0-18 by mouth ity of hen ([facility]CO) 00:00: every 6 [place] 10-325 mg 00 (six) Medical tablet hours as Branch needed for Pain (scale 4-6) or Pain unrelieved by non-narcot ic analgesics . ipratropium 2014-08 Yes .5mg Inhale 2.5 [facility] ([facility]) 0-18 mL every 6 ity of 0.02 % 00:00: (six) [place] nebulizer 00 hours as Medica l solution needed for Branc h Wheezing or Shortness of Breath. HYDROcodone 2014-08 Yes 1{tbl} Take 1 Tab Univers -acetaminop 0-18 by mouth ity of hen ([facility]CO) 00:00: every 6 [place] 10-325 mg 00 (six) Medical tablet hours as Branch needed for Pain (scale 4-6) or Pain unrelieved by non-narcot ic analgesics . ipratropium 2014-08 Yes .5mg Inhale 2.5 Univers ([facility]) 0-18 mL every 6 ity of 0.02 % 00:00: (six) [place] nebulizer 00 hours as Medica l solution needed for Branc h Wheezing or Shortness of Breath. HYDROcodone 2014-08- No 1{tbl} Take 1 Tab Univers -acetaminop 0-18 01-28 by mouth ity of hen ([facility]) 00:00: 00:00 every 6 [place] 10-325 mg 00 :00 (six) Medical tablet hours as Branch needed for Pain (scale 4-6) or Pain unrelieved by non-narcot ic analgesics . albuterol 2014-08- No 2.5mg Use 0.5 mL Univers 2.5 mg/0.5 05-04 as ity of mL 00:00: 00:00 directed [place] nebulizer 00 :00 every 6 Medical solution (six) Branch hours as needed for Wheezing. albuterol 2014-08- No 2.5mg Use 0.5 mL Univers 2.5 mg/0.5 05-04 as ity of mL 00:00: 00:00 directed [place] nebulizer 00 :00 every 6 Medical solution (six) Branch hours as needed for Wheezing. aspirin 81 2013-0 Yes 81mg Take 1 Tab U nivers mg chewable 7-15 by mouth ity of tablet 00:00: daily. [place] [facility] aspirin 81 2013-0 Yes 81mg Take 1 Tab U nivers mg chewable 7-15 by mouth ity of tablet 00:00: daily. [place] [facility] aspirin 81 2013-0 Yes 81mg Take 1 Tab U nivers mg chewable 7-15 by mouth ity of tablet 00:00: daily. [place] [facility] aspirin 81 2013-0 Yes 81mg Take 1 Tab U nivers mg chewable 7-15 by mouth ity of tablet 00:00: daily. [place] [facility] aspirin 81 2013-0 Yes 81mg Take 1 Tab U nivers mg chewable 7-15 by mouth ity of tablet 00:00: daily. [facility] aspirin 81 2013-0 Yes 81mg Take 1 Tab U nivers mg chewable 7-15 by mouth ity of tablet 00:00: daily. [facility] aspirin 81 2013-0 Yes 81mg Take 1 Tab U nivers mg chewable 7-15 by mouth ity of tablet 00:00: daily. [facility] aspirin 81 2013-0 Yes 81mg Take 1 Tab U nivers mg chewable 7-15 by mouth ity of tablet 00:00: daily. [address] aspirin 81 2013-0 Yes 81mg Take 1 Tab U nivers mg chewable 7-15 by mouth ity of tablet 00:00: daily. [facility] aspirin 81 2013-0 Yes 81mg Take 1 Tab U nivers mg chewable 7-15 by mouth ity of tablet 00:00: daily. [place] [facility] aspirin 81 2013-0 Yes 81mg Take 1 Tab U nivers mg chewable 7-15 by mouth ity of tablet 00:00: daily. [place] [facility] aspirin 81 2013-0 Yes 81mg Take 1 Tab U nivers mg chewable 7-15 by mouth ity of tablet 00:00: daily. [place] [facility] aspirin 81 2013-0 Yes 81mg Take 1 Tab U nivers mg chewable 7-15 by mouth ity of tablet 00:00: daily. [place] [facility] aspirin 81 2013-0 Yes 81mg Take 1 Tab U nivers mg chewable 7-15 by mouth ity of tablet 00:00: daily. [place] [facility] aspirin 81 2013-0 Yes 81mg Take 1 Tab U nivers mg chewable 7-15 by mouth ity of tablet 00:00: daily. [facility] aspirin 81 2013-0 Yes 81mg Take 1 Tab U nivers mg chewable 7-15 by mouth ity of tablet 00:00: daily. [facility] aspirin 81 2013-0 Yes 81mg Take 1 Tab U nivers mg chewable 7-15 by mouth ity of tablet 00:00: daily. [facility] aspirin 81 2013-0 Yes 81mg Take 1 Tab U nivers mg chewable 7-15 by mouth ity of tablet 00:00: daily. [facility] aspirin 81 2013-0 Yes 81mg Take 1 Tab U nivers mg chewable 7-15 by mouth ity of tablet 00:00: daily. [facility] aspirin 81 2013-0 Yes 81mg Take 1 Tab U nivers mg chewable 7-15 by mouth ity of tablet 00:00: daily. [facility] aspirin 81 2013-0 Yes 81mg Take 1 Tab U nivers mg chewable 7-15 by mouth ity of tablet 00:00: daily. [place] [facility] aspirin 81 2013-0 Yes 81mg Take 1 Tab U nivers mg chewable 7-15 by mouth ity of tablet 00:00: daily. [facility] aspirin 81 2013-0 Yes 81mg Take 1 Tab U nivers mg chewable 7-15 by mouth ity of tablet 00:00: daily. [facility] aspirin 81 2014-0 Yes 81mg Take 1 Tab U nivers mg chewable 7-15 by mouth ity of tablet 00:00: daily. [facility] aspirin 81 Yes 81mg Take 1 Tab U nivers mg chewable 7-15 by mouth ity of tablet 00:00: daily. [facility] aspirin 81 Yes 81mg Take 1 Tab U nivers mg chewable 7-15 by mouth ity of tablet 00:00: daily. [address] aspirin 81 Yes 81mg Take 1 Tab U nivers mg chewable 7-15 by mouth ity of tablet 00:00: daily. [address] aspirin 81 Yes 81mg Take 1 Tab U nivers mg chewable 7-15 by mouth ity of tablet 00:00: daily. [address] Immunizations Ordered Filled Immunization Date Status Comments [facility] e Immunization Name Name Pneumococcal 2014-03-09 Completed University o f Polysaccharide, 00:00:00 [place] [facility] PPSV23 (PNEUMOVAX) Branch Pneumococcal 2014-03-09 Completed University o f Polysaccharide, 00:00:00 [place] [facility] PPSV23 (PNEUMOVAX) Branch Pneumococcal 2014-03-09 Completed University o f Polysaccharide, 00:00:00 [place] [facility] ical PPSV23 (PNEUMOVAX) Branch Pneumococcal 2014-03-09 Completed University o f Polysaccharide, 00:00:00 [place] [facility] ical PPSV23 (PNEUMOVAX) Branch Pneumococcal 2014-03-09 Completed University o f Polysaccharide, 00:00:00 [place] [facility] ical PPSV23 (PNEUMOVAX) Branch Pneumococcal 2014-03-09 Completed University o f Polysaccharide, 00:00:00 [place] [facility] ical PPSV23 (PNEUMOVAX) Branch Pneumococcal 2014-03-09 Completed University o f Polysaccharide, 00:00:00 [place] [facility] ical PPSV23 (PNEUMOVAX) Branch Pneumococcal 2014-03-09 Completed University o f Polysaccharide, 00:00:00 [place] [facility] ical PPSV23 (PNEUMOVAX) Branch Pneumococcal 2014-03-09 Completed University o f Polysaccharide, 00:00:00 [place] [facility] ical PPSV23 (PNEUMOVAX) Branch Pneumococcal 2014-03-09 Completed University o f Polysaccharide, 00:00:00 [place] [facility] ical PPSV23 (PNEUMOVAX) Branch Pneumococcal 2014-03-09 Completed University o f Polysaccharide, 00:00:00 [place] [facility] ical PPSV23 (PNEUMOVAX) Branch Pneumococcal 2014-03-09 Completed University o f Polysaccharide, 00:00:00 [place] [facility] ical PPSV23 (PNEUMOVAX) Branch Pneumococcal 2014-03-09 Completed University o f Polysaccharide, 00:00:00 [place] [facility] ical PPSV23 (PNEUMOVAX) Branch Pneumococcal 2014-03-09 Completed University o f Polysaccharide, 00:00:00 [place] [facility] ical PPSV23 (PNEUMOVAX) Branch Pneumococcal 2014-03-09 Completed University o f Polysaccharide, 00:00:00 [place] [facility] ical PPSV23 (PNEUMOVAX) Branch Pneumococcal 2014-03-09 Completed University o f Polysaccharide, 00:00:00 [place] [facility] ical PPSV23 (PNEUMOVAX) Branch Pneumococcal 2014-03-09 Completed University o f Polysaccharide, 00:00:00 [place] [facility] ical PPSV23 (PNEUMOVAX) Branch Pneumococcal 2014-03-09 Completed University o f Polysaccharide, 00:00:00 [place] [facility] ical PPSV23 (PNEUMOVAX) Branch Pneumococcal 2014-03-09 Completed University o f Polysaccharide, 00:00:00 [place] [facility] ical PPSV23 (PNEUMOVAX) Branch Pneumococcal 2014-03-09 Completed University o f Polysaccharide, 00:00:00 [place] [facility] ical PPSV23 (PNEUMOVAX) Branch Pneumococcal 2014-03-09 Completed University o f Polysaccharide, 00:00:00 [place] [facility] ical PPSV23 (PNEUMOVAX) Branch Pneumococcal 2014-03-09 Completed University o f Polysaccharide, 00:00:00 [place] [facility] ical PPSV23 (PNEUMOVAX) Branch Pneumococcal 2014-03-09 Completed University o f Polysaccharide, 00:00:00 [place] [facility] ical PPSV23 (PNEUMOVAX) Branch Pneumococcal 2014-03-09 Completed University o f Polysaccharide, 00:00:00 [place] [facility] ical PPSV23 (PNEUMOVAX) Branch Pneumococcal 2014-03-09 Completed University o f Polysaccharide, 00:00:00 [place] [facility] ical PPSV23 (PNEUMOVAX) Branch Pneumococcal 2014-03-09 Completed University o f Polysaccharide, 00:00:00 [place] [facility] ical PPSV23 (PNEUMOVAX) Branch Pneumococcal 2014-03-09 Completed University o f Polysaccharide, 00:00:00 [place] [facility] ical PPSV23 (PNEUMOVAX) Branch Pneumococcal 2014-03-09 Completed University o f Polysaccharide, 00:00:00 [place] [facility] PPSV23 (PNEUMOVAX) [place] Vital Signs Vital Name Observation Time Observation Value Comments Source Systolic blood 2022-09-22 166 mm[Hg] University of pressure 15:14:00 [facility] Diastolic blood 2022-09-22 92 mm[Hg] University o f pressure 15:14:00 [facility] Heart rate 2022-09-22 109 /min University of 15:14:00 [facility] Respiratory rate 2022-09-22 18 /min University of 15:14:00 [facility] Oxygen saturation 2022-09-22 96 /min University of in Arterial blood 15:14:00 [place] [facility] by Pulse oximetry Branch Body temperature 2022-09-22 35.94 [place] University of 10:04:00 [facility] Body weight 2022-09-19 81.647 kg University of 18:00:00 [facility] BMI 2022-09-19 25.83 kg/m2 University of 18:00:00 [facility] Body height 2022-09-13 177.8 cm University of 03:03:00 [facility] Body weight 2022-09-19 81.647 kg University of 18:00:00 [facility] BMI 2022-09-19 25.83 kg/m2 University of 18:00:00 [facility] Systolic blood 2022-09-19 161 mm[Hg] Nurse Notified University of pressure 11:24:00 [facility] Diastolic blood 2022-09-19 91 mm[Hg] Nurse Notified University of pressure 11:24:00 [facility] Heart rate 2022-09-19 80 /min University of 11:24:00 [facility] Body temperature 2022-09-19 36.78 [place] University of 11:24:00 [facility] Respiratory rate 2022-09-19 16 /min University of 11:24:00 [facility] Oxygen saturation 2022-09-19 95 /min University of in Arterial blood 11:24:00 [place] [facility] by Pulse oximetry Branch Body height 2022-09-13 177.8 cm University of 03:03:00 [facility] Systolic blood 2022-09-18 176 mm[Hg] University of pressure 20:28:00 [facility] Diastolic blood 2022-09-18 109 mm[Hg] University o f pressure 20:28:00 [facility] Heart rate 2022-09-18 90 /min University of 20:28:00 [facility] Body temperature 2022-09-18 36.28 [place] University of 20:28:00 [facility] Branch Respiratory rate 2022-09-18 17 /min University of 20:28:00 [facility] Oxygen saturation 2022-09-18 96 /min University of in Arterial blood 20:28:00 [facility] eder by Pulse oximetry Branch Body height 2022-09-13 177.8 cm University of 03:03:00 [facility] Body weight 2022-09-13 81.647 kg University of 03:03:00 [facility] BMI 2022-09-13 25.83 kg/m2 University of 03:03:00 [facility] Systolic blood 2022-08-15 142 mm[Hg] University of pressure 19:25:00 [facility] Diastolic blood 2022-08-15 86 mm[Hg] University o f pressure 19:25:00 [facility] Heart rate 2022-08-15 91 /min University of 19:25:00 [facility] Body temperature 2022-08-15 36.39 K[place] University of 19:25:00 [facility] Body height 2022-08-15 177.8 cm University of 19:25:00 [facility] Body weight 2022-08-15 80.74 kg University of 19:25:00 [facility] BMI 2022-08-15 25.54 kg/m2 University of 19:25:00 [facility] Oxygen saturation 2022-08-15 99 /min University of in Arterial blood 19:25:00 [facility] by Pulse oximetry Branch Systolic blood 2022-07-24 128 mm[Hg] University of pressure 15:19:00 [facility] Branch Diastolic blood 2022-07-24 82 mm[Hg] University o f pressure 15:19:00 [facility] Heart rate 2022-07-24 92 /min University of 15:19:00 [facility] Body temperature 2022-07-24 36.44 [place] University of 15:19:00 [facility] Respiratory rate 2022-07-24 16 /min University of 15:19:00 [facility] Body height 2022-07-24 177.8 cm University of 15:19:00 [facility] Body weight 2022-07-24 81.012 kg University of 15:19:00 [facility] BMI 2022-07-24 25.63 kg/m2 University of 15:19:00 [facility] Oxygen saturation 2022-07-24 96 /min University of in Arterial blood 15:19:00 [facility] eder by Pulse oximetry Branch Body temperature 2022-07-23 36.78 Kandy University of 14:12:00 [facility] Body height 2022-07-23 177.8 cm University of 14:12:00 [facility] Body weight 2022-07-23 81.784 kg University of 14:12:00 [facility] BMI 2022-07-23 25.87 kg/m2 University of 14:12:00 [facility] Body temperature 2022-05-18 35.56 K[place] University of 15:12:00 [facility] Body height 2022-05-18 177.8 cm University of 15:12:00 [facility] Body weight 2022-05-18 81.647 kg University of 15:12:00 [facility] BMI 2022-05-18 25.83 kg/m2 University of 15:12:00 [facility] Systolic blood 2022-05-10 158 mm[Hg] University of pressure 20:10:00 [facility] Diastolic blood 2022-05-10 93 mm[Hg] University o f pressure 20:10:00 [facility] Heart rate 2022-05-10 94 /min University of 20:10:00 [facility] Body temperature 2022-05-10 36.67 K[place] University of 20:10:00 [facility] Respiratory rate 2022-05-10 18 /min University of 20:10:00 [facility] Oxygen saturation 2022-05-10 95 /min University of in Arterial blood 20:10:00 [facility] by Pulse oximetry Branch Body weight 2022-05-08 83.87 kg University of 10:11:00 [facility] BMI 2022-05-08 26.53 kg/m2 University of 10:11:00 [facility] Body height 2022-05-05 177.8 cm University of 01:25:00 [facility] Systolic blood 2022-05-09 144 mm[Hg] University of pressure 17:00:00 [facility] Diastolic blood 2022-05-09 94 mm[Hg] University o f pressure 17:00:00 [facility] Heart rate 2022-05-09 85 /min University 17:00:00 [facility] Body temperature 2022-05-09 37 Kandy [facility] 17:00:00 [facility] Respiratory rate 2022-05-09 20 /min University 17:00:00 [facility] Oxygen saturation 2022-05-09 98 /min [place] of in Arterial blood 17:00:00 [facility] by Pulse oximetry [place] Body weight 2022-05-08 83.87 kg [facility] 10:11:00 [facility] BMI 2022-05-08 26.53 kg/m2 University 10:11:00 [facility] Body height 2022-05-05 177.8 cm [facility] 01:25:00 [facility] Systolic blood 2022-09-17 169 mm[Hg] [facility] pressure 18:02:00 [facility] Diastolic blood 2022-09-17 106 mm[Hg] [facility] pressure 18:02:00 [facility] Heart rate 2022-09-17 93 /min [facility] 18:02:00 [facility] Body temperature 2022-09-17 36.28 K[place] [facility] 18:02:00 [facility] Respiratory rate 2022-09-17 18 /min [facility] 18:02:00 [facility] Oxygen saturation 2022-09-17 98 /min [facility] in Arterial blood 18:02:00 [facility] by Pulse oximetry [place] Body height 2022-09-13 177.8 cm [facility] 03:03:00 [facility] Body weight 2022-09-13 81.647 kg [facility] 03:03:00 [facility] BMI 2022-09-13 25.83 kg/m2 [facility] 03:03:00 [facility] Procedures Procedure Date / Time Performing Clinician Source Performed POCT GLUCOSE (AUTOMATED) 2022-09-22 15:14:00 Phill Tellez Uni vers[facility] of [facility] PHOSPHORUS 2022-09-22 08:38:00 [facility] 08:38[facility]00 [facility] 2022-09-22 08:38:00 [facility] BASIC METABOLIC PANEL (NA, 2022-09-22 08:38:00 Lucia, [facility] K, CL, CO2, GLUCOSE, BUN, [facility] CREATININE, [place]) CBC WITHOUT DIFF 2022-09-22 08:38:00 Lucia, [facility] POCT GLUCOSE (AUTOMATED) 2022-09-22 03:43:00 Phill Tellez Uni [facility] POCT GLUCOSE (AUTOMATED) 2022-09-21 23:12:[address] [facility] VANCOMYCIN TROUGH 2022-09-21 17:36:00 Lucia, [facility] POCT GLUCOSE (AUTOMATED) 2022-09-21 17:27:[address] [facility] POCT GLUCOSE (AUTOMATED) 2022-09-21 14:10:[address] [facility] PHOSPHORUS 2022-09-21 08:17:00 Lucia [facility] MAGNESIUM 2022-09-21 08:17:00 Lucia, [facility] IONIZED CALCIUM 2022-09-21 08:17:00 Lucia, [facility] BASIC METABOLIC PANEL (NA, 2022-09-21 08:17:00 Lucia, [facility] K, CL, CO2, GLUCOSE, BUN, [place] [facility] CREATININE, CA) CBC WITHOUT DIFF 2022-09-21 08:17:00 Lucia, [facility] POCT GLUCOSE (AUTOMATED) 2022-09-21 02:46:00 Phill Tellez [facility] HB ABO GROUPING 2022-09-21 00:00:00 Nick Fraire [facility] HB ABO GROUPING 2022-09-21 00:00:00 Nick Fraire [facility] POCT GLUCOSE (AUTOMATED) 2022-09-20 22:31:[address] [facility] POCT GLUCOSE (AUTOMATED) 2022-09-20 22:31:00 Phill Tellez Uni [facility] POCT GLUCOSE (AUTOMATED) 2022-09-20 18:32:[address] [facility] POCT GLUCOSE (AUTOMATED) 2022-09-20 18:32:00 Rosalinda Phill Uni versity [facility] POCT GLUCOSE (AUTOMATED) 2022-09-20 13:53:00 Rosalinda Phill Uni versity [facility] POCT GLUCOSE (AUTOMATED) 2022-09-20 13:53:00 [facility] 2022-09-20 11:43:00 Lucia, [facility] MAGNESIUM 2022-09-20 11:43:00 Lucia, [facility] IONIZED CALCIUM 2022-09-20 11:43:00 Lucia, [facility] BASIC METABOLIC PANEL (NA, 2022-09-20 11:43:00 Lucia, [facility] K, CL, CO2, GLUCOSE, BUN, [facility] CREATININE, CA) CBC WITHOUT DIFF 2022-09-20 11:43:00 Lucia, [facility] PHOSPHORUS 2022-09-20 11:43:00 Lucia, [facility] MAGNESIUM 2022-09-20 11:43:00 Lucia, [facility] IONIZED CALCIUM 2022-09-20 11:43:00 Lucia, [facility] BASIC METABOLIC PANEL (NA, 2022-09-20 11:43:00 Lucia, [facility] K, CL, CO2, GLUCOSE, BUN, [facility] [place] CREATININE, CA) CBC WITHOUT DIFF 2022-09-20 11:43:00 Lucia, [facility] POCT GLUCOSE (AUTOMATED) 2022-09-20 03:41:00 [facility]SE (AUTOMATED) 2022-09-20 03:41:00 Phill Tellez Uni versity [facility] POCT GLUCOSE (AUTOMATED) 2022-09-20 03:41:00 Phill Tellez Uni versity [facility] POCT GLUCOSE (AUTOMATED) 2022-09-19 22:39:00 Phill Tellez Uni versity [facility] POCT GLUCOSE (AUTOMATED) 2022-09-19 22:39:00 Phill Tellez Uni versity [facility] POCT GLUCOSE (AUTOMATED) 2022-09-19 22:39:00 Phill Tellez versity [facility] FL TIME OR 2022-09-19 21:07:00 [facility] [place] TIME OR 2022-09-19 21:07:00 [facility] (NON-REPORTABLE) [facility] [place] TIME OR 2022-09-19 21:07:00 [facility] (NON-REPORTABLE) [facility] FUNGUS (ROUTINE) CULTURE 2022-09-19 20:28:00 [facility] 2022-09-19 20:28:00 Luis Arizmendi [facility] CULTURE(AEROBIC/ANAEROBIC) [facility] FUNGUS (ROUTINE) CULTURE 2022-09-19 20:28:00 Luis [facility] TISSUE 2022-09-19 20:28:00 Luis Arizmendi [facility] CULTURE(AEROBIC/ANAEROBIC) [facility] ARTERIOGRAM 2022-09-19 17:01:00 Luis Arizmendi [facility] ATHERECTOMY 2022-09-19 17:01:00 Luis Arizmendi [facility] ANGIOPLASTY 2022-09-19 17:01:00 Luis Arizmendi [facility] TOE AMPUTATION 2022-09-19 17:01:00 Luis Arizmendi [facility] ARTERIOGRAM 2022-09-19 17:01:00 Luis Arizmendi [facility] ATHERECTOMY 2022-09-19 17:01:00 Luis Arizmendi [facility] ANGIOPLASTY 2022-09-19 17:01:00 Luis Arizmendi [facility] TOE AMPUTATION 2022-09-19 17:01:00 Luis Arizmendi [facility] POCT GLUCOSE (AUTOMATED) 2022-09-19 14:13:00 [facility] PO[facility] GLU[facility]SE (AUTOMATED) 2022-09-19 14:13:00 Phill Tellez versity [facility] POCT GLUCOSE (AUTOMATED) 2022-09-19 14:13:00 Phill Tellez Saba versity of [facility] BASIC METABOLIC PANEL (NA, 2022-09-19 08:10:00 Lalli, Jamart [facility] [place] K, CL, CO2, GLUCOSE, BUN, [facility] CREATININE, CA) CBC WITH DIFF 2022-09-19 08:10:00 [facility] BASIC METABOLIC PANEL (NA, 2022-09-19 08:10:00 Lalli, Parthjit [facility] [place] K, CL, CO2, GLUCOSE, BUN, [facility] CREATININE, CA) CBC WITH DIFF 2022-09-19 08:10:00 [facility] BASIC METABOLIC PANEL (NA, 2022-09-19 08:10:00 Lalli, Jusjit [facility] [place] K, CL, CO2, GLUCOSE, BUN, [facility] CREATININE, CA) CBC WITH DIFF 2022-09-19 08:10:00 [facility] POCT GLUCOSE (AUTOMATED) 2022-09-19 03:47:00 Phill Tellez [facility] POCT GLUCOSE (AUTOMATED) 2022-09-19 03:47:00 Phill Tellez [facility] POCT GLUCOSE (AUTOMATED) 2022-09-19 03:47:00 Phill Tellez [facility] POCT GLUCOSE (AUTOMATED) 2022-09-18 22:00:00 Sinan Telleziq [facility] POCT GLUCOSE (AUTOMATED) 2022-09-18 22:00:00 Sinan Telleziq Uni vers[facility] of [facility] POCT GLUCOSE (AUTOMATED) 2022-09-18 22:00:00 Phill Tellez [facility] CARDIAC CATHETERIZATION 2022-09-18 18:40:[facility]22-09-18 18:40[facility] 2022-09-18 18:40:32 [place], Af [facility] CARDIAC CATHETERIZATION 2022-09-18 18:40:32 Motiwala, Afaq [facility] [place] [facility] CARDIAC CATHETERIZATION 2022-09-18 18:40:32 Motiwala, Afaq [facility] CARDIAC CATHETERIZATION 2022-09-18 18:40:32 [place], Af [facility] CARDIAC CATHETERIZATION 2022-09-18 18:40:32 Motiwala, Afaq [facility] CARDIAC CATHETERIZATION 2022-09-18 18:40:32 Motiwala, Afaq [facility] CARDIAC CATHETERIZATION 2022-09-18 18:40:32 Motiwala, Afaq [facility] CARDIAC CATHETERIZATION 2022-09-18 18:40:32 [place], Af [facility] CARDIAC CATHETERIZATION 2022-09-18 18:40:32 [place], Af [facility] CARDIAC CATHETERIZATION 2022-09-18 18:40:32 [place], Af [facility] POCT GLUCOSE (AUTOMATED) 2022-09-18 13:54:00 Phill Tellez [facility] POCT GLUCOSE (AUTOMATED) 2022-09-18 13:54:00 Phill Tellez [facility] POCT GLUCOSE (AUTOMATED) 2022-09-18 13:54:00 Phill Tellez Uni [facility] VANCOMYCIN RANDOM LEVEL 2022-09-18 09:04:00 Ash Zendejas [facility] ersity of [facility] VANCOMYCIN RANDOM LEVEL 2022-09-18 09:04:00 Ash Zendejas [facility] ersity of [facility] VANCOMYCIN RANDOM LEVEL 2022-09-18 09:04:00 Ash Zendejas [facility] ersity of [facility] POCT GLUCOSE (AUTOMATED) 2022-09-18 03:50:00 Phill Tellez [facility] POCT GLUCOSE (AUTOMATED) 2022-09-18 03:50:00 Phill Tellez [facility] POCT GLUCOSE (AUTOMATED) 2022-09-18 03:50:00 Phill Tellez [facility] POCT GLUCOSE (AUTOMATED) 2022-09-17 22:57:00 Rosalinda Phill [facility] POCT GLUCOSE (AUTOMATED) 2022-09-17 22:57:00 Rosalinda, Phill [facility] POCT GLUCOSE (AUTOMATED) 2022-09-17 22:57:00 Rosalinda, Phill [facility] POCT GLUCOSE (AUTOMATED) 2022-09-17 18:00:00 Rosalinda, Phill Uni [facility] POCT GLUCOSE (AUTOMATED) 2022-09-17 18:00:00 Rosalinda, Phill [facility] POCT GLUCOSE (AUTOMATED) 2022-09-17 18:00:00 Rosalinda, Phill Uni [facility] POCT GLUCOSE (AUTOMATED) 2022-09-17 18:00:00 Rosalinda Phill Uni versity of [facility] NM MYOCARDIUM PERFUSION 2022-09-17 17:33:00 Anthony Moss [facility] [place] [facility] [place] NM MYOCARDIUM PERFUSION 2022-09-17 17:33:00 Anthony Moss [facility] [place] [facility] NM MYOCARDIUM PERFUSION 2022-09-17 17:33:00 Anthony Moss [facility] [place] [facility] NM MYOCARDIUM PERFUSION 2022-09-17 17:33:00 Anthony Moss [facility] [place] [facility] POCT GLUCOSE (AUTOMATED) 2022-09-17 13:38:00 Sinan Telleziq Uni versity of [facility] POCT GLUCOSE (AUTOMATED) 2022-09-17 13:38:00 Rosalinda Phill Uni vers[facility] of [facility] POCT GLUCOSE (AUTOMATED) 2022-09-17 13:38:00 Rosalinda Phill Uni vers[facility] of [facility] POCT GLUCOSE (AUTOMATED) 2022-09-17 13:38:00 Sinan Telleziq Uni vers[facility] of [facility] BASIC METABOLIC PANEL (NA, 2022-09-17 10:39:00 Shyam Her [facility] K, CL, CO2, GLUCOSE, BUN, Medica [facility] Branch CREATININE, CA) CBC WITH DIFF 2022-09-17 10:39:00 Shyam Her o [facility] VANCOMYCIN TROUGH 2022-09-17 10:39:[address] [facility] BASIC METABOLIC PANEL (NA, 2022-09-17 10:39:00 Lalli, Jamart [facility] [place] K, CL, CO2, GLUCOSE, BUN, [facility] CREATININE, CA) VANCOMYCIN TROUGH 2022-09-17 10:39:[address] [facility] CBC WITH DIFF 2022-09-17 10:39:00 Shyam Her [place] o [facility] BASIC METABOLIC PANEL (NA, 2022-09-17 10:39:00 Lalli, Jamart [facility] [place] K, CL, CO2, GLUCOSE, BUN, [facility] CREATININE, CA) VANCOMYCIN TROUGH 2022-09-17 10:39:[address] [facility] CBC WITH DIFF 2022-09-17 10:39:00 Shyam Her [place] [facility] BASIC METABOLIC PANEL (NA, 2022-09-17 10:39:00 Lalli, Jamart [facility] [place] K, CL, CO2, GLUCOSE, BUN, [facility] CREATININE, CA) VANCOMYCIN TROUGH 2022-09-17 10:39:[address] [facility] CBC WITH DIFF 2022-09-17 10:39:00 [facility] POCT GLUCOSE (AUTOMATED) 2022-09-17 02:42:00 [facility]SE (AUTOMATED) 2022-09-17 02:42:00 Phill Tellez Uni versity [facility] POCT GLUCOSE (AUTOMATED) 2022-09-17 02:42:00 Phill Tellez Uni versity [facility] POCT GLUCOSE (AUTOMATED) 2022-09-17 02:42:00 Phill Tellez Uni versity [facility] POCT GLUCOSE (AUTOMATED) 2022-09-16 22:49:00 Phill Tellez Uni versity [facility] POCT GLUCOSE (AUTOMATED) 2022-09-16 22:49:00 Phill Tellez Uni vers[facility] of [facility] POCT GLUCOSE (AUTOMATED) 2022-09-16 22:49:00 Rosalinda Phill Uni [facility] of [facility] POCT GLUCOSE (AUTOMATED) 2022-09-16 22:49:00 RosalindaSinaniq Uni versity of [facility] POCT GLUCOSE (AUTOMATED) 2022-09-16 21:23:00 Rosalinda Phill Uni versity of [facility] POCT GLUCOSE (AUTOMATED) 2022-09-16 21:23:00 Rosalinda Phill Uni vers[facility] of [facility] POCT GLUCOSE (AUTOMATED) 2022-09-16 21:23:00 Rosalinda Phill Uni versity of [facility] POCT GLUCOSE (AUTOMATED) 2022-09-16 21:23:00 Rosalinda Phill Uni versity of [facility] POCT GLUCOSE (AUTOMATED) 2022-09-16 17:01:00 Rosalinda Phill [facility] of [facility] POCT GLUCOSE (AUTOMATED) 2022-09-16 17:01:00 Rosalinda Phill Uni vers[facility] of [facility] POCT GLUCOSE (AUTOMATED) 2022-09-16 17:01:00 Rosalinda Phill Uni vers[facility] of [facility] POCT GLUCOSE (AUTOMATED) 2022-09-16 17:01:00 Rosalinda Phill Uni vers[facility] of [facility] POCT GLUCOSE (AUTOMATED) 2022-09-16 13:22:00 Rosalinda Phill Uni versity of [facility] POCT GLUCOSE (AUTOMATED) 2022-09-16 13:22:00 Rosalinda Phill Uni versity of [facility] POCT GLUCOSE (AUTOMATED) 2022-09-16 13:22:00 Rosalinda Phill Uni versity of [facility] POCT GLUCOSE (AUTOMATED) 2022-09-16 13:22:00 Rosalinda Phill Uni versity of [facility] BASIC METABOLIC PANEL (NA, 2022-09-16 10:42:00 Maura Gagnon [facility] K, CL, CO2, GLUCOSE, BUN, Medica [facility] Branch CREATININE, CA) CBC WITH DIFF 2022-09-16 10:42:00 Kalin [facility] o f [facility] PHOSPHORUS 2022-09-16 10:42:00 Kalin [facility] MAGNESIUM 2022-09-16 10:42:00 Kalin [facility] PHOSPHORUS 2022-09-16 10:42:00 Kalin [facility] MAGNESIUM 2022-09-16 10:42:00 Kalin [facility] BASIC METABOLIC PANEL (NA, 2022-09-16 10:42:00 Kalin, med [facility] [place] K, CL, CO2, GLUCOSE, BUN, [facility]ica [facility] Branch CREATININE, CA) CBC WITH DIFF 2022-09-16 10:42:00 Kalin [facility] PHOSPHORUS 2022-09-16 10:42:00 Kalin [facility] MAGNESIUM 2022-09-16 10:42:00 Kalin [facility] BASIC METABOLIC PANEL (NA, 2022-09-16 10:42:00 Kalin, [facility] [place] K, CL, CO2, GLUCOSE, BUN, Medica [facility] CREATININE, CA) CBC WITH DIFF 2022-09-16 10:42:00 Kalin [facility] PHOSPHORUS 2022-09-16 10:42:00 Kalin [facility] MAGNESIUM 2022-09-16 10:42:00 Kalin [facility] BASIC METABOLIC PANEL (NA, 2022-09-16 10:42:00 Kalin, med [facility] [place] K, CL, CO2, GLUCOSE, BUN, [facility] CREATININE, CA) CBC WITH DIFF 2022-09-16 10:42:00 Kalin [facility] POCT GLUCOSE (AUTOMATED) 2022-09-16 03:12:00 Phill Tellez Uni versity [facility] POCT GLUCOSE (AUTOMATED) 2022-09-16 03:12:00 [facility] (AUTOMATED) 2022-09-16 03:12:00 Phill Tellez Uni versity [facility] POCT GLUCOSE (AUTOMATED) 2022-09-16 03:12:00 Phill Tellez versity [facility] VANCOMYCIN TROUGH 2022-09-15 23:54:[address] [facility] VANCOMYCIN TROUGH 2022-09-15 23:54:[address] [facility] VANCOMYCIN TROUGH 2022-09-15 23:54:[address] [facility] VANCOMYCIN TROUGH 2022-09-15 23:54:[address] [facility] POCT GLUCOSE (AUTOMATED) 2022-09-15 21:55:00 Phill Tellez Uni versity of [facility] POCT GLUCOSE (AUTOMATED) 2022-09-15 21:55:00 Sinan Telleziq Uni versity of [facility] POCT GLUCOSE (AUTOMATED) 2022-09-15 21:55:00 Sinan Telleziq Uni versity of [facility] POCT GLUCOSE (AUTOMATED) 2022-09-15 21:55:00 Sinan Telleziq Uni versity of [facility] POCT GLUCOSE (AUTOMATED) 2022-09-15 17:05:00 Rosalinda Phill [facility] vers[facility] of [facility] POCT GLUCOSE (AUTOMATED) 2022-09-15 17:05:00 Rosalinda Phill [facility] of [facility] POCT GLUCOSE (AUTOMATED) 2022-09-15 17:05:00 Rosalinda Phill [facility] of [facility] POCT GLUCOSE (AUTOMATED) 2022-09-15 17:05:00 Sinan Telleziq Uni versity of [facility] POCT GLUCOSE (AUTOMATED) 2022-09-15 13:07:00 Phill Tellez Uni vers[facility] of [facility] POCT GLUCOSE (AUTOMATED) 2022-09-15 13:07:00 Sinan Telleziq Uni vers[facility] of [facility] POCT GLUCOSE (AUTOMATED) 2022-09-15 13:07:00 Phill Tellez Uni [facility] of [facility] POCT GLUCOSE (AUTOMATED) 2022-09-15 13:07:00 Phill Tellez Uni versity of [facility] VITAMIN B12, LEVEL 2022-09-15 10:24:[address] [facility] FOLATE 2022-09-15 10:24:00 Anthony Moss [facility] BASIC METABOLIC PANEL (NA, 2022-09-15 10:24:00 Isa [facility] K, CL, CO2, GLUCOSE, BUN, Medica l Branch CREATININE, CA) MAGNESIUM 2022-09-15 10:24:00 Isa [facility] CBC WITH DIFF 2022-09-15 10:24:00 Joe Reyes [facility] MAGNESIUM 2022-09-15 10:24:00 Isa [facility] VITAMIN B12, LEVEL 2022-09-15 10:24:00 Isa [facility] FOLATE 2022-09-15 10:24:00 Isa [facility] BASIC METABOLIC PANEL (NA, 2022-09-15 10:24:00 Isa [facility] K, CL, CO2, GLUCOSE, BUN, Medica l Branch CREATININE, CA) CBC WITH DIFF 2022-09-15 10:24:00 Joe Reyes [facility] MAGNESIUM 2022-09-15 10:24:00 Isa [facility] VITAMIN B12, LEVEL 2022-09-15 10:24:00 Isa [facility] FOLATE 2022-09-15 10:24:00 Isa [facility] BASIC METABOLIC PANEL (NA, 2022-09-15 10:24:[address] [facility], CL, CO2, GLUCOSE, BUN, Medica [facility] Branch CREATININE, CA) CBC WITH DIFF 2022-09-15 10:24:00 Joe Reyes [facility] MAGNESIUM 2022-09-15 10:24:00 Isa [facility] VITAMIN B12, LEVEL 2022-09-15 10:24:00 Isa [facility] FOLATE 2022-09-15 10:24:00 Isa [facility] BASIC METABOLIC PANEL (NA, 2022-09-15 10:24:00 Isa [facility] K, CL, CO2, GLUCOSE, BUN, Medica l Branch CREATININE, CA) CBC WITH DIFF 2022-09-15 10:24:00 Joe Reyes [facility] POCT GLUCOSE (AUTOMATED) 2022-09-15 03:36:00 Rosalinda, Phill [facility] of [facility] POCT GLUCOSE (AUTOMATED) 2022-09-15 03:36:00 Rosalinda, Phill Uni vers[facility] of [facility] POCT GLUCOSE (AUTOMATED) 2022-09-15 03:36:00 Rosalinda, Phill Uni vers[facility] of [facility] POCT GLUCOSE (AUTOMATED) 2022-09-15 03:36:00 Rosalinda, Phill Uni vers[facility] of [facility] POCT GLUCOSE (AUTOMATED) 2022-09-15 02:42:00 Rosalinda, Phill Uni vers[facility] of [facility] POCT GLUCOSE (AUTOMATED) 2022-09-15 02:42:00 Rosalinda, Phill Uni vers[facility] of [facility] POCT GLUCOSE (AUTOMATED) 2022-09-15 02:42:00 Rosalinda, Phill Uni vers[facility] of [facility] POCT GLUCOSE (AUTOMATED) 2022-09-15 02:42:00 Rosalinda, Phill Uni vers[facility] of [facility] POCT GLUCOSE (AUTOMATED) 2022-09-14 21:25:00 Rosalinda, Phill Uni [facility] of [facility] POCT GLUCOSE (AUTOMATED) 2022-09-14 21:25:00 Rosalinda, Phill Uni [facility] of [facility] POCT GLUCOSE (AUTOMATED) 2022-09-14 21:25:00 Rosalinda, Phill [facility] POCT GLUCOSE (AUTOMATED) 2022-09-14 21:25:00 Rosalinda, Phill Uni versity [facility] TROPONIN I 2022-09-14 20:23:00 Leighton [facility] TROPONIN I 2022-09-14 20:23:00 [facility] 2022-09-14 20:23:00 Leighton [facility] TROPONIN I 2022-09-14 20:23:00 Leighton [facility] HB ECG ROUTINE & RHYTHM 2022-09-14 18:26:42 [facility] & RHYTHM 2022-09-14 18:26:42 [facility] HB ECG ROUTINE & RHYTHM 2022-09-14 18:26:[address] [facility] VANCOMYCIN TROUGH 2022-09-14 17:52:[address] [facility] VANCOMYCIN TROUGH 2022-09-14 17:52:[address] [facility] VANCOMYCIN TROUGH 2022-09-14 17:52:[address] [facility] VANCOMYCIN TROUGH 2022-09-14 17:52:[address] [facility] POCT GLUCOSE (AUTOMATED) 2022-09-14 17:45:[address] [facility] POCT GLUCOSE (AUTOMATED) 2022-09-14 17:45:00 Rosalinda Phill [facility] POCT GLUCOSE (AUTOMATED) 2022-09-14 17:45:[address] [facility] POCT GLUCOSE (AUTOMATED) 2022-09-14 17:45:[address] [facility] OSMOLALITY URINE 2022-09-14 15:18:00 Anthony Moss [facility] SODIUM, URINE RANDOM 2022-09-14 15:18:[address] [facility] CREATININE, URINE RANDOM 2022-09-14 15:18:00 Anthony Moss [facility] OSMOLALITY URINE 2022-09-14 15:18:00 Anthony Moss [facility] CREATININE, URINE RANDOM 2022-09-14 15:18:00 Anthony Moss [facility] SODIUM, URINE RANDOM 2022-09-14 15:18:00 Anthony Moss [facility] OSMOLALITY URINE 2022-09-14 15:18:00 Anthony Moss [facility] CREATININE, URINE RANDOM 2022-09-14 15:18:00 Anthony Moss [facility] SODIUM, URINE RANDOM 2022-09-14 15:18:[address] [facility] OSMOLALITY URINE 2022-09-14 15:18:00 Anthony Moss [facility] CREATININE, URINE RANDOM 2022-09-14 15:18:00 Anthony Moss [facility] SODIUM, URINE RANDOM 2022-09-14 15:18:[address] [facility] POCT GLUCOSE (AUTOMATED) 2022-09-14 13:56:00 [facility]) 2022-09-14 13:56:00 Rosalinda, [facility] POCT GLUCOSE (AUTOMATED) 2022-09-14 13:56:00 Rosalinda, [facility] POCT GLUCOSE (AUTOMATED) 2022-09-14 13:56:[address] [facility] LIPID PANEL ([id number])(TOTAL 2022-09-14 09:15:00 Isa [facility] TRIGLYCERID[facility], HDL) TROPONIN I 2022-09-14 09:15:00 Isa [facility] N-TERMINAL PRO-BNP 2022-09-14 09:15:[address] [facility] MAGNESIUM 2022-09-14 09:15:00 Jayy [facility] OSMOLALITY, SERUM OR 2022-09-14 09:15:00 Anthony Moss [facility] TROPONIN I 2022-09-14 09:15:00 Isa [facility] BASIC METABOLIC PANEL (NA, 2022-09-14 09:15:00 Alonso [facility] K, CL, CO2, GLUCOSE, BUN, [facility] CREATININE, CA) LIPID PANEL ([id number])(TOTAL 2022-09-14 09:15:00 Isa [facility] TRIGLYCERIDES, HDL) CBC WITH DIFF 2022-09-14 09:15:00 Jayy [facility] HB ABO GROUPING 2022-09-14 09:15:00 Nick Fraire [facility] N-TERMINAL PRO-BNP 2022-09-14 09:15:[address] [facility] MAGNESIUM 2022-09-14 09:15:00 Jayy [facility] OSMOLALITY, SERUM OR 2022-09-14 09:15:00 Isa [facility] TROPONIN I 2022-09-14 09:15:00 Isa [facility] BASIC METABOLIC PANEL (NA, 2022-09-14 09:15:00 Alonso [facility] K, CL, CO2, GLUCOSE, BUN, [facility] CREATININE, CA) LIPID PANEL ([id number])(TOTAL 2022-09-14 09:15:00 Isa [facility] CHOLESTEROL, [facility] TRIGLYCERIDES, HDL) CBC WITH DIFF 2022-09-14 09:15:00 Jayy [facility] HB ABO GROUPING 2022-09-14 09:15:00 Nick Fraire [facility] N-TERMINAL PRO-BNP 2022-09-14 09:15:00 Isa [facility] MAGNESIUM 2022-09-14 09:15:00 Jayy [facility] OSMOLALITY, SERUM OR 2022-09-14 09:15:00 Isa [facility] TROPONIN I 2022-09-14 09:15:00 Isa [facility] BASIC METABOLIC PANEL (NA, 2022-09-14 09:15:00 Alonso [facility] K, CL, CO2, GLUCOSE, BUN, [facility] [place] CREATININE, CA) LIPID PANEL ([id number])(TOTAL 2022-09-14 09:15:00 Isa [facility] CHOLESTEROL, [facility] TRIGLYCERIDES, HDL) CBC WITH DIFF 2022-09-14 09:15:00 Jayy [facility] HB ABO GROUPING 2022-09-14 09:15:00 Nick Fraire [facility] N-TERMINAL PRO-BNP 2022-09-14 09:15:00 Isa [facility] BASIC METABOLIC PANEL (NA, 2022-09-14 09:15:00 Alonso Hope [facility] K, CL, CO2, GLUCOSE, BUN, [facility] CREATININE, CA) CBC WITH DIFF 2022-09-14 09:15:00 Jayy [facility] MAGNESIUM 2022-09-14 09:15:00 Immanuellilian [facility] HB ABO GROUPING 2022-09-14 09:15:00 Nick Fraire [facility] OSMOLALITY, SERUM OR 2022-09-14 09:15:00 Anthony Moss [facility] POCT GLUCOSE (AUTOMATED) 2022-09-14 03:54:00 Rosalinda Phill [facility] POCT GLUCOSE (AUTOMATED) 2022-09-14 03:54:00 Rosalinda, Phill [facility] POCT GLUCOSE (AUTOMATED) 2022-09-14 03:54:00 Rosalinda, Phill [facility] POCT GLUCOSE (AUTOMATED) 2022-09-14 03:54:00 Rosalinda, Phill [facility] POCT GLUCOSE (AUTOMATED) 2022-09-14 02:58:00 Rosalinda, Phill [facility] POCT GLUCOSE (AUTOMATED) 2022-09-14 02:58:00 Rosalinda, Phill [facility] POCT GLUCOSE (AUTOMATED) 2022-09-14 02:58:00 Rosalinda, Phill [facility] POCT GLUCOSE (AUTOMATED) 2022-09-14 02:58:00 Rosalinda, Phill [facility] POCT GLUCOSE (AUTOMATED) 2022-09-13 22:49:00 Rosalinda, Phill [facility] POCT GLUCOSE (AUTOMATED) 2022-09-13 22:49:00 Rosalinda, Phill [facility] POCT GLUCOSE (AUTOMATED) 2022-09-13 22:49:00 Rosalinda, Phill [facility] POCT GLUCOSE (AUTOMATED) 2022-09-13 22:49:00 Rosalinda, Phill [facility] POCT GLUCOSE (AUTOMATED) 2022-09-13 17:47:00 RosalindaPhill [facility] POCT GLUCOSE (AUTOMATED) 2022-09-13 17:47:00 Phill Tellez [facility] POCT GLUCOSE (AUTOMATED) 2022-09-13 17:47:00 Phill Tellez [facility] POCT GLUCOSE (AUTOMATED) 2022-09-13 17:47:00 RosalindaPhill [facility] ACTIVATED PARTIAL THRMPLAS 2022-09-13 15:46:00 Joe Reyes [facility] ACTIVATED PARTIAL THRMPLAS 2022-09-13 15:46:00 Joe Reyes [facility] ACTIVATED PARTIAL THRMPLAS 2022-09-13 15:46:00 Joe Reyes [facility] ACTIVATED PARTIAL THRMPLAS 2022-09-13 15:46:00 Joe Reyes [facility] POCT GLUCOSE (AUTOMATED) 2022-09-13 14:07:[address] [facility] POCT GLUCOSE (AUTOMATED) 2022-09-13 14:07:[address] [facility] POCT GLUCOSE (AUTOMATED) 2022-09-13 14:07:[address] [facility] POCT GLUCOSE (AUTOMATED) 2022-09-13 14:07:00 [facility] / MSSA SCREEN BY PCR, 2022-09-13 10:26:00 Joe Reyes [facility] MRSA / MSSA SCREEN BY PCR, 2022-09-13 10:26:00 Joe Reyes [facility] MRSA / MSSA SCREEN BY PCR, 2022-09-13 10:26:00 Joe Reyes [facility] MRSA / MSSA SCREEN BY PCR, 2022-09-13 10:26:00 Joe Reyes [facility] CBC WITHOUT DIFF 2022-09-13 10:24:00 Joe Reyes [facility] ACTIVATED PARTIAL THRMPLAS 2022-09-13 10:24:00 Joe Reyes [facility] CBC WITHOUT DIFF 2022-09-13 10:24:00 Joe Reyes [facility] ACTIVATED PARTIAL THRMPLAS 2022-09-13 10:24:00 Joe Reyes [facility] CBC WITHOUT DIFF 2022-09-13 10:24:00 Joe Reyes [facility] ACTIVATED PARTIAL THRMPLAS 2022-09-13 10:24:00 Joe Reyes [facility] CBC WITHOUT DIFF 2022-09-13 10:24:00 Joe Reyes [facility] ACTIVATED PARTIAL THRMPLAS 2022-09-13 10:24:00 Joe Reyes [facility] POCT GLUCOSE (AUTOMATED) 2022-09-13 03:19:00 [facility] 2022-09-13 03:19:00 [facility]ATED) 2022-09-13 03:19:00 Rosalinda, [facility]OMATED) 2022-09-13 03:19:00 [facility] (AUTOMATED) 2022-09-12 23:30:00 Rosalinda, [facility] (AUTOMATED) 2022-09-12 23:30:00 Ros[facility]nida [facility] ([facility]OMATED) 2022-09-12 23:30:00 Rosalinda, Phill Uni versity [facility] POCT GLUCOSE (AUTOMATED) 2022-09-12 23:30:00 Rosalinda Phill Uni [facility] BASIC METABOLIC PANEL (NA, 2022-09-12 20:44:00 Joe Reyes [facility] K, CL, CO2, GLUCOSE, BUN, Medica [facility] Branch CREATININE, CA) CBC WITH DIFF 2022-09-12 20:44:00 Nancy Marx [facility] PROTHROMBIN TIME / INR 2022-09-12 20:44:00 [facility]PLAS 2022-09-12 20:44:00 Joe Reyes [facility] BASIC METABOLIC PANEL (NA, 2022-09-12 20:44:00 Joe Reyes [facility] K, CL, CO2, GLUCOSE, BUN, [facility] CREATININE, CA) CBC WITH DIFF 2022-09-12 20:44:00 Nancy Marx [facility] PROTHROMBIN TIME / INR 2022-09-12 20:44:00 [facility] ACTIVATED PARTIAL THRMPLAS 2022-09-12 20:44:00 Joe Reyes [facility] BASIC METABOLIC PANEL (NA, 2022-09-12 20:44:00 Joe Reyes [facility] K, CL, CO2, GLUCOSE, BUN, [facility] CREATININE, CA) CBC WITH DIFF 2022-09-12 20:44:00 Nancy Marx [facility] PROTHROMBIN TIME / INR 2022-09-12 20:44:00 Joe Reyes Un [facility] ACTIVATED PARTIAL THRMPLAS 2022-09-12 20:44:00 Jeo Reyes [facility] CBC WITH DIFF 2022-09-12 20:44:00 Nancy Marx [facility] BASIC METABOLIC PANEL (NA, 2022-09-12 20:44:00 Joe Reyes [facility] K, CL, CO2, GLUCOSE, BUN, Medica [facility] CREATININE, CA) PROTHROMBIN TIME / INR 2022-09-12 20:44:00 [facility] ACTIVATED PARTIAL THRMPLAS 2022-09-12 20:44:00 Joe Reyes [facility] CONSENT/REFUSAL FOR 2022-09-12 17:03:17 Doctor Unassigned, [facility]REFUSAL FOR 2022-09-12 17:03:17 Doctor Unassigned, [facility] DIAGNOSIS AND TREATMENT [place] [facility] CONSENT/REFUSAL FOR 2022-09-12 17:03:17 [facility] DI[facility]AT[facility] [place] [facility] CONSENT/REFUSAL FOR 2022-09-12 17:03:17 Doctor Alejandro [facility] DIAGNOSIS AND TREATMENT [place] [facility] HOME HEALTH - OTHER 2022-08-22 06:01:00 Doctor Ale[facility]andro [facility] [place] [facility] MR FOOT LEFT WO CONTRAST 2022-07-27 17:55:28 Kang Hercules [facility] A Medical Branch MR FOOT LEFT WO CONTRAST 2022-07-27 17:55:28 Kang Hercules [facility] A Medical Branch NOTICE OF PRIVACY 2022-07-27 15:41:31 Doctor Alejandro, [facility] PRACTICES [place] [facility] NOTICE OF PRIVACY 2022-07-27 15:41:31 Doctor Alejandro, [facility] [place] [facility] CONSENT/REFUSAL FOR 2022-07-27 15:41:08 Doctor Allen [facility] DIAGNOSIS AND TREATMENT [place] [facility] CONSENT/REFUSAL FOR 2022-07-27 15:41:08 Doctor Alejandro [facility] DIAGNOSIS AND TREATMENT [place] [facility] ASSIGNMENT OF BENEFITS 2022-07-27 15:40:44 Doctor Alejandro, Un [facility] [place] [facility] ASSIGNMENT OF BENEFITS 2022-07-27 15:40:44 Doctor Alejandro, Un [facility] [place] [facility] PATIENT QUESTIONNAIRE 2022-07-27 06:01:00 Doctor Alejandro [facility] [place] [facility] XR FOOT 3+ VW LEFT 2022-07-23 15:19:00 Yessenia Hercules [facility] A Medical Branch XR FOOT 3+ VW LEFT 2022-07-23 15:19:00 Marlen Yessenia [facility] A Medical Branch EXTERNAL PROVIDER RECORDS 2022-05-22 05:01:00 Doctor Allen, [facility] [place] [facility] XR FOOT 3+ VW LEFT 2022-05-18 14:56:00 Richard Herculesuwatosin [facility] A Medical Branch ASSIGNMENT OF BENEFITS 2022-05-18 14:30:54 Doctor Unasskennedy, [facility] [place] [facility] POCT GLUCOSE (AUTOMATED) 2022-05-10 21:51:00 Mis Caterina [facility] POCT GLUCOSE (AUTOMATED) 2022-05-10 17:27:00 Mis, Caterina [facility] POCT GLUCOSE (AUTOMATED) 2022-05-10 17:27:00 Mis Caterina [facility] POCT GLUCOSE (AUTOMATED) 2022-05-10 13:18:00 iMs, Caterina [facility] POCT GLUCOSE (AUTOMATED) 2022-05-10 13:18:00 Krishna Sharifra [facility] MAGNESIUM 2022-05-10 09:13:00 [facility] BASIC METABOLIC PANEL (NA, 2022-05-10 09:13:00 [facility] K, CL, CO2, GLUCOSE, BUN, [facility] CREATININE, CA) CBC WITH DIFF 2022-05-10 09:13:00 [facility] MAGNESIUM 2022-05-10 09:13:00 [facility] BASIC METABOLIC PANEL (NA, 2022-05-10 09:13:00 [place] [facility] K, CL, CO2, GLUCOSE, BUN, [facility] CREATININE, CA) CBC WITH DIFF 2022-05-10 09:13:00 [facility] POCT GLUCOSE (AUTOMATED) 2022-05-10 01:15:00 Caterina Sharif [facility] POCT GLUCOSE (AUTOMATED) 2022-05-10 01:15:00 Mis Caterina [facility] POCT GLUCOSE (AUTOMATED) 2022-05-09 22:37:00 Mis Caterina [facility] POCT GLUCOSE (AUTOMATED) 2022-05-09 22:37:00 Mis, Caterina [facility] POCT GLUCOSE (AUTOMATED) 2022-05-09 17:41:00 Mis Caterina [facility] POCT GLUCOSE (AUTOMATED) 2022-05-09 17:41:00 Caterina Sharif [facility] [place] TISSUE 2022-05-09 16:31:[address] [facility] CULTURE(AEROBIC/ANAEROBIC) A [facility] al Branch FUNGUS (ROUTINE) CULTURE 2022-05-09 16:31:00 Kang Hercules [facility] FUNGUS (ROUTINE) CULTURE 2022-05-09 16:31:00 Kang Hercules [facility] TISSUE 2022-05-09 16:31:[address] [facility] CULTURE(AEROBIC/ANAEROBIC) A [facility] TISSUE 2022-05-09 16:20:[address] [facility] CULTURE(AEROBIC/ANAEROBIC) A [facility] FUNGUS (ROUTINE) CULTURE 2022-05-09 16:20:00 Kang Hercules [facility] FUNGUS (ROUTINE) CULTURE 2022-05-09 16:20:00 Kang Hercules [facility] TISSUE 2022-05-09 16:20:[address] [facility] CULTURE(AEROBIC/ANAEROBIC) A [facility] TISSUE 2022-05-09 16:15:[address] [facility] CULTURE(AEROBIC/ANAEROBIC) A [facility] FUNGUS (ROUTINE) CULTURE 2022-05-09 16:15:00 Kang Hercules [facility] FUNGUS (ROUTINE) CULTURE 2022-05-09 16:15:00 Kang Hercules [facility] TISSUE 2022-05-09 16:15:[address] [facility] CULTURE(AEROBIC/ANAEROBIC) A [facility] Branch TOE AMPUTATION 2022-05-09 15:33:00 Richard Herculesuwatosin [facility] TOE AMPUTATION 2022-05-09 15:33:00 Taco [facility] PO[facility] GLUCOSE (AUTOMATED) 2022-05-09 15:10:00 Caterina Sharif [facility] POCT GLUCOSE (AUTOMATED) 2022-05-09 15:10:00 Caterina Sharif [facility] POCT GLUCOSE (AUTOMATED) 2022-05-09 12:45:00 Caterina Sharif [facility] POCT GLUCOSE (AUTOMATED) 2022-05-09 12:45:00 Caterina Sharif Uni versity [facility] MAGNESIUM 2022-05-09 10:46:00 [facility] BASIC METABOLIC PANEL (NA, 2022-05-09 10:46:00 [place] [facility] K, CL, CO2, GLUCOSE, BUN, [facility] CREATININE, CA) CBC WITH DIFF 2022-05-09 10:46:00 [facility] MAGNESIUM 2022-05-09 10:46:00 [facility] BASIC METABOLIC PANEL (NA, 2022-05-09 10:46:00 [place] [facility] K, CL, CO2, GLUCOSE, BUN, [facility] CREATININE, CA) CBC WITH DIFF 2022-05-09 10:46:00 [facility] POCT GLUCOSE (AUTOMATED) 2022-05-09 09:24:00 Caterina Sharif Uni versity [facility] POCT GLUCOSE (AUTOMATED) 2022-05-09 09:24:00 Caterina Sharif [facility] POCT GLUCOSE (AUTOMATED) 2022-05-09 05:00:00 Caterina Sharif [facility] POCT GLUCOSE (AUTOMATED) 2022-05-09 05:00:00 Caterina Sharif [facility] POCT GLUCOSE (AUTOMATED) 2022-05-09 04:40:00 Mis Caterina [facility] POCT GLUCOSE (AUTOMATED) 2022-05-09 04:40:00 Mis Caterina [facility] POCT GLUCOSE (AUTOMATED) 2022-05-09 01:17:00 Caterina Sharif [facility] POCT GLUCOSE (AUTOMATED) 2022-05-09 01:17:00 [facility]) 2022-05-08 22:08:00 Caterina Sharif [facility] POCT GLUCOSE (AUTOMATED) 2022-05-08 22:08:00 Caterina Sharif [facility] MR FOOT LEFT W WO CONTRAST 2022-05-08 19:50:21 [place] Rudd [facility] MR FOOT LEFT W WO CONTRAST 2022-05-08 19:50:21 [place] Rudd [facility] POCT GLUCOSE (AUTOMATED) 2022-05-08 16:54:00 Caterina Sharif [facility] POCT GLUCOSE (AUTOMATED) 2022-05-08 16:54:00 Caterina Sharif [facility] AMELIA MULTI LEVEL - BY 2022-05-08 14:59:[address] [facility] VASCULAR LAB [facility] AMELIA MULTI LEVEL - BY 2022-05-08 14:59:[address] [facility] VASCULAR LAB [facility] POCT GLUCOSE (AUTOMATED) 2022-05-08 13:46:00 Caterina Sharif [facility] POCT GLUCOSE (AUTOMATED) 2022-05-08 13:46:00 Caterina Sharif Uni [facility] POCT GLUCOSE (AUTOMATED) 2022-05-08 10:09:00 Caterina Sharif [facility] POCT GLUCOSE (AUTOMATED) 2022-05-08 10:09:00 Caterina Sharif [facility] MAGNESIUM 2022-05-08 10:03:00 Blaire [facility] BASIC METABOLIC PANEL (NA, 2022-05-08 10:03:00 [place] Rudd [facility] K, CL, CO2, GLUCOSE, BUN, Medica l Branch CREATININE, CA) CBC WITH DIFF 2022-05-08 10:03:00 Blaire [facility] MAGNESIUM 2022-05-08 10:03:00 Blaire [facility] BASIC METABOLIC PANEL (NA, 2022-05-08 10:03:00 [place] Rudd [facility] K, CL, CO2, GLUCOSE, BUN, Medica l Branch CREATININE, CA) CBC WITH DIFF 2022-05-08 10:03:00 Misael Ruddvakiana [facility] POCT GLUCOSE (AUTOMATED) 2022-05-08 04:51:[address] [facility] POCT GLUCOSE (AUTOMATED) 2022-05-08 04:51:00 Caterina Sharif Uni [facility] POCT GLUCOSE (AUTOMATED) 2022-05-08 02:20:[address] [facility] POCT GLUCOSE (AUTOMATED) 2022-05-08 02:20:[address] [facility] XR ABDOMEN 2 VW 2022-05-07 22:45:26 Hemanth [facility] XR LUMBAR SPINE 2 VW 2022-05-07 22:45:26 Hemanth [facility] XR FEMUR 2 VW LEFT 2022-05-07 22:45:26 Hemanth [facility] XR ABDOMEN 2 VW 2022-05-07 22:45:26 Hemanth [facility] XR LUMBAR SPINE 2 VW 2022-05-07 22:45:26 Hemanth [facility] XR FEMUR 2 VW LEFT 2022-05-07 22:45:26 Hemanth [facility] CBC WITHOUT DIFF 2022-05-07 21:39:00 Blaire [facility] CBC WITHOUT DIFF 2022-05-07 21:39:00 Blaire [facility] TRANSTHORACIC ECHO (TTE) 2022-05-07 20:21:32 Luis Neff [facility] W/ CONTRAST Medical [facility] TRANSTHORACIC ECHO (TTE) 2022-05-07 20:21:32 Luis Neff [facility] COMPLETE W/ CONTRAST [facility] POCT GLUCOSE (AUTOMATED) 2022-05-07 18:27:[address] [facility] POCT GLUCOSE (AUTOMATED) 2022-05-07 18:27:[address] [facility] POCT GLUCOSE (AUTOMATED) 2022-05-07 13:46:[address] [facility] POCT GLUCOSE (AUTOMATED) 2022-05-07 13:46:[address] [facility] TRANSFUSE PACKED RBC 2022-05-07 11:05:00 [facility] TRANSFUSE PACKED RBC 2022-05-07 11:05:00 [facility] PREPARE PACKED RBC 2022-05-07 10:58:48 [facility] PREPARE PACKED RBC 2022-05-07 10:58:48 [facility] MAGNESIUM 2022-05-07 08:29:[facility] 2022-05-07 08:29:00 Blaire [facility] BASIC METABOLIC PANEL (NA, 2022-05-07 08:29:00 Hemanth [facility] K, CL, CO2, GLUCOSE, BUN, Medica l Branch CREATININE, CA) CBC WITH DIFF 2022-05-07 08:29:00 Hemanth [facility] GLYCOSYLATED HEMOGLOBIN 2022-05-07 08:29:00 Blaire [facility] Medical Branch MAGNESIUM 2022-05-07 08:29:00 [facility] 2022-05-07 08:29:00 [facility] BASIC METABOLIC PANEL (NA, 2022-05-07 08:29:00 [facility], [facility], CO2, GLUCOSE, BUN, Medica l Branch CREATININE, CA) CBC WITH DIFF 2022-05-07 08:29:00 Hemanth [facility] GLYCOSYLATED HEMOGLOBIN 2022-05-07 08:29:00 [facility] Branch POCT GLUCOSE (AUTOMATED) 2022-05-07 04:49:00 Mis Caterina [facility] POCT GLUCOSE (AUTOMATED) 2022-05-07 04:49:00 Mis Caterina [facility] POCT GLUCOSE (AUTOMATED) 2022-05-07 04:25:00 Mis Caterina [facility] POCT GLUCOSE (AUTOMATED) 2022-05-07 04:25:00 Mis Caterina [facility] POCT GLUCOSE (AUTOMATED) 2022-05-07 04:11:00 Mis Caterina [facility] POCT GLUCOSE (AUTOMATED) 2022-05-07 04:11:00 Mis Caterina [facility] POCT GLUCOSE (AUTOMATED) 2022-05-07 01:22:00 Mis Caterina [facility] POCT GLUCOSE (AUTOMATED) 2022-05-07 01:22:00 Mis Caterina [facility] POCT GLUCOSE (AUTOMATED) 2022-05-06 22:57:00 Mis Caterina [facility] POCT GLUCOSE (AUTOMATED) 2022-05-06 22:57:00 Mis Caterina [facility] POCT GLUCOSE (AUTOMATED) 2022-05-06 16:48:00 Mis Caterina [facility] POCT GLUCOSE (AUTOMATED) 2022-05-06 16:48:00 Krishna Sharifra [facility] POCT GLUCOSE (AUTOMATED) 2022-05-06 12:51:00 Mis Caterina [facility] POCT GLUCOSE (AUTOMATED) 2022-05-06 12:51:00 Krishna Sharifra [facility] MAGNESIUM 2022-05-06 08:38:00 [place] Rudd o f [facility] BASIC METABOLIC PANEL (NA, 2022-05-06 08:38:00 [place] Rudd [facility] K, CL, CO2, GLUCOSE, BUN, Medica l Branch CREATININE, CA) CBC WITH DIFF 2022-05-06 08:38:00 [place] Rudd [facility] MAGNESIUM 2022-05-06 08:38:00 Blaire [facility] BASIC METABOLIC PANEL (NA, 2022-05-06 08:38:00 [place] Rudd [facility] K, CL, CO2, GLUCOSE, BUN, Medica l Branch CREATININE, CA) CBC WITH DIFF 2022-05-06 08:38:00 [facility] PO[facility] GLUCOSE (AUTOMATED) 2022-05-06 01:59:[address] [facility] POCT GLUCOSE (AUTOMATED) 2022-05-06 01:59:00 Mis [facility] POCT GLUCOSE (AUTOMATED) 2022-05-05 23:45:00 Mis [facility] POCT GLUCOSE (AUTOMATED) 2022-05-05 23:45:[address] [facility] ABORH CONFIRMATION (LAB 2022-05-05 22:39:00 Blaire [facility] ONLY) Medical Branch ABORH CONFIRMATION (LAB 2022-05-05 22:39:00 [facility]aire[facility]ly [facility] ONLY) Medical Branch HB ABO GROUPING 2022-05-05 22:05:00 Blaire [facility] HB ABO GROUPING 2022-05-05 22:05:00 [facility] COVID-19 (ID NOW RAPID 2022-05-05 20:37:00 [facility] LAB ONLY COVID 2022-05-05 20:37:00 Blaire [facility] COVID-19 (ID NOW RAPID 2022-05-05 20:37:00 Blaire [facility] TESTING) Medical Branch LAB ONLY COVID 2022-05-05 20:37:00 Blaire [facility] CBC WITH DIFF 2022-05-05 20:34:00 Blaire [facility] CBC WITH DIFF 2022-05-05 20:34:00 Blaire [facility] XR FOOT 3+ VW BILATERAL 2022-05-05 18:53:00 Tawanda [facility] XR FOOT 3+ VW BILATERAL 2022-05-05 18:53:00 Luis Neff [facility] XR CHEST 1 VW 2022-05-05 18:48:00 Blaire [facility] XR CHEST 1 VW 2022-05-05 18:48:00 Blaire [facility] ABDOMEN LIMITED 2022-05-05 17:59:[address] [facility] US ABDOMEN LIMITED 2022-05-05 17:59:[address] [facility] POCT GLUCOSE (AUTOMATED) 2022-05-05 17:08:[address] [facility] POCT GLUCOSE (AUTOMATED) 2022-05-05 17:08:[address] [facility] HB ECG ROUTINE & RHYTHM 2022-05-05 16:30:57 Blaire [facility] HB ECG ROUTINE & RHYTHM 2022-05-05 16:30:57 Blaire [facility] URINALYSIS 2022-05-05 15:45:00 Tawanda [facility] URINALYSIS 2022-05-05 15:45:00 Tawanda [facility] POCT GLUCOSE (AUTOMATED) 2022-05-05 12:56:[address] [facility] POCT GLUCOSE (AUTOMATED) 2022-05-05 12:56:00 Caterina Sharif [facility] MAGNESIUM 2022-05-05 09:17:00 Luis Neff [facility] VITAMIN B12, LEVEL 2022-05-05 09:17:00 Luis Neff [facility] FOLATE 2022-05-05 09:17:00 Luis Neff [facility] BASIC METABOLIC PANEL (NA, 2022-05-05 09:17:00 Luis Neff [facility] K, CL, CO2, GLUCOSE, BUN, Medica l Branch CREATININE, CA) SEDIMENTATION RATE 2022-05-05 09:17:00 Luis Neff [facility] CBC WITH DIFF 2022-05-05 09:17:00 Luis Neff [facility] MAGNESIUM 2022-05-05 09:17:00 Tawanda [facility] VITAMIN B12, LEVEL 2022-05-05 09:17:00 Luis Neff [facility] FOLATE 2022-05-05 09:17:00 Tawanda [facility] BASIC METABOLIC PANEL (NA, 2022-05-05 09:17:00 Luis Neff [facility] K, CL, CO2, GLUCOSE, BUN, Medica Branch CREATININE, CA) SEDIMENTATION RATE 2022-05-05 09:17:00 Tawanda [facility] CBC WITH DIFF 2022-05-05 09:17:00 Tawanda [facility] BLOOD CULTURE SCREEN 2022-05-05 05:49:[address] [facility] BLOOD CULTURE SCREEN 2022-05-05 05:49:[address] [facility] FERRITIN SERUM 2022-05-05 05:48:00 Tawanda [facility] HEPATIC FUNCTION PANEL 2022-05-05 05:48:00 Luis Neff [facility] ([id number]) (ALB,T.PRO,BILI Medical Branch T,BU/BC,ALT,AST,ALK PHOS) BASIC METABOLIC PANEL (NA, 2022-05-05 05:48:00 Luis Neff [facility] K, CL, CO2, GLUCOSE, BUN, Medica Branch CREATININE, CA) IRON PANEL 2022-05-05 05:48:00 Tawanda [facility] CBC WITH DIFF 2022-05-05 05:48:00 Tawanda [facility] PROTHROMBIN TIME / INR 2022-05-05 05:48:[address] [facility] ACTIVATED PARTIAL THRMPLAS 2022-05-05 05:48:00 Luis Neff [facility] N-TERMINAL PRO-BNP 2022-05-05 05:48:00 Luis Neff [facility] FERRITIN SERUM 2022-05-05 05:48:00 Luis Neff [facility] HEPATIC FUNCTION PANEL 2022-05-05 05:48:00 Luis Neff [facility] ([id number]) (ALB,T.PRO,BILI Medical Branch T,BU/BC,ALT,AST,ALK PHOS) BASIC METABOLIC PANEL (NA, 2022-05-05 05:48:00 Luis Neff [facility] K, CL, CO2, GLUCOSE, BUN, Medica l Branch CREATININE, CA) IRON PANEL 2022-05-05 05:48:00 Tawanda [facility] CBC WITH DIFF 2022-05-05 05:48:00 Luis Neff [facility] PROTHROMBIN TIME / INR 2022-05-05 05:48:[address] [facility] ACTIVATED PARTIAL THRMPLAS 2022-05-05 05:48:00 Luis Neff [facility] N-TERMINAL PRO-BNP 2022-05-05 05:48:00 Luis Neff [facility] Plan of Care Planned Activity Planned Date Details Comments Source Future Scheduled 2022-08-[address] [facility] 00:00:00 (12+) [code = [facility] DEPRESSION SCREENING (12+)] Future Scheduled 2022-08-26 FALLS RISK SCREENING [facility] 00:00:00 [code = FALLS RISK Medical C enter SCREENING] Future Scheduled 2022-04-26 INFLUENZA VACCINE (#1) [facility] 00:00:00 [code = INFLUENZA Medical Ce nter VACCINE (#1)] Future Scheduled 2022-04-26 INFLUENZA VACCINE (#1) [facility] 00:00:00 [code = INFLUENZA Medical Ce nter VACCINE (#1)] Future Scheduled 2021-08-[address] [facility] Test 00:00:00 (12+) [code = Medical Center DEPRESSION SCREENING (12+)] Future Scheduled 2021-08-26 FALLS RISK SCREENING [facility] 00:00:00 [code = FALLS RISK Medical C enter SCREENING] Future Scheduled 2020-11-[address] [facility] Test 00:00:00 Counseling and Medical Cente r Screening (12+) [code = Tobacco Cessation Counseling and Screening (12+)] Future Scheduled 2020-05-[address] 00:00:00 measurement (procedure) [facility] [code = 04242674] Future Scheduled 2020-05-[address] [facility] Test 00:00:00 measurement (procedure) [facility] [code = 03431958] Future Scheduled 2016-05-[address] [facility] 00:00:00 WELLNESS (YEAR 2 or Medical Center FIRST YEAR if no IPPE) [code = MEDICARE ANNUAL WELLNESS (YEAR 2 or FIRST YEAR if no IPPE)] Future Scheduled 2016-05-[address] [facility] 00:00:00 WELLNESS (YEAR 2 or Medical Center FIRST YEAR if no IPPE) [code = MEDICARE ANNUAL WELLNESS (YEAR 2 or FIRST YEAR if no IPPE)] Future Scheduled 2000 SHINGLES VACCINES ([address] [facility] 00:00:00 2) [code = SHINGLES Medical Center VACCINES (1 of 2)] Future Scheduled 2000 SHINGLES VACCINES ([address] [facility] Test 00:00:00 2) [code = SHINGLES Medical Center VACCINES (1 of 2)] Future Scheduled 1969 DTAP/TDAP/TD VACCINES [facility] 00:00:00 (1 - Tdap) [code = Medical C enter DTAP/TDAP/TD VACCINES (1 - Tdap)] Future Scheduled 1969 DTAP/TDAP/TD VACCINES [facility] 00:00:00 (1 - Tdap) [code = Medical C enter DTAP/TDAP/TD VACCINES (1 - Tdap)] Future Scheduled 1968 HEPATITIS C SCREENING [facility] 00:00:00 [code = HEPATITIS C Medical Center SCREENING] Future Scheduled 1968 HEPATITIS C [facility]CRE[facility]ING [facility] 00:00:00 [code = HEPATITIS C Medical Center SCREENING] Future Scheduled 1960 DIABETIC EYE EXAM [code [facility] 00:00:00 = DIABETIC EYE EXAM] Medical Center Future Scheduled 1960 Urine screening for [facility] 00:00:00 protein (procedure) Medical Center [code = 768592541] Future Scheduled 1960 DIABETIC EYE EXAM [code [facility] 00:00:00 = DIABETIC EYE EXAM] Medical Center Future Scheduled 1960 Urine screening for [facility] 00:00:00 protein (procedure) [facility] [code = 605730508] Future Scheduled 1956 PNEUMOCOCCAL 65+ YRS ([address] [facility] 00:00:00 - PCV) [code = Medical Cente r PNEUMOCOCCAL 65+ YRS (1 - PCV)] Future Scheduled 1956 PNEUMOCOCCAL 65+ YRS ([address] [facility] 00:00:00 - PCV) [code = Medical Cente r PNEUMOCOCCAL 65+ YRS (1 - PCV)] Future Scheduled 1950 COVID-19 VACCINE (#1) [facility] 00:00:00 [code = COVID-[address] VACCINE (#1)] Future Scheduled 1950 COVID-19 VACCINE (#1) [facility] 00:00:00 [code = COVID-[address] VACCINE (#1)] Future Scheduled 1950 CT Colonography (combo) [facility] 00:00:00 [code = CT Colonography [facility] (combo)] Future Scheduled 1950 Screening for malignant [facility] 00:00:00 neoplasm of colon Medical Ce nter (procedure) [code = 929280290] Future Scheduled 1950 Screening for malignant [facility] Test 00:00:00 neoplasm of colon Medical Ce nter (procedure) [code = 118609148] Future Scheduled 1950 Screening for malignant [facility] Test 00:00:00 neoplasm of colon Medical Ce nter (procedure) [code = 390960761] Future Scheduled 1950 Screening for malignant [facility] Test 00:00:00 neoplasm of colon Medical Ce nter (procedure) [code = 505441022] Future Scheduled 1950 Sigmoidoscopy [code = [facility] ([facility]bo[facility] 00:00:00 [code = CT Colonography [facility] (combo)] Future Scheduled 1950 Screening for malignant [facility] 00:00:00 neoplasm of colon Medical Ce nter (procedure) [code = 873855750] Future Scheduled 1950 Screening for malignant [facility] 00:00:00 neoplasm of colon Medical Ce nter (procedure) [code = 528327674] Future Scheduled 1950 Screening for malignant [facility] Test 00:00:00 neoplasm of colon Medical Ce nter (procedure) [code = 955208234] Future Scheduled 1950 Screening for malignant [facility] 00:00:00 neoplasm of colon Medical Ce nter (procedure) [code = 093182781] Future Scheduled 1950 Sigmoidoscopy [code = [facility] 00:[facility] Sigmoidoscopy] Medical Lori r Encounters Start End Encounter Admission Attending Care Care Encounter Source Date/Time Date/Time Type Type Clinicians Facility Department ID 2022-08-21 Outpatient R ROSALINDA [facility] [id number] Univers 07:13:[address] [facility] 2022-09-12 2022-09-22 Inpatient X ROSALINDA [facility] [id number] Univers 11:07:00 17:33:[address] [facility] 2022-09-12 2022-09-22 Hospital Nancy Marx 1.2.8 40.114 [id number] Univers 11:07:00 17:33:00 [facility] Kai as [id number] [facility] 091 Branch 2022-09-19 2022-09-19 Surgery LYLE Arizmendi 1.2.840.114 [id number] Univers 10:45:00 14:06:00 Luis [facility].10 [facility] 4.2.7.2.686 Kai as [phone] [facility] 103 Branch 2022-09-18 2022-09-18 Surgery LYLE Mcclure 1.2.464.981 [id number] Univers 14:30:00 15:30:00 Afaq RADHA 350.1.13.10 it y of HOSPITAL 4.2.7.2.686 Kai as [phone] Medi eder 840 Branch 2022-09-14 2022-09-14 Anesthesia Volnov, 1.2.840.3 [id number] Univers 23:59:59 23:59:59 Event Denzel 71950.1.1 ity of 3.104.2.7 [place] .3.164272 Medica l .8 Branch 2022-09-14 2022-09-14 Anesthesia Mally, 1.2.840.1 [id number] Univers 14:32:39 14:32:39 Event Luis 48671.1.1 ity of 3.104.2.7 [place] .3.609894 Medica l .8 Branch 2022-09-12 2022-09-12 Outpatient R ROSALINDA, [facility] [id number] Univers 15:00:00 15:00:00 PHILL ity of [facility] 2022-09-12 2022-09-12 Travel 1.2.840.1 1.2.217.369 [id number] Univers 00:00:00 00:00:00 14869.1.1 350.1.13.10 ity of 3.104.2.7 [place]3.698 [place] .3.290290 084.8 Medica l .8 Branch 2022-08-22 2022-08-22 Orders Doctor SANDY 1.2.840.114 [id number] Univers 00:00:00 00:00:00 Only Unassigned, RADHA 350.1.13.10 ity of [place] [facility] 4.2.7.2.686 Kai as [phone] Medi eder 009 Branch 2022-08-21 2022-08-21 Telephone Rosalinda, 1.2.840.3 [id number] Univers 00:00:00 00:00:00 Phill 80453.1.1 ity of 3.104.2.7 [place] .3.462036 Medica l .8 Branch 2022-08-20 2022-08-20 Anesthesia Parikh, 1.2.840.2 [id number] Univers 23:59:59 23:59:59 Event Sanchez 71750.1.1 ity of 3.104.2.7 [place] .3.551107 Medica l .8 [place] 2022-08-15 2022-08-15 Office Rosalinda, 1.2.840.7 [id number] Univers 13:45:00 14:03:08 Visit Phill 35646.1.1 ity of 3.104.2.7 [place] .3.767968 Medica l .8 [place] 2022-08-15 2022-08-15 Outpatient R ROSALINDA, [facility] [id number] Univers 10:30:00 10:30:00 PHILL ity of [facility] 2022-08-15 2022-08-15 Travel 1.2.840.1 1.2.133.803 [id number] Univers 00:00:00 00:00:00 71928.1.1 350.1.13.10 ity of 3.104.2.[place]3.698 [place] .3.758446 084.8 Medica l .8 [place] 2022-07-27 2022-07-27 Outpatient R MARLEN, [facility] [id number] Univers 09:39:37 23:59:00 YESSENIA ity of [facility] 2022-07-27 2022-07-27 [facility], 1.2.840.9 [id number] Univers 09:39:37 23:59:00 Encounter Yessenia 05978.1.1 ity of A 3.104.2.7 [place] .3.216158 Medica l .8 [place] 2022-07-27 2022-07-27 Travel 1.2.840.1 1.2.181.730 [id number] Univers 00:00:00 00:00:00 43342.1.1 350.1.13.10 ity of 3.104.2.7 [place]3.698 [place] .3.201895 084.8 Medica l .8 [place] 2022-07-24 2022-07-24 Outpatient R SEAN, [facility] [id number] Univers 09:00:00 09:34:19 RON ity o f [facility] 2022-07-24 2022-07-24 Office Sean, 1.2.840.4 [id number] Univers 09:00:00 09:34:19 Visit Ron 36291.1.1 ity of 3.104.2.7 [place] .3.771171 Medica l .8 [place] 2022-07-24 2022-07-24 Patient Noriega, 1.2.840.1 [id number] Univers 00:00:00 00:00:00 Outreach Christiano 07970.1.1 ity of 3.104.2.7 [place] .3.245004 Medica l .8 [place] 2022-07-23 2022-07-23 Hospital Marlen, 1.2.840.6 [id number] Univers 09:04:39 23:59:00 Encounter Yessenia 79239.1.1 ity of A 3.104.2.7 [place] .3.064699 Medica l .8 [place] 2022-07-23 2022-07-23 Outpatient R MARLEN, [facility] [id number] Univers 08:00:00 08:59:04 YESSENIA ity of [facility] 2022-07-23 2022-07-23 Office Marlen, 1.2.840.7 [id number] Univers 08:00:00 08:59:04 Visit Yessenia 32327.1.1 i ty of A 3.104.2.7 [place] .3.537280 Medica l .8 [place] 2022-07-23 2022-07-23 Telephone Marlen, 1.2.840.2 [id number] Univers 00:00:00 00:00:00 Yessenia 11219.1.1 i ty of A 3.104.2.7 [place] .3.834544 Medica l .8 [place] 2022-07-23 2022-07-23 Travel 1.2.840.1 1.2.580.476 [id number] Univers 00:00:00 00:00:00 78179.1.1 350.1.13.10 ity of 3.104.2.7 [place].3.698 [place] .3.190753 084.8 Medica l .8 [place] 2022-07-16 2022-07-16 Telephone Changsingh, 1.2.840.5 [id number] [facility] [place] 00:00:00 00:00:00 Yessenia 02017.1.1 i ty of A 3.104.2.7 [place] .3.224020 Medica l .8 [place] 2022-07-05 2022-07-05 Outpatient [facility] [id number] Kemal 10:15:08 10:15:08 [place] 2022-07-04 2022-07-04 Outpatient [facility] [id number] Kemal 11:13:55 11:13:55 [facility] 2022-06-14 2022-06-14 Outpatient [facility] [id number] Kemal 14:19:14 14:19:14 [facility] 2022-06-01 2022-06-01 Outpatient [facility] [id number] [facility] [place] 09:15:00 09:15:00 YESSENIA ity [facility] 2022 2022 Outpatient [facility] [id number] Kemal 10:23:30 10:23:30 [facility] 2022-05-22 2022-05-22 Orders Doctor SANDY 1.2.840.114 [id number] Univers 00:00:00 00:00:00 Only Unassigned, RADHA 350.1.13.10 ity of [place] [facility] 4.2.7.2.686 Kai as [id number] [address] 2022-05-18 2022-05-18 Outpatient R [facility] [id number] [facility] [place] 09:45:47 23:59:00 YESSENIA ity [facility] 2022-05-18 2022-05-18 [facility] 1.2.840.114 [id number] Univers 09:45:47 23:59:00 Encounter Yessenia PRIMARY 350.1.13.10 it[place] [id number] S[place] dical 807 Branch 2022-05-18 2022-05-18 [facility] 1.2.915.013 [id number] Univers 10:00:00 10:50:04 Visit Yessenia PRIMARY 350.1.13.10 ity [place] [id number] S[place] dical 198 Branch 2022-05-18 2022-05-18 Orders Doctor SANDY 1.2.840.114 [id number] Univers 00:00:00 00:00:00 Only Unassigned, RADHA 350.1.13.10 ity of [place] [facility] 4.2.7.2.686 Kai as [id number] [facility] 009 Branch 2022-05-11 2022-05-11 Transition KarthikLOWELL 1.2.840.114 [id number] Univers 00:00:00 00:00:00 of Care Kemar Winters MENDOSA 350.1.13.10 [place] [id number] [facility] 403 Branch 2022-05-04 2022-05-10 [facility] [id number] Univers 20:11:00 19:00:00 CATERINA ity of [facility] 2022-05-04 2022-05-10 Hospital LYLE Sharif 1.2.688.287 [id number] Univers 20:11:00 19:00:00 Encounter Caterina RADHA 350.1.13.10 ity of HOSPITAL 4.2.7.2.686 Kai as [id number] [facility] 090 Branch 2022-05-09 2022-05-09 Surgery LYLE Hercules 1.2.514.514 [id number] Univers 10:37:00 12:11:00 Yessenia RADHA 350.1.13.10 ity of A HOSPITAL 4.2.7.2.686 Kai as [id number] [place] [id number] Branch 2019-12-01 2019-12-01 [facility] [id number] [facility] 00:00[facility]00 00:00:00 [id number] [facility] 2019-11-09 2019-11-09 Emergency [facility] [id number] [facility] 08:08:00 08:08:00 [id number] Results Test Description Test Time Test Comments Results Result Comments Source POCT GLUCOSE (AUTOMATED) 2022-09-22 15:15:04 Test Item Value Reference Range Interpretation Comme nts POCT GLU (test code = 0748125564) 169 mg/dL 70-110 H Notified Provider Lab Interpretation (test code = 32421-8) [id number] 09:34:41 Test Item Value Reference Range Interpretation Comments IONIZED CA (test code = 4.40 mg/dL 4.50-5.30 L 3488129986) PH SERUM (test code = 0951273422) 7.35-7.45 QUES Lab Interpretation (test code = Abnormal 13192-0) [facility] 09:16:22 Test Item Value Reference Range Interpretation Comments PHOSPHORUS (test code = 7336572313) 3.4 mg/dL 2.5-5.0 Lab Interpretation (test code = Normal 49719-9) [facility] 09:16:22 Test Item Value Reference Range Interpretation Comments MAGNESIUM (test code = 3303115510) 1.8 mg/dL 1.7-2.4 Lab Interpretation (test code = Normal 48910-0) [facility] (NA, K, CL, CO2, GLUCOSE, BUN, CREATININE, CA)2022-09-22 09:16:22 Test Item Value Reference Range Interpretation Comments NA (test code = 133 mmol/L 135-145 L 7230936106) K (test code = 3.8 mmol/L 3.5-5.0 2114387576) CL (test code = 106 mmol/L 98-108 1376677895) CO2 TOTAL (test code = 21 mmol/L 23-31 L 4327936327) AGAP (test code = 2-16 7838741237) BUN (test code = 14 mg/dL 7-23 7214451635) GLUCOSE (test code = 99 mg/dL 70-110 2494156409) CREATININE (test code = 0.79 mg/dL 0.60-1.25 4498673828) CALCIUM (test code = 7.5 mg/dL 8.6-10.6 L 5504004645) eGFR (test code = mL/min/1.73m2 1525278334) HUDSON (test code = HUDSON) Association of Glomerular Filtration Rate (GFR) and Staging of Kidney Disease* + --+ --+ ------+| GFR (mL/min/1.73 m2) ?| With Kidney Damage ?| ?Without Kidney Damage+ --------+ --------+ +| ?>90 ?| ?Stage one ?| ? Normal ?+ ---+ ---+ -------+| ?60-89 ?| ?Stage two ?| ? Decreased GFR ? + --+ --+ ------+| ?30-59 ?| ?Stage three ?| ? Stage three ? + --+ --+ ------+| ?15-29 ?| ?Stage four ? | ? Stage four ?+ ---+ ---+ -------+| ?<15 (or dialysis) ? ?| ?Stage five ? | ? Stage five ?+ ---+ ---+ -------+ *Each stage assumes the associated GFR level has been in effect for at least three months. ?Stages 1 to 5, with or without kidney disease, indicate chronic kidney disease. Notes: Determination of stages one and two (with eGFR >59mL/min/1.73 m2) requires estimation of kidney damage for at least three months as defined by structural or functional abnormalities of the kidney, manifested by either:Pathological abnormalities or Markers of kidney damage (including abnormalities in the composition of the blood or urine or abnormalities in imaging tests). Lab Interpretation Abnormal (test code = 28553-5) [facility] WITHOUT [id number] 09:03:38 Test Item Value Reference Range Interpretation Comments WBC (test code = See_Comment [Automated message] 6690-2) The system [employer] generated this result transmitted ref erence range: 4.20 - 1 0.70 10*3/?L. The reference range was not used to int erpret this result as normal/abnormal . RBC (test code = 789-8) See_Comment L [Au tomated message] The system [employer] generated this result transmitted ref erence range: 4.26 - 5 .52 10*6/?L. The reference range was not used to int erpret this result as normal/abnormal . HGB (test code = 718-7) 7.9 g/dL 12.2-16.4 L HCT (test code = 24.4 % 38.4-49.3 L 4544-3) MCH (test code = 785-6) 30.9 pg 26.1-32.7 MCV (test code = 787-2) 95.3 fL 81.7-95.6 MCHC (test code = 32.4 g/dL 31.2-35.0 786-4) PLT (test code = 777-3) See_Comment L [Au tomated message] The system [employer] generated this result transmitted ref erence range: 150 - 32 8 10*3/?L. The reference range was not used to int erpret this result as normal/abnormal . MPV (test code = 10.8 fL 9.8-13.0 65002-3) RDW-CV (test code = 15.5 % 12.1-15.4 H 788-0) RDW-SD (test code = 54.1 fL 38.5-51.6 H 88148-4) NRBC x10^3 (test code = See_Comment [Au tomated message] 6768756453) The system [employer] generated this result transmitted ref erence range: 10*3/?L. The reference range was not used to int erpret this result as normal/abnormal . NRBC/100 WBC (test code See_Comment [Au tomated message] = 5972046884) The system [facility] generated this result transmitted ref erence range: 0.0 - 10 .0 /100 WBCs. The reference range was not used to int erpret this result as normal/abnormal . IPF % (test code = 5.2 % 1.2-10.7 Platelet count 8825642038) measured by fluorescence me thod. Lab Interpretation Abnormal (test code = 27596-2) [facility] GLUCOSE (AUTOMATED)2022-09-22 03:44:48 Test Item Value Reference Range Interpretation Comments POCT GLU (test code = 4612868009) 203 mg/dL 70-110 H Lab Interpretation (test code = Abnormal 27517-0) [facility] GLUCOSE (AUTOMATED)2022-09-21 23:19:38 Test Item Value Reference Range Interpretation Comments POCT GLU (test code = 5109296355) 215 mg/dL 70-110 H Lab Interpretation (test code = Abnormal 61709-9) [facility] GLUCOSE (AUTOMATED)2022-09-21 17:28:48 Test Item Value Reference Range Interpretation Comments POCT GLU (test code = 173 mg/dL 70-110 H Notifi ed Provider [id number]) Lab Interpretation (test Abnormal code = 52040-6) [facility] GLUCOSE (AUTOMATED)2022-09-21 14:11:42 Test Item Value Reference Range Interpretation Comments POCT GLU (test code = 117 mg/dL 70-110 H Notifi ed Provider [id number]) Lab Interpretation (test Abnormal code = 43045-8) [facility] 09:52:36 Test Item Value Reference Range Interpretation Comments PHOSPHORUS (test code = 0205730994) 3.4 mg/dL 2.5-5.0 Lab Interpretation (test code = Normal 36429-3) [facility] 09:52:35 Test Item Value Reference Range Interpretation Comments MAGNESIUM (test code = 6972974710) 1.9 mg/dL 1.7-2.4 Lab Interpretation (test code = Normal 15451-6) [facility] (NA, K, CL, CO2, GLUCOSE, BUN, CREATININE, CA)2022-09-21 09:52:35 Test Item Value Reference Range Interpretation Comments NA (test code = 134 mmol/L 135-145 L [id number]) K (test code = 3.8 mmol/L 3.5-5.0 0339587660) CL (test code = 108 mmol/L 98-108 9800222540) CO2 TOTAL (test code = 23 mmol/L 23-31 9092055115) AGAP (test code = 2-16 3124946972) BUN (test code = 16 mg/dL 7-23 3386328109) GLUCOSE (test code = 116 mg/dL 70-110 H 1194019091) CREATININE (test code = 0.89 mg/dL 0.60-1.25 4198218331) CALCIUM (test code = 7.6 mg/dL 8.6-10.6 L 3286414845) eGFR (test code = mL/min/1.73m2 1072197885) HUDSON (test code = HUDSON) Association of Glomerular Filtration Rate (GFR) and Staging of Kidney Disease* + --+ --+ ------+| GFR (mL/min/1.73 m2) ?| With Kidney Damage ?| ?Without Kidney Damage+ --------+ --------+ +| ?>90 ?| ?Stage one ?| ? Normal ?+ ---+ ---+ -------+| ?60-89 ?| ?Stage two ?| ? Decreased GFR ? + --+ --+ ------+| ?30-59 ?| ?Stage three ?| ? Stage three ? + --+ --+ ------+| ?15-29 ?| ?Stage four ? | ? Stage four ?+ ---+ ---+ -------+| ?<15 (or dialysis) ? ?| ?Stage five ? | ? Stage five ?+ ---+ ---+ -------+ *Each stage assumes the associated GFR level has been in effect for at least three months. ?Stages 1 to 5, with or without kidney disease, indicate chronic kidney disease. Notes: Determination of stages one and two (with eGFR >59mL/min/1.73 m2) requires estimation of kidney damage for at least three months as defined by structural or functional abnormalities of the kidney, manifested by either:Pathological abnormalities or Markers of kidney damage (including abnormalities in the composition of the blood or urine or abnormalities in imaging tests). Lab Interpretation Abnormal (test code = 90825-4) [id number]:22:58 Test Item Value Reference Range Interpretation Comments IONIZED CA (test code = 4.30 mg/dL 4.50-5.30 L 2667681790) PH SERUM (test code = 4480761973) 7.35-7.45 Lab Interpretation (test code = Abnormal 97105-7) [facility] WITHOUT [id number] 08:49:10 Test Item Value Reference Range Interpretation Comments WBC (test code = See_Comment [Automated message] 6690-2) The system [employer] generated this result transmitted ref erence range: 4.20 - 1 0.70 10*3/?L. The reference range was not used to int erpret this result as normal/abnormal . RBC (test code = 789-8) See_Comment L [Au tomated message] The system [employer] generated this result transmitted ref erence range: 4.26 - 5 .52 10*6/?L. The reference range was not used to int erpret this result as normal/abnormal . HGB (test code = 718-7) 8.3 g/dL 12.2-16.4 L HCT (test code = 25.4 % 38.4-49.3 L 4544-3) MCH (test code = 785-6) 31.2 pg 26.1-32.7 MCV (test code = 787-2) 95.5 fL 81.7-95.6 MCHC (test code = 32.7 g/dL 31.2-35.0 786-4) PLT (test code = 777-3) See_Comment L [Au tomated message] The system [employer] generated this result transmitted ref erence range: 150 - 32 8 10*3/?L. The reference range was not used to int erpret this result as normal/abnormal . MPV (test code = 11.2 fL 9.8-13.0 04086-2) RDW-CV (test code = 15.3 % 12.1-15.4 788-0) RDW-SD (test code = 53.6 fL 38.5-51.6 H 08947-0) NRBC x10^3 (test code = See_Comment [Au tomated message] 3608861919) The system [employer] generated this result transmitted ref erence range: 10*3/?L. The reference range was not used to int erpret this result as normal/abnormal . NRBC/100 WBC (test code See_Comment [Au tomated message] = 3279407544) The system [facility] generated this result transmitted ref erence range: 0.0 - 10 .0 /100 WBCs. The reference range was not used to int erpret this result as normal/abnormal . IPF % (test code = 6.0 % 1.2-10.7 Platelet count [id number]) measured by fluorescence me thod. Lab Interpretation Abnormal (test code = 23997-0) [facility] GLUCOSE (AUTOMATED)2022-09-21 02:48:31 Test Item Value Reference Range Interpretation Comments POCT GLU (test code = 8206995476) 135 mg/dL 70-110 H Lab Interpretation (test code = Abnormal 20404-0) [facility] and Screen - ONCE [id number] 00:53:54 Test Item Value Reference Range Interpretation Comments ABO & RH (test code O POSITIVE Performe d at [facility] = 20) Laboratory [facility] Blood [address] [address]Ajip Free: [phone] A No. [id number] IAT (test code = Negative Performed a t [facility] 1185) Laboratory [facility] Blood [address] [address]Vyvz Free: [phone] A No. [id number] [facility] and Screen - ONCE [id number] 00:53:54 Test Item Value Reference Range Interpretation Comments ABO & RH (test code O POSITIVE Performe d at [facility] = 20) Laboratory [facility] Blood [address] [address]Kold Free: [phone] A No. [id number] IAT (test code = Negative Performed a t [facility] 1185) Laboratory [facility] Blood [address] [address]Inss Free: [phone] A No. [id number] [facility] GLUCOSE (AUTOMATED)2022-09-20 22:32:21 Test Item Value Reference Range Interpretation Comments POCT GLU (test code = 123 mg/dL 70-110 H Notifi ed Provider [id number]) Lab Interpretation (test Abnormal code = 62474-4) [facility] GLUCOSE (AUTOMATED)2022-09-20 22:32:21 Test Item Value Reference Range Interpretation Comments POCT GLU (test code = 123 mg/dL 70-110 H Notifi ed Provider [id number]) Lab Interpretation (test Abnormal code = 81600-8) [facility] GLUCOSE (AUTOMATED)2022-09-20 18:36:02 Test Item Value Reference Range Interpretation Comments POCT GLU (test code = 4857853101) 80 mg/dL 70-110 Lab Interpretation (test code = Normal 25307-9) [facility] GLUCOSE (AUTOMATED)2022-09-20 18:36:02 Test Item Value Reference Range Interpretation Comments POCT GLU (test code = 6451610516) 80 mg/dL 70-110 Lab Interpretation (test code = Normal 70303-4) [facility] GLUCOSE (AUTOMATED)2022-09-20 13:54:51 Test Item Value Reference Range Interpretation Comments POCT GLU (test code = 136 mg/dL 70-110 H Notifi ed Provider [id number]) Lab Interpretation (test Abnormal code = 88696-7) [facility] GLUCOSE (AUTOMATED)2022-09-20 13:54:51 Test Item Value Reference Range Interpretation Comments POCT GLU (test code = 136 mg/dL 70-110 H Notifi ed Provider [id number]) Lab Interpretation (test Abnormal code = 51122-0) [id number] 12:28:09 Test Item Value Reference Range Interpretation Comments IONIZED CA (test code = 4.40 mg/dL 4.50-5.30 L 0817174141) PH SERUM (test code = 9840775359) 7.35-7.45 Lab Interpretation (test code = Abnormal 65184-9) [facility] [id number] 12:28:09 Test Item Value Reference Range Interpretation Comments IONIZED CA (test code = 4.40 mg/dL 4.50-5.30 L 2302347109) PH SERUM (test code = 4155835884) 7.35-7.45 Lab Interpretation (test code = Abnormal 00325-8) [facility]59 Test Item Value Reference Range Interpretation Comments PHOSPHORUS (test code = 7251299959) 3.9 mg/dL 2.5-5.0 Lab Interpretation (test code = Normal 24350-6) [facility] 12:19:59 Test Item Value Reference Range Interpretation Comments MAGNESIUM (test code = 3299233025) 1.8 mg/dL 1.7-2.4 Lab Interpretation (test code = Normal 40730-8) [facility] (NA, K, CL, CO2, GLUCOSE, BUN, CREATININE, CA)2022-09-20 12:19:59 Test Item Value Reference Range Interpretation Comments NA (test code = 131 mmol/L 135-145 L 9277529678) K (test code = 3.9 mmol/L 3.5-5.0 0188758023) CL (test code = 103 mmol/L 98-108 3359637212) CO2 TOTAL (test code = 21 mmol/L 23-31 L 9769254937) AGAP (test code = 2-16 2624441840) BUN (test code = 17 mg/dL 7-23 9599989203) GLUCOSE (test code = 147 mg/dL 70-110 H 0000100015) CREATININE (test code = 0.98 mg/dL 0.60-1.25 9712174217) CALCIUM (test code = 7.8 mg/dL 8.6-10.6 L 0002698386) eGFR (test code = mL/min/1.73m2 2382491828) HUDSON (test code = HUDSON) Association of Glomerular Filtration Rate (GFR) and Staging of Kidney Disease* + --+ --+ ------+| GFR (mL/min/1.73 m2) ?| With Kidney Damage ?| ?Without Kidney Damage+ --------+ --------+ +| ?>90 ?| ?Stage one ?| ? Normal ?+ ---+ ---+ -------+| ?60-89 ?| ?Stage two ?| ? Decreased GFR ? + --+ --+ ------+| ?30-59 ?| ?Stage three ?| ? Stage three ? + --+ --+ ------+| ?15-29 ?| ?Stage four ? | ? Stage four ?+ ---+ ---+ -------+| ?<15 (or dialysis) ? ?| ?Stage five ? | ? Stage five ?+ ---+ ---+ -------+ *Each stage assumes the associated GFR level has been in effect for at least three months. ?Stages 1 to 5, with or without kidney disease, indicate chronic kidney disease. Notes: Determination of stages one and two (with eGFR >59mL/min/1.73 m2) requires estimation of kidney damage for at least three months as defined by structural or functional abnormalities of the kidney, manifested by either:Pathological abnormalities or Markers of kidney damage (including abnormalities in the composition of the blood or urine or abnormalities in imaging tests). Lab Interpretation Abnormal (test code = 27244-5) [facility] 12:[facility]59 Test Item Value Reference Range Interpretation Comments PHOSPHORUS (test code = 3288771509) 3.9 mg/dL 2.5-5.0 Lab Interpretation (test code = Normal 17964-6) [facility] 12:19:59 Test Item Value Reference Range Interpretation Comments MAGNESIUM (test code = 6927271443) 1.8 mg/dL 1.7-2.4 Lab Interpretation (test code = Normal 65672-3) [facility] (NA, K, CL, CO2, GLUCOSE, BUN, CREATININE, CA)2022-09-20 12:19:59 Test Item Value Reference Range Interpretation Comments NA (test code = 131 mmol/L 135-145 L 8916568247) K (test code = 3.9 mmol/L 3.5-5.0 3007734352) CL (test code = 103 mmol/L 98-108 8767075682) CO2 TOTAL (test code = 21 mmol/L 23-31 L 0495635304) AGAP (test code = 2-16 8496760507) BUN (test code = 17 mg/dL 7-23 2893649031) GLUCOSE (test code = 147 mg/dL 70-110 H 6360054702) CREATININE (test code = 0.98 mg/dL 0.60-1.25 7502018347) CALCIUM (test code = 7.8 mg/dL 8.6-10.6 L 1168066937) eGFR (test code = mL/min/1.73m2 7742959680) HUDSON (test code = HUDSON) Association of Glomerular Filtration Rate (GFR) and Staging of Kidney Disease* + --+ --+ ------+| GFR (mL/min/1.73 m2) ?| With Kidney Damage ?| ?Without Kidney Damage+ --------+ --------+ +| ?>90 ?| ?Stage one ?| ? Normal ?+ ---+ ---+ -------+| ?60-89 ?| ?Stage two ?| ? Decreased GFR ? + --+ --+ ------+| ?30-59 ?| ?Stage three ?| ? Stage three ? + --+ --+ ------+| ?15-29 ?| ?Stage four ? | ? Stage four ?+ ---+ ---+ -------+| ?<15 (or dialysis) ? ?| ?Stage five ? | ? Stage five ?+ ---+ ---+ -------+ *Each stage assumes the associated GFR level has been in effect for at least three months. ?Stages 1 to 5, with or without kidney disease, indicate chronic kidney disease. Notes: Determination of stages one and two (with eGFR >59mL/min/1.73 m2) requires estimation of kidney damage for at least three months as defined by structural or functional abnormalities of the kidney, manifested by either:Pathological abnormalities or Markers of kidney damage (including abnormalities in the composition of the blood or urine or abnormalities in imaging tests). Lab Interpretation Abnormal (test code = 19981-8) [facility] WITHOUT [id number] 11:59:16 Test Item Value Reference Range Interpretation Comments WBC (test code = See_Comment [Automated message] 6690-2) The system [employer] generated this result transmitted ref erence range: 4.20 - 1 0.70 10*3/?L. The reference range was not used to int erpret this result as normal/abnormal . RBC (test code = 789-8) See_Comment L [Au tomated message] The system [employer] generated this result transmitted ref erence range: 4.26 - 5 .52 10*6/?L. The reference range was not used to int erpret this result as normal/abnormal . HGB (test code = 718-7) 8.6 g/dL 12.2-16.4 L HCT (test code = 26.2 % 38.4-49.3 L 4544-3) MCH (test code = 785-6) 31.0 pg 26.1-32.7 MCV (test code = 787-2) 94.6 fL 81.7-95.6 MCHC (test code = 32.8 g/dL 31.2-35.0 786-4) PLT (test code = 777-3) See_Comment L [Au tomated message] The system [employer] generated this result transmitted ref erence range: 150 - 32 8 10*3/?L. The reference range was not used to int erpret this result as normal/abnormal . MPV (test code = 12.9 fL 9.8-13.0 74800-0) RDW-CV (test code = 15.2 % 12.1-15.4 788-0) RDW-SD (test code = 52.9 fL 38.5-51.6 H 66252-7) NRBC x10^3 (test code = See_Comment [Au tomated message] 5977567665) The system [employer] generated this result transmitted ref erence range: 10*3/?L. The reference range was not used to int erpret this result as normal/abnormal . NRBC/100 WBC (test code See_Comment [Au tomated message] = 6913562757) The system [employer] generated this result transmitted ref erence range: 0.0 - 10 .0 /100 WBCs. The reference range was not used to int erpret this result as normal/abnormal . IPF % (test code = 4.0 % 1.2-10.7 Platelet count 0657859810) measured by fluorescence me thod. Lab Interpretation Abnormal (test code = 00800-5) [facility] WITHOUT [id number] 11:59:16 Test Item Value Reference Range Interpretation Comments WBC (test code = See_Comment [Automated message] 6690-2) The system [employer] generated this result transmitted ref erence range: 4.20 - 1 0.70 10*3/?L. The reference range was not used to int erpret this result as normal/abnormal . RBC (test code = 789-8) See_Comment L [Au tomated message] The system [employer] generated this result transmitted ref erence range: 4.26 - 5 .52 10*6/?L. The reference range was not used to int erpret this result as normal/abnormal . HGB (test code = 718-7) 8.6 g/dL 12.2-16.4 L HCT (test code = 26.2 % 38.4-49.3 L 4544-3) MCH (test code = 785-6) 31.0 pg 26.1-32.7 MCV (test code = 787-2) 94.6 fL 81.7-95.6 MCHC (test code = 32.8 g/dL 31.2-35.0 786-4) PLT (test code = 777-3) See_Comment L [Au tomated message] The system [employer] generated this result transmitted ref erence range: 150 - 32 8 10*3/?L. The reference range was not used to int erpret this result as normal/abnormal . MPV (test code = 12.9 fL 9.8-13.0 58363-9) RDW-CV (test code = 15.2 % 12.1-15.4 788-0) RDW-SD (test code = 52.9 fL 38.5-51.6 H 26631-2) NRBC x10^3 (test code = See_Comment [Au tomated message] 7164472713) The system [employer] generated this result transmitted ref erence range: 10*3/?L. The reference range was not used to int erpret this result as normal/abnormal . NRBC/100 WBC (test code See_Comment [Au tomated message] = 0527838797) The system [facility] generated this result transmitted ref erence range: 0.0 - 10 .0 /100 WBCs. The reference range was not used to int erpret this result as normal/abnormal . IPF % (test code = 4.0 % 1.2-10.7 Platelet count 1833200962) measured by fluorescence me thod. Lab Interpretation Abnormal (test code = 44999-0) [facility] GLUCOSE (AUTOMATED)2022-09-20 03:47:17 Test Item Value Reference Range Interpretation Comments POCT GLU (test code = 5214324499) 217 mg/dL 70-110 H Lab Interpretation (test code = Abnormal 48584-1) [facility] GLUCOSE (AUTOMATED)2022-09-20 03:47:17 Test Item Value Reference Range Interpretation Comments POCT GLU (test code = 9112474948) 217 mg/dL 70-110 H Lab Interpretation (test code = Abnormal 84735-5) [facility] GLUCOSE (AUTOMATED)2022-09-20 03:47:17 Test Item Value Reference Range Interpretation Comments POCT GLU (test code = 7976367096) 217 mg/dL 70-110 H Lab Interpretation (test code = Abnormal 11232-1) [facility] GLUCOSE (AUTOMATED)2022-09-19 22:40:01 Test Item Value Reference Range Interpretation Comments POCT GLU (test code = 142 mg/dL 70-110 H Notifi ed Provider [id number]) Lab Interpretation (test Abnormal code = 23733-2) [facility] GLUCOSE (AUTOMATED)2022-09-19 22:40:01 Test Item Value Reference Range Interpretation Comments POCT GLU (test code = 142 mg/dL 70-110 H Notifi ed Provider [id number]) Lab Interpretation (test Abnormal code = 62490-9) [facility] GLUCOSE (AUTOMATED)2022-09-19 22:40:01 Test Item Value Reference Range Interpretation Comments POCT GLU (test code = 142 mg/dL 70-110 H Notifi ed Provider [id number]) Lab Interpretation (test Abnormal code = 19031-8) [facility] GLUCOSE (AUTOMATED)2022-09-19 14:14:28 Test Item Value Reference Range Interpretation Comments POCT GLU (test code = 139 mg/dL 70-110 H Notifi ed Provider [id number]) Lab Interpretation (test Abnormal code = 90817-4) [facility] GLUCOSE (AUTOMATED)2022-09-19 14:14:28 Test Item Value Reference Range Interpretation Comments POCT GLU (test code = 139 mg/dL 70-110 H Notifi ed Provider [id number]) Lab Interpretation (test Abnormal code = 99150-6) [facility] 14:14:28 Test Item Value Reference Range Interpretation Comments POCT GLU (test code = 139 mg/dL 70-110 H Notifi ed Provider [id number]) Lab Interpretation (test Abnormal code = 51975-2) [facility] WITH [id number] 09:35:04 Test Item Value Reference Range Interpretation Comments WBC (test code = See_Comment [Automated 6690-2) message] The sy stem which generated this result transmitted reference range : 4.20 - 10.70 10*3/?L. The reference range was not used to interpret this result as normal/abnormal . RBC (test code = See_Comment L [Automated 789-8) message] The sy stem which generated this result transmitted reference range : 4.26 - 5.52 10*6/?L. The reference range was not used to interpret this result as normal/abnormal . HGB (test code = 9.2 g/dL 12.2-16.4 L 718-7) HCT (test code = 29.0 % 38.4-49.3 L 4544-3) MCV (test code = 97.6 fL 81.7-95.6 H 787-2) MCH (test code = 31.0 pg 26.1-32.7 785-6) MCHC (test code = 31.7 g/dL 31.2-35.0 786-4) RDW-SD (test code = 53.1 fL 38.5-51.6 H 09991-4) RDW-CV (test code = 14.8 % 12.1-15.4 788-0) PLT (test code = See_Comment L [Automated 777-3) message] The sy stem which generated this result transmitted reference range : 150 - 328 10*3/ ?L. The reference r rylee was not used to interpret this result as normal/abnormal . MPV (test code = 11.7 fL 9.8-13.0 71006-2) IPF % (test code = 4.4 % 1.2-10.7 Platelet count [id number]) measured by fluorescence method. NRBC/100 WBC (test See_Comment [Automat ed code = 8781289230) message] The system which generated this result transmitted reference range : 0.0 - 10.0 /100 WBCs. The refer ence range was not u sed to interpret th is result as normal/abnormal . NRBC x10^3 (test code See_Comment [Auto mated = 7148313186) message] The s ystem which generated this result transmitted reference range : 10*3/?L. The reference range was not used to interpret this result as normal/abnormal . GRAN MAT (NEUT) % 51.8 % (test code = 770-8) IMM GRAN % (test code 0.20 % = 2934235101) LYMPH % (test code = 34.9 % 736-9) MONO % (test code = 9.6 % 5905-5) EOS % (test code = 2.9 % 713-8) BASO % (test code = 0.6 % 706-2) GRAN MAT x10^3(ANC) 3.24 10*3/uL 1.99-6.95 (test code = 7249670977) IMM GRAN x10^3 (test 0.00-0.06 code = 3542610702) LYMPH x10^3 (test code 2.18 10*3/uL 1.09-3.23 = 731-0) MONO x10^3 (test code 0.60 10*3/uL 0.36-1.02 = 742-7) EOS x10^3 (test code = 0.18 10*3/uL 0.06-0.53 711-2) BASO x10^3 (test code 0.04 10*3/uL 0.01-0.09 = 704-7) REACT LYMPHS (test Rare code = 4959371348) Lab Interpretation Abnormal (test code = 52614-9) [facility] WITH [id number] 09:35:04 Test Item Value Reference Range Interpretation Comments WBC (test code = See_Comment [Automated 4590-2) message] The sy stem which generated this result transmitted reference range : 4.20 - 10.70 10*3/?L. The reference range was not used to interpret this result as normal/abnormal . RBC (test code = See_Comment L [Automated 519-8) message] The sy stem which generated this result transmitted reference range : 4.26 - 5.52 10*6/?L. The reference range was not used to interpret this result as normal/abnormal . HGB (test code = 9.2 g/dL 12.2-16.4 L 718-7) HCT (test code = 29.0 % 38.4-49.3 L 4544-3) MCV (test code = 97.6 fL 81.7-95.6 H 787-2) MCH (test code = 31.0 pg 26.1-32.7 785-6) MCHC (test code = 31.7 g/dL 31.2-35.0 786-4) RDW-SD (test code = 53.1 fL 38.5-51.6 H 66403-0) RDW-CV (test code = 14.8 % 12.1-15.4 788-0) PLT (test code = See_Comment L [Automated 777-3) message] The sy stem which generated this result transmitted reference range : 150 - 328 10*3/ ?L. The reference r rylee was not used to interpret this result as normal/abnormal . MPV (test code = 11.7 fL 9.8-13.0 25962-3) IPF % (test code = 4.4 % 1.2-10.7 Platelet count [id number]) measured by fluorescence method. NRBC/100 WBC (test See_Comment [Automat ed code = 8872771807) message] The system which generated this result transmitted reference range : 0.0 - 10.0 /100 WBCs. The refer ence range was not u sed to interpret th is result as normal/abnormal . NRBC x10^3 (test code See_Comment [Auto mated = 9887080188) message] The s ystem which generated this result transmitted reference range : 10*3/?L. The reference range was not used to interpret this result as normal/abnormal . GRAN MAT (NEUT) % 51.8 % (test code = 770-8) IMM GRAN % (test code 0.20 % = 9443853895) LYMPH % (test code = 34.9 % 736-9) MONO % (test code = 9.6 % 5905-5) EOS % (test code = 2.9 % 713-8) BASO % (test code = 0.6 % 706-2) GRAN MAT x10^3(ANC) 3.24 10*3/uL 1.99-6.95 (test code = 4455982416) IMM GRAN x10^3 (test 0.00-0.06 code = 2627987339) LYMPH x10^3 (test code 2.18 10*3/uL 1.09-3.23 = 731-0) MONO x10^3 (test code 0.60 10*3/uL 0.36-1.02 = 742-7) EOS x10^3 (test code = 0.18 10*3/uL 0.06-0.53 711-2) BASO x10^3 (test code 0.04 10*3/uL 0.01-0.09 = 704-7) REACT LYMPHS (test Rare code = 3393954594) Lab Interpretation Abnormal (test code = 24146-0) [facility] WITH [id number] 09:35:04 Test Item Value Reference Range Interpretation Comments WBC (test code = See_Comment [Automated 6690-2) message] The sy stem which generated this result transmitted reference range : 4.20 - 10.70 10*3/?L. The reference range was not used to interpret this result as normal/abnormal . RBC (test code = See_Comment L [Automated 789-8) message] The sy stem which generated this result transmitted reference range : 4.26 - 5.52 10*6/?L. The reference range was not used to interpret this result as normal/abnormal . HGB (test code = 9.2 g/dL 12.2-16.4 L 718-7) HCT (test code = 29.0 % 38.4-49.3 L 4544-3) MCV (test code = 97.6 fL 81.7-95.6 H 787-2) MCH (test code = 31.0 pg 26.1-32.7 785-6) MCHC (test code = 31.7 g/dL 31.2-35.0 786-4) RDW-SD (test code = 53.1 fL 38.5-51.6 H 11467-7) RDW-CV (test code = 14.8 % 12.1-15.4 788-0) PLT (test code = See_Comment L [Automated 777-3) message] The sy stem which generated this result transmitted reference range : 150 - 328 10*3/ ?L. The reference r rylee was not used to interpret this result as normal/abnormal . MPV (test code = 11.7 fL 9.8-13.0 60471-2) IPF % (test code = 4.4 % 1.2-10.7 Platelet count 0001372008) measured by fluorescence method. NRBC/100 WBC (test See_Comment [Automat ed code = 2719810678) message] The system which generated this result transmitted reference range : 0.0 - 10.0 /100 WBCs. The refer ence range was not u sed to interpret th is result as normal/abnormal . NRBC x10^3 (test code See_Comment [Auto mated = 3320213399) message] The s ystem which generated this result transmitted reference range : 10*3/?L. The reference range was not used to interpret this result as normal/abnormal . GRAN MAT (NEUT) % 51.8 % (test code = 770-8) IMM GRAN % (test code 0.20 % = 0161488929) LYMPH % (test code = 34.9 % 736-9) MONO % (test code = 9.6 % 5905-5) EOS % (test code = 2.9 % 713-8) BASO % (test code = 0.6 % 706-2) GRAN MAT x10^3(ANC) 3.24 10*3/uL 1.99-6.95 (test code = 4457128468) IMM GRAN x10^3 (test 0.00-0.06 code = 4827604475) LYMPH x10^3 (test code 2.18 10*3/uL 1.09-3.23 = 731-0) MONO x10^3 (test code 0.60 10*3/uL 0.36-1.02 = 742-7) EOS x10^3 (test code = 0.18 10*3/uL 0.06-0.53 711-2) BASO x10^3 (test code 0.04 10*3/uL 0.01-0.09 = 704-7) REACT LYMPHS (test Rare code = 9918930134) Lab Interpretation Abnormal (test code = 13957-2) [facility] METABOLIC PANEL (NA, K, CL, CO2, GLUCOSE, BUN, CREATININE, CA)2022-09-19 09:16:00 Test Item Value Reference Range Interpretation Comments NA (test code = 133 mmol/L 135-145 L 9654601183) K (test code = 3.8 mmol/L 3.5-5.0 7752261585) CL (test code = 108 mmol/L 98-108 7358711218) CO2 TOTAL (test code = 21 mmol/L 23-31 L 4354329464) AGAP (test code = 2-16 9185230844) BUN (test code = 17 mg/dL 7-23 7363769812) GLUCOSE (test code = 139 mg/dL 70-110 H 3735008612) CREATININE (test code = 0.69 mg/dL 0.60-1.25 5934632866) CALCIUM (test code = 7.5 mg/dL 8.6-10.6 L 5291648035) eGFR (test code = mL/min/1.73m2 2570661632) HUDSON (test code = HUDSON) Association of Glomerular Filtration Rate (GFR) and Staging of Kidney Disease* + --+ --+ ------+| GFR (mL/min/1.73 m2) ?| With Kidney Damage ?| ?Without Kidney Damage+ --------+ --------+ +| ?>90 ?| ?Stage one ?| ? Normal ?+ ---+ ---+ -------+| ?60-89 ?| ?Stage two ?| ? Decreased GFR ? + --+ --+ ------+| ?30-59 ?| ?Stage three ?| ? Stage three ? + --+ --+ ------+| ?15-29 ?| ?Stage four ? | ? Stage four ?+ ---+ ---+ -------+| ?<15 (or dialysis) ? ?| ?Stage five ? | ? Stage five ?+ ---+ ---+ -------+ *Each stage assumes the associated GFR level has been in effect for at least three months. ?Stages 1 to 5, with or without kidney disease, indicate chronic kidney disease. Notes: Determination of stages one and two (with eGFR >59mL/min/1.73 m2) requires estimation of kidney damage for at least three months as defined by structural or functional abnormalities of the kidney, manifested by either:Pathological abnormalities or Markers of kidney damage (including abnormalities in the composition of the blood or urine or abnormalities in imaging tests). Lab Interpretation Abnormal (test code = 29806-6) [facility] METABOLIC PANEL (NA, K, CL, CO2, GLUCOSE, BUN, CREATININE, CA)2022-09-19 09:16:00 Test Item Value Reference Range Interpretation Comments NA (test code = 133 mmol/L 135-145 L 3367207217) K (test code = 3.8 mmol/L 3.5-5.0 7004098493) CL (test code = 108 mmol/L 98-108 1852278710) CO2 TOTAL (test code = 21 mmol/L 23-31 L 5108415958) AGAP (test code = 2-16 6960879571) BUN (test code = 17 mg/dL 7-23 6835718889) GLUCOSE (test code = 139 mg/dL 70-110 H 8512158573) CREATININE (test code = 0.69 mg/dL 0.60-1.25 9042643554) CALCIUM (test code = 7.5 mg/dL 8.6-10.6 L 4331714689) eGFR (test code = mL/min/1.73m2 8967345908) HUDSON (test code = HUDSON) Association of Glomerular Filtration Rate (GFR) and Staging of Kidney Disease* + --+ --+ ------+| GFR (mL/min/1.73 m2) ?| With Kidney Damage ?| ?Without Kidney Damage+ --------+ --------+ +| ?>90 ?| ?Stage one ?| ? Normal ?+ ---+ ---+ -------+| ?60-89 ?| ?Stage two ?| ? Decreased GFR ? + --+ --+ ------+| ?30-59 ?| ?Stage three ?| ? Stage three ? + --+ --+ ------+| ?15-29 ?| ?Stage four ? | ? Stage four ?+ ---+ ---+ -------+| ?<15 (or dialysis) ? ?| ?Stage five ? | ? Stage five ?+ ---+ ---+ -------+ *Each stage assumes the associated GFR level has been in effect for at least three months. ?Stages 1 to 5, with or without kidney disease, indicate chronic kidney disease. Notes: Determination of stages one and two (with eGFR >59mL/min/1.73 m2) requires estimation of kidney damage for at least three months as defined by structural or functional abnormalities of the kidney, manifested by either:Pathological abnormalities or Markers of kidney damage (including abnormalities in the composition of the blood or urine or abnormalities in imaging tests). Lab Interpretation Abnormal (test code = 18173-8) [facility] METABOLIC PANEL (NA, K, CL, CO2, GLUCOSE, BUN, CREATININE, CA)2022-09-19 09:16:00 Test Item Value Reference Range Interpretation Comments NA (test code = 133 mmol/L 135-145 L 3841537984) K (test code = 3.8 mmol/L 3.5-5.0 8836532199) CL (test code = 108 mmol/L 98-108 7421068553) CO2 TOTAL (test code = 21 mmol/L 23-31 L 1589088608) AGAP (test code = 2-16 2522812205) BUN (test code = 17 mg/dL 7-23 6657413692) GLUCOSE (test code = 139 mg/dL 70-110 H 8651431736) CREATININE (test code = 0.69 mg/dL 0.60-1.25 9827675048) CALCIUM (test code = 7.5 mg/dL 8.6-10.6 L 7222743133) eGFR (test code = mL/min/1.73m2 4751524616) HUDSON (test code = HUDSON) Association of Glomerular Filtration Rate (GFR) and Staging of Kidney Disease* + --+ --+ ------+| GFR (mL/min/1.73 m2) ?| With Kidney Damage ?| ?Without Kidney Damage+ --------+ --------+ +| ?>90 ?| ?Stage one ?| ? Normal ?+ ---+ ---+ -------+| ?60-89 ?| ?Stage two ?| ? Decreased GFR ? + --+ --+ ------+| ?30-59 ?| ?Stage three ?| ? Stage three ? + --+ --+ ------+| ?15-29 ?| ?Stage four ? | ? Stage four ?+ ---+ ---+ -------+| ?<15 (or dialysis) ? ?| ?Stage five ? | ? Stage five ?+ ---+ ---+ -------+ *Each stage assumes the associated GFR level has been in effect for at least three months. ?Stages 1 to 5, with or without kidney disease, indicate chronic kidney disease. Notes: Determination of stages one and two (with eGFR >59mL/min/1.73 m2) requires estimation of kidney damage for at least three months as defined by structural or functional abnormalities of the kidney, manifested by either:Pathological abnormalities or Markers of kidney damage (including abnormalities in the composition of the blood or urine or abnormalities in imaging tests). Lab Interpretation Abnormal (test code = 82377-0) [facility] GLUCOSE (AUTOMATED)2022-09-19 03:48:17 Test Item Value Reference Range Interpretation Comments POCT GLU (test code = 3334743065) 202 mg/dL 70-110 H Lab Interpretation (test code = Abnormal 93902-6) [facility] GLUCOSE (AUTOMATED)2022-09-19 03:48:17 Test Item Value Reference Range Interpretation Comments POCT GLU (test code = 7344465951) 202 mg/dL 70-110 H Lab Interpretation (test code = Abnormal 06286-7) [facility] GLUCOSE (AUTOMATED)2022-09-19 03:48:17 Test Item Value Reference Range Interpretation Comments POCT GLU (test code = 1464498359) 202 mg/dL 70-110 H Lab Interpretation (test code = Abnormal 12972-3) [facility] GLUCOSE (AUTOMATED)2022-09-18 22:02:04 Test Item Value Reference Range Interpretation Comments POCT GLU (test code = 175 mg/dL 70-110 H Notifi ed Provider [id number]) Lab Interpretation (test Abnormal code = 69715-4) [facility] GLUCOSE (AUTOMATED)2022-09-18 22:02:04 Test Item Value Reference Range Interpretation Comments POCT GLU (test code = 175 mg/dL 70-110 H Notifi ed Provider [id number]) Lab Interpretation (test Abnormal code = 92809-4) [facility] GLUCOSE (AUTOMATED)2022-09-18 22:02:04 Test Item Value Reference Range Interpretation Comments POCT GLU (test code = 175 mg/dL 70-110 H Notifi ed Provider [id number]) Lab Interpretation (test Abnormal code = 11369-2) [facility] GLUCOSE (AUTOMATED)2022-09-18 13:57:37 Test Item Value Reference Range Interpretation Comments POCT GLU (test code = 137 mg/dL 70-110 H Notifi ed Provider [id number]) Lab Interpretation (test Abnormal code = 02812-3) [facility] GLUCOSE (AUTOMATED)2022-09-18 13:57:37 Test Item Value Reference Range Interpretation Comments POCT GLU (test code = 137 mg/dL 70-110 H Notifi ed Provider [id number]) Lab Interpretation (test Abnormal code = 90742-8) [facility] GLUCOSE (AUTOMATED)2022-09-18 13:57:37 Test Item Value Reference Range Interpretation Comments POCT GLU (test code = 137 mg/dL 70-110 H Notifi ed Provider [id number]) Lab Interpretation (test Abnormal code = 22478-5) [facility] [id number] 10:21:56 Test Item Value Reference Range Interpretation Comments VANCO RANDOM (test code = 20.8 ug/mL 4018813148) [facility] [id number] 10:21:56 Test Item Value Reference Range Interpretation Comments VANCO RANDOM (test code = 20.8 ug/mL 5290855903) [facility] [id number] 10:21:56 Test Item Value Reference Range Interpretation Comments VANCO RANDOM (test code = 20.8 ug/mL 6267324393) [facility] GLUCOSE (AUTOMATED)2022-09-18 03:51:43 Test Item Value Reference Range Interpretation Comments POCT GLU (test code = 6343105902) 167 mg/dL 70-110 H Lab Interpretation (test code = Abnormal 67440-6) [facility] GLUCOSE (AUTOMATED)2022-09-18 03:51:43 Test Item Value Reference Range Interpretation Comments POCT GLU (test code = 7312642095) 167 mg/dL 70-110 H Lab Interpretation (test code = Abnormal 77853-9) [facility] GLUCOSE (AUTOMATED)2022-09-18 03:51:43 Test Item Value Reference Range Interpretation Comments POCT GLU (test code = 1013834296) 167 mg/dL 70-110 H Lab Interpretation (test code = Abnormal 33154-6) [facility] GLUCOSE (AUTOMATED)2022-09-17 22:58:54 Test Item Value Reference Range Interpretation Comments POCT GLU (test code = 5749602276) 180 mg/dL 70-110 H Lab Interpretation (test code = Abnormal 89867-6) [facility] GLUCOSE (AUTOMATED)2022-09-17 22:58:54 Test Item Value Reference Range Interpretation Comments POCT GLU (test code = 9622738206) 180 mg/dL 70-110 H Lab Interpretation (test code = Abnormal 31460-5) [facility] GLUCOSE (AUTOMATED)2022-09-17 22:58:54 Test Item Value Reference Range Interpretation Comments POCT GLU (test code = 6331593356) 180 mg/dL 70-110 H Lab Interpretation (test code = Abnormal 37277-4) [facility] GLUCOSE (AUTOMATED)2022-09-17 18:01:44 Test Item Value Reference Range Interpretation Comments POCT GLU (test code = 6569700149) 226 mg/dL 70-110 H Lab Interpretation (test code = Abnormal 06515-7) [facility] GLUCOSE (AUTOMATED)2022-09-17 18:01:44 Test Item Value Reference Range Interpretation Comments POCT GLU (test code = 4147773197) 226 mg/dL 70-110 H Lab Interpretation (test code = Abnormal 13246-5) [facility] GLUCOSE (AUTOMATED)2022-09-17 18:01:44 Test Item Value Reference Range Interpretation Comments POCT GLU (test code = 2287391763) 226 mg/dL 70-110 H Lab Interpretation (test code = Abnormal 43010-9) [facility] GLUCOSE (AUTOMATED)2022-09-17 18:01:44 Test Item Value Reference Range Interpretation Comments POCT GLU (test code = 3460709440) 226 mg/dL 70-110 H Lab Interpretation (test code = Abnormal 73054-2) [facility] GLUCOSE (AUTOMATED)2022-09-17 13:39:20 Test Item Value Reference Range Interpretation Comments POCT GLU (test code = 6301282171) 111 mg/dL 70-110 H Lab Interpretation (test code = Abnormal 21491-4) [facility] GLUCOSE (AUTOMATED)2022-09-17 13:39:20 Test Item Value Reference Range Interpretation Comments POCT GLU (test code = 6512065944) 111 mg/dL 70-110 H Lab Interpretation (test code = Abnormal 99241-9) [facility] GLUCOSE (AUTOMATED)2022-09-17 13:39:20 Test Item Value Reference Range Interpretation Comments POCT GLU (test code = 7118392615) 111 mg/dL 70-110 H Lab Interpretation (test code = Abnormal 61140-1) [facility] Draw within 30 minutes prior to 4TH dose.2022-09-17 12:06:05 Test Item Value Reference Range Interpretation Comments VANCO TROUGH (test code 20.8 ug/mL 10.0-20.0 H = 6749242802) HUDSON (test code = HUDSON) Toxic Range: ?>20 ug/mL 15-20 ug/mL is recommended for severe infection or when Vancomycin JOSEFA is greater than or equal to 2. Lab Interpretation (test Abnormal code = 72821-7) [facility] 30 minutes prior to 4TH dose.2022-09-17 12:06:05 Test Item Value Reference Range Interpretation Comments VANCO TROUGH (test code 20.8 ug/mL 10.0-20.0 H = 7571987806) HUDSON (test code = HUDSON) Toxic Range: ?>20 ug/mL 15-20 ug/mL is recommended for severe infection or when Vancomycin JOSEFA is greater than or equal to 2. Lab Interpretation (test Abnormal code = 65773-2) [facility] Draw within 30 minutes prior to 4TH dose.2022-09-17 12:06:05 Test Item Value Reference Range Interpretation Comments VANCO TROUGH (test code 20.8 ug/mL 10.0-20.0 H = 6330399161) HUDSON (test code = HUDSON) Toxic Range: ?>20 ug/mL 15-20 ug/mL is recommended for severe infection or when Vancomycin JOSEFA is greater than or equal to 2. Lab Interpretation (test Abnormal code = 72316-2) [facility] Draw within 30 minutes prior to 4TH dose.2022-09-17 12:06:05 Test Item Value Reference Range Interpretation Comments VANCO TROUGH (test code 20.8 ug/mL 10.0-20.0 H = 8215803536) HUDSON (test code = HUDSON) Toxic Range: ?>20 ug/mL 15-20 ug/mL is recommended for severe infection or when Vancomycin JOSEFA is greater than or equal to 2. Lab Interpretation (test Abnormal code = 58957-7) [facility] (NA, K, CL, CO2, GLUCOSE, BUN, CREATININE, CA)2022-09-17 11:44:06 Test Item Value Reference Range Interpretation Comments NA (test code = 136 mmol/L 135-145 5433776461) K (test code = 3.8 mmol/L 3.5-5.0 6257945536) CL (test code = 106 mmol/L 98-108 1138790677) CO2 TOTAL (test code = 26 mmol/L 23-31 4953644884) AGAP (test code = 2-16 0756516314) BUN (test code = 16 mg/dL 7-23 4261137852) GLUCOSE (test code = 98 mg/dL 70-110 8120065505) CREATININE (test code = 0.73 mg/dL 0.60-1.25 4593351352) CALCIUM (test code = 7.8 mg/dL 8.6-10.6 L 6861319116) eGFR (test code = mL/min/1.73m2 6568665556) HUDSON (test code = HUDSON) Association of Glomerular Filtration Rate (GFR) and Staging of Kidney Disease* + --+ --+ ------+| GFR (mL/min/1.73 m2) ?| With Kidney Damage ?| ?Without Kidney Damage+ --------+ --------+ +| ?>90 ?| ?Stage one ?| ? Normal ?+ ---+ ---+ -------+| ?60-89 ?| ?Stage two ?| ? Decreased GFR ? + --+ --+ ------+| ?30-59 ?| ?Stage three ?| ? Stage three ? + --+ --+ ------+| ?15-29 ?| ?Stage four ? | ? Stage four ?+ ---+ ---+ -------+| ?<15 (or dialysis) ? ?| ?Stage five ? | ? Stage five ?+ ---+ ---+ -------+ *Each stage assumes the associated GFR level has been in effect for at least three months. ?Stages 1 to 5, with or without kidney disease, indicate chronic kidney disease. Notes: Determination of stages one and two (with eGFR >59mL/min/1.73 m2) requires estimation of kidney damage for at least three months as defined by structural or functional abnormalities of the kidney, manifested by either:Pathological abnormalities or Markers of kidney damage (including abnormalities in the composition of the blood or urine or abnormalities in imaging tests). Lab Interpretation Abnormal (test code = 08605-4) [facility] METABOLIC PANEL (NA, K, CL, CO2, GLUCOSE, BUN, CREATININE, CA)2022-09-17 11:44:06 Test Item Value Reference Range Interpretation Comments NA (test code = 136 mmol/L 135-145 5710401752) K (test code = 3.8 mmol/L 3.5-5.0 5168111152) CL (test code = 106 mmol/L 98-108 3605455402) CO2 TOTAL (test code = 26 mmol/L 23-31 9907382722) AGAP (test code = 2-16 3274493864) BUN (test code = 16 mg/dL 7-23 8417056126) GLUCOSE (test code = 98 mg/dL 70-110 0390862465) CREATININE (test code = 0.73 mg/dL 0.60-1.25 9436601702) CALCIUM (test code = 7.8 mg/dL 8.6-10.6 L 7414024079) eGFR (test code = mL/min/1.73m2 8170718978) HUDSON (test code = HUDSON) Association of Glomerular Filtration Rate (GFR) and Staging of Kidney Disease* + --+ --+ ------+| GFR (mL/min/1.73 m2) ?| With Kidney Damage ?| ?Without Kidney Damage+ --------+ --------+ +| ?>90 ?| ?Stage one ?| ? Normal ?+ ---+ ---+ -------+| ?60-89 ?| ?Stage two ?| ? Decreased GFR ? + --+ --+ ------+| ?30-59 ?| ?Stage three ?| ? Stage three ? + --+ --+ ------+| ?15-29 ?| ?Stage four ? | ? Stage four ?+ ---+ ---+ -------+| ?<15 (or dialysis) ? ?| ?Stage five ? | ? Stage five ?+ ---+ ---+ -------+ *Each stage assumes the associated GFR level has been in effect for at least three months. ?Stages 1 to 5, with or without kidney disease, indicate chronic kidney disease. Notes: Determination of stages one and two (with eGFR >59mL/min/1.73 m2) requires estimation of kidney damage for at least three months as defined by structural or functional abnormalities of the kidney, manifested by either:Pathological abnormalities or Markers of kidney damage (including abnormalities in the composition of the blood or urine or abnormalities in imaging tests). Lab Interpretation Abnormal (test code = 40330-3) [facility] METABOLIC PANEL (NA, K, CL, CO2, GLUCOSE, BUN, CREATININE, CA)2022-09-17 11:44:06 Test Item Value Reference Range Interpretation Comments NA (test code = 136 mmol/L 135-145 9353801811) K (test code = 3.8 mmol/L 3.5-5.0 7082399544) CL (test code = 106 mmol/L 98-108 0052490982) CO2 TOTAL (test code = 26 mmol/L 23-31 3046467427) AGAP (test code = 2-16 6941171890) BUN (test code = 16 mg/dL 7-23 2564122684) GLUCOSE (test code = 98 mg/dL 70-110 1778174951) CREATININE (test code = 0.73 mg/dL 0.60-1.25 3523368852) CALCIUM (test code = 7.8 mg/dL 8.6-10.6 L 1349199665) eGFR (test code = mL/min/1.73m2 3780992340) HUDSON (test code = HUDSON) Association of Glomerular Filtration Rate (GFR) and Staging of Kidney Disease* + --+ --+ ------+| GFR (mL/min/1.73 m2) ?| With Kidney Damage ?| ?Without Kidney Damage+ --------+ --------+ +| ?>90 ?| ?Stage one ?| ? Normal ?+ ---+ ---+ -------+| ?60-89 ?| ?Stage two ?| ? Decreased GFR ? + --+ --+ ------+| ?30-59 ?| ?Stage three ?| ? Stage three ? + --+ --+ ------+| ?15-29 ?| ?Stage four ? | ? Stage four ?+ ---+ ---+ -------+| ?<15 (or dialysis) ? ?| ?Stage five ? | ? Stage five ?+ ---+ ---+ -------+ *Each stage assumes the associated GFR level has been in effect for at least three months. ?Stages 1 to 5, with or without kidney disease, indicate chronic kidney disease. Notes: Determination of stages one and two (with eGFR >59mL/min/1.73 m2) requires estimation of kidney damage for at least three months as defined by structural or functional abnormalities of the kidney, manifested by either:Pathological abnormalities or Markers of kidney damage (including abnormalities in the composition of the blood or urine or abnormalities in imaging tests). Lab Interpretation Abnormal (test code = 62159-2) [facility] METABOLIC PANEL (NA, K, CL, CO2, GLUCOSE, BUN, CREATININE, CA)2022-09-17 11:44:06 Test Item Value Reference Range Interpretation Comments NA (test code = 136 mmol/L 135-145 3318321480) K (test code = 3.8 mmol/L 3.5-5.0 4592436319) CL (test code = 106 mmol/L 98-108 5272862162) CO2 TOTAL (test code = 26 mmol/L 23-31 5856875937) AGAP (test code = 2-16 8835341249) BUN (test code = 16 mg/dL 7-23 0169028161) GLUCOSE (test code = 98 mg/dL 70-110 9536257729) CREATININE (test code = 0.73 mg/dL 0.60-1.25 7060382956) CALCIUM (test code = 7.8 mg/dL 8.6-10.6 L 0567617092) eGFR (test code = mL/min/1.73m2 5288627760) HUDSON (test code = HUDSON) Association of Glomerular Filtration Rate (GFR) and Staging of Kidney Disease* + --+ --+ ------+| GFR (mL/min/1.73 m2) ?| With Kidney Damage ?| ?Without Kidney Damage+ --------+ --------+ +| ?>90 ?| ?Stage one ?| ? Normal ?+ ---+ ---+ -------+| ?60-89 ?| ?Stage two ?| ? Decreased GFR ? + --+ --+ ------+| ?30-59 ?| ?Stage three ?| ? Stage three ? + --+ --+ ------+| ?15-29 ?| ?Stage four ? | ? Stage four ?+ ---+ ---+ -------+| ?<15 (or dialysis) ? ?| ?Stage five ? | ? Stage five ?+ ---+ ---+ -------+ *Each stage assumes the associated GFR level has been in effect for at least three months. ?Stages 1 to 5, with or without kidney disease, indicate chronic kidney disease. Notes: Determination of stages one and two (with eGFR >59mL/min/1.73 m2) requires estimation of kidney damage for at least three months as defined by structural or functional abnormalities of the kidney, manifested by either:Pathological abnormalities or Markers of kidney damage (including abnormalities in the composition of the blood or urine or abnormalities in imaging tests). Lab Interpretation Abnormal (test code = 20336-4) [facility] WITH [id number] 11:12:04 Test Item Value Reference Range Interpretation Comments WBC (test code = See_Comment [Automated 1746-2) message] The sy stem which generated this result transmitted reference range : 4.20 - 10.70 10*3/?L. The reference range was not used to interpret this result as normal/abnormal . RBC (test code = See_Comment L [Automated 489-8) message] The sy stem which generated this result transmitted reference range : 4.26 - 5.52 10*6/?L. The reference range was not used to interpret this result as normal/abnormal . HGB (test code = 9.2 g/dL 12.2-16.4 L 718-7) HCT (test code = 28.0 % 38.4-49.3 L 4544-3) MCV (test code = 94.6 fL 81.7-95.6 787-2) MCH (test code = 31.1 pg 26.1-32.7 785-6) MCHC (test code = 32.9 g/dL 31.2-35.0 786-4) RDW-SD (test code = 51.3 fL 38.5-51.6 58169-5) RDW-CV (test code = 14.7 % 12.1-15.4 788-0) PLT (test code = See_Comment L [Automated 777-3) message] The sy stem which generated this result transmitted reference range : 150 - 328 10*3/ ?L. The reference r rylee was not used to interpret this result as normal/abnormal . MPV (test code = 10.7 fL 9.8-13.0 14278-1) NRBC/100 WBC (test See_Comment [Automat ed code = 9678400063) message] The system which generated this result transmitted reference range : 0.0 - 10.0 /100 WBCs. The refer ence range was not u sed to interpret th is result as normal/abnormal . NRBC x10^3 (test code See_Comment [Auto mated = 4491697920) message] The s ystem which generated this result transmitted reference range : 10*3/?L. The reference range was not used to interpret this result as normal/abnormal . GRAN MAT (NEUT) % 49.1 % (test code = 770-8) IMM GRAN % (test code 0.40 % = 6044932427) LYMPH % (test code = 38.0 % 736-9) MONO % (test code = 8.8 % 5905-5) EOS % (test code = 3.2 % 713-8) BASO % (test code = 0.5 % 706-2) GRAN MAT x10^3(ANC) 2.75 10*3/uL 1.99-6.95 (test code = 6942685944) IMM GRAN x10^3 (test 0.00-0.06 code = 0942306494) LYMPH x10^3 (test code 2.13 10*3/uL 1.09-3.23 = 731-0) MONO x10^3 (test code 0.49 10*3/uL 0.36-1.02 = 742-7) EOS x10^3 (test code = 0.18 10*3/uL 0.06-0.53 711-2) BASO x10^3 (test code 0.03 10*3/uL 0.01-0.09 = 704-7) Lab Interpretation Abnormal (test code = 17504-6) [facility] WITH [id number] 11:12:04 Test Item Value Reference Range Interpretation Comments WBC (test code = See_Comment [Automated 6690-2) message] The sy stem which generated this result transmitted reference range : 4.20 - 10.70 10*3/?L. The reference range was not used to interpret this result as normal/abnormal . RBC (test code = See_Comment L [Automated 789-8) message] The sy stem which generated this result transmitted reference range : 4.26 - 5.52 10*6/?L. The reference range was not used to interpret this result as normal/abnormal . HGB (test code = 9.2 g/dL 12.2-16.4 L 718-7) HCT (test code = 28.0 % 38.4-49.3 L 4544-3) MCV (test code = 94.6 fL 81.7-95.6 787-2) MCH (test code = 31.1 pg 26.1-32.7 785-6) MCHC (test code = 32.9 g/dL 31.2-35.0 786-4) RDW-SD (test code = 51.3 fL 38.5-51.6 48225-9) RDW-CV (test code = 14.7 % 12.1-15.4 788-0) PLT (test code = See_Comment L [Automated 777-3) message] The sy stem which generated this result transmitted reference range : 150 - 328 10*3/ ?L. The reference r rylee was not used to interpret this result as normal/abnormal . MPV (test code = 10.7 fL 9.8-13.0 89024-3) NRBC/100 WBC (test See_Comment [Automat ed code = 6831992887) message] The system which generated this result transmitted reference range : 0.0 - 10.0 /100 WBCs. The refer ence range was not u sed to interpret th is result as normal/abnormal . NRBC x10^3 (test code See_Comment [Auto mated = 4016670599) message] The s ystem which generated this result transmitted reference range : 10*3/?L. The reference range was not used to interpret this result as normal/abnormal . GRAN MAT (NEUT) % 49.1 % (test code = 770-8) IMM GRAN % (test code 0.40 % = 1733374048) LYMPH % (test code = 38.0 % 736-9) MONO % (test code = 8.8 % 5905-5) EOS % (test code = 3.2 % 713-8) BASO % (test code = 0.5 % 706-2) GRAN MAT x10^3(ANC) 2.75 10*3/uL 1.99-6.95 (test code = 9766540372) IMM GRAN x10^3 (test 0.00-0.06 code = 1252371080) LYMPH x10^3 (test code 2.13 10*3/uL 1.09-3.23 = 731-0) MONO x10^3 (test code 0.49 10*3/uL 0.36-1.02 = 742-7) EOS x10^3 (test code = 0.18 10*3/uL 0.06-0.53 711-2) BASO x10^3 (test code 0.03 10*3/uL 0.01-0.09 = 704-7) Lab Interpretation Abnormal (test code = 89157-1) [facility] Services WITH [id number] 11:12:04 Test Item Value Reference Range Interpretation Comments WBC (test code = See_Comment [Automated 6690-2) message] The sy stem which generated this result transmitted reference range : 4.20 - 10.70 10*3/?L. The reference range was not used to interpret this result as normal/abnormal . RBC (test code = See_Comment L [Automated 789-8) message] The sy stem which generated this result transmitted reference range : 4.26 - 5.52 10*6/?L. The reference range was not used to interpret this result as normal/abnormal . HGB (test code = 9.2 g/dL 12.2-16.4 L 718-7) HCT (test code = 28.0 % 38.4-49.3 L 4544-3) MCV (test code = 94.6 fL 81.7-95.6 787-2) MCH (test code = 31.1 pg 26.1-32.7 785-6) MCHC (test code = 32.9 g/dL 31.2-35.0 786-4) RDW-SD (test code = 51.3 fL 38.5-51.6 75736-2) RDW-CV (test code = 14.7 % 12.1-15.4 788-0) PLT (test code = See_Comment L [Automated 777-3) message] The sy stem which generated this result transmitted reference range : 150 - 328 10*3/ ?L. The reference r rylee was not used to interpret this result as normal/abnormal . MPV (test code = 10.7 fL 9.8-13.0 62174-6) NRBC/100 WBC (test See_Comment [Automat ed code = 6196334184) message] The system which generated this result transmitted reference range : 0.0 - 10.0 /100 WBCs. The refer ence range was not u sed to interpret th is result as normal/abnormal . NRBC x10^3 (test code See_Comment [Auto mated = 0725209535) message] The s ystem which generated this result transmitted reference range : 10*3/?L. The reference range was not used to interpret this result as normal/abnormal . GRAN MAT (NEUT) % 49.1 % (test code = 770-8) IMM GRAN % (test code 0.40 % = 4280645630) LYMPH % (test code = 38.0 % 736-9) MONO % (test code = 8.8 % 5905-5) EOS % (test code = 3.2 % 713-8) BASO % (test code = 0.5 % 706-2) GRAN MAT x10^3(ANC) 2.75 10*3/uL 1.99-6.95 (test code = 1782551348) IMM GRAN x10^3 (test 0.00-0.06 code = 9081082984) LYMPH x10^3 (test code 2.13 10*3/uL 1.09-3.23 = 731-0) MONO x10^3 (test code 0.49 10*3/uL 0.36-1.02 = 742-7) EOS x10^3 (test code = 0.18 10*3/uL 0.06-0.53 711-2) BASO x10^3 (test code 0.03 10*3/uL 0.01-0.09 = 704-7) Lab Interpretation Abnormal (test code = 01300-2) [facility] WITH [id number] 11:12:04 Test Item Value Reference Range Interpretation Comments WBC (test code = See_Comment [Automated 6690-2) message] The sy stem which generated this result transmitted reference range : 4.20 - 10.70 10*3/?L. The reference range was not used to interpret this result as normal/abnormal . RBC (test code = See_Comment L [Automated 789-8) message] The sy stem which generated this result transmitted reference range : 4.26 - 5.52 10*6/?L. The reference range was not used to interpret this result as normal/abnormal . HGB (test code = 9.2 g/dL 12.2-16.4 L 718-7) HCT (test code = 28.0 % 38.4-49.3 L 4544-3) MCV (test code = 94.6 fL 81.7-95.6 787-2) MCH (test code = 31.1 pg 26.1-32.7 785-6) MCHC (test code = 32.9 g/dL 31.2-35.0 786-4) RDW-SD (test code = 51.3 fL 38.5-51.6 07050-7) RDW-CV (test code = 14.7 % 12.1-15.4 788-0) PLT (test code = See_Comment L [Automated 777-3) message] The sy stem which generated this result transmitted reference range : 150 - 328 10*3/ ?L. The reference r rylee was not used to interpret this result as normal/abnormal . MPV (test code = 10.7 fL 9.8-13.0 88589-6) NRBC/100 WBC (test See_Comment [Automat ed code = 4329397079) message] The system which generated this result transmitted reference range : 0.0 - 10.0 /100 WBCs. The refer ence range was not u sed to interpret th is result as normal/abnormal . NRBC x10^3 (test code See_Comment [Auto mated = 9718716658) message] The s ystem which generated this result transmitted reference range : 10*3/?L. The reference range was not used to interpret this result as normal/abnormal . GRAN MAT (NEUT) % 49.1 % (test code = 770-8) IMM GRAN % (test code 0.40 % = 3261892847) LYMPH % (test code = 38.0 % 736-9) MONO % (test code = 8.8 % 5905-5) EOS % (test code = 3.2 % 713-8) BASO % (test code = 0.5 % 706-2) GRAN MAT x10^3(ANC) 2.75 10*3/uL 1.99-6.95 (test code = 6537974683) IMM GRAN x10^3 (test 0.00-0.06 code = 7233910924) LYMPH x10^3 (test code 2.13 10*3/uL 1.09-3.23 = 731-0) MONO x10^3 (test code 0.49 10*3/uL 0.36-1.02 = 742-7) EOS x10^3 (test code = 0.18 10*3/uL 0.06-0.53 711-2) BASO x10^3 (test code 0.03 10*3/uL 0.01-0.09 = 704-7) Lab Interpretation Abnormal (test code = 82578-6) [facility] GLUCOSE (AUTOMATED)2022-09-17 02:43:05 Test Item Value Reference Range Interpretation Comments POCT GLU (test code = 1905810505) 123 mg/dL 70-110 H Lab Interpretation (test code = Abnormal 89835-8) [facility] GLUCOSE (AUTOMATED)2022-09-17 02:43:05 Test Item Value Reference Range Interpretation Comments POCT GLU (test code = 6644818031) 123 mg/dL 70-110 H Lab Interpretation (test code = Abnormal 40095-0) [facility] GLUCOSE (AUTOMATED)2022-09-17 02:43:05 Test Item Value Reference Range Interpretation Comments POCT GLU (test code = 0332692498) 123 mg/dL 70-110 H Lab Interpretation (test code = Abnormal 00687-1) [facility] GLUCOSE (AUTOMATED)2022-09-16 22:50:47 Test Item Value Reference Range Interpretation Comments POCT GLU (test code = 3917271704) 147 mg/dL 70-110 H Lab Interpretation (test code = Abnormal 25085-6) [facility] GLUCOSE (AUTOMATED)2022-09-16 22:50:47 Test Item Value Reference Range Interpretation Comments POCT GLU (test code = 0351812730) 147 mg/dL 70-110 H Lab Interpretation (test code = Abnormal 81502-3) [facility] GLUCOSE (AUTOMATED)2022-09-16 22:50:47 Test Item Value Reference Range Interpretation Comments POCT GLU (test code = 5813683358) 147 mg/dL 70-110 H Lab Interpretation (test code = Abnormal 39478-2) [facility] GLUCOSE (AUTOMATED)2022-09-16 21:24:12 Test Item Value Reference Range Interpretation Comments POCT GLU (test code = 189 mg/dL 70-110 H Notifi ed Provider [id number]) Lab Interpretation (test Abnormal code = 76969-7) [facility] GLUCOSE (AUTOMATED)2022-09-16 21:24:12 Test Item Value Reference Range Interpretation Comments POCT GLU (test code = 189 mg/dL 70-110 H Notifi ed Provider [id number]) Lab Interpretation (test Abnormal code = 94847-6) [facility] GLUCOSE (AUTOMATED)2022-09-16 21:24:12 Test Item Value Reference Range Interpretation Comments POCT GLU (test code = 189 mg/dL 70-110 H Notifi ed Provider [id number]) Lab Interpretation (test Abnormal code = 15228-6) [facility] GLUCOSE (AUTOMATED)2022-09-16 17:02:41 Test Item Value Reference Range Interpretation Comments POCT GLU (test code = 210 mg/dL 70-110 H Notifi ed Provider [id number]) Lab Interpretation (test Abnormal code = 31557-0) [facility] GLUCOSE (AUTOMATED)2022-09-16 17:02:41 Test Item Value Reference Range Interpretation Comments POCT GLU (test code = 210 mg/dL 70-110 H Notifi ed Provider [id number]) Lab Interpretation (test Abnormal code = 87685-8) [facility] GLUCOSE (AUTOMATED)2022-09-16 17:02:41 Test Item Value Reference Range Interpretation Comments POCT GLU (test code = 210 mg/dL 70-110 H Notifi ed Provider [id number]) Lab Interpretation (test Abnormal code = 57171-6) [facility] GLUCOSE (AUTOMATED)2022-09-16 13:23:01 Test Item Value Reference Range Interpretation Comments POCT GLU (test code = 145 mg/dL 70-110 H Notifi ed Provider [id number]) Lab Interpretation (test Abnormal code = 34026-3) [facility] GLUCOSE (AUTOMATED)2022-09-16 13:23:01 Test Item Value Reference Range Interpretation Comments POCT GLU (test code = 145 mg/dL 70-110 H Notifi ed Provider [id number]) Lab Interpretation (test Abnormal code = 20306-7) [facility] GLUCOSE (AUTOMATED)2022-09-16 13:23:01 Test Item Value Reference Range Interpretation Comments POCT GLU (test code = 145 mg/dL 70-110 H Notifi ed Provider [id number]) Lab Interpretation (test Abnormal code = 03342-3) [facility] GLUCOSE (AUTOMATED)2022-09-16 03:13:35 Test Item Value Reference Range Interpretation Comments POCT GLU (test code = 0297135307) 226 mg/dL 70-110 H Lab Interpretation (test code = Abnormal 52531-4) [facility] GLUCOSE (AUTOMATED)2022-09-16 03:13:35 Test Item Value Reference Range Interpretation Comments POCT GLU (test code = 4595750761) 226 mg/dL 70-110 H Lab Interpretation (test code = Abnormal 65402-0) [facility] GLUCOSE (AUTOMATED)2022-09-16 03:13:35 Test Item Value Reference Range Interpretation Comments POCT GLU (test code = 1798130932) 226 mg/dL 70-110 H Lab Interpretation (test code = Abnormal 59744-0) [facility] GLUCOSE (AUTOMATED)2022-09-15 21:56:13 Test Item Value Reference Range Interpretation Comments POCT GLU (test code = 9664289092) 168 mg/dL 70-110 H Lab Interpretation (test code = Abnormal 45987-7) [facility] GLUCOSE (AUTOMATED)2022-09-15 21:56:13 Test Item Value Reference Range Interpretation Comments POCT GLU (test code = 4871578902) 168 mg/dL 70-110 H Lab Interpretation (test code = Abnormal 98709-1) [facility] GLUCOSE (AUTOMATED)2022-09-15 21:56:13 Test Item Value Reference Range Interpretation Comments POCT GLU (test code = 1210967865) 168 mg/dL 70-110 H Lab Interpretation (test code = Abnormal 08573-2) [facility] GLUCOSE (AUTOMATED)2022-09-15 17:05:52 Test Item Value Reference Range Interpretation Comments POCT GLU (test code = 1892223985) 152 mg/dL 70-110 H Lab Interpretation (test code = Abnormal 36174-6) [facility] GLUCOSE (AUTOMATED)2022-09-15 17:05:52 Test Item Value Reference Range Interpretation Comments POCT GLU (test code = 6122809102) 152 mg/dL 70-110 H Lab Interpretation (test code = Abnormal 47841-9) [facility] 17:05:52 Test Item Value Reference Range Interpretation Comments POCT GLU (test code = 6081455465) 152 mg/dL 70-110 H Lab Interpretation (test code = Abnormal 60555-6) [facility] GLUCOSE (AUTOMATED)2022-09-15 13:08:28 Test Item Value Reference Range Interpretation Comments POCT GLU (test code = 7332422159) 166 mg/dL 70-110 H Lab Interpretation (test code = Abnormal 08372-8) [facility] GLUCOSE (AUTOMATED)2022-09-15 13:08:28 Test Item Value Reference Range Interpretation Comments POCT GLU (test code = 3725595881) 166 mg/dL 70-110 H Lab Interpretation (test code = Abnormal 58934-8) [facility] GLUCOSE (AUTOMATED)2022-09-15 13:08:28 Test Item Value Reference Range Interpretation Comments POCT GLU (test code = 1325113959) 166 mg/dL 70-110 H Lab Interpretation (test code = Abnormal 12657-6) [facility] GLUCOSE (AUTOMATED)2022-09-15 03:37:09 Test Item Value Reference Range Interpretation Comments POCT GLU (test code = 9426064755) 229 mg/dL 70-110 H Lab Interpretation (test code = Abnormal 39424-4) [facility] GLUCOSE (AUTOMATED)2022-09-15 03:37:09 Test Item Value Reference Range Interpretation Comments POCT GLU (test code = 1881469152) 229 mg/dL 70-110 H Lab Interpretation (test code = Abnormal 90984-1) [facility] GLUCOSE (AUTOMATED)2022-09-15 03:37:09 Test Item Value Reference Range Interpretation Comments POCT GLU (test code = 9066984371) 229 mg/dL 70-110 H Lab Interpretation (test code = Abnormal 32081-7) [facility] GLUCOSE (AUTOMATED)2022-09-15 02:43:11 Test Item Value Reference Range Interpretation Comments POCT GLU (test code = 3862472496) 234 mg/dL 70-110 H Lab Interpretation (test code = Abnormal 18364-7) [facility] GLUCOSE (AUTOMATED)2022-09-15 02:43:11 Test Item Value Reference Range Interpretation Comments POCT GLU (test code = 0579203619) 234 mg/dL 70-110 H Lab Interpretation (test code = Abnormal 31905-1) [facility] GLUCOSE (AUTOMATED)2022-09-15 02:43:11 Test Item Value Reference Range Interpretation Comments POCT GLU (test code = 2838549596) 234 mg/dL 70-110 H Lab Interpretation (test code = Abnormal 07338-1) [facility] GLUCOSE (AUTOMATED)2022-09-14 21:26:45 Test Item Value Reference Range Interpretation Comments POCT GLU (test code = 130 mg/dL 70-110 H Notifi ed Provider [id number]) Lab Interpretation (test Abnormal code = 10785-5) [facility] GLUCOSE (AUTOMATED)2022-09-14 21:26:45 Test Item Value Reference Range Interpretation Comments POCT GLU (test code = 130 mg/dL 70-110 H Notifi ed Provider [id number]) Lab Interpretation (test Abnormal code = 98800-5) [facility] GLUCOSE (AUTOMATED)2022-09-14 21:26:45 Test Item Value Reference Range Interpretation Comments POCT GLU (test code = 130 mg/dL 70-110 H Notifi ed Provider [id number]) Lab Interpretation (test Abnormal code = 97659-5) [facility] GLUCOSE (AUTOMATED)2022-09-14 17:46:01 Test Item Value Reference Range Interpretation Comments POCT GLU (test code = 133 mg/dL 70-110 H Notifi ed Provider [id number]) Lab Interpretation (test Abnormal code = 18848-3) [facility] GLUCOSE (AUTOMATED)2022-09-14 17:46:01 Test Item Value Reference Range Interpretation Comments POCT GLU (test code = 133 mg/dL 70-110 H Notifi ed Provider [id number]) Lab Interpretation (test Abnormal code = 96033-8) [facility] GLUCOSE (AUTOMATED)2022-09-14 17:46:01 Test Item Value Reference Range Interpretation Comments POCT GLU (test code = 133 mg/dL 70-110 H Notifi ed Provider [id number]) Lab Interpretation (test Abnormal code = 05410-6) [facility] [id number] 16:13:42 Test Item Value Reference Range Interpretation Comments OSMOLALITY (test code = See_Comment [Au tomated message] 2692-2) The system [employer] generated this result transmitted ref erence range: 278 - 30 5 mOsm/kg. The re ference range was not u sed to interpret this result as normal/abnor mal. Lab Interpretation (test Normal code = 46094-7) [facility], SERUM OR [id number] 16:13:42 Test Item Value Reference Range Interpretation Comments OSMOLALITY (test code = See_Comment [Au tomated message] 2692-2) The system [employer] generated this result transmitted ref erence range: 278 - 30 5 mOsm/kg. The re ference range was not u sed to interpret this result as normal/abnor mal. Lab Interpretation (test Normal code = 09310-9) [facility], SERUM OR [id number] 16:13:42 Test Item Value Reference Range Interpretation Comments OSMOLALITY (test code = See_Comment [Au tomated message] 2692-2) The system [employer] generated this result transmitted ref erence range: 278 - 30 5 mOsm/kg. The re ference range was not u sed to interpret this result as normal/abnor mal. Lab Interpretation (test Normal code = 03330-1) [facility], SERUM OR [id number] 16:13:42 Test Item Value Reference Range Interpretation Comments OSMOLALITY (test code = See_Comment [Au tomated message] 2692-2) The system [employer] generated this result transmitted ref erence range: 278 - 30 5 mOsm/kg. The re ference range was not u sed to interpret this result as normal/abnor mal. Lab Interpretation (test Normal code = 32977-3) [facility] [id number] 16:01:58 Test Item Value Reference Range Interpretation Comments NT-proBNP (test code 4710 pg/mL See_Comment H [Autom ated = 6543120971) message] The system which generated this result transmitted reference range : <=125. The reference range was not used to interpret this result as normal/abnormal . HUDSON (test code = HUDSON) Biotin has been reported to cause a negative bias, interpret results relative to patient's use of biotin. Lab Interpretation Abnormal (test code = 34391-9) [facility] [id number] 16:01:58 Test Item Value Reference Range Interpretation Comments NT-proBNP (test code 4710 pg/mL See_Comment H [Autom ated = 9935437882) message] The system which generated this result transmitted reference range : <=125. The reference range was not used to interpret this result as normal/abnormal . HUDSON (test code = HUDSON) Biotin has been reported to cause a negative bias, interpret results relative to patient's use of biotin. Lab Interpretation Abnormal (test code = 50233-9) [facility] [id number] 16:01:58 Test Item Value Reference Range Interpretation Comments NT-proBNP (test code 4710 pg/mL See_Comment H [Autom ated = 0077955103) message] The system which generated this result transmitted reference range : <=125. The reference range was not used to interpret this result as normal/abnormal . HUDSON (test code = HUDSON) Biotin has been reported to cause a negative bias, interpret results relative to patient's use of biotin. Lab Interpretation Abnormal (test code = 00547-9) [facility] [id number] 16:01:58 Test Item Value Reference Range Interpretation Comments NT-proBNP (test code 4710 pg/mL See_Comment H [Autom ated = 7260133648) message] The system which generated this result transmitted reference range : <=125. The reference range was not used to interpret this result as normal/abnormal . HUDSON (test code = HUDSON) Biotin has been reported to cause a negative bias, interpret results relative to patient's use of biotin. Lab Interpretation Abnormal (test code = 38408-8) [facility] [id number] 16:01:53 Test Item Value Reference Interpretation Comments Range TROPONIN I (test 0.002 ng/mL See_Comment [Automated code = 9775696135) message] The system which generated this result transmitted reference range : <=0.034. The reference range was not used to interpret this result as normal/abnormal . HUDSON (test code = Reference (Normal) HUDSON) Range (defined by the 99th percentile reference limit): <= 0.034 ng/mL Note: Cardiac troponin begins to rise 3-4 hours after the onset of ischemia. Repeat in 4-6 hours if the sample was drawn within 3-4 hours of the onset of the symptom and found normal. Diagnosis of myocardial injury is made with acute changes in cTn concentrations with at least one serial sample above the 99th percentile upper reference limit (URL), taken together with the patient's clinical presentation. Biotin has been reported to cause a negative bias, interpret results relative to patient's use of biotin. Lab Interpretation Normal (test code = 34017-7) [facility] [id number] 16:01:53 Test Item Value Reference Interpretation Comments Range TROPONIN I (test 0.002 ng/mL See_Comment [Automated code = 5566608100) message] The system which generated this result transmitted reference range : <=0.034. The reference range was not used to interpret this result as normal/abnormal . HUDSON (test code = Reference (Normal) HUDSON) Range (defined by the 99th percentile reference limit): <= 0.034 ng/mL Note: Cardiac troponin begins to rise 3-4 hours after the onset of ischemia. Repeat in 4-6 hours if the sample was drawn within 3-4 hours of the onset of the symptom and found normal. Diagnosis of myocardial injury is made with acute changes in cTn concentrations with at least one serial sample above the 99th percentile upper reference limit (URL), taken together with the patient's clinical presentation. Biotin has been reported to cause a negative bias, interpret results relative to patient's use of biotin. Lab Interpretation Normal (test code = 18892-2) [facility] [id number] 16:01:53 Test Item Value Reference Interpretation Comments Range TROPONIN I (test 0.002 ng/mL See_Comment [Automated code = 0512537654) message] The system which generated this result transmitted reference range : <=0.034. The reference range was not used to interpret this result as normal/abnormal . HUDSON (test code = Reference (Normal) HUDSON) Range (defined by the 99th percentile reference limit): <= 0.034 ng/mL Note: Cardiac troponin begins to rise 3-4 hours after the onset of ischemia. Repeat in 4-6 hours if the sample was drawn within 3-4 hours of the onset of the symptom and found normal. Diagnosis of myocardial injury is made with acute changes in cTn concentrations with at least one serial sample above the 99th percentile upper reference limit (URL), taken together with the patient's clinical presentation. Biotin has been reported to cause a negative bias, interpret results relative to patient's use of biotin. Lab Interpretation Normal (test code = 58096-9) [facility]TOTAL CHOLESTEROL, TRIGLYCERIDES, HDL)2022-09-14 15:44:15 Test Item Value Reference Range Interpretation Comments CHOL (test code = 132 mg/dL 120-200 9647466904) HDL (test code = 47 mg/dL See_Comment [Automated message] 7864451683) The system [employer] generated this result transmit lennox reference range : >=40. The refer ence range was not u sed to interpret th is result as normal/abnormal . HDLC RATIO (test code = See_Comment [Au tomated message] 3014342742) The system [employer] generated this result transmit lennox reference range : <=5.0. The refe rence range was not u sed to interpret th is result as normal/abnormal . TRIG (test code = 68 mg/dL 30-170 0547167101) LDL CHOL (test code = 71 mg/dL See_Comment [Auto mated message] 68211-3) The system [employer] generated this result transmit lennox reference range : <=160. The refe rence range was not u sed to interpret th is result as normal/abnormal . VLDL (test code = 14 mg/dL 5-60 7232615098) Lab Interpretation (test Normal code = 28136-9) [facility]TOTAL CHOLESTEROL, TRIGLYCERIDES, HDL)2022-09-14 15:44:15 Test Item Value Reference Range Interpretation Comments CHOL (test code = 132 mg/dL 120-200 0463229238) HDL (test code = 47 mg/dL See_Comment [Automated message] 9434910338) The system [employer] generated this result transmit lennox reference range : >=40. The refer ence range was not u sed to interpret th is result as normal/abnormal . HDLC RATIO (test code = See_Comment [Au tomated message] 8616414481) The system [employer] generated this result transmit lennox reference range : <=5.0. The refe rence range was not u sed to interpret th is result as normal/abnormal . TRIG (test code = 68 mg/dL 30-170 6586612761) LDL CHOL (test code = 71 mg/dL See_Comment [Auto mated message] 91866-8) The system [employer] generated this result transmit lennox reference range : <=160. The refe rence range was not u sed to interpret th is result as normal/abnormal . VLDL (test code = 14 mg/dL 5-60 2343749720) Lab Interpretation (test Normal code = 22364-0) [facility]15[facility]TOTAL CHOLESTEROL, TRIGLYCERIDES, HDL)2022-09-14 15:44:15 Test Item Value Reference Range Interpretation Comments CHOL (test code = 132 mg/dL 120-200 7646150503) HDL (test code = 47 mg/dL See_Comment [Automated message] 6625586071) The system [employer] generated this result transmit lennox reference range : >=40. The refer ence range was not u sed to interpret th is result as normal/abnormal . HDLC RATIO (test code = See_Comment [Au tomated message] 9167454063) The system [employer] generated this result transmit lennox reference range : <=5.0. The refe rence range was not u sed to interpret th is result as normal/abnormal . TRIG (test code = 68 mg/dL 30-170 1743772431) LDL CHOL (test code = 71 mg/dL See_Comment [Auto mated message] 35477-9) The system [employer] generated this result transmit lennox reference range : <=160. The refe rence range was not u sed to interpret th is result as normal/abnormal . VLDL (test code = 14 mg/dL 5-60 5063393013) Lab Interpretation (test Normal code = 66334-9) [facility]48657)(TOTAL CHOLESTEROL, TRIGLYCERIDES, HDL)2022-09-14 15:44:15 Test Item Value Reference Range Interpretation Comments CHOL (test code = 132 mg/dL 120-200 9371367599) HDL (test code = 47 mg/dL See_Comment [Automated message] [id number]) The system [employer] generated this result transmit lennox reference range : >=40. The refer ence range was not u sed to interpret th is result as normal/abnormal . HDLC RATIO (test code = See_Comment [Au tomated message] [id number]) The system [employer] generated this result transmit lennox reference range : <=5.0. The refe rence range was not u sed to interpret th is result as normal/abnormal . TRIG (test code = 68 mg/dL 30-170 1045519833) LDL CHOL (test code = 71 mg/dL See_Comment [Auto mated message] 69504-0) The system [employer] generated this result transmit lennox reference range : <=160. The refe rence range was not u sed to interpret th is result as normal/abnormal . VLDL (test code = 14 mg/dL 5-60 7699052481) Lab Interpretation (test Normal code = 50937-6) [facility] GLUCOSE (AUTOMATED)2022-09-14 13:57:38 Test Item Value Reference Range Interpretation Comments POCT GLU (test code = 4570343407) 120 mg/dL 70-110 H Lab Interpretation (test code = Abnormal 51567-6) [facility] GLUCOSE (AUTOMATED)2022-09-14 13:57:38 Test Item Value Reference Range Interpretation Comments POCT GLU (test code = 9136316708) 120 mg/dL 70-110 H Lab Interpretation (test code = Abnormal 73702-0) [facility] GLUCOSE (AUTOMATED)2022-09-14 13:57:38 Test Item Value Reference Range Interpretation Comments POCT GLU (test code = 8102955912) 120 mg/dL 70-110 H Lab Interpretation (test code = Abnormal 99523-4) [facility] and Screen - ONCE [id number] 09:57:42 Test Item Value Reference Range Interpretation Comments ABO & RH (test code O POSITIVE Performe d at [facility] = 20) Laboratory [facility] Blood Bank[address] [place] [address]Jbiv Free: [phone] A No. [id number] IAT (test code = Negative Performed a t [facility] 1185) Laboratory [facility] Blood [facility]3 [address] [place] [address] s [address]Zdxg Free: [phone] A No. [id number] [facility] and Screen - ONCE [id number] 09:57:42 Test Item Value Reference Range Interpretation Comments ABO & RH (test code O POSITIVE Performe d at [facility] = 20) Laboratory [facility] Blood [address] [address]Jxlo Free: [phone] A No. [id number] IAT (test code = Negative Performed a t [facility] 1185) Laboratory [facility] Blood [address] [address]Ghmb Free: [phone] A No. [id number] [facility] [id number] 09:57:42 Test Item Value Reference Range Interpretation Comments ABO & RH (test code O POSITIVE Performe d at [facility] = 20) Laboratory [facility] Blood [address] [address]Mcob Free: [phone] A No. [id number] IAT (test code = Negative Performed a t [facility] 1185) Laboratory [facility] Blood [address] [address]Rudj Free: [phone] A No. [id number] [facility] [id number] 09:57:42 Test Item Value Reference Range Interpretation Comments ABO & RH (test code O POSITIVE Performe d at [facility] = 20) Laboratory [facility] Blood [address] [address]Vgch Free: [phone] A No. [id number] IAT (test code = Negative Performed a t [facility] 1185) Laboratory [facility] Blood [address] [address]Xlxn Free: [phone] A No. [id number] [facility] (NA, K, CL, CO2, GLUCOSE, BUN, CREATININE, [place])2022-09-14 09:40:08 Test Item Value Reference Range Interpretation Comments NA (test code = 130 mmol/L 135-145 L 6808779281) K (test code = 4.0 mmol/L 3.5-5.0 6569024689) CL (test code = 101 mmol/L 98-108 0342454205) CO2 TOTAL (test code = 25 mmol/L 23-31 8290504158) AGAP (test code = 2-16 5121085012) BUN (test code = 19 mg/dL 7-23 9118922517) GLUCOSE (test code = 157 mg/dL 70-110 H 8061462336) CREATININE (test code = 0.66 mg/dL 0.60-1.25 7451149301) CALCIUM (test code = 7.8 mg/dL 8.6-10.6 L 4002750525) eGFR (test code = mL/min/1.73m2 2456958380) HUDSON (test code = HUDSON) Association of Glomerular Filtration Rate (GFR) and Staging of Kidney Disease* + --+ --+ ------+| GFR (mL/min/1.73 m2) ?| With Kidney Damage ?| ?Without Kidney Damage+ --------+ --------+ +| ?>90 ?| ?Stage one ?| ? Normal ?+ ---+ ---+ -------+| ?60-89 ?| ?Stage two ?| ? Decreased GFR ? + --+ --+ ------+| ?30-59 ?| ?Stage three ?| ? Stage three ? + --+ --+ ------+| ?15-29 ?| ?Stage four ? | ? Stage four ?+ ---+ ---+ -------+| ?<15 (or dialysis) ? ?| ?Stage five ? | ? Stage five ?+ ---+ ---+ -------+ *Each stage assumes the associated GFR level has been in effect for at least three months. ?Stages 1 to 5, with or without kidney disease, indicate chronic kidney disease. Notes: Determination of stages one and two (with eGFR >59mL/min/1.73 m2) requires estimation of kidney damage for at least three months as defined by structural or functional abnormalities of the kidney, manifested by either:Pathological abnormalities or Markers of kidney damage (including abnormalities in the composition of the blood or urine or abnormalities in imaging tests). Lab Interpretation Abnormal (test code = 53800-7) [facility] Test Item Value Reference Range Interpretation Comments MAGNESIUM (test code = 3612364218) 1.9 mg/dL 1.7-2.4 Lab Interpretation (test code = Normal 76292-7) [facility] METABOLIC PANEL (NA, K, CL, CO2, GLUCOSE, BUN, CREATININE, CA)2022-09-14 09:40:08 Test Item Value Reference Range Interpretation Comments NA (test code = 130 mmol/L 135-145 L 3926692450) K (test code = 4.0 mmol/L 3.5-5.0 1876572272) CL (test code = 101 mmol/L 98-108 6548866413) CO2 TOTAL (test code = 25 mmol/L 23-31 9312897074) AGAP (test code = 2-16 5719960052) BUN (test code = 19 mg/dL 7-23 7983910438) GLUCOSE (test code = 157 mg/dL 70-110 H 4559654771) CREATININE (test code = 0.66 mg/dL 0.60-1.25 0887844341) CALCIUM (test code = 7.8 mg/dL 8.6-10.6 L 9972424459) eGFR (test code = mL/min/1.73m2 1911847271) HUDSON (test code = HUDSON) Association of Glomerular Filtration Rate (GFR) and Staging of Kidney Disease* + --+ --+ ------+| GFR (mL/min/1.73 m2) ?| With Kidney Damage ?| ?Without Kidney Damage+ --------+ --------+ +| ?>90 ?| ?Stage one ?| ? Normal ?+ ---+ ---+ -------+| ?60-89 ?| ?Stage two ?| ? Decreased GFR ? + --+ --+ ------+| ?30-59 ?| ?Stage three ?| ? Stage three ? + --+ --+ ------+| ?15-29 ?| ?Stage four ? | ? Stage four ?+ ---+ ---+ -------+| ?<15 (or dialysis) ? ?| ?Stage five ? | ? Stage five ?+ ---+ ---+ -------+ *Each stage assumes the associated GFR level has been in effect for at least three months. ?Stages 1 to 5, with or without kidney disease, indicate chronic kidney disease. Notes: Determination of stages one and two (with eGFR >59mL/min/1.73 m2) requires estimation of kidney damage for at least three months as defined by structural or functional abnormalities of the kidney, manifested by either:Pathological abnormalities or Markers of kidney damage (including abnormalities in the composition of the blood or urine or abnormalities in imaging tests). Lab Interpretation Abnormal (test code = 24897-7) [facility]08 Test Item Value Reference Range Interpretation Comments MAGNESIUM (test code = 7466441221) 1.9 mg/dL 1.7-2.4 Lab Interpretation (test code = Normal 50071-4) [facility] (NA, K, CL, CO2, GLUCOSE, BUN, CREATININE, CA)2022-09-14 09:40:08 Test Item Value Reference Range Interpretation Comments NA (test code = 130 mmol/L 135-145 L 8126485656) K (test code = 4.0 mmol/L 3.5-5.0 2792044624) CL (test code = 101 mmol/L 98-108 1542891064) CO2 TOTAL (test code = 25 mmol/L 23-31 3137977182) AGAP (test code = 2-16 2480882445) BUN (test code = 19 mg/dL 7-23 7090822815) GLUCOSE (test code = 157 mg/dL 70-110 H 6746178853) CREATININE (test code = 0.66 mg/dL 0.60-1.25 8951747190) CALCIUM (test code = 7.8 mg/dL 8.6-10.6 L 1341103382) eGFR (test code = mL/min/1.73m2 8379294138) HUDSON (test code = HUDSON) Association of Glomerular Filtration Rate (GFR) and Staging of Kidney Disease* + --+ --+ ------+| GFR (mL/min/1.73 m2) ?| With Kidney Damage ?| ?Without Kidney Damage+ --------+ --------+ +| ?>90 ?| ?Stage one ?| ? Normal ?+ ---+ ---+ -------+| ?60-89 ?| ?Stage two ?| ? Decreased GFR ? + --+ --+ ------+| ?30-59 ?| ?Stage three ?| ? Stage three ? + --+ --+ ------+| ?15-29 ?| ?Stage four ? | ? Stage four ?+ ---+ ---+ -------+| ?<15 (or dialysis) ? ?| ?Stage five ? | ? Stage five ?+ ---+ ---+ -------+ *Each stage assumes the associated GFR level has been in effect for at least three months. ?Stages 1 to 5, with or without kidney disease, indicate chronic kidney disease. Notes: Determination of stages one and two (with eGFR >59mL/min/1.73 m2) requires estimation of kidney damage for at least three months as defined by structural or functional abnormalities of the kidney, manifested by either:Pathological abnormalities or Markers of kidney damage (including abnormalities in the composition of the blood or urine or abnormalities in imaging tests). Lab Interpretation Abnormal (test code = 97641-1) [facility]08 Test Item Value Reference Range Interpretation Comments MAGNESIUM (test code = 1343159765) 1.9 mg/dL 1.7-2.4 Lab Interpretation (test code = Normal 52139-2) [facility] WITH [id number] 09:31:09 Test Item Value Reference Range Interpretation Comments WBC (test code = See_Comment [Automated 7490-2) message] The sy stem which generated this result transmitted reference range : 4.20 - 10.70 10*3/?L. The reference range was not used to interpret this result as normal/abnormal . RBC (test code = See_Comment L [Automated 909-8) message] The sy stem which generated this result transmitted reference range : 4.26 - 5.52 10*6/?L. The reference range was not used to interpret this result as normal/abnormal . HGB (test code = 9.6 g/dL 12.2-16.4 L 718-7) HCT (test code = 29.2 % 38.4-49.3 L 4544-3) MCV (test code = 93.6 fL 81.7-95.6 787-2) MCH (test code = 30.8 pg 26.1-32.7 785-6) MCHC (test code = 32.9 g/dL 31.2-35.0 786-4) RDW-SD (test code = 48.8 fL 38.5-51.6 95831-5) RDW-CV (test code = 14.4 % 12.1-15.4 788-0) PLT (test code = See_Comment L [Automated 777-3) message] The sy stem which generated this result transmitted reference range : 150 - 328 10*3/ ?L. The reference r rylee was not used to interpret this result as normal/abnormal . MPV (test code = 11.0 fL 9.8-13.0 93772-7) NRBC/100 WBC (test See_Comment [Automat ed code = 0948097181) message] The system which generated this result transmitted reference range : 0.0 - 10.0 /100 WBCs. The refer ence range was not u sed to interpret th is result as normal/abnormal . NRBC x10^3 (test code See_Comment [Auto mated = 4942768360) message] The s ystem which generated this result transmitted reference range : 10*3/?L. The reference range was not used to interpret this result as normal/abnormal . GRAN MAT (NEUT) % 51.5 % (test code = 770-8) IMM GRAN % (test code 0.20 % = 1162736639) LYMPH % (test code = 38.1 % 736-9) MONO % (test code = 6.3 % 5905-5) EOS % (test code = 3.5 % 713-8) BASO % (test code = 0.4 % 706-2) GRAN MAT x10^3(ANC) 2.36 10*3/uL 1.99-6.95 (test code = 8230931999) IMM GRAN x10^3 (test 0.00-0.06 code = 6075018313) LYMPH x10^3 (test code 1.75 10*3/uL 1.09-3.23 = 731-0) MONO x10^3 (test code 0.29 10*3/uL 0.36-1.02 L = 742-7) EOS x10^3 (test code = 0.16 10*3/uL 0.06-0.53 711-2) BASO x10^3 (test code 0.01-0.09 = 704-7) Lab Interpretation Abnormal (test code = 66979-9) [facility] WITH [id number] 09:31:09 Test Item Value Reference Range Interpretation Comments WBC (test code = See_Comment [Automated 6690-2) message] The sy stem which generated this result transmitted reference range : 4.20 - 10.70 10*3/?L. The reference range was not used to interpret this result as normal/abnormal . RBC (test code = See_Comment L [Automated 789-8) message] The sy stem which generated this result transmitted reference range : 4.26 - 5.52 10*6/?L. The reference range was not used to interpret this result as normal/abnormal . HGB (test code = 9.6 g/dL 12.2-16.4 L 718-7) HCT (test code = 29.2 % 38.4-49.3 L 4544-3) MCV (test code = 93.6 fL 81.7-95.6 787-2) MCH (test code = 30.8 pg 26.1-32.7 785-6) MCHC (test code = 32.9 g/dL 31.2-35.0 786-4) RDW-SD (test code = 48.8 fL 38.5-51.6 79726-3) RDW-CV (test code = 14.4 % 12.1-15.4 788-0) PLT (test code = See_Comment L [Automated 777-3) message] The sy stem which generated this result transmitted reference range : 150 - 328 10*3/ ?L. The reference r rylee was not used to interpret this result as normal/abnormal . MPV (test code = 11.0 fL 9.8-13.0 89960-1) NRBC/100 WBC (test See_Comment [Automat ed code = 6646889256) message] The system which generated this result transmitted reference range : 0.0 - 10.0 /100 WBCs. The refer ence range was not u sed to interpret th is result as normal/abnormal . NRBC x10^3 (test code See_Comment [Auto mated = 5903810234) message] The s ystem which generated this result transmitted reference range : 10*3/?L. The reference range was not used to interpret this result as normal/abnormal . GRAN MAT (NEUT) % 51.5 % (test code = 770-8) IMM GRAN % (test code 0.20 % = 4582122456) LYMPH % (test code = 38.1 % 736-9) MONO % (test code = 6.3 % 5905-5) EOS % (test code = 3.5 % 713-8) BASO % (test code = 0.4 % 706-2) GRAN MAT x10^3(ANC) 2.36 10*3/uL 1.99-6.95 (test code = 7996218331) IMM GRAN x10^3 (test 0.00-0.06 code = 2105998489) LYMPH x10^3 (test code 1.75 10*3/uL 1.09-3.23 = 731-0) MONO x10^3 (test code 0.29 10*3/uL 0.36-1.02 L = 742-7) EOS x10^3 (test code = 0.16 10*3/uL 0.06-0.53 711-2) BASO x10^3 (test code 0.01-0.09 = 704-7) Lab Interpretation Abnormal (test code = 12537-5) [facility] WITH [id number] 09:31:09 Test Item Value Reference Range Interpretation Comments WBC (test code = See_Comment [Automated 6090-2) message] The sy stem which generated this result transmitted reference range : 4.20 - 10.70 10*3/?L. The reference range was not used to interpret this result as normal/abnormal . RBC (test code = See_Comment L [Automated 579-8) message] The sy stem which generated this result transmitted reference range : 4.26 - 5.52 10*6/?L. The reference range was not used to interpret this result as normal/abnormal . HGB (test code = 9.6 g/dL 12.2-16.4 L 718-7) HCT (test code = 29.2 % 38.4-49.3 L 4544-3) MCV (test code = 93.6 fL 81.7-95.6 787-2) MCH (test code = 30.8 pg 26.1-32.7 785-6) MCHC (test code = 32.9 g/dL 31.2-35.0 786-4) RDW-SD (test code = 48.8 fL 38.5-51.6 67563-1) RDW-CV (test code = 14.4 % 12.1-15.4 788-0) PLT (test code = See_Comment L [Automated 777-3) message] The sy stem which generated this result transmitted reference range : 150 - 328 10*3/ ?L. The reference r rylee was not used to interpret this result as normal/abnormal . MPV (test code = 11.0 fL 9.8-13.0 95562-4) NRBC/100 WBC (test See_Comment [Automat ed code = 5430871139) message] The system which generated this result transmitted reference range : 0.0 - 10.0 /100 WBCs. The refer ence range was not u sed to interpret th is result as normal/abnormal . NRBC x10^3 (test code See_Comment [Auto mated = 5405193464) message] The s ystem which generated this result transmitted reference range : 10*3/?L. The reference range was not used to interpret this result as normal/abnormal . GRAN MAT (NEUT) % 51.5 % (test code = 770-8) IMM GRAN % (test code 0.20 % = 5319597113) LYMPH % (test code = 38.1 % 736-9) MONO % (test code = 6.3 % 5905-5) EOS % (test code = 3.5 % 713-8) BASO % (test code = 0.4 % 706-2) GRAN MAT x10^3(ANC) 2.36 10*3/uL 1.99-6.95 (test code = 1700918087) IMM GRAN x10^3 (test 0.00-0.06 code = 3406990023) LYMPH x10^3 (test code 1.75 10*3/uL 1.09-3.23 = 731-0) MONO x10^3 (test code 0.29 10*3/uL 0.36-1.02 L = 742-7) EOS x10^3 (test code = 0.16 10*3/uL 0.06-0.53 711-2) BASO x10^3 (test code 0.01-0.09 = 704-7) Lab Interpretation Abnormal (test code = 63954-9) [facility] GLUCOSE (AUTOMATED)2022-09-14 03:56:30 Test Item Value Reference Range Interpretation Comments POCT GLU (test code = 9950081054) 191 mg/dL 70-110 H Lab Interpretation (test code = Abnormal 89445-0) [facility] GLUCOSE (AUTOMATED)2022-09-14 03:56:30 Test Item Value Reference Range Interpretation Comments POCT GLU (test code = 2595064339) 191 mg/dL 70-110 H Lab Interpretation (test code = Abnormal 71467-4) [facility] GLUCOSE (AUTOMATED)2022-09-14 03:56:30 Test Item Value Reference Range Interpretation Comments POCT GLU (test code = 1515575594) 191 mg/dL 70-110 H Lab Interpretation (test code = Abnormal 60830-6) [facility] GLUCOSE (AUTOMATED)2022-09-14 02:59:53 Test Item Value Reference Range Interpretation Comments POCT GLU (test code = 5645076258) 194 mg/dL 70-110 H Lab Interpretation (test code = Abnormal 44539-2) [facility] GLUCOSE (AUTOMATED)2022-09-14 02:59:53 Test Item Value Reference Range Interpretation Comments POCT GLU (test code = 4732285897) 194 mg/dL 70-110 H Lab Interpretation (test code = Abnormal 76394-2) [facility] GLUCOSE (AUTOMATED)2022-09-14 02:59:53 Test Item Value Reference Range Interpretation Comments POCT GLU (test code = 1652632543) 194 mg/dL 70-110 H Lab Interpretation (test code = Abnormal 21627-8) [facility] GLUCOSE (AUTOMATED)2022-09-13 22:50:29 Test Item Value Reference Range Interpretation Comments POCT GLU (test code = 9817555855) 104 mg/dL 70-110 Lab Interpretation (test code = Normal 63645-9) [facility] GLUCOSE (AUTOMATED)2022-09-13 22:50:29 Test Item Value Reference Range Interpretation Comments POCT GLU (test code = 1941951734) 104 mg/dL 70-110 Lab Interpretation (test code = Normal 04508-4) [facility] GLUCOSE (AUTOMATED)2022-09-13 22:50:29 Test Item Value Reference Range Interpretation Comments POCT GLU (test code = 1896659518) 104 mg/dL 70-110 Lab Interpretation (test code = Normal 75417-2) [facility] GLUCOSE (AUTOMATED)2022-09-13 17:49:04 Test Item Value Reference Range Interpretation Comments POCT GLU (test code = 3142477955) 255 mg/dL 70-110 H Lab Interpretation (test code = Abnormal 55545-9) [facility] GLUCOSE (AUTOMATED)2022-09-13 17:49:04 Test Item Value Reference Range Interpretation Comments POCT GLU (test code = 1888759460) 255 mg/dL 70-110 H Lab Interpretation (test code = Abnormal 09128-5) [facility] GLUCOSE (AUTOMATED)2022-09-13 17:49:04 Test Item Value Reference Range Interpretation Comments POCT GLU (test code = 3460265633) 255 mg/dL 70-110 H Lab Interpretation (test code = Abnormal 82810-0) [facility] GLUCOSE (AUTOMATED)2022-09-13 14:14:38 Test Item Value Reference Range Interpretation Comments POCT GLU (test code = 5365457528) 189 mg/dL 70-110 H Lab Interpretation (test code = Abnormal 68674-0) [facility] GLUCOSE (AUTOMATED)2022-09-13 14:14:38 Test Item Value Reference Range Interpretation Comments POCT GLU (test code = 7942455608) 189 mg/dL 70-110 H Lab Interpretation (test code = Abnormal 00500-5) [facility] GLUCOSE (AUTOMATED)2022-09-13 14:14:38 Test Item Value Reference Range Interpretation Comments POCT GLU (test code = 3835343857) 189 mg/dL 70-110 H Lab Interpretation (test code = Abnormal 84667-9) [facility]22-[facility]-13 11:24:47 Test Item Value Reference Range Interpretation Comments APTT Patient (test code See_Comment H [Au tomated message] = 3173-2) The system [employer] generated this result transmitted ref erence range: 26 - 36 Seconds. The reference range was not used to int erpret this result as normal/abnormal . Lab Interpretation (test Abnormal code = 00679-1) [facility] (for use with Heparin Infusion)2022-09-13 11:24:47 Test Item Value Reference Range Interpretation Comments APTT Patient (test code See_Comment H [Au tomated message] = 3173-2) The system [employer] generated this result transmitted ref erence range: 26 - 36 Seconds. The reference range was not used to int erpret this result as normal/abnormal . Lab Interpretation (test Abnormal code = 28432-9) [facility] (for use with Heparin Infusion)2022-09-13 11:24:47 Test Item Value Reference Range Interpretation Comments APTT Patient (test code See_Comment H [Au tomated message] = 3173-2) The system [employer] generated this result transmitted ref erence range: 26 - 36 Seconds. The reference range was not used to int erpret this result as normal/abnormal . Lab Interpretation (test Abnormal code = 58720-2) [facility] Without [id number] 11:06:08 Test Item Value Reference Range Interpretation Comments WBC (test code = 6690-2) See_Comment [A utomated message] The system [employer] generated this result transmit lennox reference range : 4.20 - 10.70 10*3/?L. The reference range was not used to interpret this result as normal/abnormal . RBC (test code = 789-8) See_Comment L [Au tomated message] The system [employer] generated this result transmit lennox reference range : 4.26 - 5.52 10* 6/?L. The reference r rylee was not used to interpret this result as normal/abnormal . HGB (test code = 718-7) 10.0 g/dL 12.2-16.4 L HCT (test code = 4544-3) 29.7 % 38.4-49.3 L MCH (test code = 785-6) 31.3 pg 26.1-32.7 MCV (test code = 787-2) 92.8 fL 81.7-95.6 MCHC (test code = 786-4) 33.7 g/dL 31.2-35.0 PLT (test code = 777-3) See_Comment L [Au tomated message] The system [employer] generated this result transmit lennox reference range : 150 - 328 10*3/?L. The reference range was not used to interpret this result as normal/abnormal . MPV (test code = 10.7 fL 9.8-13.0 80421-0) RDW-CV (test code = 14.0 % 12.1-15.4 788-0) RDW-SD (test code = 48.0 fL 38.5-51.6 32645-8) NRBC x10^3 (test code = See_Comment [Au tomated message] 1632057292) The system [employer] generated this result transmit lennox reference range : 10*3/?L. The reference range was not used to interpret this result as normal/abnormal . NRBC/100 WBC (test code See_Comment [Au tomated message] = 4105291027) The system [facility] generated this result transmit lennox reference range : 0.0 - 10.0 /100 WBC s. The reference r rylee was not used to interpret this result as normal/abnormal . IPF % (test code = 7994349254) Lab Interpretation (test Abnormal code = 68179-4) [facility] Without [id number] 11:06:08 Test Item Value Reference Range Interpretation Comments WBC (test code = 6690-2) See_Comment [A utomated message] The system [facility] generated this result transmit lennox reference range : 4.20 - 10.70 10*3/?L. The reference range was not used to interpret this result as normal/abnormal . RBC (test code = 789-8) See_Comment L [Au tomated message] The system [facility] generated this result transmit lennox reference range : 4.26 - 5.52 10* 6/?L. The reference r rylee was not used to interpret this result as normal/abnormal . HGB (test code = 718-7) 10.0 g/dL 12.2-16.4 L HCT (test code = 4544-3) 29.7 % 38.4-49.3 L MCH (test code = 785-6) 31.3 pg 26.1-32.7 MCV (test code = 787-2) 92.8 fL 81.7-95.6 MCHC (test code = 786-4) 33.7 g/dL 31.2-35.0 PLT (test code = 777-3) See_Comment L [Au tomated message] The system [facility] generated this result transmit lennox reference range : 150 - 328 10*3/?L. The reference range was not used to interpret this result as normal/abnormal . MPV (test code = 10.7 fL 9.8-13.0 13665-5) RDW-CV (test code = 14.0 % 12.1-15.4 788-0) RDW-SD (test code = 48.0 fL 38.5-51.6 08076-0) NRBC x10^3 (test code = See_Comment [Au tomated message] [id number]) The system [employer] generated this result transmit lennox reference range : 10*3/?L. The reference range was not used to interpret this result as normal/abnormal . NRBC/100 WBC (test code See_Comment [Au tomated message] = 9115946713) The system [facility] generated this result transmit lennox reference range : 0.0 - 10.0 /100 WBC s. The reference r rylee was not used to interpret this result as normal/abnormal . IPF % (test code = 3902831249) Lab Interpretation (test Abnormal code = 47813-5) [facility] Without [id number] 11:06:08 Test Item Value Reference Range Interpretation Comments WBC (test code = 6690-2) See_Comment [A utomated message] The system [facility] generated this result transmit lennox reference range : 4.20 - 10.70 10*3/?L. The reference range was not used to interpret this result as normal/abnormal . RBC (test code = 789-8) See_Comment L [Au tomated message] The system [facility] generated this result transmit lennox reference range : 4.26 - 5.52 10* 6/?L. The reference r rylee was not used to interpret this result as normal/abnormal . HGB (test code = 718-7) 10.0 g/dL 12.2-16.4 L HCT (test code = 4544-3) 29.7 % 38.4-49.3 L MCH (test code = 785-6) 31.3 pg 26.1-32.7 MCV (test code = 787-2) 92.8 fL 81.7-95.6 MCHC (test code = 786-4) 33.7 g/dL 31.2-35.0 PLT (test code = 777-3) See_Comment L [Au tomated message] The system [employer] generated this result transmit lennox reference range : 150 - 328 10*3/?L. The reference range was not used to interpret this result as normal/abnormal . MPV (test code = 10.7 fL 9.8-13.0 11166-7) RDW-CV (test code = 14.0 % 12.1-15.4 788-0) RDW-SD (test code = 48.0 fL 38.5-51.6 77266-5) NRBC x10^3 (test code = See_Comment [Au tomated message] 7779520131) The system [employer] generated this result transmit lennox reference range : 10*3/?L. The reference range was not used to interpret this result as normal/abnormal . NRBC/100 WBC (test code See_Comment [Au tomated message] = 9129729913) The system [facility] generated this result transmit lennox reference range : 0.0 - 10.0 /100 WBC s. The reference r rylee was not used to interpret this result as normal/abnormal . IPF % (test code = 5570477631) Lab Interpretation (test Abnormal code = 91066-1) [facility] Without [id number] 11:06:08 Test Item Value Reference Range Interpretation Comments WBC (test code = 6690-2) See_Comment [A utomated message] The system [employer] generated this result transmit lennox reference range : 4.20 - 10.70 10*3/?L. The reference range was not used to interpret this result as normal/abnormal . RBC (test code = 789-8) See_Comment L [Au tomated message] The system [employer] generated this result transmit lennox reference range : 4.26 - 5.52 10* 6/?L. The reference r rylee was not used to interpret this result as normal/abnormal . HGB (test code = 718-7) 10.0 g/dL 12.2-16.4 L HCT (test code = 4544-3) 29.7 % 38.4-49.3 L MCH (test code = 785-6) 31.3 pg 26.1-32.7 MCV (test code = 787-2) 92.8 fL 81.7-95.6 MCHC (test code = 786-4) 33.7 g/dL 31.2-35.0 PLT (test code = 777-3) See_Comment L [Au tomated message] The system [employer] generated this result transmit lennox reference range : 150 - 328 10*3/?L. The reference range was not used to interpret this result as normal/abnormal . MPV (test code = 10.7 fL 9.8-13.0 38141-1) RDW-CV (test code = 14.0 % 12.1-15.4 788-0) RDW-SD (test code = 48.0 fL 38.5-51.6 73518-3) NRBC x10^3 (test code = See_Comment [Au tomated message] 0276422126) The system [employer] generated this result transmit lennox reference range : 10*3/?L. The reference range was not used to interpret this result as normal/abnormal . NRBC/100 WBC (test code See_Comment [Au tomated message] = 5641156957) The system [employer] generated this result transmit lennox reference range : 0.0 - 10.0 /100 WBC s. The reference r rylee was not used to interpret this result as normal/abnormal . IPF % (test code = 9930057296) Lab Interpretation (test Abnormal code = 52490-4) [facility] GLUCOSE (AUTOMATED)2022-09-13 03:21:05 Test Item Value Reference Range Interpretation Comments POCT GLU (test code = 9284349207) 103 mg/dL 70-110 Lab Interpretation (test code = Normal 02932-9) [facility] GLUCOSE (AUTOMATED)2022-09-13 03:21:05 Test Item Value Reference Range Interpretation Comments POCT GLU (test code = 1025389476) 103 mg/dL 70-110 Lab Interpretation (test code = Normal 54355-3) [facility] GLUCOSE (AUTOMATED)2022-09-13 03:21:05 Test Item Value Reference Range Interpretation Comments POCT GLU (test code = 1996508454) 103 mg/dL 70-110 Lab Interpretation (test code = Normal 51652-7) [facility] GLUCOSE (AUTOMATED)2022-09-12 23:33:37 Test Item Value Reference Range Interpretation Comments POCT GLU (test code = 8187596035) 317 mg/dL 70-110 H Lab Interpretation (test code = Abnormal 22060-2) [facility] GLUCOSE (AUTOMATED)2022-09-12 23:33:37 Test Item Value Reference Range Interpretation Comments POCT GLU (test code = 1857938289) 317 mg/dL 70-110 H Lab Interpretation (test code = Abnormal 28255-7) [facility] GLUCOSE (AUTOMATED)2022-09-12 23:33:37 Test Item Value Reference Range Interpretation Comments POCT GLU (test code = 4407964963) 317 mg/dL 70-110 H Lab Interpretation (test code = Abnormal 79241-3) [facility] [id number] 21:32:10 Test Item Value Reference Range Interpretation Comments PROTIME PATIENT (test See_Comment [Auto mated message] code = 5964-2) The system [employer] generated this result transmitted ref erence range: 10.1 - 1 2.6 Seconds. The re ference range was not u sed to interpret this result as normal/abnor mal. INR (test code = 6301-6) Nor mal INR <1.1; Warfarin Therap eutic range 2.0 to 3. 0 or 2.5 to 3.5, dep ending upon the indica tions. Lab Interpretation (test Normal code = 15156-6) [facility] Test Item Value Reference Range Interpretation Comments APTT Patient (test code = See_Comment [ Automated message] 3173-2) The system [employer] generated this result transmitted ref erence range: 26 - 36 Seconds. The re ference range was not u sed to interpret this result as normal/abnor mal. Lab Interpretation (test Normal code = 62396-5) [facility] / [id number] 21:32:10 Test Item Value Reference Range Interpretation Comments PROTIME PATIENT (test See_Comment [Auto mated message] code = 5964-2) The system [employer] generated this result transmitted ref erence range: 10.1 - 1 2.6 Seconds. The re ference range was not u sed to interpret this result as normal/abnor mal. INR (test code = 6301-6) Nor mal INR <1.1; Warfarin Therap eutic range 2.0 to 3. 0 or 2.5 to 3.5, dep ending upon the indica tions. Lab Interpretation (test Normal code = 15498-3) [facility]:32:10 Test Item Value Reference Range Interpretation Comments APTT Patient (test code = See_Comment [ Automated message] 3173-2) The system [employer] generated this result transmitted ref erence range: 26 - 36 Seconds. The re ference range was not u sed to interpret this result as normal/abnor mal. Lab Interpretation (test Normal code = 89203-5) [facility] / [id number] 21:32:10 Test Item Value Reference Range Interpretation Comments PROTIME PATIENT (test See_Comment [Auto mated message] code = 5964-2) The system [employer] generated this result transmitted ref erence range: 10.1 - 1 2.6 Seconds. The re ference range was not u sed to interpret this result as normal/abnor mal. INR (test code = 6301-6) Nor mal INR <1.1; Warfarin Therap eutic range 2.0 to 3. 0 or 2.5 to 3.5, dep ending upon the indica tions. Lab Interpretation (test Normal code = 03729-7) [facility] 21:32:10 Test Item Value Reference Range Interpretation Comments APTT Patient (test code = See_Comment [ Automated message] 3173-2) The system [employer] generated this result transmitted ref erence range: 26 - 36 Seconds. The re ference range was not u sed to interpret this result as normal/abnor mal. Lab Interpretation (test Normal code = 05757-4) [facility] / [id number] 21:32:10 Test Item Value Reference Range Interpretation Comments PROTIME PATIENT (test See_Comment [Auto mated message] code = 5964-2) The system wh ich generated this result transmitted ref erence range: 10.1 - 1 2.6 Seconds. The re ference range was not u sed to interpret this result as normal/abnor mal. INR (test code = 6301-6) Nor mal INR <1.1; Warfarin Therap eutic range 2.0 to 3. 0 or 2.5 to 3.5, dep ending upon the indica tions. Lab Interpretation (test Normal code = 82601-8) [facility] [id number] 21:21:47 Test Item Value Reference Range Interpretation Comments WBC (test code = See_Comment [Automated 6690-2) message] The sy stem which generated this result transmitted reference range : 4.20 - 10.70 10*3/?L. The reference range was not used to interpret this result as normal/abnormal . RBC (test code = See_Comment L [Automated 789-8) message] The sy stem which generated this result transmitted reference range : 4.26 - 5.52 10*6/?L. The reference range was not used to interpret this result as normal/abnormal . HGB (test code = 11.3 g/dL 12.2-16.4 L 718-7) HCT (test code = 33.5 % 38.4-49.3 L 4544-3) MCV (test code = 92.3 fL 81.7-95.6 787-2) MCH (test code = 31.1 pg 26.1-32.7 785-6) MCHC (test code = 33.7 g/dL 31.2-35.0 786-4) RDW-SD (test code = 48.0 fL 38.5-51.6 40551-5) RDW-CV (test code = 14.2 % 12.1-15.4 788-0) PLT (test code = See_Comment [Automated 777-3) message] The sy stem which generated this result transmitted reference range : 150 - 328 10*3/ ?L. The reference r rylee was not used to interpret this result as normal/abnormal . MPV (test code = 10.2 fL 9.8-13.0 75435-2) NRBC/100 WBC (test See_Comment [Automat ed code = 1464776646) message] The system which generated this result transmitted reference range : 0.0 - 10.0 /100 WBCs. The refer ence range was not u sed to interpret th is result as normal/abnormal . NRBC x10^3 (test code See_Comment [Auto mated = 3214835756) message] The s ystem which generated this result transmitted reference range : 10*3/?L. The reference range was not used to interpret this result as normal/abnormal . GRAN MAT (NEUT) % 61.1 % (test code = 770-8) IMM GRAN % (test code 0.30 % = 3350885956) LYMPH % (test code = 28.8 % 736-9) MONO % (test code = 6.7 % 5905-5) EOS % (test code = 2.8 % 713-8) BASO % (test code = 0.3 % 706-2) GRAN MAT x10^3(ANC) 4.22 10*3/uL 1.99-6.95 (test code = 6756313436) IMM GRAN x10^3 (test 0.00-0.06 code = 7436321337) LYMPH x10^3 (test code 1.99 10*3/uL 1.09-3.23 = 731-0) MONO x10^3 (test code 0.46 10*3/uL 0.36-1.02 = 742-7) EOS x10^3 (test code = 0.19 10*3/uL 0.06-0.53 711-2) BASO x10^3 (test code 0.01-0.09 = 704-7) Lab Interpretation Abnormal (test code = 25007-2) [facility] Metabolic Panel (NA, K, CL, CO2, GLUCOSE, BUN, CREATININE, CA)2022-09-12 21:21:47 Test Item Value Reference Range Interpretation Comments NA (test code = 128 mmol/L 135-145 L 8319769477) K (test code = 4.4 mmol/L 3.5-5.0 2068847513) CL (test code = 95 mmol/L 98-108 L 7242808373) CO2 TOTAL (test code = 23 mmol/L 23-31 7757562023) AGAP (test code = 2-16 6720842799) BUN (test code = 15 mg/dL 7-23 0781897501) GLUCOSE (test code = 329 mg/dL 70-110 H 3492080984) CREATININE (test code = 0.64 mg/dL 0.60-1.25 0593701806) CALCIUM (test code = 7.9 mg/dL 8.6-10.6 L 5051482414) eGFR (test code = mL/min/1.73m2 6980792347) HUDSON (test code = HUDSON) Association of Glomerular Filtration Rate (GFR) and Staging of Kidney Disease* + --+ --+ ------+| GFR (mL/min/1.73 m2) ?| With Kidney Damage ?| ?Without Kidney Damage+ --------+ --------+ +| ?>90 ?| ?Stage one ?| ? Normal ?+ ---+ ---+ -------+| ?60-89 ?| ?Stage two ?| ? Decreased GFR ? + --+ --+ ------+| ?30-59 ?| ?Stage three ?| ? Stage three ? + --+ --+ ------+| ?15-29 ?| ?Stage four ? | ? Stage four ?+ ---+ ---+ -------+| ?<15 (or dialysis) ? ?| ?Stage five ? | ? Stage five ?+ ---+ ---+ -------+ *Each stage assumes the associated GFR level has been in effect for at least three months. ?Stages 1 to 5, with or without kidney disease, indicate chronic kidney disease. Notes: Determination of stages one and two (with eGFR >59mL/min/1.73 m2) requires estimation of kidney damage for at least three months as defined by structural or functional abnormalities of the kidney, manifested by either:Pathological abnormalities or Markers of kidney damage (including abnormalities in the composition of the blood or urine or abnormalities in imaging tests). Lab Interpretation Abnormal (test code = 69028-2) [facility] WITH [id number] 21:21:47 Test Item Value Reference Range Interpretation Comments WBC (test code = See_Comment [Automated 6690-2) message] The sy stem which generated this result transmitted reference range : 4.20 - 10.70 10*3/?L. The reference range was not used to interpret this result as normal/abnormal . RBC (test code = See_Comment L [Automated 789-8) message] The sy stem which generated this result transmitted reference range : 4.26 - 5.52 10*6/?L. The reference range was not used to interpret this result as normal/abnormal . HGB (test code = 11.3 g/dL 12.2-16.4 L 718-7) HCT (test code = 33.5 % 38.4-49.3 L 4544-3) MCV (test code = 92.3 fL 81.7-95.6 787-2) MCH (test code = 31.1 pg 26.1-32.7 785-6) MCHC (test code = 33.7 g/dL 31.2-35.0 786-4) RDW-SD (test code = 48.0 fL 38.5-51.6 28251-4) RDW-CV (test code = 14.2 % 12.1-15.4 788-0) PLT (test code = See_Comment [Automated 777-3) message] The sy stem which generated this result transmitted reference range : 150 - 328 10*3/ ?L. The reference r rylee was not used to interpret this result as normal/abnormal . MPV (test code = 10.2 fL 9.8-13.0 93178-6) NRBC/100 WBC (test See_Comment [Automat ed code = 3072016417) message] The system which generated this result transmitted reference range : 0.0 - 10.0 /100 WBCs. The refer ence range was not u sed to interpret th is result as normal/abnormal . NRBC x10^3 (test code See_Comment [Auto mated = 4515110195) message] The s ystem which generated this result transmitted reference range : 10*3/?L. The reference range was not used to interpret this result as normal/abnormal . GRAN MAT (NEUT) % 61.1 % (test code = 770-8) IMM GRAN % (test code 0.30 % = 2861632090) LYMPH % (test code = 28.8 % 736-9) MONO % (test code = 6.7 % 5905-5) EOS % (test code = 2.8 % 713-8) BASO % (test code = 0.3 % 706-2) GRAN MAT x10^3(ANC) 4.22 10*3/uL 1.99-6.95 (test code = 3810214260) IMM GRAN x10^3 (test 0.00-0.06 code = 0914234781) LYMPH x10^3 (test code 1.99 10*3/uL 1.09-3.23 = 731-0) MONO x10^3 (test code 0.46 10*3/uL 0.36-1.02 = 742-7) EOS x10^3 (test code = 0.19 10*3/uL 0.06-0.53 711-2) BASO x10^3 (test code 0.01-0.09 = 704-7) Lab Interpretation Abnormal (test code = 29650-3) [facility] Metabolic Panel (NA, K, CL, CO2, GLUCOSE, BUN, CREATININE, CA)2022-09-12 21:21:47 Test Item Value Reference Range Interpretation Comments NA (test code = 128 mmol/L 135-145 L 3937675865) K (test code = 4.4 mmol/L 3.5-5.0 3512628478) CL (test code = 95 mmol/L 98-108 L 8712968217) CO2 TOTAL (test code = 23 mmol/L 23-31 8039114589) AGAP (test code = 2-16 5147813851) BUN (test code = 15 mg/dL 7-23 0544302416) GLUCOSE (test code = 329 mg/dL 70-110 H 4477043900) CREATININE (test code = 0.64 mg/dL 0.60-1.25 8633908442) CALCIUM (test code = 7.9 mg/dL 8.6-10.6 L 1164364503) eGFR (test code = mL/min/1.73m2 0329103924) HUDSON (test code = HUDSON) Association of Glomerular Filtration Rate (GFR) and Staging of Kidney Disease* + --+ --+ ------+| GFR (mL/min/1.73 m2) ?| With Kidney Damage ?| ?Without Kidney Damage+ --------+ --------+ +| ?>90 ?| ?Stage one ?| ? Normal ?+ ---+ ---+ -------+| ?60-89 ?| ?Stage two ?| ? Decreased GFR ? + --+ --+ ------+| ?30-59 ?| ?Stage three ?| ? Stage three ? + --+ --+ ------+| ?15-29 ?| ?Stage four ? | ? Stage four ?+ ---+ ---+ -------+| ?<15 (or dialysis) ? ?| ?Stage five ? | ? Stage five ?+ ---+ ---+ -------+ *Each stage assumes the associated GFR level has been in effect for at least three months. ?Stages 1 to 5, with or without kidney disease, indicate chronic kidney disease. Notes: Determination of stages one and two (with eGFR >59mL/min/1.73 m2) requires estimation of kidney damage for at least three months as defined by structural or functional abnormalities of the kidney, manifested by either:Pathological abnormalities or Markers of kidney damage (including abnormalities in the composition of the blood or urine or abnormalities in imaging tests). Lab Interpretation Abnormal (test code = 87442-9) [facility] WITH [id number] 21:21:47 Test Item Value Reference Range Interpretation Comments WBC (test code = See_Comment [Automated 5995-2) message] The sy stem which generated this result transmitted reference range : 4.20 - 10.70 10*3/?L. The reference range was not used to interpret this result as normal/abnormal . RBC (test code = See_Comment L [Automated 917-8) message] The sy stem which generated this result transmitted reference range : 4.26 - 5.52 10*6/?L. The reference range was not used to interpret this result as normal/abnormal . HGB (test code = 11.3 g/dL 12.2-16.4 L 718-7) HCT (test code = 33.5 % 38.4-49.3 L 4544-3) MCV (test code = 92.3 fL 81.7-95.6 787-2) MCH (test code = 31.1 pg 26.1-32.7 785-6) MCHC (test code = 33.7 g/dL 31.2-35.0 786-4) RDW-SD (test code = 48.0 fL 38.5-51.6 30430-1) RDW-CV (test code = 14.2 % 12.1-15.4 788-0) PLT (test code = See_Comment [Automated 777-3) message] The sy stem which generated this result transmitted reference range : 150 - 328 10*3/ ?L. The reference r rylee was not used to interpret this result as normal/abnormal . MPV (test code = 10.2 fL 9.8-13.0 95470-7) NRBC/100 WBC (test See_Comment [Automat ed code = 5522671489) message] The system which generated this result transmitted reference range : 0.0 - 10.0 /100 WBCs. The refer ence range was not u sed to interpret th is result as normal/abnormal . NRBC x10^3 (test code See_Comment [Auto mated = 8429384465) message] The s ystem which generated this result transmitted reference range : 10*3/?L. The reference range was not used to interpret this result as normal/abnormal . GRAN MAT (NEUT) % 61.1 % (test code = 770-8) IMM GRAN % (test code 0.30 % = 5627215872) LYMPH % (test code = 28.8 % 736-9) MONO % (test code = 6.7 % 5905-5) EOS % (test code = 2.8 % 713-8) BASO % (test code = 0.3 % 706-2) GRAN MAT x10^3(ANC) 4.22 10*3/uL 1.99-6.95 (test code = 2456195296) IMM GRAN x10^3 (test 0.00-0.06 code = 9305553850) LYMPH x10^3 (test code 1.99 10*3/uL 1.09-3.23 = 731-0) MONO x10^3 (test code 0.46 10*3/uL 0.36-1.02 = 742-7) EOS x10^3 (test code = 0.19 10*3/uL 0.06-0.53 711-2) BASO x10^3 (test code 0.01-0.09 = 704-7) Lab Interpretation Abnormal (test code = 09914-8) [facility] Metabolic Panel (NA, K, CL, CO2, GLUCOSE, BUN, CREATININE, CA)2022-09-12 21:21:47 Test Item Value Reference Range Interpretation Comments NA (test code = 128 mmol/L 135-145 L 1250305914) K (test code = 4.4 mmol/L 3.5-5.0 6230173600) CL (test code = 95 mmol/L 98-108 L 9543764608) CO2 TOTAL (test code = 23 mmol/L 23-31 5726793355) AGAP (test code = 2-16 7228641818) BUN (test code = 15 mg/dL 7-23 9293008703) GLUCOSE (test code = 329 mg/dL 70-110 H 6017111927) CREATININE (test code = 0.64 mg/dL 0.60-1.25 9170975315) CALCIUM (test code = 7.9 mg/dL 8.6-10.6 L 5190237398) eGFR (test code = mL/min/1.73m2 0343918760) HUDSON (test code = HUDSON) Association of Glomerular Filtration Rate (GFR) and Staging of Kidney Disease* + --+ --+ ------+| GFR (mL/min/1.73 m2) ?| With Kidney Damage ?| ?Without Kidney Damage+ --------+ --------+ +| ?>90 ?| ?Stage one ?| ? Normal ?+ ---+ ---+ -------+| ?60-89 ?| ?Stage two ?| ? Decreased GFR ? + --+ --+ ------+| ?30-59 ?| ?Stage three ?| ? Stage three ? + --+ --+ ------+| ?15-29 ?| ?Stage four ? | ? Stage four ?+ ---+ ---+ -------+| ?<15 (or dialysis) ? ?| ?Stage five ? | ? Stage five ?+ ---+ ---+ -------+ *Each stage assumes the associated GFR level has been in effect for at least three months. ?Stages 1 to 5, with or without kidney disease, indicate chronic kidney disease. Notes: Determination of stages one and two (with eGFR >59mL/min/1.73 m2) requires estimation of kidney damage for at least three months as defined by structural or functional abnormalities of the kidney, manifested by either:Pathological abnormalities or Markers of kidney damage (including abnormalities in the composition of the blood or urine or abnormalities in imaging tests). Lab Interpretation Abnormal (test code = 69409-6) [facility] GLUCOSE (AUTOMATED)2022-05-10 21:52:49 Test Item Value Reference Range Interpretation Comments POCT GLU (test code = 9027376127) 177 mg/dL 70-110 H Lab Interpretation (test code = Abnormal 53803-2) [facility] GLUCOSE (AUTOMATED)2022-05-10 17:33:34 Test Item Value Reference Range Interpretation Comments POCT GLU (test code = 1720345009) 163 mg/dL 70-110 H Lab Interpretation (test code = Abnormal 97821-1) [facility] GLUCOSE (AUTOMATED)2022-05-10 17:33:34 Test Item Value Reference Range Interpretation Comments POCT GLU (test code = 5969316182) 163 mg/dL 70-110 H Lab Interpretation (test code = Abnormal 04770-2) [facility] GLUCOSE (AUTOMATED)2022-05-10 13:19:42 Test Item Value Reference Range Interpretation Comments POCT GLU (test code = 2739755123) 155 mg/dL 70-110 H Lab Interpretation (test code = Abnormal 65539-9) [facility] GLUCOSE (AUTOMATED)2022-05-10 13:19:42 Test Item Value Reference Range Interpretation Comments POCT GLU (test code = 8892544899) 155 mg/dL 70-110 H Lab Interpretation (test code = Abnormal 24275-4) [facility] GLUCOSE (AUTOMATED)2022-05-10 01:16:48 Test Item Value Reference Range Interpretation Comments POCT GLU (test code = 6900512823) 187 mg/dL 70-110 H Lab Interpretation (test code = Abnormal 87766-0) [facility] 01:16:48 Test Item Value Reference Range Interpretation Comments POCT GLU (test code = 2393343415) 187 mg/dL 70-110 H Lab Interpretation (test code = Abnormal 83629-9) [facility] GLUCOSE (AUTOMATED)2022-05-09 22:47:02 Test Item Value Reference Range Interpretation Comments POCT GLU (test code = 9563879657) 291 mg/dL 70-110 H Lab Interpretation (test code = Abnormal 45526-9) [facility] GLUCOSE (AUTOMATED)2022-05-09 22:47:02 Test Item Value Reference Range Interpretation Comments POCT GLU (test code = 2973172794) 291 mg/dL 70-110 H Lab Interpretation (test code = Abnormal 48313-9) [facility] GLUCOSE (AUTOMATED)2022-05-09 17:47:25 Test Item Value Reference Range Interpretation Comments POCT GLU (test code = 6941881475) 164 mg/dL 70-110 H Lab Interpretation (test code = Abnormal 39838-8) [facility] GLUCOSE (AUTOMATED)2022-05-09 17:47:25 Test Item Value Reference Range Interpretation Comments POCT GLU (test code = 0038637865) 164 mg/dL 70-110 H Lab Interpretation (test code = Abnormal 99175-6) [facility] GLUCOSE (AUTOMATED)2022-05-09 15:14:16 Test Item Value Reference Range Interpretation Comments POCT GLU (test code = 1006834343) 172 mg/dL 70-110 H Lab Interpretation (test code = Abnormal 14076-8) [facility] GLUCOSE (AUTOMATED)2022-05-09 15:14:16 Test Item Value Reference Range Interpretation Comments POCT GLU (test code = 2951690803) 172 mg/dL 70-110 H Lab Interpretation (test code = Abnormal 00151-7) [facility] GLUCOSE (AUTOMATED)2022-05-09 12:47:07 Test Item Value Reference Range Interpretation Comments POCT GLU (test code = 6771243071) 141 mg/dL 70-110 H Lab Interpretation (test code = Abnormal 85741-2) [facility] 12[facility]47:07 Test Item Value Reference Range Interpretation Comments POCT GLU (test code = 7140820051) 141 mg/dL 70-110 H Lab Interpretation (test code = Abnormal 53526-9) [facility] GLUCOSE (AUTOMATED)2022-05-09 09:25:55 Test Item Value Reference Range Interpretation Comments POCT GLU (test code = 4154352875) 137 mg/dL 70-110 H Lab Interpretation (test code = Abnormal 76829-4) [facility] GLUCOSE (AUTOMATED)2022-05-09 09:25:55 Test Item Value Reference Range Interpretation Comments POCT GLU (test code = 0078566463) 137 mg/dL 70-110 H Lab Interpretation (test code = Abnormal 51328-6) [facility] GLUCOSE (AUTOMATED)2022-05-09 05:01:40 Test Item Value Reference Range Interpretation Comments POCT GLU (test code = 4492822231) 224 mg/dL 70-110 H Lab Interpretation (test code = Abnormal 35268-2) [facility] GLUCOSE (AUTOMATED)2022-05-09 05:01:40 Test Item Value Reference Range Interpretation Comments POCT GLU (test code = 5133538942) 224 mg/dL 70-110 H Lab Interpretation (test code = Abnormal 43541-8) [facility] GLUCOSE (AUTOMATED)2022-05-09 04:44:09 Test Item Value Reference Range Interpretation Comments POCT GLU (test code = 1740813929) 226 mg/dL 70-110 H Lab Interpretation (test code = Abnormal 22794-1) [facility] GLUCOSE (AUTOMATED)2022-05-09 04:44:09 Test Item Value Reference Range Interpretation Comments POCT GLU (test code = 8233744767) 226 mg/dL 70-110 H Lab Interpretation (test code = Abnormal 25271-2) [facility] 01:18:48 Test Item Value Reference Range Interpretation Comments POCT GLU (test code = 5361455743) 189 mg/dL 70-110 H Lab Interpretation (test code = Abnormal 89497-8) [facility] GLUCOSE (AUTOMATED)2022-05-09 01:18:48 Test Item Value Reference Range Interpretation Comments POCT GLU (test code = 7637507011) 189 mg/dL 70-110 H Lab Interpretation (test code = Abnormal 01718-7) [facility] GLUCOSE (AUTOMATED)2022-05-08 22:10:00 Test Item Value Reference Range Interpretation Comments POCT GLU (test code = 7632566015) 219 mg/dL 70-110 H Lab Interpretation (test code = Abnormal 00713-0) [facility] GLUCOSE (AUTOMATED)2022-05-08 22:10:00 Test Item Value Reference Range Interpretation Comments POCT GLU (test code = 5005648468) 219 mg/dL 70-110 H Lab Interpretation (test code = Abnormal 75906-8) [facility] GLUCOSE (AUTOMATED)2022-05-08 17:02:36 Test Item Value Reference Range Interpretation Comments POCT GLU (test code = 1184771127) 245 mg/dL 70-110 H Lab Interpretation (test code = Abnormal 56161-3) [facility] GLUCOSE (AUTOMATED)2022-05-08 17:02:36 Test Item Value Reference Range Interpretation Comments POCT GLU (test code = 5046806245) 245 mg/dL 70-110 H Lab Interpretation (test code = Abnormal 68723-6) [facility] GLUCOSE (AUTOMATED)2022-05-08 13:47:27 Test Item Value Reference Range Interpretation Comments POCT GLU (test code = 3905977100) 182 mg/dL 70-110 H Lab Interpretation (test code = Abnormal 46583-1) [facility] GLUCOSE (AUTOMATED)2022-05-08 13:47:27 Test Item Value Reference Range Interpretation Comments POCT GLU (test code = 3142516309) 182 mg/dL 70-110 H Lab Interpretation (test code = Abnormal 27499-1) [facility] GLUCOSE (AUTOMATED)2022-05-08 10:11:39 Test Item Value Reference Range Interpretation Comments POCT GLU (test code = 6782220630) 169 mg/dL 70-110 H Lab Interpretation (test code = Abnormal 58929-6) [facility] GLUCOSE (AUTOMATED)2022-05-08 10:11:39 Test Item Value Reference Range Interpretation Comments POCT GLU (test code = 3626097990) 169 mg/dL 70-110 H Lab Interpretation (test code = Abnormal 54588-0) [facility] GLUCOSE (AUTOMATED)2022-05-08 04:57:36 Test Item Value Reference Range Interpretation Comments POCT GLU (test code = 3925954546) 200 mg/dL 70-110 H Lab Interpretation (test code = Abnormal 52403-4) [facility] GLUCOSE (AUTOMATED)2022-05-08 04:57:36 Test Item Value Reference Range Interpretation Comments POCT GLU (test code = 0326746889) 200 mg/dL 70-110 H Lab Interpretation (test code = Abnormal 84391-7) [facility] GLUCOSE (AUTOMATED)2022-05-08 02:22:00 Test Item Value Reference Range Interpretation Comments POCT GLU (test code = 9000363595) 246 mg/dL 70-110 H Lab Interpretation (test code = Abnormal 27244-3) [facility] GLUCOSE (AUTOMATED)2022-05-08 02:22:00 Test Item Value Reference Range Interpretation Comments POCT GLU (test code = 9725380257) 246 mg/dL 70-110 H Lab Interpretation (test code = Abnormal 84010-7) [facility] 21:08:14 Test Item Value Reference Range Interpretation Comments Height (test code = in 0686666097) Weight (test code = lbs 3966175068) Systolic BP (test code = mmHg 0987067336) Diastolic BP (test code mmHg = 4464483261) Heart Rate (test code = bpm 4024589794) BSA (test code = 2.02 m2 9346556844) TASV (test code = 10.2 cm/s 4597166011) MV valve area (test code 6.20 cm2 = 6082458053) MR max PG (test code = 110.10 mm[Hg] 0268741146) MR max pinky (test code = 524.60 cm/s 1091876110) MV Diam (test code = 2.80 cm 1299837189) Mr max pinky (test code = 524.6 m/s 5037336902) LVIDD (test code = 6.20 cm 1994763519) Left Ventricular End 191.6 mL Diastolic Volume by Teichholz Method (test code = 2174471) IVS (test code = 1.03 cm 9978826083) Interventricular Septum 1.03 cm Diastolic Thickness by 2D (test code = 7541263) LVPWD (test code = 1.01 cm 4517631171) PW (test code = 1.01 cm 0.6-1.4 6624755487) EF(Teich) (test code = 39.30 % 5518737622) LVIDS (test code = 5.00 cm 5704523306) Left Ventricular End 116.3 mL Systolic Volume by Teichholz Method (test code = 4198091) FS (test code = 20 % 8554065972) EF - 2D (test code = 39.30 % 87933216) LVOT diameter (test code 2.25 cm = 8237603913) LVOT area (test code = 4.00 cm2 0971769237) Pulmonic Regurgitant End 112.9 cm/s Max Velocity (test code = 3925186198) LAV(MOD-sp4) (test code 110.90 mL = 2070918568) MV Peak E Pinky (test code 113.8 cm/s = 0115479714) E wave decelartion time 0.13 s (test code = 1001332747) LVOT stroke volume (test 58.70 cm3 code = 6044483259) LVOT peak pinky (test code 94.0 cm/s = 7675466340) LVOT mn grad (test code mmHg = 9327614052) AV LVOT peak gradient mmHg (test code = 1630390236) LVOT peak VTI (test code 14.8 cm = 6979573198) LV V1 mean (test code = 62.60 cm/s 0464973522) Ao peak pinky (test code = 161.8 cm/s 7519252001) AV area peak pinky (test 2.3 cm2 code = 2318772201) Ao max PG (test code = 10.50 mm[Hg] 6061743676) AV peak gradient (test mmHg code = 0079994570) Tapse (test code = 1.27 cm 2119771574) LA Volume Index (BP) 53.6 mL/m2 (test code = 3231308635) LA volume (BP) (test 108.2 mL code = 0060379287) LAV(MOD-sp2) (test code 108.00 mL = 0088521124) TR Peak Pinky (test code = 290.7 cm/s 9187481415) Triscuspid Valve mmHg Regurgitation Peak Gradient (test code = 2685339401) A4C EF (test code = 37.60 % 3189642208) EF(sp4-el) (test code = 39.20 % 4865296252) SV(MOD-sp4) (test code = 44.90 mL 1804025161) SV(sp4-el) (test code = 48.60 mL 9043927751) LV Diastolic Volume (BP) 169.6 mL (test code = 1117716473) A2C EF (test code = 45.70 % 4524487355) EF(MOD-bp) (test code = 39.70 % 3765443759) EF(sp2-el) (test code = 46.80 % 6830365529) LV Systolic Volume (BP) 102.3 mL (test code = 3796052606) SV(MOD-bp) (test code = 67.30 mL 2514408529) SV(MOD-sp2) (test code = 104.00 mL 1224839755) EF (test code = 0311584509) Left Ventricular Stroke 67.3 mL Volume by 2-D Biplane-MOD (test code = 7441215) Echo EF Estimated (test 40 % code = 6386459650) LV Diastolic Volume 84.0 mL/m2 Index (BP) (test code = 7430762901) LV Systolic Volume Index 50.6 mL/m2 (BP) (test code = 6490965838) Aortic valve mean 112.3 cm/s velocity (test code = 6227971341) Ao VTI (test code = 27.7 cm 9265032512) AV area by cont VTI 2.1 cm2 (test code = 2301402504) AV valve area (test code 2.12 cm2 = 6068290987) AV mean gradient (test mmHg code = 0772203659) Radiology Study observation (narrative) (test code = 88578-9) HUDSON (test code = HUDSON) ?Left?Ventricle: Left ventricle is mildly dilated. LVEDVi 85 mL/m2. There is moderate eccentric hypertrophy. LVMI 139 g/m2 and RWT 0.36. Mild global hypokinesis present. Mildly reduced systolic function with a visually estimated EF of 40 - 45%. EF by 2D Bansal biplane is 40%. Diastolic dysfunction. Elevated left ventricular filling pressure. ?Right?Ventricle: Right ventricle is mildly dilated. Mildly reduced systolic function. ?Left?Atrium: Left atrium is severely dilated. Left atrium volume index is 53.6 mL/m2. ?Right?Atrium: Right atrium is dilated. Rhys 45 mL/m2. ?Mitral?Valve: Moderate transvalvular regurgitation. By PISA method, EROA 21 mm2 and RVol 33 mL. Likely 2/2 LV dilated cavity. ?Tricuspid?Valve: Mild transvalvular regurgitation. Right ventricular systolic pressure is 45-50 mmHg. ?Pericardium: No pericardial effusion. Left VentricleLeft ventricle is mildly dilated. LVEDVi 85 mL/m2. There is moderate eccentric hypertrophy. LVMI 139 g/m2 and RWT 0.36. Mild global hypokinesis present. Mildly reduced systolic function with a visually estimated EF of 40 - 45%. EF by 2D Bansal biplane is 40%. Diastolic dysfunction. Elevated left ventricular filling pressure.Right VentricleRight ventricle is mildly dilated. Mildly reduced systolic function.Left AtriumLeft atrium is severely dilated. Left atrium volume index is 53.6 mL/m2.Right AtriumRight atrium is dilated. Rhys 45 mL/m2.IVC/SVCIVC diameter is greater than 21 mm and decreases less than 50% during inspiration; therefore the estimated right atrial pressure is elevated (~15 mmHg).Mitral ValveMild posterior mitral annular calcification. Mildly thickened subvalvular apparatus. Moderate transvalvular regurgitation. By PISA method, EROA 21 mm2 and RVol 33 mL. Likely 2/2 LV dilated cavity.Tricuspid ValveTricuspid valve structure is normal. Mild transvalvular regurgitation. Right ventricular systolic pressure is 45-50 mmHg.Aortic ValveTricuspid. Moderately thickened cusps. Moderately calcified cusps. No hemodynamically significant .Pulmonic ValveValve structure is grossly normal. Trace transvalvular regurgitation.Ascendi ng AortaSinus of Valsalva and ascending aorta is normal in size.PericardiumThe pericardium is normal. No pericardial effusion.Study DetailsStudy quality was good. A complete echocardiogram was performed using 2D, color flow Doppler and spectral Doppler. 5 mL of Lumason ultrasound enhancing agent used. [facility] 21:08:14 Test Item Value Reference Range Interpretation Comments Height (test code = in 7148121024) Weight (test code = lbs 5848535185) Systolic BP (test code = mmHg 0183841453) Diastolic BP (test code mmHg = 5641444584) Heart Rate (test code = bpm 8557939340) BSA (test code = 2.02 m2 3783799337) TASV (test code = 10.2 cm/s 3352989271) MV valve area (test code 6.20 cm2 = 2493859751) MR max PG (test code = 110.10 mm[Hg] 7278948660) MR max pinky (test code = 524.60 cm/s 4212631823) MV Diam (test code = 2.80 cm 2901238754) Mr max pinky (test code = 524.6 m/s 4970899067) LVIDD (test code = 6.20 cm 5900960030) Left Ventricular End 191.6 mL Diastolic Volume by Teichholz Method (test code = 7796477) IVS (test code = 1.03 cm 3865824892) Interventricular Septum 1.03 cm Diastolic Thickness by 2D (test code = 1932194) LVPWD (test code = 1.01 cm 7083908142) PW (test code = 1.01 cm 0.6-1.2 4390309406) EF(Teich) (test code = 39.30 % 9958294856) LVIDS (test code = 5.00 cm 8698260611) Left Ventricular End 116.3 mL Systolic Volume by Teichholz Method (test code = 7849736) FS (test code = 20 % 4872571164) EF - 2D (test code = 39.30 % 57057953) LVOT diameter (test code 2.25 cm = 5059807684) LVOT area (test code = 4.00 cm2 4680941968) Pulmonic Regurgitant End 112.9 cm/s Max Velocity (test code = 8323067474) LAV(MOD-sp4) (test code 110.90 mL = 9795207760) MV Peak E Pinky (test code 113.8 cm/s = 4851245234) E wave decelartion time 0.13 s (test code = 7054547759) LVOT stroke volume (test 58.70 cm3 code = 0117741623) LVOT peak pinky (test code 94.0 cm/s = 8105125779) LVOT mn grad (test code mmHg = 1457412324) AV LVOT peak gradient mmHg (test code = 5309548556) LVOT peak VTI (test code 14.8 cm = 0055636632) LV V1 mean (test code = 62.60 cm/s 7628766514) Ao peak pinky (test code = 161.8 cm/s 9623537764) AV area peak pinky (test 2.3 cm2 code = 0842459444) Ao max PG (test code = 10.50 mm[Hg] 8979775232) AV peak gradient (test mmHg code = 3295633447) Tapse (test code = 1.27 cm 8699301506) LA Volume Index (BP) 53.6 mL/m2 (test code = 6495003536) LA volume (BP) (test 108.2 mL code = 9845923557) LAV(MOD-sp2) (test code 108.00 mL = 7659194206) TR Peak Pinky (test code = 290.7 cm/s 9106718322) Triscuspid Valve mmHg Regurgitation Peak Gradient (test code = 2782094102) A4C EF (test code = 37.60 % 1965539165) EF(sp4-el) (test code = 39.20 % 9184969672) SV(MOD-sp4) (test code = 44.90 mL 9914688392) SV(sp4-el) (test code = 48.60 mL 3063834557) LV Diastolic Volume (BP) 169.6 mL (test code = 0322266982) A2C EF (test code = 45.70 % 5448105780) EF(MOD-bp) (test code = 39.70 % 1908139130) EF(sp2-el) (test code = 46.80 % 8967529526) LV Systolic Volume (BP) 102.3 mL (test code = 9894856312) SV(MOD-bp) (test code = 67.30 mL 9100543864) SV(MOD-sp2) (test code = 104.00 mL 8397891648) EF (test code = 7287007128) Left Ventricular Stroke 67.3 mL Volume by 2-D Biplane-MOD (test code = 6514421) Echo EF Estimated (test 40 % code = 7469925070) LV Diastolic Volume 84.0 mL/m2 Index (BP) (test code = 4971142745) LV Systolic Volume Index 50.6 mL/m2 (BP) (test code = 7853925818) Aortic valve mean 112.3 cm/s velocity (test code = 2743638054) Ao VTI (test code = 27.7 cm 2847131304) AV area by cont VTI 2.1 cm2 (test code = 8479668152) AV valve area (test code 2.12 cm2 = 2866120069) AV mean gradient (test mmHg code = 2733404637) Radiology Study observation (narrative) (test code = 19474-8) HUDSON (test code = HUDSON) ?Left?Ventricle: Left ventricle is mildly dilated. LVEDVi 85 mL/m2. There is moderate eccentric hypertrophy. LVMI 139 g/m2 and RWT 0.36. Mild global hypokinesis present. Mildly reduced systolic function with a visually estimated EF of 40 - 45%. EF by 2D Bansal biplane is 40%. Diastolic dysfunction. Elevated left ventricular filling pressure. ?Right?Ventricle: Right ventricle is mildly dilated. Mildly reduced systolic function. ?Left?Atrium: Left atrium is severely dilated. Left atrium volume index is 53.6 mL/m2. ?Right?Atrium: Right atrium is dilated. Rhys 45 mL/m2. ?Mitral?Valve: Moderate transvalvular regurgitation. By PISA method, EROA 21 mm2 and RVol 33 mL. Likely 2/2 LV dilated cavity. ?Tricuspid?Valve: Mild transvalvular regurgitation. Right ventricular systolic pressure is 45-50 mmHg. ?Pericardium: No pericardial effusion. Left VentricleLeft ventricle is mildly dilated. LVEDVi 85 mL/m2. There is moderate eccentric hypertrophy. LVMI 139 g/m2 and RWT 0.36. Mild global hypokinesis present. Mildly reduced systolic function with a visually estimated EF of 40 - 45%. EF by 2D Bansal biplane is 40%. Diastolic dysfunction. Elevated left ventricular filling pressure.Right VentricleRight ventricle is mildly dilated. Mildly reduced systolic function.Left AtriumLeft atrium is severely dilated. Left atrium volume index is 53.6 mL/m2.Right AtriumRight atrium is dilated. Rhys 45 mL/m2.IVC/SVCIVC diameter is greater than 21 mm and decreases less than 50% during inspiration; therefore the estimated right atrial pressure is elevated (~15 mmHg).Mitral ValveMild posterior mitral annular calcification. Mildly thickened subvalvular apparatus. Moderate transvalvular regurgitation. By PISA method, EROA 21 mm2 and RVol 33 mL. Likely 2/2 LV dilated cavity.Tricuspid ValveTricuspid valve structure is normal. Mild transvalvular regurgitation. Right ventricular systolic pressure is 45-50 mmHg.Aortic ValveTricuspid. Moderately thickened cusps. Moderately calcified cusps. No hemodynamically significant .Pulmonic ValveValve structure is grossly normal. Trace transvalvular regurgitation.Ascendi ng AortaSinus of Valsalva and ascending aorta is normal in size.PericardiumThe pericardium is normal. No pericardial effusion.Study DetailsStudy quality was good. A complete echocardiogram was performed using 2D, color flow Doppler and spectral Doppler. 5 mL of Lumason ultrasound enhancing agent used. [facility] GLUCOSE (AUTOMATED)2022-05-07 18:30:48 Test Item Value Reference Range Interpretation Comments POCT GLU (test code = 4508301462) 234 mg/dL 70-110 H Lab Interpretation (test code = Abnormal 06550-6) [facility] GLUCOSE (AUTOMATED)2022-05-07 18:30:48 Test Item Value Reference Range Interpretation Comments POCT GLU (test code = 6894422420) 234 mg/dL 70-110 H Lab Interpretation (test code = Abnormal 73487-3) [facility] GLUCOSE (AUTOMATED)2022-05-07 13:49:07 Test Item Value Reference Range Interpretation Comments POCT GLU (test code = 4924598557) 228 mg/dL 70-110 H Lab Interpretation (test code = Abnormal 45036-9) [facility] GLUCOSE (AUTOMATED)2022-05-07 13:49:07 Test Item Value Reference Range Interpretation Comments POCT GLU (test code = 2215675547) 228 mg/dL 70-110 H Lab Interpretation (test code = Abnormal 36964-0) [facility] [id number] 11:00:17 Test Item Value Reference Range Interpretation Comments TSH (test code = See_Comment [Automated message] 0218319243) The system [employer] generated this result transmitted ref erence range: 0.45 - 4 .70 mIU/L. The refe rence range was not u sed to interpret this result as normal/abnor mal. Lab Interpretation (test Normal code = 17066-9) [facility] [id number] 11:00:17 Test Item Value Reference Range Interpretation Comments TSH (test code = See_Comment [Automated message] 2626111489) The system [employer] generated this result transmitted ref erence range: 0.45 - 4 .70 mIU/L. The refe rence range was not u sed to interpret this result as normal/abnor mal. Lab Interpretation (test Normal code = 04657-2) [facility] Packed RBC (in units), 1 Units 2022-05-07 10:58:48 Test Item Value Reference Range Interpretation Comments Cross Match Result Compatible (test code = 4409) ISBT Blood Type Code (test code = 946486) Unit Blood Type (test O Pos code = 4410) Unit Number (test [id number] code = 4411) Blood Expiration Date & Time (test code = 444841) Status Information Issued (test code = 4412) Product Red Blood Cells Identification (test code = 4413) Product Code (test [id number] Performed at [facility] code = 4414) Laboratory Services - [facility] Blood [address] [address]Tquj Free: [phone] A No. [id number] [facility] Packed RBC (in units), 1 Units 2022-05-07 10:58:48 Test Item Value Reference Range Interpretation Comments Cross Match Result Compatible (test code = 4409) ISBT Blood Type Code (test code = 746917) Unit Blood Type (test O Pos code = 4410) Unit Number (test [id number] code = 4411) Blood Expiration Date & Time (test code = 803363) Status Information Issued (test code = 4412) Product Red Blood Cells Identification (test code = 4413) Product Code (test P1324S74 Performed at [facility] code = 4414) Laboratory Services - [facility] [address] [place] [address]Xqgx Free: [phone] A No. [id number] [facility] (A1C)2022-05-07 10:33:39 Test Item Value Reference Range Interpretation Comments HGB A1C (test code = 7.4 % 4-5.7 H 4548-4) HUDSON (test code = HUDSON) Reference RangesNormal: <5.7%Prediabetes: 5.7 - 6.4%Diabetes: > 6.5% Lab Interpretation (test Abnormal code = 73462-2) [facility]A1C)2022-05-07 10:33:39 Test Item Value Reference Range Interpretation Comments HGB A1C (test code = 7.4 % 4-5.7 H 4548-4) HUDSON (test code = HUDSON) Reference RangesNormal: <5.7%Prediabetes: 5.7 - 6.4%Diabetes: > 6.5% Lab Interpretation (test Abnormal code = 34125-9) [facility] (NA, K, CL, CO2, GLUCOSE, BUN, CREATININE, CA)2022-05-07 10:05:49 Test Item Value Reference Range Interpretation Comments NA (test code = 127 mmol/L 135-145 L 8856333918) K (test code = 4.3 mmol/L 3.5-5 0632480842) CL (test code = 103 mmol/L 98-108 2300818457) CO2 TOTAL (test code = 21 mmol/L 23-31 L 1595736714) AGAP (test code = 2-16 3067611980) BUN (test code = 24 mg/dL 7-23 H 8459997462) GLUCOSE (test code = 154 mg/dL 70-110 H 3651643455) CREATININE (test code = 0.84 mg/dL 0.6-1.25 5329034568) CALCIUM (test code = 6.8 mg/dL 8.6-10.6 L 9018065843) eGFR (test code = mL/min/1.73m2 1018573065) HUDSON (test code = HUDSON) Association of Glomerular Filtration Rate (GFR) and Staging of Kidney Disease* + --+ --+ ------+| GFR (mL/min/1.73 m2) ?| With Kidney Damage ?| ?Without Kidney Damage+ --------+ --------+ +| ?>90 ?| ?Stage one ?| ? Normal ?+ ---+ ---+ -------+| ?60-89 ?| ?Stage two ?| ? Decreased GFR ? + --+ --+ ------+| ?30-59 ?| ?Stage three ?| ? Stage three ? + --+ --+ ------+| ?15-29 ?| ?Stage four ? | ? Stage four ?+ ---+ ---+ -------+| ?<15 (or dialysis) ? ?| ?Stage five ? | ? Stage five ?+ ---+ ---+ -------+ *Each stage assumes the associated GFR level has been in effect for at least three months. ?Stages 1 to 5, with or without kidney disease, indicate chronic kidney disease. Notes: Determination of stages one and two (with eGFR >59mL/min/1.73 m2) requires estimation of kidney damage for at least three months as defined by structural or functional abnormalities of the kidney, manifested by either:Pathological abnormalities or Markers of kidney damage (including abnormalities in the composition of the blood or urine or abnormalities in imaging tests). Lab Interpretation Abnormal (test code = 72664-5) [facility] 10:05:49 Test Item Value Reference Range Interpretation Comments MAGNESIUM (test code = 3726837289) 1.6 mg/dL 1.7-2.4 L Lab Interpretation (test code = Abnormal 92401-8) [facility] (NA, K, CL, CO2, GLUCOSE, BUN, CREATININE, CA)2022-05-07 10:05:49 Test Item Value Reference Range Interpretation Comments NA (test code = 127 mmol/L 135-145 L 8886603299) K (test code = 4.3 mmol/L 3.5-5 6439515357) CL (test code = 103 mmol/L 98-108 8337713653) CO2 TOTAL (test code = 21 mmol/L 23-31 L 0854998605) AGAP (test code = 2-16 7515536766) BUN (test code = 24 mg/dL 7-23 H 9178006126) GLUCOSE (test code = 154 mg/dL 70-110 H 1995192003) CREATININE (test code = 0.84 mg/dL 0.6-1.25 4358059661) CALCIUM (test code = 6.8 mg/dL 8.6-10.6 L 5150682606) eGFR (test code = mL/min/1.73m2 0749531356) HUDSON (test code = HUDSON) Association of Glomerular Filtration Rate (GFR) and Staging of Kidney Disease* + --+ --+ ------+| GFR (mL/min/1.73 m2) ?| With Kidney Damage ?| ?Without Kidney Damage+ --------+ --------+ +| ?>90 ?| ?Stage one ?| ? Normal ?+ ---+ ---+ -------+| ?60-89 ?| ?Stage two ?| ? Decreased GFR ? + --+ --+ ------+| ?30-59 ?| ?Stage three ?| ? Stage three ? + --+ --+ ------+| ?15-29 ?| ?Stage four ? | ? Stage four ?+ ---+ ---+ -------+| ?<15 (or dialysis) ? ?| ?Stage five ? | ? Stage five ?+ ---+ ---+ -------+ *Each stage assumes the associated GFR level has been in effect for at least three months. ?Stages 1 to 5, with or without kidney disease, indicate chronic kidney disease. Notes: Determination of stages one and two (with eGFR >59mL/min/1.73 m2) requires estimation of kidney damage for at least three months as defined by structural or functional abnormalities of the kidney, manifested by either:Pathological abnormalities or Markers of kidney damage (including abnormalities in the composition of the blood or urine or abnormalities in imaging tests). Lab Interpretation Abnormal (test code = 94973-1) [facility] Test Item Value Reference Range Interpretation Comments MAGNESIUM (test code = 4897360908) 1.6 mg/dL 1.7-2.4 L Lab Interpretation (test code = Abnormal 26975-4) [facility] WITH [id number] 09:19:06 Test Item Value Reference Range Interpretation Comments WBC (test code = See_Comment [Automated 6690-2) message] The sy stem which generated this result transmitted reference range : 4.20 - 10.70 10*3/?L. The reference range was not used to interpret this result as normal/abnormal . RBC (test code = See_Comment L [Automated 789-8) message] The sy stem which generated this result transmitted reference range : 4.26 - 5.52 10*6/?L. The reference range was not used to interpret this result as normal/abnormal . HGB (test code = 6.9 g/dL 12.2-16.4 L 718-7) HCT (test code = 22.1 % 38.4-49.3 L 4544-3) MCV (test code = 79.8 fL 81.7-95.6 L 787-2) MCH (test code = 24.9 pg 26.1-32.7 L 785-6) MCHC (test code = 31.2 g/dL 31.2-35 786-4) RDW-SD (test code = 48.3 fL 38.5-51.6 17427-7) RDW-CV (test code = 16.6 % 12.1-15.4 H 788-0) PLT (test code = See_Comment L [Automated 777-3) message] The sy stem which generated this result transmitted reference range : 150 - 328 10*3/ ?L. The reference r rylee was not used to interpret this result as normal/abnormal . MPV (test code = 10.6 fL 9.8-13 59679-8) NRBC/100 WBC (test See_Comment [Automat ed code = 2277273433) message] The system which generated this result transmitted reference range : 0.0 - 10.0 /100 WBCs. The refer ence range was not u sed to interpret th is result as normal/abnormal . NRBC x10^3 (test code See_Comment [Auto mated = 6621432386) message] The s ystem which generated this result transmitted reference range : 10*3/?L. The reference range was not used to interpret this result as normal/abnormal . GRAN MAT (NEUT) % 73.8 % (test code = 770-8) IMM GRAN % (test code 1.10 % = 5249453269) LYMPH % (test code = 14.2 % 736-9) MONO % (test code = 10.1 % 5905-5) EOS % (test code = 0.6 % 713-8) BASO % (test code = 0.2 % 706-2) GRAN MAT x10^3(ANC) 5.98 10*3/uL 1.99-6.95 (test code = 6407393563) IMM GRAN x10^3 (test 0.09 10*3/uL 0-0.06 H code = 9641341213) LYMPH x10^3 (test code 1.15 10*3/uL 1.09-3.23 = 731-0) MONO x10^3 (test code 0.82 10*3/uL 0.36-1.02 = 742-7) EOS x10^3 (test code = 0.05 10*3/uL 0.06-0.53 L 711-2) BASO x10^3 (test code 0.01-0.09 = 704-7) Lab Interpretation Abnormal (test code = 82053-8) [facility] WITH [id number] 09:19:06 Test Item Value Reference Range Interpretation Comments WBC (test code = See_Comment [Automated 6690-2) message] The sy stem which generated this result transmitted reference range : 4.20 - 10.70 10*3/?L. The reference range was not used to interpret this result as normal/abnormal . RBC (test code = See_Comment L [Automated 789-8) message] The sy stem which generated this result transmitted reference range : 4.26 - 5.52 10*6/?L. The reference range was not used to interpret this result as normal/abnormal . HGB (test code = 6.9 g/dL 12.2-16.4 L 718-7) HCT (test code = 22.1 % 38.4-49.3 L 4544-3) MCV (test code = 79.8 fL 81.7-95.6 L 787-2) MCH (test code = 24.9 pg 26.1-32.7 L 785-6) MCHC (test code = 31.2 g/dL 31.2-35 786-4) RDW-SD (test code = 48.3 fL 38.5-51.6 39513-8) RDW-CV (test code = 16.6 % 12.1-15.4 H 788-0) PLT (test code = See_Comment L [Automated 777-3) message] The sy stem which generated this result transmitted reference range : 150 - 328 10*3/ ?L. The reference r rylee was not used to interpret this result as normal/abnormal . MPV (test code = 10.6 fL 9.8-13 80916-3) NRBC/100 WBC (test See_Comment [Automat ed code = 3390377440) message] The system which generated this result transmitted reference range : 0.0 - 10.0 /100 WBCs. The refer ence range was not u sed to interpret th is result as normal/abnormal . NRBC x10^3 (test code See_Comment [Auto mated = 9031567468) message] The s ystem which generated this result transmitted reference range : 10*3/?L. The reference range was not used to interpret this result as normal/abnormal . GRAN MAT (NEUT) % 73.8 % (test code = 770-8) IMM GRAN % (test code 1.10 % = 6218512270) LYMPH % (test code = 14.2 % 736-9) MONO % (test code = 10.1 % 5905-5) EOS % (test code = 0.6 % 713-8) BASO % (test code = 0.2 % 706-2) GRAN MAT x10^3(ANC) 5.98 10*3/uL 1.99-6.95 (test code = 0959852264) IMM GRAN x10^3 (test 0.09 10*3/uL 0-0.06 H code = 7125067758) LYMPH x10^3 (test code 1.15 10*3/uL 1.09-3.23 = 731-0) MONO x10^3 (test code 0.82 10*3/uL 0.36-1.02 = 742-7) EOS x10^3 (test code = 0.05 10*3/uL 0.06-0.53 L 711-2) BASO x10^3 (test code 0.01-0.09 = 704-7) Lab Interpretation Abnormal (test code = 52893-9) [facility] GLUCOSE (AUTOMATED)2022-05-07 04:50:51 Test Item Value Reference Range Interpretation Comments POCT GLU (test code = 1565648922) 224 mg/dL 70-110 H Lab Interpretation (test code = Abnormal 51134-3) [facility] GLUCOSE (AUTOMATED)2022-05-07 04:50:51 Test Item Value Reference Range Interpretation Comments POCT GLU (test code = 6898402300) 224 mg/dL 70-110 H Lab Interpretation (test code = Abnormal 45890-3) [facility] GLUCOSE (AUTOMATED)2022-05-07 04:34:43 Test Item Value Reference Range Interpretation Comments POCT GLU (test code = 0657617294) 41 mg/dL 70-110 LL Lab Interpretation (test code = Abnormal 60565-6) [facility] GLUCOSE (AUTOMATED)2022-05-07 04:34:43 Test Item Value Reference Range Interpretation Comments POCT GLU (test code = 3015860658) 41 mg/dL 70-110 LL Lab Interpretation (test code = Abnormal 19335-2) [facility] GLUCOSE (AUTOMATED)2022-05-07 04:21:17 Test Item Value Reference Range Interpretation Comments POCT GLU (test code = 2392774838) 40 mg/dL 70-110 LL Lab Interpretation (test code = Abnormal 68949-6) [facility] GLUCOSE (AUTOMATED)2022-05-07 04:21:17 Test Item Value Reference Range Interpretation Comments POCT GLU (test code = 6834353454) 40 mg/dL 70-110 LL Lab Interpretation (test code = Abnormal 10791-8) [facility] GLUCOSE (AUTOMATED)2022-05-07 01:24:20 Test Item Value Reference Range Interpretation Comments POCT GLU (test code = 9156581622) 241 mg/dL 70-110 H Lab Interpretation (test code = Abnormal 41830-7) [facility] GLUCOSE (AUTOMATED)2022-05-07 01:24:20 Test Item Value Reference Range Interpretation Comments POCT GLU (test code = 1328688555) 241 mg/dL 70-110 H Lab Interpretation (test code = Abnormal 04353-8) [facility] GLUCOSE (AUTOMATED)2022-05-06 22:58:40 Test Item Value Reference Range Interpretation Comments POCT GLU (test code = 6063847500) 133 mg/dL 70-110 H Lab Interpretation (test code = Abnormal 42597-0) [facility] GLUCOSE (AUTOMATED)2022-05-06 22:58:40 Test Item Value Reference Range Interpretation Comments POCT GLU (test code = 9669184464) 133 mg/dL 70-110 H Lab Interpretation (test code = Abnormal 84977-6) [facility] GLUCOSE (AUTOMATED)2022-05-06 16:49:57 Test Item Value Reference Range Interpretation Comments POCT GLU (test code = 7271445794) 166 mg/dL 70-110 H Lab Interpretation (test code = Abnormal 50086-0) [facility] GLUCOSE (AUTOMATED)2022-05-06 16:49:57 Test Item Value Reference Range Interpretation Comments POCT GLU (test code = 2538494881) 166 mg/dL 70-110 H Lab Interpretation (test code = Abnormal 67049-1) [facility] GLUCOSE (AUTOMATED)2022-05-06 12:52:59 Test Item Value Reference Range Interpretation Comments POCT GLU (test code = 7970297911) 98 mg/dL 70-110 Lab Interpretation (test code = Normal 75325-2) [facility] GLUCOSE (AUTOMATED)2022-05-06 12:52:59 Test Item Value Reference Range Interpretation Comments POCT GLU (test code = 4341205332) 98 mg/dL 70-110 Lab Interpretation (test code = Normal 18823-0) [facility] GLUCOSE (AUTOMATED)2022-05-06 02:02:02 Test Item Value Reference Range Interpretation Comments POCT GLU (test code = 7363082232) 216 mg/dL 70-110 H Lab Interpretation (test code = Abnormal 46396-6) [facility] GLUCOSE (AUTOMATED)2022-05-06 02:02:02 Test Item Value Reference Range Interpretation Comments POCT GLU (test code = 4021058681) 216 mg/dL 70-110 H Lab Interpretation (test code = Abnormal 12045-7) [facility] GLUCOSE (AUTOMATED)2022-05-05 23:47:56 Test Item Value Reference Range Interpretation Comments POCT GLU (test code = 2601789148) 299 mg/dL 70-110 H Lab Interpretation (test code = Abnormal 01564-4) [facility] GLUCOSE (AUTOMATED)2022-05-05 23:47:56 Test Item Value Reference Range Interpretation Comments POCT GLU (test code = 9836176963) 299 mg/dL 70-110 H Lab Interpretation (test code = Abnormal 14318-4) [facility] Confirmation (Lab Only)2022-05-05 22:57:04 Test Item Value Reference Range Interpretation Comments ABO & RH (test code O Positive Performe d at [facility] = 20) Laboratory [facility] Blood [address] [address]Nybi Free: [phone] A No. [id number] [facility] Confirmation (Lab Only)2022-05-05 22:57:04 Test Item Value Reference Range Interpretation Comments ABO & RH (test code O Positive Performe d at [facility] = 20) Laboratory [facility] Blood [facility] [place] [address] s [address]Zbug Free: [phone] A No. [id number] [facility] and Screen - ONCE [id number] 22:50:06 Test Item Value Reference Range Interpretation Comments ABO & RH (test code O POSITIVE Performe d at [facility] = 20) Laboratory [facility] Blood [facility] [address] [place] [address] s [address]Nhzv Free: [phone] A No. [id number] IAT (test code = Negative Performed a t [facility] 1185) Laboratory [facility] Blood [facility] [address] [place] [address] s [address]Ttac Free: [phone] A No. [id number] [facility] and Screen - ONCE [id number] 22:50:06 Test Item Value Reference Range Interpretation Comments ABO & RH (test code O POSITIVE Performe d at [facility] = 20) Laboratory [facility] Blood Bank3 [address] [facility] s [address]Tzyu Free: [phone] A No. [id number] IAT (test code = Negative Performed a t [facility] 1185) Laboratory [facility] Blood Bank3 [address] [facility] s [address]Txew Free: [phone] A No. [id number] [facility] GLUCOSE (AUTOMATED)2022-05-05 17:10:55 Test Item Value Reference Range Interpretation Comments POCT GLU (test code = 8708296555) 175 mg/dL 70-110 H Lab Interpretation (test code = Abnormal 25351-6) [facility] GLUCOSE (AUTOMATED)2022-05-05 17:10:55 Test Item Value Reference Range Interpretation Comments POCT GLU (test code = 8775825193) 175 mg/dL 70-110 H Lab Interpretation (test code = Abnormal 95115-0) [facility] Test Item Value Reference Range Interpretation Comments FOLATE SER (test code = 0576544229) 5.0 ng/mL 3-20 Lab Interpretation (test code = Normal 03022-0) [facility] [id number] 17:09:22 Test Item Value Reference Range Interpretation Comments VIT B12 (test code = 449 pg/mL 240-930 0931657033) HUDSON (test code = HUDSON) Biotin has been reported to cause a positive bias, interpret results relative to patient's use of biotin. Lab Interpretation (test Normal code = 77879-9) [facility] 17:09:22 Test Item Value Reference Range Interpretation Comments FOLATE SER (test code = 5912936197) 5.0 ng/mL 3-20 Lab Interpretation (test code = Normal 06268-7) [facility], [id number] 17:09:22 Test Item Value Reference Range Interpretation Comments VIT B12 (test code = 449 pg/mL 240-930 6705536049) HUDSON (test code = HUDSON) Biotin has been reported to cause a positive bias, interpret results relative to patient's use of biotin. Lab Interpretation (test Normal code = 39991-1) [facility] [id number] 15:15:34 Test Item Value Reference Range Interpretation Comments ESR (test code = See_Comment H [Automated message] 00837-5) The system [employer] generated this result transmitted ref erence range: 0 - 10 m m/HR. The reference r rylee was not used to interpret this result as normal/abnor mal. Lab Interpretation (test Abnormal code = 55142-1) [facility] [id number] 15:15:34 Test Item Value Reference Range Interpretation Comments ESR (test code = See_Comment H [Automated message] 10535-0) The system [employer] generated this result transmitted ref erence range: 0 - 10 m m/HR. The reference r rylee was not used to interpret this result as normal/abnor mal. Lab Interpretation (test Abnormal code = 27788-4) [facility] GLUCOSE (AUTOMATED)2022-05-05 13:06:57 Test Item Value Reference Range Interpretation Comments POCT GLU (test code = 7331865807) 98 mg/dL 70-110 Lab Interpretation (test code = Normal 18732-0) [facility] GLUCOSE (AUTOMATED)2022-05-05 13:06:57 Test Item Value Reference Range Interpretation Comments POCT GLU (test code = 1582311411) 98 mg/dL 70-110 Lab Interpretation (test code = Normal 15367-5) [facility] Metabolic Panel (NA, K, CL, CO2, GLUCOSE, BUN, CREATININE, CA)2022-05-05 10:16:53 Test Item Value Reference Range Interpretation Comments NA (test code = 128 mmol/L 135-145 L 2658714193) K (test code = 4.0 mmol/L 3.5-5 7749037796) CL (test code = 102 mmol/L 98-108 4870283006) CO2 TOTAL (test code = 22 mmol/L 23-31 L 8508278937) AGAP (test code = 2-16 1491283882) BUN (test code = 28 mg/dL 7-23 H 4047370352) GLUCOSE (test code = 95 mg/dL 70-110 3525513856) CREATININE (test code = 1.39 mg/dL 0.6-1.25 H 3643005126) CALCIUM (test code = 7.5 mg/dL 8.6-10.6 L 1153053795) eGFR (test code = mL/min/1.73m2 0308486499) HUDSON (test code = HUDSON) Association of Glomerular Filtration Rate (GFR) and Staging of Kidney Disease* + --+ --+ ------+| GFR (mL/min/1.73 m2) ?| With Kidney Damage ?| ?Without Kidney Damage+ --------+ --------+ +| ?>90 ?| ?Stage one ?| ? Normal ?+ ---+ ---+ -------+| ?60-89 ?| ?Stage two ?| ? Decreased GFR ? + --+ --+ ------+| ?30-59 ?| ?Stage three ?| ? Stage three ? + --+ --+ ------+| ?15-29 ?| ?Stage four ? | ? Stage four ?+ ---+ ---+ -------+| ?<15 (or dialysis) ? ?| ?Stage five ? | ? Stage five ?+ ---+ ---+ -------+ *Each stage assumes the associated GFR level has been in effect for at least three months. ?Stages 1 to 5, with or without kidney disease, indicate chronic kidney disease. Notes: Determination of stages one and two (with eGFR >59mL/min/1.73 m2) requires estimation of kidney damage for at least three months as defined by structural or functional abnormalities of the kidney, manifested by either:Pathological abnormalities or Markers of kidney damage (including abnormalities in the composition of the blood or urine or abnormalities in imaging tests). Lab Interpretation Abnormal (test code = 31708-3) [facility] [id number] 10:16:53 Test Item Value Reference Range Interpretation Comments MAGNESIUM (test code = 6519115302) 1.9 mg/dL 1.7-2.4 Lab Interpretation (test code = Normal 40462-3) [facility] Metabolic Panel (NA, K, CL, CO2, GLUCOSE, BUN, CREATININE, CA)2022-05-05 10:16:53 Test Item Value Reference Range Interpretation Comments NA (test code = 128 mmol/L 135-145 L 7024124642) K (test code = 4.0 mmol/L 3.5-5 5917012344) CL (test code = 102 mmol/L 98-108 7198075863) CO2 TOTAL (test code = 22 mmol/L 23-31 L 5930354658) AGAP (test code = 2-16 3520436179) BUN (test code = 28 mg/dL 7-23 H 2817325630) GLUCOSE (test code = 95 mg/dL 70-110 7907157865) CREATININE (test code = 1.39 mg/dL 0.6-1.25 H 6642110868) CALCIUM (test code = 7.5 mg/dL 8.6-10.6 L 6816344239) eGFR (test code = mL/min/1.73m2 3894342058) HUDSON (test code = HUDSON) Association of Glomerular Filtration Rate (GFR) and Staging of Kidney Disease* + --+ --+ ------+| GFR (mL/min/1.73 m2) ?| With Kidney Damage ?| ?Without Kidney Damage+ --------+ --------+ +| ?>90 ?| ?Stage one ?| ? Normal ?+ ---+ ---+ -------+| ?60-89 ?| ?Stage two ?| ? Decreased GFR ? + --+ --+ ------+| ?30-59 ?| ?Stage three ?| ? Stage three ? + --+ --+ ------+| ?15-29 ?| ?Stage four ? | ? Stage four ?+ ---+ ---+ -------+| ?<15 (or dialysis) ? ?| ?Stage five ? | ? Stage five ?+ ---+ ---+ -------+ *Each stage assumes the associated GFR level has been in effect for at least three months. ?Stages 1 to 5, with or without kidney disease, indicate chronic kidney disease. Notes: Determination of stages one and two (with eGFR >59mL/min/1.73 m2) requires estimation of kidney damage for at least three months as defined by structural or functional abnormalities of the kidney, manifested by either:Pathological abnormalities or Markers of kidney damage (including abnormalities in the composition of the blood or urine or abnormalities in imaging tests). Lab Interpretation Abnormal (test code = 23446-5) [facility] [id number] 10:16:53 Test Item Value Reference Range Interpretation Comments MAGNESIUM (test code = 5989985548) 1.9 mg/dL 1.7-2.4 Lab Interpretation (test code = Normal 41706-1) [facility] with [id number] 09:45:30 Test Item Value Reference Range Interpretation Comments WBC (test code = See_Comment H [Automated 6690-2) message] The system which generated this result transmit lennox reference range : 4.20 - 10.70 10*3/?L. The reference range was not used to interpret this result as normal/abnormal . RBC (test code = See_Comment L [Automated 789-8) message] The system which generated this result transmit lennox reference range : 4.26 - 5.52 10*6/?L. The reference range was not used to interpret this result as normal/abnormal . HGB (test code = 7.9 g/dL 12.2-16.4 L 718-7) HCT (test code = 24.2 % 38.4-49.3 L 4544-3) MCV (test code = 77.6 fL 81.7-95.6 L 787-2) MCH (test code = 25.3 pg 26.1-32.7 L 785-6) MCHC (test code = 32.6 g/dL 31.2-35 786-4) RDW-SD (test code = 46.1 fL 38.5-51.6 07026-7) RDW-CV (test code = 16.2 % 12.1-15.4 H 788-0) PLT (test code = See_Comment [Automated 777-3) message] The system which generated this result transmit lennox reference range : 150 - 328 10*3/ ?L. The reference range was not u sed to interpret th is result as normal/abnormal . MPV (test code = 10.5 fL 9.8-13 28661-7) NRBC/100 WBC (test See_Comment [Automat ed code = 9383485845) message] The system which generated this result transmit lennox reference range : 0.0 - 10.0 /100 WBCs. The reference range was not used to interpret this result as normal/abnormal . NRBC x10^3 (test code See_Comment [Auto mated = 6340712822) message] The system which generated this result transmit lennox reference range : 10*3/?L. The reference range was not used to interpret this result as normal/abnormal . GRAN MAT (NEUT) % 71.9 % (test code = 770-8) IMM GRAN % (test code 0.50 % = 8219448792) LYMPH % (test code = 17.7 % 736-9) MONO % (test code = 8.2 % 5905-5) EOS % (test code = 1.3 % 713-8) BASO % (test code = 0.4 % 706-2) GRAN MAT x10^3(ANC) 10.88 10*3/uL 1.99-6.95 H (test code = 6850584664) IMM GRAN x10^3 (test 0.07 10*3/uL 0-0.06 H code = 9073304634) LYMPH x10^3 (test code 2.67 10*3/uL 1.09-3.23 = 731-0) MONO x10^3 (test code 1.24 10*3/uL 0.36-1.02 H = 742-7) EOS x10^3 (test code = 0.20 10*3/uL 0.06-0.53 711-2) BASO x10^3 (test code 0.06 10*3/uL 0.01-0.09 = 704-7) Lab Interpretation Abnormal (test code = 96203-4) [facility] with Bcwcknecbjzu2956-13-42 09:45:30 Test Item Value Reference Range Interpretation Comments WBC (test code = See_Comment H [Automated 1690-2) message] The system which generated this result transmit lennox reference range : 4.20 - 10.70 10*3/?L. The reference range was not used to interpret this result as normal/abnormal . RBC (test code = See_Comment L [Automated 809-8) message] The system which generated this result transmit lennox reference range : 4.26 - 5.52 10*6/?L. The reference range was not used to interpret this result as normal/abnormal . HGB (test code = 7.9 g/dL 12.2-16.4 L 718-7) HCT (test code = 24.2 % 38.4-49.3 L 4544-3) MCV (test code = 77.6 fL 81.7-95.6 L 787-2) MCH (test code = 25.3 pg 26.1-32.7 L 785-6) MCHC (test code = 32.6 g/dL 31.2-35 786-4) RDW-SD (test code = 46.1 fL 38.5-51.6 79856-6) RDW-CV (test code = 16.2 % 12.1-15.4 H 788-0) PLT (test code = See_Comment [Automated 777-3) message] The system which generated this result transmit lennox reference range : 150 - 328 10*3/ ?L. The reference range was not u sed to interpret th is result as normal/abnormal . MPV (test code = 10.5 fL 9.8-13 99228-7) NRBC/100 WBC (test See_Comment [Automat ed code = 1818459405) message] The system which generated this result transmit lennox reference range : 0.0 - 10.0 /100 WBCs. The reference range was not used to interpret this result as normal/abnormal . NRBC x10^3 (test code See_Comment [Auto mated = 1062373319) message] The system which generated this result transmit lennox reference range : 10*3/?L. The reference range was not used to interpret this result as normal/abnormal . GRAN MAT (NEUT) % 71.9 % (test code = 770-8) IMM GRAN % (test code 0.50 % = 6906234659) LYMPH % (test code = 17.7 % 736-9) MONO % (test code = 8.2 % 5905-5) EOS % (test code = 1.3 % 713-8) BASO % (test code = 0.4 % 706-2) GRAN MAT x10^3(ANC) 10.88 10*3/uL 1.99-6.95 H (test code = 0649956569) IMM GRAN x10^3 (test 0.07 10*3/uL 0-0.06 H code = 1363877081) LYMPH x10^3 (test code 2.67 10*3/uL 1.09-3.23 = 731-0) MONO x10^3 (test code 1.24 10*3/uL 0.36-1.02 H = 742-7) EOS x10^3 (test code = 0.20 10*3/uL 0.06-0.53 711-2) BASO x10^3 (test code 0.06 10*3/uL 0.01-0.09 = 704-7) Lab Interpretation Abnormal (test code = 59430-4) [facility] WITH [id number] 06:01:22 Test Item Value Reference Range Interpretation Comments WBC (test code = See_Comment H [Automated 6690-2) message] The system which generated this result transmit lennox reference range : 4.20 - 10.70 10*3/?L. The reference range was not used to interpret this result as normal/abnormal . RBC (test code = See_Comment L [Automated 789-8) message] The system which generated this result transmit lennox reference range : 4.26 - 5.52 10*6/?L. The reference range was not used to interpret this result as normal/abnormal . HGB (test code = 8.1 g/dL 12.2-16.4 L 718-7) HCT (test code = 24.6 % 38.4-49.3 L 4544-3) MCV (test code = 78.6 fL 81.7-95.6 L 787-2) MCH (test code = 25.9 pg 26.1-32.7 L 785-6) MCHC (test code = 32.9 g/dL 31.2-35 786-4) RDW-SD (test code = 46.0 fL 38.5-51.6 76019-7) RDW-CV (test code = 16.1 % 12.1-15.4 H 788-0) PLT (test code = See_Comment [Automated 777-3) message] The system which generated this result transmit lennox reference range : 150 - 328 10*3/ ?L. The reference range was not u sed to interpret th is result as normal/abnormal . MPV (test code = 10.9 fL 9.8-13 43474-3) NRBC/100 WBC (test See_Comment [Automat ed code = 8896923826) message] The system which generated this result transmit lennox reference range : 0.0 - 10.0 /100 WBCs. The reference range was not used to interpret this result as normal/abnormal . NRBC x10^3 (test code See_Comment [Auto mated = 9138722025) message] The system which generated this result transmit lennox reference range : 10*3/?L. The reference range was not used to interpret this result as normal/abnormal . GRAN MAT (NEUT) % 77.2 % (test code = 770-8) IMM GRAN % (test code 0.50 % = 9002759790) LYMPH % (test code = 15.3 % 736-9) MONO % (test code = 5.9 % 5905-5) EOS % (test code = 0.8 % 713-8) BASO % (test code = 0.3 % 706-2) GRAN MAT x10^3(ANC) 12.28 10*3/uL 1.99-6.95 H (test code = 0550093424) IMM GRAN x10^3 (test 0.08 10*3/uL 0-0.06 H code = 8762316732) LYMPH x10^3 (test code 2.43 10*3/uL 1.09-3.23 = 731-0) MONO x10^3 (test code 0.93 10*3/uL 0.36-1.02 = 742-7) EOS x10^3 (test code = 0.12 10*3/uL 0.06-0.53 711-2) BASO x10^3 (test code 0.04 10*3/uL 0.01-0.09 = 704-7) Lab Interpretation Abnormal (test code = 98554-2) [facility] WITH [id number] 06:01:22 Test Item Value Reference Range Interpretation Comments WBC (test code = See_Comment H [Automated 8619-2) message] The system which generated this result transmit lennox reference range : 4.20 - 10.70 10*3/?L. The reference range was not used to interpret this result as normal/abnormal . RBC (test code = See_Comment L [Automated 789-8) message] The system which generated this result transmit lennox reference range : 4.26 - 5.52 10*6/?L. The reference range was not used to interpret this result as normal/abnormal . HGB (test code = 8.1 g/dL 12.2-16.4 L 718-7) HCT (test code = 24.6 % 38.4-49.3 L 4544-3) MCV (test code = 78.6 fL 81.7-95.6 L 787-2) MCH (test code = 25.9 pg 26.1-32.7 L 785-6) MCHC (test code = 32.9 g/dL 31.2-35 786-4) RDW-SD (test code = 46.0 fL 38.5-51.6 78938-1) RDW-CV (test code = 16.1 % 12.1-15.4 H 788-0) PLT (test code = See_Comment [Automated 777-3) message] The system which generated this result transmit lennox reference range : 150 - 328 10*3/ ?L. The reference range was not u sed to interpret th is result as normal/abnormal . MPV (test code = 10.9 fL 9.8-13 19600-7) NRBC/100 WBC (test See_Comment [Automat ed code = 5396327282) message] The system which generated this result transmit lennox reference range : 0.0 - 10.0 /100 WBCs. The reference range was not used to interpret this result as normal/abnormal . NRBC x10^3 (test code See_Comment [Auto mated = 4209085097) message] The system which generated this result transmit lennox reference range : 10*3/?L. The reference range was not used to interpret this result as normal/abnormal . GRAN MAT (NEUT) % 77.2 % (test code = 770-8) IMM GRAN % (test code 0.50 % = 0653991026) LYMPH % (test code = 15.3 % 736-9) MONO % (test code = 5.9 % 5905-5) EOS % (test code = 0.8 % 713-8) BASO % (test code = 0.3 % 706-2) GRAN MAT x10^3(ANC) 12.28 10*3/uL 1.99-6.95 H (test code = 4651260008) IMM GRAN x10^3 (test 0.08 10*3/uL 0-0.06 H code = 7274284179) LYMPH x10^3 (test code 2.43 10*3/uL 1.09-3.23 = 731-0) MONO x10^3 (test code 0.93 10*3/uL 0.36-1.02 = 742-7) EOS x10^3 (test code = 0.12 10*3/uL 0.06-0.53 711-2) BASO x10^3 (test code 0.04 10*3/uL 0.01-0.09 = 704-7) Lab Interpretation Abnormal (test code = 57192-4) [id number] Test Item Value Reference Range Interpretation Comments CHOLESTEROL (test 125 MG/DL <200 code = 2210) TRIGLYCERIDES (test 65 MG/DL <150 code = 2232) HDL CHOLESTEROL (test 46 MG/DL >39 code = 2220) CALC LDL CHOL (test 65 MG/DL <100 NOTE: C ALCULATED LDL code = 2237) IS BASED ON SPENCER-HEART METHOD WHICHINCLUDES ADJUSTABLE TRIGLYCERIDE:VL DL CHOLESTEROL RAT IO.THIS FACTOR VARIES B Y MEASURED TRIGLY CERIDE AND NON-HDLCHOL ESTEROL CONCENTRATIONS WITH INCREASED CALCU LATED LDL SEENIN HIGH ER TRIGLYCERIDE OR LOWER NON-HDL SPECIME NS. FOR MOREINFORMATION , SEE CLIENT ANNOUNCE MENT AT [email or web address] LDL/HDL 1.41 RATIO <3.55 (test code = 2238) COMPREHENSIVE METABOLIC [id number] 03:53:43 Test Item Value Reference Range Interpretation Comments GLUCOSE (test code = 274 MG/DL 70-99 H 2216) BUN (test code = 10 MG/DL 04-17) CREATININE (test 0.61 MG/DL 0.80-1.40 L code = 2214) eGFR (2020 CKD-EPI) 103 >60 (test code = 10360) ML/MIN/1.73 CALC BUN/CREAT (test 16 RATIO - code = 2235) SODIUM (test code = 131 MEQ/L 133-146 L 2230) POTASSIUM (test code 5.0 MEQ/L 3.5-5.4 = 2228) CHLORIDE (test code 97 MEQ/L 95-107 = 2215) CARBON DIOXIDE (test 20 MEQ/L 19-31 code = 2206) CALCIUM (test code = 8.5 MG/DL 8.5-10.5 2208) PROTEIN, TOTAL (test 7.7 G/DL 6.1-8.3 code = 222) ALBUMIN (test code = 3.6 G/DL 3.5-5.2 2200) CALC GLOBULIN (test 4.1 G/DL 1.9-3.7 H code = 2240) CALC A/G RATIO (test 0.9 RATIO 1.0-2.6 L code = 223) BILIRUBIN, TOTAL 0.6 MG/DL See_Comment [Automated message] (test code = 220) The syste m which generated this result transmitted ref erence range: <=1.2. T he reference range was not used to int erpret this result as normal/abnormal . ALKALINE PHOSPHATASE 150 U/L 40-125 H (test code = 2203) AST (test code = 39 U/L 9-50 2217) ALT (test code = 24 U/L 5-50 UNLESS OTH ERWISE 2218) INDICATED, ALL TESTING PERFORM ED ATCLINICAL PATH OLOGY LABORATORIES, [facility]. [address] [place] [id number] [place] [address] JOSEY DIRECTOR: OSWALD KARIMI M.D. CLIA NUMBER [id number] CAP ACCREDITATION N O. [id number] HEMOGLOBIN [id number] 03:42:02 Test Item Value Reference Range Interpretation Comments HEMOGLOBIN A1c (test 8.4 % 4.2-5.6 H [employer]IC AN DIABETES code = 96041) ASSOCIATION IDELINES FOR HGB A1C: PREDIABETES/INC REASED [...] LABORATORY C ONSULTATION. CBC W/AUTO DIFF WITH [id number] 02:45:26 Test Item Value Reference Range Interpretation [...] RBCS 0.00 K/UL 0.00-0.11 (test code = 00556) PROTHROMBIN TIME (PT)2021-11-08 07:30:15 Test Item Value Reference Range Interpretation Comments PROTHROMBIN TIME TEST NOT 12.5-14.7 Unable to p erform (PT) (test code = PERFORMED testing, s pecimen not 1402) SECONDS received.Charge s adjusted as applicable. INR (test code = TEST NOT SEE BELOW CURRENT 32531) PERFORMED RECOMMENDATIONS ARE FOR AN INR OF 2 .0-3.0 FOR ALL PATIENT S ON VITAMIN K ANTAGONISTS, EX CEPT THOSE WITH PROS THETIC HEART VALVES, F OR WHOM INR OF 2.5 -3.5 IS RECOMMENDED. UNLESS OTHERWIS E INDICATED, ALL TESTING PERFORM ED ATCLINICAL PATH OLOGY LABORATORIES, [place]. [address] [place], [place] [id number] [place] [address] DIRECTOR: OSWALD KARIMI M.D. CLIA NUMBER [id number] CAP ACCREDITATION N O. [id number] HEMOGLOBIN [id number] 06:54:40 Test Item Value Reference Range Interpretation Comments HEMOGLOBIN A1c (test 8.1 % 4.2-5.6 H AMERIC AN DIABETES code = 31407) ASSOCIATION IDELINES FOR HGB A1C: PREDIABETES/INC REASED [...] LABORATORY C ONSULTATION. CBC W/AUTO DIFF WITH [id number] 05:56:26 Test Item Value Reference Range Interpretation [...] RBCS 0.00 K/UL 0.00-0.11 (test code = 60682) LIPID [id number] 05:32:10 Test Item Value Reference Range Interpretation [...] MOREINFORMATION , SEE CLIENT ANNOUNCE MENT AT [email or web address] RATIO LDL/HDL 1.68 RATIO <3.55 (test code = 2238) COMPREHENSIVE METABOLIC [id number] 05:32:10 Test Item Value Reference Range Interpretation Comments GLUCOSE (test code = 249 MG/DL 70-99 H 2216) BUN (test code = 10 MG/DL 8-23 2207) CREATININE (test 0.58 MG/DL 0.80-1.40 L code = 2214) eGFR (2020 CKD-EPI) 104 >60 (test code = 77800) ML/MIN/1.73 CALC BUN/CREAT (test 17 RATIO 6-28 code = 2235) SODIUM (test code = 127 MEQ/L 133-146 L 2230) POTASSIUM (test code 5.1 MEQ/L 3.5-5.4 = 2227) CHLORIDE (test code 94 MEQ/L 95-107 L = 2214) CARBON DIOXIDE (test 21 MEQ/L 19-31 code = 220) CALCIUM (test code = 8.8 MG/DL 8.5-10.5 [...] code = 27 U/L 5-50 2218) BLOOD [id number] 11:00:00 Test Item Value Reference Range Interpretation Comments CULTURE (BEAKER) (test No growth in 5 days code = 1095) BLOOD [id number] 11:00:00 Test Item Value Reference Range Interpretation Comments CULTURE (BEAKER) (test No growth in 5 days code = 1095) POCT-GLUCOSE [id number] 12:19:00 Test Item Value Reference Range Interpretation Comments POC-GLUCOSE METER 250 mg/dL 70-110 H : TESTED A T [facility] [address] (BEAKER) (test code [address] THE, = 1538) [place] [address] 384: Virologist/Techni anson ID = [id number] for Bacilio Liang y POCT-GLUCOSE [id number] 08:18:00 Test Item Value Reference Range Interpretation Comments POC-GLUCOSE METER 195 mg/dL 70-110 H : TESTED A T [facility] [address] (BEAKER) (test code [address], = 1538) [place] [address] 384: Virologist/Techni anson ID = [id number] for Bacilio Liang y COMPREHENSIVE METABOLIC [id number] 05:40:00 Test Item Value Reference Range Interpretation [...] 1092) DATA TO CALCULA TE ESTIMATED GFR. Virologist ID - [id number] 05:24:00 Test Item Value Reference Range Interpretation Comments HEMOGLOBIN A1C (BEAKER) (test code = 8.1 % 4.3-6.1 H 368) Virologist ID - [id number] 21:31:00 Test Item Value Reference Range Interpretation Comments POC-GLUCOSE METER 300 mg/dL 70-110 H : TESTED A T [facility] [address] (BEAKER) (test code [address], = 1538) [place] [address] 384: Virologist/Techni anson ID = [id number] for D Tracy herreraa POCT-GLUCOSE [id number] 16:18:00 Test Item Value Reference Range Interpretation Comments POC-GLUCOSE METER 295 mg/dL 70-110 H : TESTED A T [facility] [address] (BEAKER) (test code [address], = 1538) [place] [address] 384: Virologist/Techni anson ID = [id number] for D milton Marcela POCT-GLUCOSE [id number] 10:52:00 Test Item Value Reference Range Interpretation Comments POC-GLUCOSE METER 233 mg/dL 70-110 H : TESTED A T [facility] [address] (BEAKER) (test code [address], = 1538) [place] [address] 384: Virologist/Techni anson ID = [id number] for D ubose, Marcela BASIC METABOLIC [id number] 10:34:00 Test Item Value Reference Range Interpretation [...] 1092) DATA TO CALCULA TE ESTIMATED GFR. Virologist ID - [id number] METABOLIC [id number] 09:55:00 Test Item Value Reference Range Interpretation [...] 1092) DATA TO CALCULA TE ESTIMATED GFR. Virologist ID - [id number] slightly lipemicCBC W/PLT COUNT & AUTO [id number] 09:44:00 Test Item Value Reference Range Interpretation [...] % 0-0 PERCENT (BEAKER) (test code = 2801)"
--- NOTE | 2022-09-22 22:05 | ER ---
Nurse's Notes [facility] Name: Deonte Armstrong Age: 72 yrs Sex: Male : 1950 Arrival Date: 09/22/2022 Time: 21:06 Bed 25 Private MD: Diagnosis: Post operative bleeding;Elevated blood-pressure reading, without diagnosis of hypertension Presentation: 09/22 21:36 Chief complaint: EMS states: Toned out for bleeding to left foot, pt states he had left ll3 big toe amputated in late April and today he had the wound cleaned out today, pt states wound started bleeding in shower and would not stop, wound to left big toe noted to be bleeding moderately through dressing. Coronavirus screen: Vaccine status: Patient reports being unvaccinated. At this time, the client does not indicate any symptoms associated with coronavirus-19. Ebola Screen: No symptoms or risks identified at this time. Initial Sepsis Screen: Does the patient meet any 2 criteria? No. Patient's initial sepsis screen is negative. Does the patient have a suspected source of infection? No. Patient's initial sepsis screen is negative. Risk Assessment: Do you want to hurt yourself or someone else? Patient reports no desire to harm self or others. Onset of symptoms was September 22, 2022. 21:36 Method Of Arrival: EMS: [facility] ll3 21:36 Acuity: KAROLINA 3 ll3 Triage Assessment: 21:40 General: Appears in no apparent distress. comfortable, Behavior is calm, cooperative. ll3 Pain: Denies pain. Derm: Wound noted left first toe Wound is moderately bleeding through dressing, pt states had wound cleaned out today. Musculoskeletal: Circulation, motion, and sensation intact. Historical: - Allergies: 21:40 No Known Allergies; ll3 - Home Meds: 21:40 insulin [Active]; Hydrocodone [Active]; Aspirin Oral [Active]; lisinopril oral ll3 [Active]; metoprolol tartrate Oral [Active]; spironolactone Oral [Active]; sulfamethoxazole-trimethoprim Oral [Active]; - PSHx: 21:40 hernia repair; Amputated left big toe; ll3 - Immunization history:: Client reports having NOT received the Covid vaccine. - Social history:: Smoking status: Patient reports the use of cigarette tobacco products, denies chronic smoking, but will smoke occasionally. Screenin:18 [facility] ED Fall Risk Assessment (Adult) History of falling in the last 3 months, ll3 including since admission No falls in past 3 months (0 pts) Confusion or Disorientation No (0 pts) Intoxicated or Sedated No (0 pts) Impaired Gait Yes (1 pt) Mobility Assist Device Used No (0 pt) Altered Elimination No (0 pt) Score/Fall Risk Level 0 - 2 = Low Risk Oriented to surroundings, Maintained a safe environment, Educated pt \T\ family on fall prevention, incl call for assistance when getting out of bed. Abuse screen: Denies threats or abuse. Denies injuries from another. Nutritional screening: No deficits noted. Tuberculosis screening: No symptoms or risk factors identified. Assessment: 21:40 General: See triage assessment. ll3 21:45 Reassessment: Bleeding controlled, pt tolerated well. ll3 Vital Signs: 21:36 BP 143 / 97; Pulse 98; Resp 17; Temp 98.8(TE); Pulse Ox 99% on R/A; Weight 81.65 kg ll3 (R); Height 5 ft. 10 in. (177.80 cm) (R); Pain 0/10; 22:20 BP 125 / 95; Pulse 95; Resp 18; Pulse Ox 100% on R/A; ll3 21:36 Body Mass Index 25.83 (81.65 kg, 177.80 cm) ll3 ED Course: 21:06 Patient arrived in ED. wm 21:13 Ventura Estrella DO is Attending Physician. ms3 21:40 Triage completed. ll3 21:40 Arm band placed on Patient placed in an exam room, on a stretcher, on pulse oximetry. ll3 Pressure dressing applied. 22:19 No provider procedures requiring assistance completed. Patient did not have IV access ll3 during this emergency room visit. 22:20 Patient has correct armband on for positive identification. Bed in low position. Call ll3 light in reach. Side rails up X 1. Administered Medications: No medications were administered Medication: 22:19 VIS not applicable for this client. ll3 Outcome: 22:04 Discharge ordered by . ms3 22:19 Discharged to home ambulatory, with family. ll3 22:19 Condition: stable 22:19 Discharge instructions given to patient, Instructed on discharge instructions, follow up and referral plans. Demonstrated understanding of instructions, follow-up care. 22:21 Patient left the ED. ll3 Signatures: Ventura Estrella DO DO ms3 Kelly Kuhn Lynsea, RN RN ll3 Corrections: (The following items were deleted from the chart) 22:18 22:17 General: See triage assessment. ll3 ll3
--- NOTE | 2022-09-22 22:22 | EDPHYS ---
Physician Documentation [facility] Name: Deonte Armstrong Age: 72 yrs Sex: Male : 1950 Arrival Date: 09/22/2022 Time: 21:06 Bed 25 Private MD: ED Physician Ventura Estrella HPI: 09/22 22:04 This 72 yrs old Male presents to ER via EMS with complaints of Foot Injury. ms3 22:04 72-year-old male with amputation of his left great toe at the end of April. Patient ms3 states he had a debridement of the amputation site at [facility] today. Patient states when he got home he removed the dressing and took a shower and the wound began bleeding. Patient denies pain as a nerve block was placed for surgery today. Patient denies alleviating or inciting factors.. Historical: - Allergies: 21:40 No Known Allergies; ll3 - Home Meds: 21:40 insulin [Active]; Hydrocodone [Active]; Aspirin Oral [Active]; lisinopril oral ll3 [Active]; metoprolol tartrate Oral [Active]; spironolactone Oral [Active]; sulfamethoxazole-trimethoprim Oral [Active]; - PSHx: 21:40 hernia repair; Amputated left big toe; ll3 - Immunization history:: Client reports having NOT received the Covid vaccine. - Social history:: Smoking status: Patient reports the use of cigarette tobacco products, denies chronic smoking, but will smoke occasionally. ROS: 22:04 Constitutional: Negative for fever, and chills. Neck: Negative for injury, pain, and ms3 swelling, Cardiovascular: Negative for chest pain, and palpitations. Respiratory: Negative for shortness of breath, cough, wheezing, and pleuritic chest pain, Abdomen/GI: Negative for abdominal pain, nausea, vomiting, diarrhea, and constipation. 22:04 Skin: Positive for Left foot wound bleeding. 22:04 All other systems are negative. Exam: 22:04 Constitutional: This is a well developed, well nourished patient who is awake, alert, ms3 and in no acute distress. Head/Face: Normocephalic, atraumatic. Neck: Trachea midline, no cervical lymphadenopathy. Supple, full range of motion without nuchal rigidity, or vertebral point tenderness. No Meningismus. Chest/axilla: Normal chest wall appearance and motion. Nontender with no deformity. Cardiovascular: Regular rate and rhythm with a normal S1 and S2. No gallops, murmurs, or rubs. Normal PMI, no JVD. No pulse deficits. Respiratory: Lungs have equal breath sounds bilaterally, clear to auscultation and percussion. No rales, rhonchi or wheezes noted. No increased work of breathing, no retractions or nasal flaring. Abdomen/GI: Soft, non-tender, with normal bowel sounds. No distension or tympany. No guarding or rebound. No evidence of tenderness throughout. 22:04 Skin: Wound recheck: Left great toe amputation site: oozing blood, no erythema. Vital Signs: 21:36 BP 143 / 97; Pulse 98; Resp 17; Temp 98.8(TE); Pulse Ox 99% on R/A; Weight 81.65 kg ll3 (R); Height 5 ft. 10 in. (177.80 cm) (R); Pain 0/10; 22:20 BP 125 / 95; Pulse 95; Resp 18; Pulse Ox 100% on R/A; ll3 21:36 Body Mass Index 25.83 (81.65 kg, 177.80 cm) ll3 Procedures: 22:04 Performed Wound care: Surgicel placed on proximal deep portion of patients wound. 4x4s ms3 placed on top of surgicel. Kerlex placed on top of 4x4s. Javi wrap placed on top of Kerlex. Wound hemostatic. MDM: 21:40 Patient medically screened. ms3 22:04 Differential diagnosis: Post operative bleeding vs HTN. Data reviewed: vital signs, ms3 nurses notes, and as a result, I will discharge patient. Historians other than the Patient: EMS: [facility]. Care significantly affected by the following Social Determinants of Health: Poor access to transportation. Counseling: I had a detailed discussion with the patient and/or guardian regarding: the historical points, exam findings, and any diagnostic results supporting the discharge/admit diagnosis, the need for outpatient follow up, to return to the emergency department if symptoms worsen or persist or if there are any questions or concerns that arise at home. ED course: Discussed with patient allowing his home health nurses to change his dressings. Discussed with patient need to follow-up with [facility] surgeon in 2 to 3 days. Patient understands and agrees with plan. All questions were answered. Return precautions discussed include worsening symptoms, or any other concerns. On reevaluation patient's left foot wound is hemostatic, patient without pain, alert and oriented x4, no apparent distress, nontoxic appearing.. Administered Medications: No medications were administered Disposition: 23:23 Chart complete. ms3 Disposition Summary: 09/22/22 22:04 Discharge Ordered Location: Home ms3 Condition: Stable ms3 Diagnosis - Post operative bleeding ms3 - Elevated blood-pressure reading, without diagnosis of hypertension ms3 Followup: ms3 - With: Private Physician - When: 2 - 3 days - Reason: Recheck today's complaints Discharge Instructions: - Discharge Summary Sheet ms3 - Wound Care, Adult ms3 Forms: - Medication Reconciliation Form ms3 - Thank You Letter ms3 - Antibiotic Education ms3 - Prescription Opioid Use ms3 Signatures: Ventura Estrella, DO ms3 Romeo Real RN RN ll3 Corrections: (The following items were deleted from the chart) 22:06 22:04 Skin: Positive for L great toe amputation site oozing blood, ms3 ms3
[2022-09-22 22:59] VITALS: TEMP 98.8
[2022-09-22 23:01] VITALS: BP 125/95; O2SAT 100
== END 2022-09-22 22:21 | disposition home or self-care (01) ==
LOC: ER 21:03
DX: M96.830 Postprocedural hemorrhage of a musculoskeletal structure following a musculoskeletal system procedure (principal); R03.0 Elevated blood-pressure reading, without diagnosis of hypertension; Z89.412 Acquired absence of left great toe; F17.210 Nicotine dependence, cigarettes, uncomplicated
CPT/HCPCS: 99283